=== PATIENT | female | born 1995 | race Caucasian/White ===

== ENCOUNTER 2023-08-08 19:06 | Outpatient (REF) | payer OTHER, SELFPAY ==
[2023-08-13 12:11] LABS: Age Gdln ACOG Testing Note (.); IGP, rfx Aptima HPV ASCU Note (.)
== END 2023-08-08 19:07 | disposition home or self-care (01) ==
LOC: LAB 19:06
PROVIDERS: Visit Provider Physician Assistant
DX: Z01.419 Encounter for gynecological examination (general) (routine) without abnormal findings (principal)
CPT/HCPCS: G0145

== ENCOUNTER 2024-02-26 10:56 | Emergency (ER) | payer OTHER, SELFPAY ==
[2024-02-26] VITALS (7 sets, daily range): BP systolic 105–121; BP diastolic 75–81; PULSE 95; TEMP 36.9; O2SAT 97–100; BMI 29.6
--- NOTE | 2024-02-26 | US_ITS ---
The [address] [address] Patient Name: PAULO LIZAMA MRN: [id number] date: 1995 Sex: F Assigned Patient Location: ER Current Patient Location: ER Accession/Order Number: [id number] Exam Date: 02/26/2024 14:30 Report Date: 02/26/2024 15:18 At the request of: SUSI ORONA Procedure: US vas organ single comp EXAMINATION: US pelvis transvaginal, US vas organ single comp HISTORY: right pelvic pain COMPARISON: CT abdomen pelvis 02/26/2024 TECHNIQUE: Transabdominal and/or transvaginal sonographic examination was performed as indicated by examination type. FINDINGS: UTERUS: Normal size and appearance. Mildly dilated vessels within bilateral adnexa; nonspecific. Uterus size: 7.2 x 5.3 x 4.6 cm ENDOMETRIUM: Normal homogeneous appearance. Endometrial thickness: 8 mm RIGHT OVARY: Contains a 2.4 cm benign-appearing cyst. Duplex Doppler demonstrates normal waveform and flow; resistive index 0.5. Ovary size: 4.7 x 2.6 x 2.4 cm LEFT OVARY: Normal size and appearance. Duplex Doppler demonstrates normal waveform and flow; resistive index 0.6. Ovary size: 2.8 x 2.2 x 2.3 cm CUL-DE-SAC: Unremarkable. No significant free fluid. BLADDER: Unremarkable. OTHER: None. US/US vas organ single comp IMPRESSION: 1. Right ovary contains a 2.4 cm benign-appearing cyst. No torsion or acute findings to account for patient's symptoms. Electronically authenticated by: TISH ROCKWELL Date: 02/26/2024 15:18
--- NOTE | 2024-02-26 11:24 | CT_ITS ---
[address] [address] Patient Name: PAULO LIZAMA MRN: [id number] date: 1995 Sex: F Assigned Patient Location: ER Current Patient Location: Accession/Order Number: [id number] Exam Date: 02/26/2024 12:05 Report Date: 02/26/2024 13:15 At the request of: SUSI ORONA Procedure: CT abdomen pelvis w con EXAMINATION: CT abdomen pelvis w con HISTORY: right lower quadrant pain COMPARISON: CT abdomen pelvis 01/29/2017 TECHNIQUE: Axial, Coronal, and Sagittal images were obtained without and/or with IV contrast as indicated by examination type. Dose reduction techniques were achieved by using automated exposure control and/or adjustment of mA and/or kV according to patient size and/or use of iterative reconstruction technique. FINDINGS: LUNG BASES: No visible pulmonary or pleural disease. LIVER: No enlargement, atrophy, suspicious density, or significant focal lesion. BILIARY: No dilatation or calcification. PANCREAS: No lesion, fluid collection, or abnormal duct dilatation. SPLEEN: No enlargement or focal lesion. ADRENALS: No mass or enlargement. KIDNEYS: No mass, obstruction, or calcification. BOWEL/MESENTERY: Mild circumference wall thickening of transverse and descending colon suspected to be secondary to lack of distention. No surrounding inflammatory changes. No free air, free fluid, or abnormal bowel dilation. Normal appendix. AORTA/VASCULAR: No aneurysm or dissection. RETROPERITONEUM: No mass or adenopathy. LYMPH NODES: No adenopathy. URINARY BLADDER: No visible focal wall thickening, lesion, or calculus. PELVIC ORGANS: 2.9 cm in diameter thick-walled cystic structure within right pelvis suspected to be ovarian in origin. IUD within endometrial cavity. ABDOMINAL WALL: No mass or hernia. BONES: No bony lesion or fracture. OTHER: Negative. CT/CT abdomen pelvis w con IMPRESSION: 1. Thick-walled 2.9 cm diameter cyst within right pelvis suspected to be an ovarian cyst. Consider follow-up ultrasound evaluation. 2. Mild wall thickening of mid and distal colon suspected be secondary to lack of distention. Colitis is felt less likely. Electronically authenticated by: TISH ROCKWELL Date: 02/26/2024 13:15
--- NOTE | 2024-02-26 11:27 | ED.GENADUL1 ---
HPI HPI - General Adult General Chief complaint: Abdominal Pain Stated complaint: RIGHT SIDE PAIN, NAUSEA, VOMITING Time Seen by Provider: 02/26/24 11:24 Source: patient Mode of arrival: walk-in Limitations: no limitations History of Present Illness HPI narrative: Patient is a 28-year-old female who is presenting to the ER today with chief complaint of right lower quadrant pain intermittently for the past week. Patient's been having nausea and vomiting for the past 2 or 3 days. Patient is intermittently able to keep water in. Patient has had an ovarian cyst in the past. Patient saw Dr. Chavez yesterday, had a urine and that were negative, outpatient pelvic ultrasound was ordered and was going to be performed tomorrow as an outpatient. Patient has no history of kidney stone. Patient's had intermittent diarrhea. No vaginal bleeding, discharge or odor. Patient is displaying some signs of peritoneal signs, stating when she twists or turns or bumps in the road do hurt her abdomen. Patient looks very uncomfortable. Patient is concerned about her appendix. All systems are negative except as noted/marked. All systems reviewed and otherwise negative. Nurses note and vital signs reviewed and patient is not hypoxic. General: The patient appears well and in no apparent distress. Patient is resting comfortably on cart. Patient is not toxic, lethargic, or listless Skin: Warm, dry, no pallor noted. There is no rash noted. No petechiae, purpura. Head: Normocephalic, atraumatic Eye: Normal conjunctiva, no drainage, EOMI. PERRL Ears, Nose, Mouth, and Throat: oral mucosa is moist. Nares patent. Mouth without vesicles. Cardiovascular: Regular Rate and Rhythm, no murmur, gallop, rub Respiratory: Patient is in no distress, no accessory muscle use, lungs are clear to auscultation, no wheezing, rales or rhonchi Back: non-tender, no left CVA tenderness to percussion. No CT LS midline pain GI: Patient has moderate tenderness palpation to the right lower quadrant extending down into the right lower pelvic area. No suprapubic tenderness to palpation, no flank pain bilateral, mild peritoneal signs with kicking the bed, mild right flank pain, mild right CVA tenderness palpation, no tenderness to palpation, no masses appreciated. No rebound, guarding, or rigidity noted. No distention. Musculoskeletal: Patient has full range of motion of all of the extremities, no motor, sensory, or focal neurological deficits Neurological: A&O x4, normal speech Psychiatric: Cooperative Related Data Previous Rx's ?Medication ?Instructions ?Recorded ondansetron 4 mg disintegrating 4 mg PO Q4H PRN nausea and 02/26/24 tablet vomiting 3 days #6 tabs Allergies Allergy/AdvReac Type Severity Reaction Status Date / Time Sulfa (Sulfonamide Allergy Hives Verified 02/26/24 11:04 Antibiotics) sulfamethoxazole Allergy Hives Verified 02/26/24 11:04 [From Bactrim] tramadol Allergy Hives Verified 02/26/24 11:04 trimethoprim [From Bactrim] Allergy Hives Verified 02/26/24 11:04 Opioid HPI Opioid Management Most Recent Opioid Data: Last MAR Pain Assessment 02/26/24 14:31 Exam Constitutional Vital Signs, click to edit/add: Last Vital Signs Temp 98.5 F 02/26/24 11:05 Pulse 95 H 02/26/24 11:05 Resp 18 02/26/24 11:05 BP 107/81 02/26/24 12:30 Pulse Ox 99 02/26/24 13:00 O2 Del Method Room Air 02/26/24 11:05 Course Vital Signs Vital signs: Vital Signs Temperature 98.5 F 02/26/24 11:05 Pulse Rate 95 H 02/26/24 11:05 Respiratory Rate 18 02/26/24 11:05 Blood Pressure 105/78 02/26/24 11:05 Pulse Oximetry 100 02/26/24 11:05 Oxygen Delivery Method Room Air 02/26/24 11:05 Temperature 98.5 F 02/26/24 11:05 Pulse Rate 95 H 02/26/24 11:05 Respiratory Rate 18 02/26/24 11:05 Blood Pressure 107/81 02/26/24 12:30 Pulse Oximetry 99 02/26/24 13:00 Oxygen Delivery Method Room Air 02/26/24 11:05 Medical Decision Making MDM Narrative Medical decision making narrative: Patient will have an IV established, and will be given Zofran, Toradol, morphine along with lab work and CT. Patient has been fatigued and tired in the past week, mono will be checked as well. Patient and her boyfriend both have had mono in the past. 1625 patient's lab work showed no significant findings, patient's CT of the abdomen pelvis showed a approximately 3 cm right ovarian cyst. Reassessment at potential discharge time and I was discussing the lab work and CAT scan show that she is still having right lower pelvic pain that has not improved despite medications given. Patient is told Courtney AVILA several times that the pain has not changed in the right lower pelvic area. Patient therefore had a ultrasound of the pelvis to rule any type of torsion, abscess, or any other acute complaints or concerns. Ultrasound shows no other acute findings besides. Patient will be sent home, patient alternate Tylenol and Motrin for pain. Patient was sent home a prescription for Zofran to use as needed. Boyfriend has been at bedside. Education on ovarian cyst and follow-up was discussed with patient. No questions discharged Lab Data Labs: Lab Results 02/26/24 02/26/24 02/26/24 Range/Units 11:10 11:46 12:00 WBC 10.0 (4.0-11.0) 10^3/uL RBC 4.47 (4.20-5.40) 10^6/uL Hgb 14.0 (12.0-16.0) g/dL Hct 41.5 (36.0-48.0) % MCV 92.8 (81.0-99.0) fL MCH 31.3 (26.7-34.0) pg MCHC 33.7 (29.9-35.2) g/dL RDW 12.0 (11.0-15.0) % Plt Count 274 (150-450) 10^3/uL MPV 12.2 (9.5-13.5) fL Neut % (Auto) 58.0 (43.0-75.0) % Lymph % (Auto) 34.3 (20.5-60.0) % [place] % (Auto) 5.7 (1.7-12.0) % Eos % (Auto) 1.0 (0.9-7.0) % Baso % (Auto) 0.7 (0.2-2.0) % Neut # (Auto) 5.8 (1.4-6.5) 10^3/uL Lymph # (Auto) 3.4 (1.2-3.8) 10^3/uL [place] # (Auto) 0.6 (0.3-0.8) 10^3/uL Eos # (Auto) 0.1 (0.0-0.7) 10^3/uL Baso # (Auto) 0.1 (0.0-0.1) 10^3/uL Abs Immat Gran (auto) 0.03 (0.00-0.03) 10^3/uL Imm/Tot Granulo (auto) 0.3 (0.0-0.5) % Sodium 138 (136-145) mmol/L Potassium 3.4 L (3.5-5.1) mmol/L Chloride 104 (98-107) mmol/L Carbon Dioxide 27.6 (21.0-32.0) mmol/L Anion Gap 9.8 BUN 8.0 (7.0-18.0) mg/dL Creatinine 0.84 (0.55-1.02) mg/dL Est GFR ( Amer) >60 (>=60) Est GFR (Non-Af Amer) >60 (>=60) BUN/Creatinine Ratio 9.5 Glucose 91 (74-106) mg/dL Lactate 2.3 H* (0.4-2.0) mmol/L Calcium 8.7 (8.5-10.1) mg/dL Total Bilirubin 0.8 (0.2-1.0) mg/dL AST 12 L (15-37) U/L ALT 19 (14-59) U/L Alkaline Phosphatase 69 (46-116) U/L Total Protein 7.3 (6.4-8.2) g/dL Albumin 3.9 (3.4-5.0) g/dL Globulin 3.4 g/dL Albumin/Globulin Ratio 1.1 Lipase 26.0 (16.0-77.0) U/L Urine Color Lt. yellow (YELLOW) Urine Clarity Clear (CLEAR) Urine pH 7.5 (5.0-9.0) Ur Specific [place] 1.015 (1.005-1.025) Urine Protein Negative (NEG/TRACE) mg/dL Urine Glucose (UA) Negative (NEGATIVE) mg/dL Urine Ketones Negative (NEGATIVE) mg/dL Urine Occult Blood Negative (NEGATIVE) Urine Nitrite Negative (NEGATIVE) Urine Bilirubin Negative (NEGATIVE) Urine Urobilinogen 0.2 (0.2-1.0) EU/dL Ur Leukocyte Esterase Negative (NEGATIVE) Urine RBC 0-2 (0-2) #/HPF Urine WBC 0-2 A (NONE SEEN) #/HPF Ur Squamous Epith Cells Few A (NONE/RARE) #/LPF Urine Crystals None seen (None Seen) #/HPF Urine Bacteria Trace A (NONE SEEN) #/HPF Urine Casts None seen (NONE SEEN) #/LPF Urine Mucus None seen (NONE SEEN) Ur Culture Indicated? No Urine HCG, Qual Negative (NEGATIVE) Monoscreen Negative (NEGATIVE) 02/26/24 Range/Units 14:04 WBC (4.0-11.0) 10^3/uL RBC (4.20-5.40) 10^6/uL Hgb (12.0-16.0) g/dL Hct (36.0-48.0) % MCV (81.0-99.0) fL MCH (26.7-34.0) pg MCHC (29.9-35.2) g/dL RDW (11.0-15.0) % Plt Count (150-450) 10^3/uL MPV (9.5-13.5) fL Neut % (Auto) (43.0-75.0) % Lymph % (Auto) (20.5-60.0) % [place] % (Auto) (1.7-12.0) % Eos % (Auto) (0.9-7.0) % Baso % (Auto) (0.2-2.0) % Neut # (Auto) (1.4-6.5) 10^3/uL Lymph # (Auto) (1.2-3.8) 10^3/uL [place] # (Auto) (0.3-0.8) 10^3/uL Eos # (Auto) (0.0-0.7) 10^3/uL Baso # (Auto) (0.0-0.1) 10^3/uL Abs Immat Gran (auto) (0.00-0.03) 10^3/uL Imm/Tot Granulo (auto) (0.0-0.5) % Sodium (136-145) mmol/L Potassium (3.5-5.1) mmol/L Chloride (98-107) mmol/L Carbon Dioxide (21.0-32.0) mmol/L Anion Gap BUN (7.0-18.0) mg/dL Creatinine (0.55-1.02) mg/dL Est GFR ( Amer) (>=60) Est GFR (Non-Af Amer) (>=60) BUN/Creatinine Ratio Glucose (74-106) mg/dL Lactate 0.7 (0.4-2.0) mmol/L Calcium (8.5-10.1) mg/dL Total Bilirubin (0.2-1.0) mg/dL AST (15-37) U/L ALT (14-59) U/L Alkaline Phosphatase (46-116) U/L Total Protein (6.4-8.2) g/dL Albumin (3.4-5.0) g/dL Globulin g/dL Albumin/Globulin Ratio Lipase (16.0-77.0) U/L Urine Color (YELLOW) Urine Clarity (CLEAR) Urine pH (5.0-9.0) Ur Specific [place] (1.005-1.025) Urine Protein (NEG/TRACE) mg/dL Urine Glucose (UA) (NEGATIVE) mg/dL Urine Ketones (NEGATIVE) mg/dL Urine Occult Blood (NEGATIVE) Urine Nitrite (NEGATIVE) Urine Bilirubin (NEGATIVE) Urine Urobilinogen (0.2-1.0) EU/dL Ur Leukocyte Esterase (NEGATIVE) Urine RBC (0-2) #/HPF Urine WBC (NONE SEEN) #/HPF Ur Squamous Epith Cells (NONE/RARE) #/LPF Urine Crystals (None Seen) #/HPF Urine Bacteria (NONE SEEN) #/HPF Urine Casts (NONE SEEN) #/LPF Urine Mucus (NONE SEEN) Ur Culture Indicated? Urine HCG, Qual (NEGATIVE) Monoscreen (NEGATIVE) Discharge Plan Discharge Stand Alone Forms: Work/School Release, Portal Instructions Chief Complaint: Abdominal Pain Clinical Impression: Abdominal pain, Cyst of right ovary Patient Disposition: Home, Self-Care Time of Disposition Decision: 16:24 Condition: Fair Prescriptions / Home Meds: New ondansetron 4 mg tablet,disintegrating 4 mg PO Q4H PRN (Reason: nausea and vomiting) 3 Days Qty: 6 0RF Print Language: Occitan Instructions: Ovarian Cyst (ED), Abdominal Pain (ED) Additional Instructions: Alternate Tylenol and either Motrin, Advil, or ibuprofen every 4 hours to help with pain. Maximum dose of Tylenol is 3000 mg a day. Maximum dose of either Motrin, Advil, or ibuprofen is 2400 mg a day. Follow-up with Dr. Chavez. A copy of your CAT scan report and your ultrasound report have been given to you. Referrals: Michael Chavez DO [Physician] - 1 week Physician,Non-Staff, MD [Primary Care Provider] - 1 week
[2024-02-26 11:31] LABS: Basophils Absolute Auto 0.1 10^3/uL (0.0-0.1); Basophils Percent Auto 0.7 % (0.2-2.0); Eosinophils Absolute Auto 0.1 10^3/uL (0.0-0.7); Hematocrit 41.5 % (36.0-48.0); Immature Granulocytes Abs Auto 0.03 10^3/uL (0.00-0.03); Immature Granulocytes Pct Auto 0.3 % (0.0-0.5); Lymphocytes Absolute Auto 3.4 10^3/uL (1.2-3.8); Lymphocytes Percent Auto 34.3 % (20.5-60.0); Mean Corpuscular HGB Conc 33.7 g/dL (29.9-35.2); Mean Corpuscular Hemoglobin 31.3 pg (26.7-34.0); Mean Corpuscular Volume 92.8 fL (81.0-99.0); Mean Platelet Volume 12.2 fL (9.5-13.5); Monocytes Absolute Auto 0.6 10^3/uL (0.3-0.8); Monocytes Percent Auto 5.7 % (1.7-12.0); Neutrophils Absolute Auto 5.8 10^3/uL (1.4-6.5); Platelet Count 274 10^3/uL (150-450); Red Blood Count 4.47 10^6/uL (4.20-5.40)
[2024-02-26] MEDS: MORPHINE SULFATE 4 MG/ML VIAL IV ×2 (11:37→14:31)
[2024-02-26] MEDS: ONDANSETRON PF 4 MG/2 ML VIAL IV (11:37)
[2024-02-26] MEDS: KETOROLAC TROMETHAMINE 30 MG/ML VIAL 15 MG IVP (11:37)
[2024-02-26] MEDS: 0.9 % SODIUM CHLORIDE 1,000 ML 100 ML IV (11:37)
--- OUTSIDE RECORDS SUMMARY | 2024-02-26 11:45 | XMS_ITS | CCD ---
Author Organization [facility] Care Team Providers Care System Sales Consultant Name Role Phone Back, Adi Unavailable BACK, ADI Unavailable Unavailable LELESONDAVID Unavailable Unavail able BACK, ADI Unavailable Unavailable BACK, ADI Unavailable Unavailable LEESON, DAVID SUN Unavailable Unavail able BACK, ADI Unavailable Unavailable LEESON, DAVID COMBSER Unavailable Unavail able BACK, ADI Unavailable Unavailable LEESON, DAVID FLORESOPHER Unavailable Unavail able BACK, ADI Unavailable Unavailable Leeson, David C Unavailable Unavailable Leeson, David C Unavailable Unavailable Leeson, David C Unavailable Unavailable Leeson, David C Unavailable Unavailable Back, Bill Primary Care Provider MITCHEL BISWAS Attending Unavailable Back, Adi Primary Care Provider BACK, ADI Primary Care Unavailable BACK, ADI Referring Unavailable JESSICA ESQUIVEL Referring Unavailable BACK, ADI Primary Care Unavailable BACK, ADI Primary Care Unavailable SAILAJA TINEO Referring Unavailable BACK, ADI Primary Care Unavailable SAILAJA TINEO Referring Unavailable Lily CARRILLO Primary Care Physician DR ASH YU Attending Unavailable AIMEE, DR ALEMAN Admitting Unavailable AIMEE, DR ALEMAN Consulting Unavailable DR ASH YU Attending Unavailable AIMEE, DR ALEMAN Admitting Unavailable Seth HOROWITZ Primary Care Physician Kristyn Kowalski Primary Care Physician [phone] NONE, XXXX Primary Care Physician Unavailab GRISELDA Vance Attending Unavailable ASH YU Attending Unavailable ASH YU Attending Unavailable Ayde WEINER Attending Unavailable Hay Dowling Attending Unavailable KRISTYN KOWALSKI Attending Unavailable SHERRIE BUNN Attending Unavailable Ayde WEINER Attending Unavailable Sherin Cheatham Attending Unavailable Ayde WEINER Attending Unavailable KRISTYN KOWALSKI Admitting Unavailable KRISTYN KOWALSKI Attending Unavailable Allergies Allergy Classification Reported Allergen(s) Allergy Type Date of Onset Reaction(s) Facility (12 sources) fluticasone; Translations: [FLUTICASONE PROPIONATE] Propensity to adverse reactions to drug 03-08-20 17 Other (See Comments) [facility] (18 sources) sulfamethoxazole / trimethoprim; Translations: [SULFAMETHOXAZOLE-T RIMETHOPRIM] Propensity to adverse reactions to drug 08-28-19 17 [facility] (4 sources) sulfaSALAzine; Translations: [SULFASALAZINE] Propensity to adverse reactions to drug 03-25-20 15 Rash [facility] (20 sources) traMADol; Translations: [TRAMADOL] Propensity to adverse reactions to drug 11-22-19 16 Bactrim, unknown [facility] (6 sources) Sulfonamides (Antibiotic) Propensity to adverse reactions to drug 03-25-20 15 Rash [facility] Work Phone: (4 sources) redtop grass pollen extract Drug Allergy 02-22-20 18 [place], [place] (4 sources) Coconut Flavor Propensity to adverse reactions to drug 02-22-20 18 [place] (11 sources) Adhesive Tape; Translations: [Tape] Drug allergy Eruption of skin (disorder) [facility] [place] (11 sources) Bee/Wasp/Ant venom; Translations: [Bee Stings] Drug allergy Swelling (finding) [facility] (11 sources) Sulfonamides (Antibiotic); Translations: [sulfa drugs] [facility] Sulfamethoxazole / Trimethoprim; Translations: [Bactrim] Drug Allergy [facility] (1 source) traMADol; Translations: [Ultram] Drug Allergy [facility] Medications Current Medications Medication Drug Class(es) Dates Sig (Normalized) Sig (Original) acetaminophen 325 mg / HYDROcodone bitartrate 5 mg oral tablet (1 source) Opioid Agonist Start: 08-16-2019 take 1 tablet by mouth every six hours as needed for pain HYDROcodone-acetam inophen (NORCO) 5-325 MG per tablet TAKE 1 TABLET BY MOUTH EVERY 6 HOURS NEEDED FOR PAIN 0 08/16/2019 Active 200 actuat albuterol 0.09 mg/actuat metered dose inhaler (7 sources) beta2-Adrenergic Agonist Start: 03-21-2020 take 2 puff(s) by inhalation every six hours as needed for wheezing albuterol sulfate HFA (PROVENTIL HFA) 108 (90 Base) MCG/ACT inhaler Indications: Mild intermittent asthma without complication Inhale 2 puffs into the lungs every 6 hours as needed for Wheezing 1 Inhaler 5 03/21/2020 Active Start: 07-15-2017 albuterol 90 m cg/actuation inhaler Inhale. 07/15/2017 Active amoxicillin 875 mg / clavulanate 125 mg oral tablet (1 source) Penicillin-class Antibacterial Start: 08-22-2022 End: 08-29-2022 take 1 tablet by mouth every twelve hours Augmentin 875 mg oral tablet = 1 tab(s), Oral, q12hr, X 7 day(s), # 14 tab(s), Refills(s) 0, Pharmacy: [facility] #16, 170, cm, 08/22/22 11:34:00 EST, Height/Length Dosing, 84.5, kg, 08/22/22 11:34:00 EST, Weight Dosing Start Date: 08/22/22 Stop Date: 08/29/22 Status: Ordered ARIPiprazole 15 mg oral tablet (4 sources) Atypical Antipsychotic Start: 10-11-2021 take 1 tablet by mouth once daily aripiprazole 15 mg Tab 15 mg = 1 tab(s), Oral, Daily, # 30 tab(s), Refills(s) 2, Pharmacy: [facility] #16, 170, cm, 10/11/21 10:48:00 EDT, Height/Length Dosing, 77, kg, 10/11/21 10:48:00 EDT, Weight Dosing Start Date: 10/11/21 Status: Ordered brompheniramine maleate 0.4 mg/ml / dextromethorphan hydrobromide 2 mg/ml / pseudoephedrine hydrochloride 6 mg/ml oral solution (1 source) alpha-Adrenergic Agonist, Uncompetitive S-teoxjh-E-aspartate Receptor Antagonist, Sigma-1 Agonist Start: 01-01-2023 take 5 mL by mouth four times daily for cough and congestion Bromfed DM oral syrup 5 mL, Oral, QID for cough and congestion, 200 mL, Refill(s) 0, [facility]16, 170, cm, 01/01/23 15:34:00 EDT, Height/Length Dosing, 80.6, kg, 01/01/23 15:34:00 EDT, Weight Dosing Start Date: 01/01/23 Status: Ordered 60 actuat budesonide 0.16 mg/actuat / formoterol fumarate 0.0045 mg/actuat metered dose inhaler (7 sources) Corticosteroid, beta2-Adrenergic Agonist Start: 03-21-2020 take 2 puff(s) by mouth twice daily budesonide-formot allyson (SYMBICORT) 160-4.5 MCG/ACT AERO Indications: Mild intermittent asthma without complication Inhale 2 puffs into the lungs 2 times daily Rinse mouth after use. 1 Inhaler 5 03/21/2020 Active Start: 07-15-2017 budesonide-for moterol (SYMBICORT) 160-4.5 mcg/actuation inhaler Inhale. 07/15/2017 Active budesonide-formoterol 160 mcg-4.5 mcg/inh Inh Aer w/adapter (4 sources) Start: 05-10-2021 budesonide-formoterol 160 mcg-4.5 mcg/inh Inh Aer w/adapter 2 puff(s), Inhalation, BID, 1 EA, Refill(s) 2, rinse mouth and throat after use, [facility], 170, cm, 05/10/21 11:43:00 EDT, Height/Length Dosing, 78.3, kg, 05/10/21 11:43:00 EDT, Weight Dosing Start Date: 05/10/21 Status: Ordered cetirizine hydrochloride 10 mg oral tablet (11 sources) Histamine-1 Receptor Antagonist Start: 05-10-2021 take 1 tablet by mouth once daily cetirizine 10 mg Tab 10 mg = 1 tab(s), Oral, Daily, # 30 tab(s), Refills(s) 2, Pharmacy: [facility] #16, 170, cm, 05/10/21 11:43:00 EDT, Height/Length Dosing, 78.3, kg, 05/10/21 11:43:00 EDT, Weight Dosing Start Date: 05/10/21 Status: Ordered Start: 03-21-2020 take 1 tablet by april once daily cetirizine (ZYRTEC) 10 MG tablet Indications: Seasonal allergic rhinitis due to pollen Take 1 tablet by mouth daily 30 tablet 5 03/21/2020 Active Start: 07-15-2017 cetirizine (ZY RTEC) 10 MG tablet Take 10 mg by mouth. 07/15/2017 Active coenzyme q10 200 mg oral capsule (1 source) Start: 09-02-2018 take 1 capsule by mouth once daily Coenzyme Q10 200 MG CAPS Indications: Migraine with aura and without status migrainosus, not intractable Take 1 capsule by mouth daily 30 capsule 5 09/02/2018 Active cyclobenzaprine hydrochloride 10 mg oral tablet (3 sources) Muscle Relaxant Start: 10-08-2017 cyclobenzaprine (FLEXERIL) 10 MG tablet [id number] 0.3 ml EPINEPHrine 1 mg/ml auto-injector (10 sources) alpha-Adrenergic Agonist, beta-Adrenergic Agonist, Catecholamine Start: 01-13-2021 EpiPen 2-Laci 0.3 mg injectable kit 0.3 mg = 1 EA, IntraMuscular, As Directed, PRN Anaphylaxis, # 1 EA, Refills(s) 0, Pharmacy: [facility] #16, 170, cm, 01/13/21 13:18:00 EDT, Height/Length Dosing, 75.8, kg, 01/13/21 13:18:00 EDT, Weight Dosing Start Date: 01/13/21 Status: Ordered Start: 01-13-2021 EpiPen 2-Laci 0 .3 mg injectable kit 0.3 mg = 1 EA, IntraMuscular, As Directed, PRN Anaphylaxis, # 1 EA, Refills(s) 0, Pharmacy: [facility] #16, 170, cm, 01/13/21 13:18:00 EDT, Height/Length Dosing, 75.8, kg, 01/13/21 13:18:00 EDT, Weight Dosing Start Date: 01/13/21 Status: Ordered ethinyl estradiol 0.035 mg / norgestimate 0.25 mg oral tablet (1 source) Progestin, Estrogen Start: 08-18-2019 take 1 tablet by mouth once daily norgestimate-ethinyl estradiol (ORTHO-CYCLEN, 28,) 0.25-35 MG-MCG per tablet Indications: Ruptured ovarian cyst Take 1 tablet by mouth daily 1 packet 3 08/18/2019 Active etonogestrel 68 mg drug implant (1 source) Progestin etonogestrel (NE XPLANON) 68 MG implant 68 mg by Subdermal route once 0 Active FLUoxetine 40 mg oral capsule (3 sources) Serotonin Reuptake Inhibitor Start: 10-08-2017 FLUoxetine (PROZAC) 40 MG capsule Take 40 mg by mouth. 10/08/2017 Active fluticasone propionate 0.5 mg/ml topical cream (6 sources) Corticosteroid Start: 10-11-2021 fluticasone topical 0.05% cream 1 natalia, Topical, BID, 30 gram, Refill(s) 2, [facility] #16, 170, cm, 10/11/21 10:48:00 EDT, Height/Length Dosing, 77, kg, 10/11/21 10:48:00 EDT, Weight Dosing Start Date: 10/11/21 Status: Ordered Start: 10-11-2021 fluticasone to pical 0.05% cream 1 natalia, Topical, BID, 30 gram, Refill(s) 2, [facility], 170, cm, 10/11/21 10:48:00 EDT, Height/Length Dosing, 77, kg, 10/11/21 10:48:00 EDT, Weight Dosing Start Date: 10/11/21 Status: Ordered Start: 05-10-2021 fluticasone 0. 05 mg/inh Nasal [place] 2 spray(s), Nasal, Daily Congestion, 16 gram, Refill(s) 2, each nostril, [facility], 170, cm, 05/10/21 11:43:00 EDT, Height/Length Dosing, 78.3, kg, 05/10/21 11:43:00 EDT, Weight Dosing Start Date: 05/10/21 Status: Ordered fluticasone 0.05 mg/inh Nasal [place] (2 sources) Start: 05-10-2021 fluticasone 0. 05 mg/inh Nasal [place] 2 spray(s), Nasal, Daily Congestion, 16 gram, Refill(s) 2, each nostril, [facility]16, 170, cm, 05/10/21 11:43:00 EDT, Height/Length Dosing, 78.3, kg, 05/10/21 11:43:00 EDT, Weight Dosing Start Date: 05/10/21 Status: Ordered ibuprofen 800 mg oral tablet (8 sources) Nonsteroidal Anti-inflammatory Drug Start: 09-03-2019 take 1 tablet by mouth every eight hours as needed for pain ibuprofen (ADVIL;MOTRIN) 800 MG tablet TAKE 1 TABLET BY MOUTH EVERY 8 HOURS NEEDED FOR PAIN 0 09/03/2019 Active Start: 04-20-2016 take 1 tablet by april th every six hours at mealtime Motrin 600 mg Tab 600 mg = 1 tab(s), Oral, q6hr, take with food, # 20 tab(s), Refills(s) 0, Pharmacy: [facility] Start Date: 04/20/16 Status: Ordered Magnesium (4 sources) Start: 09-02-2018 take 1 tablet by mouth once daily in the evening Magnesium 500 MG TABS Indications: Migraine with aura and without status migrainosus, not intractable Take 1 tablet by mouth every evening 30 tablet 5 09/02/2018 Active meloxicam 15 mg oral tablet (3 sources) Nonsteroidal Anti-inflammatory Drug Start: 2017 meloxicam (MOBIC) 15 MG tablet Take 15 mg by mouth. 2017 Active montelukast 10 mg oral tablet (13 sources) Leukotriene Receptor Antagonist Start: 05-10-2021 take 1 tablet by mouth once daily in the evening Singulair 10 mg Tab 10 mg = 1 tab(s), Oral, qPM, # 30 tab(s), Refills(s) 2, Pharmacy: [facility] #16, 170, cm, 05/10/21 11:43:00 EDT, Height/Length Dosing, 78.3, kg, 05/10/21 11:43:00 EDT, Weight Dosing Start Date: 05/10/21 Status: Ordered Start: 03-21-2020 take 1 tablet by april th once daily montelukast (SINGULAIR) 10 MG tablet Indications: Mild intermittent asthma without complication Take 1 tablet by mouth nightly 30 tablet 5 03/21/2020 Active Start: 09-12-2017 montelukast (S INGULAIR) 10 mg tablet Take 10 mg by mouth. 09/12/2017 Active nitrofurantoin, macrocrystals 25 mg / nitrofurantoin, monohydrate 75 mg oral capsule (3 sources) Nitrofuran Antibacterial Start: 09-12-2017 nitrofurantoin, macrocrystal-monohydrate, (MACROBID) 100 MG capsule olopatadine 1 mg/ml ophthalmic solution (7 sources) Histamine-1 Receptor Inhibitor Start: 07-21-2020 take 1 drop(s) into the eye(s) twice daily olopatadine ophthalmic 0.1% solution 1 drop(s), Eye-Both, BID, 5 mL, Refill(s) 0 Start Date: 07/21/20 Status: Ordered Start: 07-21-2020 take 1 drop(s) into the eye(s) twice daily olopatadine ophthalmic 0.1% solution 1 drop(s), Eye-Both, BID, 5 mL, Refill(s) 0 Start Date: 07/21/20 Status: Ordered Start: 05-16-2020 End: 06-15-2020 take 1 drop(s) into the eye(s) twice daily olopatadine (PATANOL) 0.1 % ophthalmic solution Indications: Seasonal allergic rhinitis due to pollen Place 1 drop into both eyes 2 times daily 1 Bottle 1 05/16/2020 06/15/2020 Active omeprazole 20 mg delayed release oral capsule (2 sources) Proton Pump Inhibitor Start: 07-04-2022 take 1 capsule by mouth once daily omeprazole 20 mg Cap-DR 20 mg = 1 cap(s), Oral, Daily, # 30 cap(s), Refills(s) 2, Pharmacy: [facility] #16, 170, cm, 07/04/22 15:41:00 EST, Height/Length Dosing, 84, kg, 07/04/22 15:41:00 EST, Weight Dosing Start Date: 07/04/22 Status: Ordered ondansetron 4 mg oral tablet (13 sources) Serotonin-3 Receptor Antagonist Start: 07-04-2022 take 1 tablet by mouth every eight hours as needed for nausea ondansetron 4 mg Tab 4 mg = 1 tab(s), Oral, q8hr, PRN Nausea/Vomiting, # 30 tab(s), Refills(s) 0, Pharmacy: [facility] #16, 170, cm, 07/04/22 15:41:00 EST, Height/Length Dosing, 84, kg, 07/04/22 15:41:00 EST, Weight Dosing Start Date: 07/04/22 Status: Ordered Start: 10-11-2021 take 1 tablet by april th every eight hours as needed for nausea ondansetron 4 mg Tab 4 mg = 1 tab(s), Oral, q8hr, PRN Nausea/Vomiting, # 30 tab(s), Refills(s) 2, Pharmacy: [facility] #16, 170, cm, 10/11/21 10:48:00 EDT, Height/Length Dosing, 77, kg, 10/11/21 10:48:00 EDT, Weight Dosing Start Date: 10/11/21 Status: Ordered Start: 05-23-2020 take 1 tablet by april th three times daily as needed for nausea ondansetron (ZOFRAN-ODT) 4 MG disintegrating tablet Indications: Non-intractable vomiting with nausea, unspecified vomiting type Take 1 tablet by mouth 3 times daily as needed for Nausea or Vomiting 21 tablet 0 05/23/2020 Active Start: 05-18-2020 take 1 tablet by april th three times daily as needed for nausea ondansetron (ZOFRAN) 4 MG tablet Take 1 tablet by mouth 3 times daily as needed for Nausea or Vomiting 15 tablet 0 05/18/2020 Active Start: 12-09-2017 take 1 tablet by april th every eight hours as needed for nausea ondansetron (ZOFRAN) 4 MG tablet Indications: Nausea and vomiting, intractability of vomiting not specified, unspecified vomiting type Take 1 tablet by mouth every 8 hours as needed for Nausea or Vomiting 10 tablet 0 12/09/2017 Active Previfem 0.25 Mg-35 McG Tablet (3 sources) Start: 08-06-2017 PREVIFEM 0.25-35 mg-mcg per tablet promethazine hydrochloride 12.5 mg oral tablet (1 source) Phenothiazine Start: 01-01-2023 take 1 tablet by mouth every four hours as needed for nausea promethazine 12.5 mg oral tablet 12.5 mg = 1 tab(s), Oral, q4hr, PRN for nausea/vomiting, # 60 tab(s), Refills(s) 0, Pharmacy: [facility] #16, 170, cm, 01/01/23 15:34:00 EDT, Height/Length Dosing, 80.6, kg, 01/01/23 15:34:00 EDT, Weight Dosing Start Date: 01/01/23 Status: Ordered Pyrilamine 30 Mg-Dextromethorphan 30 Mg Tablet (3 sources) Start: 2017 pyrilamine-dextrome thorphan 30-30 mg Tab 1 tablet every 6 hours as needed. 2017 Active QUEtiapine 400 mg oral tablet (4 sources) Atypical Antipsychotic Start: 05-22-2021 take 1 tablet by mouth at bedtime Seroquel 400 mg oral tablet 400 mg = 1 tab(s), Oral, Bedtime, # 30 tab(s), Refills(s) 2, Pharmacy: [facility]16, 170, cm, 05/22/21 8:20:00 EST, Height/Length Dosing, 75.7, kg, 05/22/21 8:20:00 EST, Weight Dosing Start Date: 05/22/21 Status: Ordered raNITIdine 150 mg oral tablet (11 sources) Histamine-2 Receptor Antagonist Start: 04-17-2016 take 150 mg by mouth once daily Zantac 150 mg, Oral, Daily, Refills(s) 0 Start Date: 04/17/16 Status: Ordered rimegepant 75 mg disintegrating oral tablet (10 sources) Start: 07-04-2022 take 1 tablet by mouth once, then take 1 tablet by mouth every twenty-four hours Nurtec ODT 75 mg oral tablet, disintegrating 75 mg = 1 tab(s), Oral, Once, not to exceed 75 mg in 24 hours, # 1 tab(s), Refills(s) 0, Pharmacy: [facility] #16, 170, cm, 07/04/22 15:41:00 EST, Height/Length Dosing, 84, kg, 07/04/22 15:41:00 EST, Weight Dosing Start Date: 07/04/22 Status: Ordered Start: 05-10-2021 take 1 tablet by april th once as needed for headache Nurtec ODT 75 mg oral tablet, disintegrating 75 mg = 1 tab(s), Oral, Once, PRN as needed for migraine headache, # 8 tab(s), Refills(s) 0, Pharmacy: [facility] #16, 170, cm, 05/10/21 11:43:00 EDT, Height/Length Dosing, 78.3, kg, 05/10/21 11:43:00 EDT, Weight Dosing Start Date: 05/10/21 Status: Ordered sertraline 100 mg oral tablet (4 sources) Serotonin Reuptake Inhibitor Start: 05-16-2020 take 1 tablet by mouth once daily sertraline (ZOLOFT) 100 MG tablet Indications: Depression with anxiety Take 1 tablet by mouth daily 30 tablet 3 05/16/2020 Active Start: 03-21-2020 take 1 tablet by april th once daily sertraline (ZOLOFT) 50 MG tablet Indications: Depression with anxiety Take 1 tablet by mouth daily 30 tablet 5 03/21/2020 Active SUMAtriptan 50 mg oral tablet (4 sources) Serotonin-1b and Serotonin-1d Receptor Agonist Start: 03-21-2020 take 1 tablet by mouth once as needed SUMAtriptan (IMITREX) 50 MG tablet Take 1 tablet by mouth once as needed for Migraine 9 tablet 3 03/21/2020 Active Completed/Discontinued Medications Medication Drug Class(es) Dates Sig (Normalized) Sig (Original) levonorgestrel 0.098640 mg/hr intrauterine system (13 sources) Progestin, Progestin-containin g Intrauterine Device Start: 07-21-2020 Mirena 52 mg intrauteral device 52 mg = 1 EA, IntraUteral, Once, X 1 dose(s), # 1 EA, Refills(s) 0 Start Date: 07/21/20 Status: Ordered levonorgestrel ( MIRENA) IUD 52 mg 1 each by Intrauterine route once 0 Active predniSONE 20 mg oral tablet (1 source) Corticosteroid Start: 10-15-2017 End: 10-25-2017 predniSONE (DELTASONE) 20 MG tablet 3 tablets daily x 3 days then 2 tablets daily x 2 days then 1 tablet daily x 2 days. 10/15/2017 10/25/2017 Ventolin HFA 90 mcg/inh Aerosol (4 sources) Start: 05-10-2021 take 1 dose by inhalation four times daily Ventolin HFA 90 mcg/inh Aerosol 2 puff(s), Inhalation, QID Cough, 1 EA, Refill(s) 0, [facility], 170, cm, 05/10/21 11:43:00 EDT, Height/Length Dosing, 78.3, kg, 05/10/21 11:43:00 EDT, Weight Dosing Start Date: 05/10/21 Status: Ordered Problems Active Problems Problem Classification Problem Date Documented Date Episodic/Chronic Abdominal pain (12 sources) Right lower quadrant pain; Translations: [Right upper quadrant pain] 07-04-2022 Episodic Allergic reactions (11 sources) Eczema; Translations: [Dermatitis, unspecified] Onset: 10-11-2021 Episodic Anxiety disorders (15 sources) Mixed anxiety and depressive disorder; Translations: [Generalized anxiety disorder] Onset: 03-08-2017 03-08-2017 Chronic Asthma (18 sources) Asthma; Translations: [Acute exacerbation of asthma] Onset: 07-17-2012 Resolved: 11-22-2015 12-28-2013 Chronic Conditions associated with dizziness or vertigo (1 source) Dizziness 05-10-2021 Episodic Esophageal disorders (4 sources) Gastroesophageal reflux disease; Translations: [GERD (gastroesophageal reflux disease)] Onset: 12-28-2013 12-28-2013 Chronic Headache; including migraine (11 sources) Migraine; Translations: [Refractory migraine without aura] Onset: 11-29-2021 07-21-2020 Chronic Immunizations and screening for infectious disease (2 sources) Contact with and (suspected) exposure to other viral communicable diseases; Translations: [Encounter for screening for human papillomavirus (HPV)] Onset: 02-09-2022 Episodic Malaise and fatigue (1 source) Fatigue; Translations: [Fatigue, unspecified type] Episodic Menstrual disorders (10 sources) Amenorrhea 08-26-2020 Chronic Mood disorders (12 sources) Bipolar affective disorder, current episode mixed; Translations: [Bipolar disorder, current episode mixed, unspecified] Onset: 10-11-2021 Chronic Nausea and vomiting (11 sources) Nausea and vomiting; Translations: [Nausea with vomiting, unspecified] Onset: 10-11-2021 Episodic Nonspecific chest pain (3 sources) Chest pain; Translations: [Chest pain, unspecified] Onset: 08-01-2018 Episodic Other connective tissue disease (4 sources) Bursopathy, unspecified; Translations: [Unspecified disorder of synovium and tendon, unspecified shoulder] Onset: 10-25-2017 Episodic Other endocrine disorders (5 sources) Hypoglycemia; Translations: [Hypoglycemia, unspecified] Onset: 11-15-2022 Chronic Other infections; including parasitic (1 source) History of glandular fever; Translations: [History of mononucleosis] Episodic Other liver diseases (1 source) Elevated liver enzymes level 08-31-2020 Episodic Other nervous system disorders (5 sources) Tremor; Translations: [Tremor, unspecified] Onset: 11-15-2022 Episodic Other nutritional; endocrine; and metabolic disorders (10 sources) Body mass index 25-29 - overweight 05-22-2021 Episodic Other nutritional; endocrine; and metabolic disorders (12 sources) Overweight; Translations: [Overweight] Onset: 11-29-2021 12-22-2020 Episodic Other nutritional; endocrine; and metabolic disorders (3 sources) Overweight in adulthood with body mass index of 25 or more but less than 30; Translations: [Body mass index (BMI) 29.0-29.9, adult] Onset: 08-22-2022 Episodic Other screening for suspected conditions (not mental disorders or infectious disease) (4 sources) Encounter for screening for malignant neoplasm of cervix; Translations: [ENC SCREENING MALIG NEOPLASM CERV] Onset: 02-06-2022 Episodic Other upper respiratory disease (4 sources) Allergic rhinitis due to pollen; Translations: [Seasonal allergic rhinitis due to pollen] Onset: 03-08-2017 03-08-2017 Chronic Other upper respiratory disease (11 sources) Seasonal allergic rhinitis; Translations: [Other seasonal allergic rhinitis] Onset: 02-27-2022 07-21-2020 Chronic Other upper respiratory infections (10 sources) Viral upper respiratory tract infection; Translations: [Acute upper respiratory infection] Onset: 02-27-2022 Episodic Residual codes; unclassified (1 source) Other general symptoms and signs; Translations: [Other general symptoms and signs] Onset: 09-17-2023 Episodic Unclassified (7 sources) Patient encounter status; Translations: [Screening cholesterol level] 07-13-2022 Unclassified (10 sources) Grieving process stage - finding 07-21-2020 Viral infection (1 source) Viral disease; Translations: [Viral infection, unspecified] Onset: 09-17-2023 Episodic Past or Other Problems Problem Classification Problem Date Documented Da te Episodic/Chronic Other non-traumatic joint disorders (7 sources) Disorder of shoulder; Translations: [Bursitis/tendoniti s, shoulder] Onset: 10-25-2017 10-25-2017 Episodic Sprains and strains (9 sources) Shoulder strain; Translations: [Strain of unspecified muscle, fascia and tendon at shoulder and upper arm level, right arm, initial encounter] Onset: 10-25-2017 10-25-2017 Episodic Unclassified (10 sources) Onset: 10-07-2015 Resolved: 04-18-2016 04-20-2016 Results Test Name Value Interpretation Reference Range Facility Patient Educationon 10-11-19 Patient Education Infectious Disease Sore Throat A sore throat is pain, burning, irritation, or scratchiness in the throat. When you have a sore throat, you may feel pain or tenderness in your throat when you swallow or talk. Many things can cause a sore throat, including: ? An infection. ? Seasonal allergies. ? Dryness in the air. ? Irritants, such as smoke or pollution. ? Radiation treatment for cancer. ? Gastroesophageal reflux disease (GERD). ? A tumor. A sore throat is often the first sign of another sickness. It may happen with other symptoms, such as coughing, sneezing, fever, and swollen neck glands. Most sore throats go away without medical treatment. Follow these instructions at home: Medicines ? Take kzfe-dgo-fmhbftu and prescription medicines only as told by your health care provider. ? Children often get sore throats. Do not give your child aspirin because of the association with Bettina's syndrome. ? Use throat sprays to soothe your throat as told by your health care provider. Managing pain To help with pain, try: ? Sipping warm liquids, such as broth, herbal tea, or warm water. ? Eating or drinking cold or frozen liquids, such as frozen ice pops. ? Gargling with a mixture of salt and water 3?4 times a day or as needed. To make salt water, completely dissolve ??1 tsp (3?6 g) of salt in 1 cup (237 mL) of warm water. ? Sucking on hard candy or throat lozenges. ? Putting a cool-mist humidifier in your bedroom at night to moisten the air. ? Sitting in the bathroom with the door closed for 5?10 minutes while you run hot water in the shower. General instructions ? Do not use any products that contain nicotine or tobacco. These products include cigarettes, chewing tobacco, and vaping devices, such as e-cigarettes. If you need help quitting, ask your health care provider. ? Rest as needed. ? Drink enough fluid to keep your urine pale yellow. ? Wash your hands often with soap and water for at least 20 seconds. If soap and water are not available, use hand chief sustainability officer. Contact a health care provider if: ? You have a fever for more than 2?3 days. ? You have symptoms that last for more than 2?3 days. ? Your throat does not get better within 7 days. ? You have a fever and your symptoms suddenly get worse. Get help right away if: ? You have difficulty breathing. ? You cannot swallow fluids, soft foods, or your saliva. ? You have increased swelling in your throat or neck. ? You have persistent nausea and vomiting. These symptoms may represent a serious problem that is an emergency. Do not wait to see if the symptoms will go away. Get medical help right away. Call your local emergency services (911 in the [place] Do not drive yourself to the hospital. Summary ? A sore throat is pain, burning, irritation, or scratchiness in the throat. Many things can cause a sore throat. ? Take loui-tgd-ipxwdjp medicines only as told by your health care provider. ? Rest as needed. ? Drink enough fluid to keep your urine pale yellow. ? Contact a health care provider if your throat does not get better within 7 days. This information is not intended to replace advice given to you by your health care provider. Make sure you discuss any questions you have with your health care provider. Document Revised: 09/20/2021 Document Reviewed: 09/20/2021 [employer] Patient Education ? 2022 [employer] [facility] Ambulatory Visit Summaryon 0 09-17-2023 Ambulatory Visit Summary SNEHAL LIZAMA:1995 Visit Date:09/17/2023 Ambulatory Visit Instructions Your Diagnosis Viral illness Flu-like symptoms BMI 29.0-29.9,adult Your Care Team Attending Physician - Josey RAMAN-, Hay Mendoza Primary Care Physician - NONE, XXXX This Is Your Medications List Contact prescribing physician if questions or concerns epinephrine (EpiPen 2-Laci 0.3 mg injectable kit) levonorgestrel (Mirena 52 mg intrauteral device) rimegepant (Nurtec ODT 75 mg oral tablet, disintegrating) Procedures Performed tonsils and tubes in ears (2000). Discharge Vitals Temperature (Oral) 36.4 ?C Heart Rate (Peripheral) 88 Blood Pressure 116/74 Height 170 cm Height 67 in Weight 84.9 kg Weight 186.78 lb BMI 29.38 Medications What How Much When Why Instructions Unchanged epinephrine (EpiPen 2-Laci 0.3 mg injectable kit) 1 Each Intramuscular As Directed as needed for Anaphylaxis Bee sting allergy Contact prescribing physician if questions or concerns Unchanged levonorgestrel (Mirena 52 mg intrauteral device) 1 Each Intrauteral Once Duration: 1 Doses Contact prescribing physician if questions or concerns Unchanged rimegepant (Nurtec ODT 75 mg oral tablet, disintegrating) 1 Tablets By Mouth Once Migraines not to exceed 75 mg in 24 hours Contact prescribing physician if questions or concerns Allergies Bactrim Bee Stings (Swelling) Tape (Rash) Ultram (Bactrim) sulfa drugs (Hives) traMADol (unknown) Problems Ongoing - Any problem that you are currently receiving treatment for. Allergic rhinitis, seasonal Amenorrhea Bee sting allergy Bipolar disorder, mixed BMI 26.0-26.9,adult Generalized anxiety disorder Hypoglycemia Migraine headache Moderate persistent asthma Nausea Nausea vomiting and diarrhea Overweight Pre-employment examination RLQ abdominal pain RUQ pain Shakiness Unresolved grief Viral URI Historical - Any problem that you are no longer receiving treatment for. Patient Survey You may receive a survey via text or e-mail asking about your office visit. Please share your experience with us by completing your survey. We appreciate your feedback and thank you for choosing us for your care. Education Materials BMI for Adults What is BMI? Body mass index (BMI) is a number that is calculated from a person's weight and height. BMI can help estimate how much of a person's weight is composed of fat. BMI does not measure body fat directly. Rather, it is an alternative to procedures that directly measure body fat, which can be difficult and expensive. BMI can help identify people who may be at higher risk for certain medical problems. What are BMI measurements used for? BMI is used as a screening tool to identify possible weight problems. It helps determine whether a person is obese, overweight, a healthy weight, or underweight. BMI is useful for: ? Identifying a weight problem that may be related to a medical condition or may increase the risk for medical problems. ? Promoting changes, such as changes in diet and exercise, to help reach a healthy weight. BMI screening can be repeated to see if these changes are working. How is BMI calculated? BMI involves measuring your weight in relation to your height. Both height and weight are measured, and the BMI is calculated from those numbers. This can be done either in [place] ([place] or metric measurements. Note that charts and online BMI calculators are available to help you find your BMI quickly and easily without having to do these calculations yourself. To calculate your BMI in [place] measurements: 1. Measure your weight in pounds (lb). 2. Multiply the number of pounds by 703. ? For example, for a person who weighs 180 lb, multiply that number by 703, which equals 126,540. 3. Measure your height in inches. Then multiply that number by itself to get a measurement called inches squared. ? For example, for a person who is 70 inches tall, the inches squared measurement is 70 inches x 70 inches, which equals 4,900 inches squared. 4. Divide the total from step 2 (number of lb x 703) by the total from step 3 (inches squared): 126,540 ? 4,900 = 25.8. This is your BMI. To calculate your BMI in metric measurements: 1. Measure your weight in kilograms (kg). 2. Measure your height in meters (m). Then multiply that number by itself to get a measurement called meters squared. ? For example, for a person who is 1.75 m tall, the meters squared measurement is 1.75 m x 1.75 m, which is equal to 3.1 meters squared. 3. Divide the number of kilograms (your weight) by the meters squared number. In this example: 70 ? 3.1 = 22.6. This is your BMI. What do the results mean? BMI charts are used to identify whether you are underweight, normal weight, overweight, or obese. The following guidelines will be used: ? Underw (more content not included)... Normal [facility] Family Medicine Office/Clini c Noteon 09-17-2023 Family Medicine Office/Clinic Note Chief Complaint Current pt cough, sore throat, BA, BAER, chills, cold sweats, vomiting, diarrhea HPI Staff 27 yo female here with vomiting, diarrhea Symptoms began Saturday night Complains of vomiting, diarrhea, chills, cold sweats, unable to keep anything down, sore throat, headache, cough, bodyaches Denies OTC History of Present Illness Reviewed and agree with above documented HPI by medical i d sales. Patient is a 27-year-old female presenting with complaint of vomiting, diarrhea, chills, cold sweats, inability to keep anything down, sore throat, headache, cough, body aches. She states that symptoms began Saturday night, 09/15/2023, or possibly on Saturday because she states that she went to [place] with her boyfriend and started feeling nauseous in the car. Patient states that she works at [employer] and that there is something going around at that all of the aides have come down with. She stated that last night she was able to keep up potato down for about an hour before she threw that up. She states last time she threw up was about 10 or 15 minutes before her assessment. She denies any blood in her emesis. She describes it as being bile in color. She states that she lives with her boyfriend and their 2 sons but none of them are sick. She denies any uebo-ksp-vzalmay medications for treatment relief. Review of Systems PHQ Score Initial Depression Screen Score: 0 SCORE Physical Exam Vitals & Measurements T: 36.4 ?C(Oral) HR: 88(Peripheral) BP: 116/74 SpO2: 98% HT: 67 in HT: 170 cm WT: 84.9 kg WT: 186.78 lb BMI: 29.38 General: Well developed, well nourished, in no acute distress, does not appear ill or septic Eyes: Pupils equal, round, and reactive to light. Conjunctivae and sclerae normal, and extraocular movements intact Ears: No deformity or lesion of external ear. Canals and TM appear normal bilaterally. TM?s intact, not inflamed, with normal light reflex. Hearing grossly normal to conversational speech Nose: mild nasal mucosa inflammation and edema Mouth: Mucous membranes moist. Normal oropharynx, and posterior pharynx without lesions or exudates. Tongue normal Neck: Palpable anterior cervical nodes bilaterally tenderness elicited with palpation bilaterally. Lungs: Normal respiratory effort and clear to auscultation Cardio: regular rate and rhythm, no murmur Abdomen: Soft, non-distended, non-tender Musculoskeletal: No deformity or scoliosis noted. Normal range of motion. Joints normal. No erythema, edema, effusion, or ecchymosis Extremity: No clubbing, cyanosis, edema, or deformity, with normal ROM in both upper and lower bilateral extremities Neurologic: Grossly normal Skin: No rashes, ulcerations, or suspicious lesions Mental Status: Alert and oriented x3. Normal speech and thought content, normal mood and affect Assessment/Plan Patient was swabbed for influenza A/B. Result of swab was negative for influenza A/B. Results of swab was shared with patient. 1. Viral illness (B34.9: Viral infection, unspecified) Discussed exam and hx are consistent with viral illness. Advised of typical duration. Discussed antibiotics unfortunately do not treat viral illnesses, it will take time to run course- usually 7-14 days. Fluids/rest encourage. Advised to try to take sips of water or Gatorade. Advised to eat bland food. PRN Tylenol/ibuprofen for any pain. Follow up with PCP if not improving over next 5-7 days or significantly worsening symptoms. Follow-up with the ED if not able to keep anything down in the next 2 days. Patient and/or parent verbalized understanding of tx plan. 2. Flu-like symptoms (R68.89: Other general symptoms and signs) Same as above Ordered: Influenza Type A&B POC 36416 3. BMI 29.0-29.9,adult (Z68.29: Body mass index [BMI] 29.0-29.9, adult) The standard range for ages 18 and older is >=18.5 and < 25 kg/m2. Your BMI today was above this range, this falls in the overweight to obese category and there are medical benefits to weight loss. We can offer counselling, referral, and/or medical support in addressing this problem. Your BMI and weight management will be followed at subsequent visits. Ordered: Body Mass Index (BMI) documented 3008F Portions of this record may have been created with voice recognition artificial intelligence software, specifically [employer], [employer] and or [employer]. Occasional wrong-word or `yytiq-t-ysql? substitutions may have occurred due to the inherent limitations of voice recognition and artificial intelligence software. Follow-up No qualifying data available Patient Education BMI for Adults Viral Illness, Adult Problem List/Past Medical History Ongoing Allergic rhinitis, seasonal Amenorrhea Bee sting allergy Bipolar disorder, mixed BMI 26.0-26.9,adult Generalized anxiety disorder Hypoglycemia Migraine headache Moderate persistent asthma Nausea Nausea vomiting and diarrhea Overweight Pre-employment e (more content not included)... Normal [facility] Comment on above: Result Comment: Elec tronically Signed By: Josey KOCH, Hay Mendoza\.br\Date and Time Signed: 09/17/23 12:51 EDT Patient Educationon 09-17-19 24 Patient Education Infectious Disease Viral Illness, Adult Viruses are tiny germs that can get into a person's body and cause illness. There are many different types of viruses, and they cause many types of illness. Viral illnesses can range from mild to severe. They can affect various parts of the body. Short-term conditions that are caused by a virus include colds and the flu (influenza). Long-term conditions that are caused by a virus include herpes, shingles, and HIV (human immunodeficiency virus) infection. A few viruses have been linked to certain cancers. What are the causes? Many types of viruses can cause illness. Viruses invade cells in your body, multiply, and cause the infected cells to work abnormally or . When these cells , they release more of the virus. When this happens, you develop symptoms of the illness, and the virus continues to spread to other cells. If the virus takes over the function of the cell, it can cause the cell to divide and grow out of control. This happens when a virus causes cancer. Different viruses get into the body in different ways. You can get a virus by: ? Swallowing food or water that has come in contact with the virus (is contaminated). ? Breathing in droplets that have been coughed or sneezed into the air by an infected person. ? Touching a surface that has been contaminated with the virus and then touching your eyes, nose, or mouth. ? Being bitten by an insect or animal that carries the virus. ? Having sexual contact with a person who is infected with the virus. ? Being exposed to blood or fluids that contain the virus, either through an open cut or during a transfusion. If a virus enters your body, your body's defense system (immune system) will try to fight the virus. You may be at higher risk for a viral illness if your immune system is weak. What are the signs or symptoms? You may have these symptoms, depending on the type of virus and the location of the cells that it invades: ? Cold and flu viruses: ? Fever. ? Headache. ? Sore throat. ? Muscle aches. ? Stuffy nose (nasal congestion). ? Cough. ? Digestive system (gastrointestinal) viruses: ? Fever. ? Pain in the abdomen. ? Nausea. ? Diarrhea. ? Liver viruses (hepatitis): ? Loss of appetite. ? Tiredness. ? Skin or the white parts of your eyes turning yellow (jaundice). ? Brain and spinal cord viruses: ? Fever. ? Headache. ? Stiff neck. ? Nausea and vomiting. ? Confusion or sleepiness. ? Skin viruses: ? Warts. ? Itching. ? Rash. ? Sexually transmitted viruses: ? Discharge. ? Swelling. ? Redness. ? Rash. How is this diagnosed? This condition may be diagnosed based on one or more of the following: ? Symptoms. ? Medical history. ? Physical exam. ? Blood test, sample of mucus from your lungs (sputum sample), stool sample, or a swab of body fluids or a skin sore (lesion). How is this treated? Viruses can be hard to treat because they live within cells. Antibiotic medicines do not treat viruses because these medicines do not get inside cells. Treatment for a viral illness may include: ? Resting and drinking plenty of fluids. ? Medicines to relieve symptoms. These can include celw-yzq-nyclxvt medicine for pain and fever, medicines for cough or congestion, and medicines to relieve diarrhea. ? Antiviral medicines. These medicines are available only for certain types of viruses. Some viral illnesses can be prevented with vaccinations. A common example is the flu shot. Follow these instructions at home: Medicines ? Take vryv-ili-mlrsnda and prescription medicines only as told by your health care provider. ? If you were prescribed an antiviral medicine, take it as told by your health care provider. Do not stop taking the antiviral even if you start to feel better. ? Be aware of when antibiotics are needed and when they are not needed. Antibiotics do not treat viruses. You may get an antibiotic if your health care provider thinks that you may have, or are at risk for, a bacterial infection and you have a viral infection. ? Do not ask for an antibiotic prescription if you have been diagnosed with a viral illness. Antibiotics will not make your illness go away faster. ? Frequently taking antibiotics when they are not needed can lead to antibiotic resistance. When this develops, the medicine no longer works against the bacteria that it normally fights. General instructions ? Drink enough fluids to keep your urine pale yellow. ? Rest as much as possible. ? Return to your normal activities as told by your health care provider. Ask your health care provider what activities are safe for you. ? Keep all follow-up visits as told by your health care provider. This is important. How is this prevented? To reduce your risk of viral illness: ? Wash your hands often with soap and water for at least 20 seconds. If soap and water are (more content not included)... Normal [facility] Patient Letter FTon 2023 Patient Letter [facility] [address] [place] [address] September 17, 2023 SNEHAL LIZAMA [address] [place] [id number] : 1995 Please excuse SNEHAL LIZAMA from work . Date and/or Time of Absence: From: 09/16/2023 To: 09/18/2023 May return to work on: 09/19/2023 Restrictions: None Comments: Please excuse due to an acute illness. Provider Signature: Hay Dowling CNP [facility] [address] [address] [place] [address] [facility] Medicine Office/Clini c Noteon 02-22-2023 Family Medicine Office/Clinic Note Chief Complaint vomiting HPI Staff Snehal is a 27 year old female who presents for vomiting. Patient has been off since . She does need a work note. Symptoms started- Saturday Headache- yes Body aches- yes Earache- yes bilat Runny/stuffy nose- yes Problem with Smell- yes Problem with Taste- yes Sore throat- yes Cough- yes Scratchy tickly throat- yes Chest symptoms- yes SOB- yes Lung Hx asthma, bronchitis, chest colds- yes Fever/chills- yes Nausea/ vomiting- yes GI symptoms- yes COVID exposure- is [employer] Treatments- yes OTC History of Present Illness I have reviewed and verified the staff HPI to be accurate for this encounter. Review of Systems PHQ Score Initial Depression Screen Score: 0 ROS - Provider Constitutional: fever yes, chills yes, sweats yes, fatigue yes Skin: rash no, lesions no, petechiae no ENMT: ear pain yes, ear drainage no, sore throat yes, nasal congestion yes , nasal drainage yes Respiratory: chest discomfort no, shortness of breath yes, cough Yes, Non productive, orthopnea no, wheezing yes Cardiovascular: chest pain no, palpitations no, edema no Gastrointestinal: nausea yes, vomiting yes, diarrhea no Genitourinary: dysuria no, hematuria no, discharge no, urinary frequency no, urinary urgency no Neurologic: headache yes, dizziness no, numbness/tingling no, weakness no Physical Exam Vitals & Measurements T: 36.8 ?C(Temporal Artery) HR: 82(Peripheral) BP: 118/78 SpO2: 99% HT: 67 in HT: 170 cm WT: 80.6 kg WT: 177.32 lb BMI: 27.89 General: Well developed, well nourished, in no acute distress Ears: No deformity or lesion of external ear. Canals and TM appear normal bilaterally. TM?s intact, not inflamed, with normal light reflex. Hearing grossly normal to conversational speech Nose: Audible congestion, moderate erythema & swollen nasal turbinates, very mild clear rhinorrhea present Mouth: Mucous membranes moist. Normal oropharynx, and posterior pharynx without lesions or exudates. Tongue normal Neck: Neck supple. No masses or palpable cervical nodes. Trachea midline. Lungs: Normal respiratory effort and clear to auscultation Cardio: Regular rate and rhythm, normal S1 and S2, no murmur, no rub Abdomen: Soft, non-distended, non-tender to palpation, No rebound or guarding, tenderness, No masses palpated, Normal bowel sounds. Machado's sign negative, Rovsing's sign negative Neurologic: Grossly normal Skin: No rashes, ulcerations, or suspicious lesions to visible skin Mental Status: Alert and oriented x3. Normal mood and affect Assessment/Plan 1. 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 As long as symptoms are resolving and no fevers at that time she can return to work. 2. Nausea vomiting and diarrhea (R11.2: Nausea with vomiting, unspecified) Likely related to above push fluids, supportive measures discussed Diarrhea, unspecified (R19.7: Diarrhea, unspecified) See treatment plan above Follow-up No qualifying data available Problem List/Past Medical History Ongoing Allergic rhinitis, seasonal Amenorrhea Bee sting allergy Bipolar disorder, mixed BMI 26.0-26.9,adult Generalized anxiety disorder Hypoglycemia Migraine headache Moderate persistent asthma Nausea Nausea vomiting and diarrhea Overweight Pre-employment examination RLQ abdominal pain RUQ pain Shakiness Unresolved grief Viral URI Historical Procedure/Surgical History tonsils and tubes in ears (2000). Medications Bromfed DM oral syrup, 5 mL, Oral, QID, PRN EpiPen 2-Laci 0.3 mg injectable kit, 0.3 mg= 1 EA, IntraMuscular, As Directed, PRN Mirena 52 mg intrauteral device, 52 mg= 1 EA, IntraUteral, Once Nurtec ODT 75 mg oral tablet, disintegrating, 75 mg= 1 tab(s), Oral, Once promethazine 12.5 mg oral tablet, 12.5 mg= 1 tab(s), Oral, q4hr, PRN Allergies Bactrim Bee Stings (Swelling) Tape (Rash) Ultram (Bactrim) sulfa drugs (Hives) traMADol (unknown) Social History Alcohol - Denies Alcohol Use, 04/17/2016 Current, Household alcohol concerns: No., 11/15/2022 Employment/School Unemployed, 04/17/2016 Home/Environment Lives with Significant other. Alcohol abuse in household: No. Substance abuse in household: No. Smoker in household: No. Injuries/Abuse/Neglect in household: No. Feels unsafe at home: No. Safe place to go: Yes. Family/Friends available for support: Yes. Concern for family members at home: No. Major illness in household: No. Financial concerns: No. Risks in environment: Pets/Animal exposure., 04/17/2016 Nutrition/Health Regular, 04/17/2016 Sexual Sexually active: Yes., 04/17/2016 Substance Abuse - Denies Substance Abuse, 04/17/2016 Current, Household substance abuse concerns: N (more content not included)... [facility] Comment on above: Result Comment: Elec tronically Signed By: SEPIDEH DAVILA, SHERRIE Diaz\.br\Date and Time Signed: 02/22/23 00:45 EDT [place] 02-08-2023 Consent [id number]. 00CD:127 [facility] In office Testingon 02-09-20 In office Testing [id number] 0CD:127 [facility] Registrationon 02-08-2023 Registration [id number]. 00CD:127 [facility] Patient Correspondenceon Patient Correspondence [id number] 0CD:127 [facility] Family Medicine Office/Clini c Noteon 11-23-2022 Family Medicine Office/Clinic Note Chief Complaint hypoglycemic HPI Staff Snehal is a 27 yo female who presents today to discuss her BS. Claims other day she checked BS at place of employment and was 60. States she got clammy and just didnt feel right. Did start shaking as well. States there is family HX of diabetes. States she did have orange juice and candy and felt this didnt help at all. History of Present Illness Snehal Lizama is a 27-year-old female who presents today for an evaluation. Snehal has had 2 episodes of hypoglycemia. She eats all the time. She drank juice and it did not help. She does feel nauseated if she does not eat for long periods of time. She has a family history of diabetes. Her grandmother from thyroid cancer. She denies hormone imbalance, but she does have an irregular menstrual cycle due to a Mirena IUD. She has had the IUD for 6 years. She has done a test. She has stopped drinking soda. She denies issues swallowing. Snehal has noticed that her stool is slightly looser than what it was before, however, she denies bloody or mucous in her stool. Snehal takes Nurtec and Zofran as needed. She is no longer taking omeprazole. Review of Systems ROS - Clinical Support GI Symptoms: None Cardiopulmonary Symptoms: None General Symptoms: None Genitourinary Symptoms: None Neuromuscular Symptoms: None Pain Symptoms: No Skin Symptoms: None PHQ Score Initial Depression Screen Score: 0 ROS - Provider Constitutional: no fever, no chills, no sweats, no fatigue Respiratory: no shortness of breath, no cough, no orthopnea, no wheezing. Cardiovascular: no chest pain, no palpitations, no edema. Neurologic: no headache, no dizziness, no numbness, no weakness. Physical Exam Vitals & Measurements T: 36.6 ?C(Temporal Artery) HR: 86(Peripheral) BP: 118/70 SpO2: 98% HT: 67 in HT: 170 cm WT: 80 kg WT: 176 lb BMI: 27.68 General: Well developed, in no acute distress Lungs: Normal respiratory effort and clear to auscultation Cardio: Regular rate and rhythm, normal S1 and S2, no murmur, no rub Extremity: No clubbing, cyanosis, edema, or deformity, with normal ROM in both upper and lower bilateral extremities Neurologic: Grossly normal Mental Status: Alert and oriented x3. Normal mood and affect Assessment/Plan 1. Hypoglycemia (E16.2: Hypoglycemia, unspecified) I will order a hemoglobin A1c and thyroid panel cbc cmp I advised the patient to bring snacks with her person, check BP and Glucose when symptomatic 2. Shakiness (R25.1: Tremor, unspecified) see above 3. Nausea (R11.0: Nausea) see above BMI 27.0-27.9,adult (Z68.27: Body mass index [BMI] 27.0-27.9, adult) stable Nonsmoker (Z78.9: Other specified health status) Overweight on examination (E66.3: Overweight) Documentation services were performed after the patient or guardian consented to allow [facility] [employer] [facility] to record this visit. SHANE torpedo specialist and provider reviewed before signing. SHANE: Suzie Jw Follow-up No qualifying data available Problem List/Past Medical History Ongoing Allergic rhinitis, seasonal Amenorrhea Bee sting allergy Bipolar disorder, mixed BMI 26.0-26.9,adult Generalized anxiety disorder Hypoglycemia Migraine headache Moderate persistent asthma Nausea Overweight Pre-employment examination RLQ abdominal pain RUQ pain Shakiness Unresolved grief Historical Procedure/Surgical History tonsils and tubes in ears (2000). Medications EpiPen 2-Laci 0.3 mg injectable kit, 0.3 mg= 1 EA, IntraMuscular, As Directed, PRN Mirena 52 mg intrauteral device, 52 mg= 1 EA, IntraUteral, Once Nurtec ODT 75 mg oral tablet, disintegrating, 75 mg= 1 tab(s), Oral, Once ondansetron 4 mg Tab, 4 mg= 1 tab(s), Oral, q8hr, PRN Allergies Bactrim Bee Stings (Swelling) Tape (Rash) Ultram (Bactrim) sulfa drugs (Hives) traMADol (unknown) Social History Alcohol - Denies Alcohol Use, 04/17/2016 Current, Household alcohol concerns: No., 11/15/2022 Employment/School Unemployed, 04/17/2016 Home/Environment Lives with Significant other. Alcohol abuse in household: No. Substance abuse in household: No. Smoker in household: No. Injuries/Abuse/Neglect in household: No. Feels unsafe at home: No. Safe place to go: Yes. Family/Friends available for support: Yes. Concern for family members at home: No. Major illness in household: No. Financial concerns: No. Risks in environment: Pets/Animal exposure., 04/17/2016 Nutrition/Health Regular, 04/17/2016 Sexual Sexually active: Yes., 04/17/2016 Substance Abuse - Denies Substance Abuse, 04/17/2016 Current, Household substance abuse concerns: No., 11/15/2022 Tobacco - Denies Tobacco Use, 04/17/2016 Never (less than 100 in lifetime) Tobacco Use:. Never Smokeless Tobacco Use:. Household tobacco concerns: No., 11/15/2022 Family History Asthma: Mother. Diabetes mellitus type 2: Father. Hypertension: Mother and Father. Primary malig (more content not included)... Normal [facility] Comment on above: Result Comment: Elec tronically Signed By: Kristyn Kowalski NP\.br\Date and Time Signed: 11/23/22 15:24 EDT\.br\Electronically Co-Signed By: Suzie Escalera\.br\Date and Time Co-Signed: 11/15/22 16:02 EDT Consent for Treatmenton 11-05 Consent for Treatment [id number] [id number]:[id number] Normal [facility] [id number] 11-16-2022 HbA1c (Bld) [Mass fraction] 4.9 % Normal <=5.9 [facility] Comment on above: Performed By: #### [id number] ####[facility] [id number] [place] [id number] TSH With T4fr Reflexon 11-16 TSH Qn 1.41 m[IU]/L Normal 0.34-5.60 [facility] Comment on above: Performed By: #### 7 [id number] ####[facility] [id number] [place] [address] MICRO OTHER TESTSOrdered By: Dayna Mcconnell on 08-07-2022 S. pyogenes Ag IA.rapid Ql (Throat) Negative (08/07/22 8:04 AM) Normal Negative [facility] Man Sero MICRO OTHER TESTSOrdered By: Christine Cleveland on 02-28-2022 Rapid COV Int NEG Ctl Pass (02/28/22 8:57 AM) Normal FT Man Sero Rapid COV Int POS Ctl Pass (02/28/22 8:57 AM) Normal FT Man [facility] SARS-CoV+SARS-CoV-2 (COVID-19) Ag IA.rapid Ql (Resp) Not Detected (02/28/22 8:57 AM) Normal Not Detected FT Man [facility]ero PAP ACOG PANEL 2: 21 to 29on 02-09-2022 . . Normal [facility] Comment on above: Performed By: #### 4 [id number] #### [facility] [address] [place] [address] Dr. Katherin Nickerson Age Gdln ACOG Testing 21-29 Normal [facility] Comment on above: Performed By: #### 4 [id number] #### [facility] [address] [place] [address] Dr. Katherin Nickerson DIAGNOSIS: Comment Normal [facility] Comment on above: Result Comment: NEGA TIVE FOR INTRAEPITHELIAL LESION OR MALIGNANCY. Performed By: #### 4 [id number] #### [facility] [address] [place] [address] Dr. Katherin Nickerson Methodology: Comment [facility] Comment on above: Result Comment: This liquid based ThinPrep(R) pap test was screened with the use of an image guided system. Performed By: #### 4 [id number] #### [facility] [address] [place] [address] Dr. Katherin Nickerson Note: Comment Normal [facility] Comment on above: Result Comment: The Pap smear is a screening test designed to aid in the detection of premalignant and malignant conditions of the uterine cervix. It is not a diagnostic procedure and should not be used as the sole means of detecting cervical cancer. Both false-positive and false-negative reports do occur. . Performed By: #### 4 [id number] #### [facility] [address] [place] [address] Dr. Katherin Nickerson Performed by: Comment Normal [facility] Comment on above: Result Comment: Jon Landaverde, Grommet Man (ASCP) Performed By: #### 4 [id number] #### [facility] [address] [place] [address] Dr. Katherin Nickerson Reflex Criteria: Comment [facility] Comment on above: Result Comment: The HPV DNA reflex criteria were not met with this specimen result therefore, no HPV testing was performed. . Performed By: #### 4 [id number] #### [facility] [address] [place] [address] Dr. Katherin Nickerson Specimen adequacy: Comment Normal [facility] Comment on above: Result Comment: Sati sfactory for evaluation. Endocervical and/or squamous metaplastic cells (endocervical component) are present. Performed By: #### 4 [id number] #### [facility] [address] [place] [address] Dr. Katherin Nickerson CBC With Auto Differentialon 06-11-2020 Basophils (Bld) [#/Vol] 0.00 10*3/uL [place], [place] Basophils/100 WBC (Bld) 1 % 0 - 2 % [place] Differential Type YES [place] Eosinophils (Bld) [#/Vol] 0.50 10*3/uL High [place] Eosinophils/100 WBC (Bld) 7 % High 0 - 5 % [place] Erythrocyte distribution width (RBC) [Ratio] 12.6 % 12.1 - 15.2 % [place] Hematocrit (Bld) [Volume fraction] 39.3 % 36 - 46 % [place] Hemoglobin (Bld) [Mass/Vol] 13.3 g/dL 12 - 16 g/dL [place] Interpretation and review of laboratory results Abnormal [place] Lymphocytes (Bld) [#/Vol] 2.00 10*3/uL [place] Lymphocytes/100 WBC (Bld) 27 % 15 - 40 % [place] MCH (RBC) [Entitic mass] 30.6 pg 26 - 34 pg [place] MCHC (RBC) [Mass/Vol] 33.8 g/dL 31 - 37 g/dL [place] MCV (RBC) [Entitic vol] 90.7 fL 80 - 100 fL [place] Monocytes (Bld) [#/Vol] 0.60 10*3/uL [place] Monocytes/100 WBC (Bld) 8 % 4 - 8 % [place] Platelet mean volume (Bld) [Entitic vol] NOT REPORTED 6 - 12 fL [place], [place] Platelets (Bld) [#/Vol] NOT REPORTED [place] Platelets (Bld) [#/Vol] 221 10*3/uL [place] RBC (Bld) [#/Vol] 4.33 10*6/uL 4 - 5.2 m/uL [place], [place] RBC morphology finding Nom (Bld) NOT REPORTED [place] Segmented neutrophils/100 WBC (Bld) 57 % 47 - 75 % [place] Segs Absolute 4.40 [place], [place] WBC (Bld) [#/Vol] 7.6 10*3/uL [place] WBC (Bld) [#/Vol] NOT REPORTED per 100 WBC [place], [place] WBC Morphology NOT REPORTED [place], [place] CBC with Diffon 06-11-2020 Abs. Basophil 0.00 k/uL Normal 0.0-0.2 [facility] Comment on above: Performed By: #### L IVP, CDP #### [facility] [address] [place] [address] Tavern Car Attendant: Landon Ruiz MD Abs.Neutrophil (Seg) 4.40 k/uL Normal 2.5-7.0 [facility] Comment on above: Performed By: #### L IVP, CDP #### [facility] [address] [place] [address] Tavern Car Attendant: Landon Ruiz MD Auto Diff Performed YES Normal [facility] Comment on above: Performed By: #### L IVP, CDP #### [facility] [address] [place] [address] Tavern Car Attendant: Landon Ruiz MD Basophils/100 WBC (Bld) 1 % Normal 0-2 [facility] Comment on above: Performed By: #### L IVP, CDP #### [facility] [address] [place] [address] Tavern Car Attendant: Landon Ruiz MD Eosinophils (Bld) [#/Vol] 0.50 10*3/uL High 0.0-0.4 [facility] Comment on above: Performed By: #### L IVP, CDP #### [facility] [address] [place] [address] Tavern Car Attendant: Landon Ruiz MD Eosinophils/100 WBC (Bld) 7 % High 0-5 [facility] Comment on above: Performed By: #### L IVP, CDP #### [facility] [address] [place] [address] Tavern Car Attendant: Landon Ruiz MD Erythrocyte distribution width (RBC) [Ratio] 12.6 % Normal 12.1-15.2 [facility] Comment on above: Performed By: #### L IVP, CDP #### [facility] [address] [place] [address] Tavern Car Attendant: Landon Ruiz MD Hematocrit (Bld) [Volume fraction] 39.3 % Normal 36-46 [facility] Comment on above: Performed By: #### L IVP, CDP #### [facility] [address] [place] [address] Tavern Car Attendant: Landon Ruiz MD Hemoglobin (Bld) [Mass/Vol] 13.3 g/dL Normal 12.0-16.0 [facility] Comment on above: Performed By: #### L IVP, CDP #### [facility] [address] [place] [address] Tavern Car Attendant: Landon Ruiz MD Lymphocytes (Bld) [#/Vol] 2.00 10*3/uL Normal 1.0-4.8 [facility] Comment on above: Performed By: #### L IVP, CDP #### [facility] [address] [place] [address] Tavern Car Attendant: Landon Ruiz MD Lymphocytes/100 WBC (Bld) 27 % Normal 15-40 [facility] Comment on above: Performed By: #### L IVP, CDP #### [facility] [address] [place] [address] Tavern Car Attendant: Landon Ruiz MD MCH (RBC) [Entitic mass] 30.6 pg Normal 26-34 [facility] Comment on above: Performed By: #### L IVP, CDP #### [facility] [address] [place], [place] [id number] Tavern Car Attendant: Landon Ruiz MD MCHC (RBC) [Mass/Vol] 33.8 g/dL Normal 31-37 [facility] Comment on above: Performed By: #### L IVP, CDP #### [facility] [address] [place] [address] Tavern Car Attendant: Landon Ruiz MD MCV (RBC) [Entitic vol] 90.7 fL Normal 80-100 [facility] Comment on above: Performed By: #### L IVP, CDP #### [facility] [address] [place], [place] [id number] Tavern Car Attendant: Landon Ruiz MD Monocytes (Bld) [#/Vol] 0.60 10*3/uL Normal 0.0-1.0 [facility] Comment on above: Performed By: #### L IVP, CDP #### [facility] [address] [place] [address] Tavern Car Attendant: Landon Ruiz MD Monocytes/100 WBC (Bld) 8 % Normal 4-8 [facility] Comment on above: Performed By: #### L IVP, CDP #### [facility] [address] [place] [address] Tavern Car Attendant: Landon Ruiz MD Neutrophil (Seg) 57 % Normal 47-75 [facility] Comment on above: Performed By: #### L IVP, CDP #### [facility] [address] [place] [address] Tavern Car Attendant: Landon Ruiz MD Platelets (Bld) [#/Vol] 221 10*3/uL Normal 140-450 [facility] Comment on above: Performed By: #### L IVP, CDP #### [facility] [address] [place], [place] [id number] Tavern Car Attendant: Landon Ruiz MD RBC (Bld) [#/Vol] 4.33 10*6/uL Normal 4.0-5.2 [facility] Comment on above: Performed By: #### L IVP, CDP #### [facility] [address] [place], [place] [id number] Tavern Car Attendant: Landon Ruiz MD WBC (Bld) [#/Vol] 7.6 10*3/uL Normal 3.5-11.0 [facility] Comment on above: Performed By: #### L IVP, CDP #### [facility] [address] [place] [address] Tavern Car Attendant: Landon Ruiz MD Abs.Imm.Granulocyte NOT REPORTED Normal 0.00-0.30 [facility] Comment on above: Performed By: #### L IVP, CDP #### [facility] [address] [place] [address] Tavern Car Attendant: Landon Ruiz MD Immature granulocytes (Bld) [#/Vol] NOT REPORTED Normal 0 [facility] Comment on above: Performed By: #### L IVP, CDP #### [facility] [address] [place] [address] Tavern Car Attendant: Landon Ruiz MD NRBC Automated NOT REPORTED Normal [facility] Comment on above: Performed By: #### L IVP, CDP #### [facility] [address] [place] [address] Tavern Car Attendant: Landon Ruiz MD Platelet mean volume (Bld) [Entitic vol] NOT REPORTED Normal 6.0-12.0 [facility] Comment on above: Performed By: #### L IVP, CDP #### [facility] [address] [place], [place] [id number] Tavern Car Attendant: Landon Ruiz MD Platelets (Bld) [#/Vol] NOT REPORTED Normal [facility] Comment on above: Performed By: #### L IVP, CDP #### [facility] [address] [place], [place] [id number] Tavern Car Attendant: Landon Ruiz MD RBC morphology finding Nom (Bld) NOT REPORTED Normal [facility] Comment on above: Performed By: #### L IVP, CDP #### [facility] [address] [place], [place] [id number] Tavern Car Attendant: Landon Ruiz MD WBC Morphology NOT REPORTED Normal [facility] Comment on above: Performed By: #### L IVP, CDP #### [facility] [address] [place], [place] [id number] Tavern Car Attendant: Landon Ruiz MD Hepatic Function Panelon Albumin [Mass/Vol] 4.6 g/dL 3.5 - 5.2 g/dL [place], [place] Albumin/Globulin [Mass ratio] NOT REPORTED [place] ALP [Catalytic activity/Vol] 63 U/L 35 - 104 U/L [place] ALT [Catalytic activity/Vol] 10 U/L 5 - 33 U/L [place] AST [Catalytic activity/Vol] 14 U/L <32 [place] Bilirubin Ql (U) 0.49 mg/dL 0.3 - 1.2 mg/dL [place] Bilirubin, Indirect CANNOT BE CALCULATED 0 - 1 mg/dL [place] Bilirubin.direct [Mass/Vol] mg/dL <0.31 mg/dL [place] Globulin (S) [Mass/Vol] NOT REPORTED 1.5 - 3.8 g/dL [place] Protein [Mass/Vol] 7.5 g/dL 6.4 - 8.3 g/dL [facility] [place], [place] Liver Profileon 06-11-2020 Albumin [Mass/Vol] 4.6 g/dL Normal 3.5-5.2 [facility] Comment on above: Performed By: #### L IVP, CDP #### [facility] [address] [place], [place] [id number] Tavern Car Attendant: Landon Ruiz MD Alkaline Phos 63 U/L Normal 35-104 [facility] Comment on above: Performed By: #### L IVP, CDP #### [facility] [address] [place], [place] [id number] Tavern Car Attendant: Landon Ruiz MD ALT [Catalytic activity/Vol] 10 U/L Normal 5-33 [facility] Comment on above: Performed By: #### L IVP, CDP #### [facility] [address] [place], [place] [id number] Tavern Car Attendant: Landon Ruiz MD AST [Catalytic activity/Vol] 14 U/L Normal <32 [facility] Comment on above: Performed By: #### L IVP, CDP #### [facility] [address] [place], [place] [id number] Tavern Car Attendant: Landon Ruiz MD Bilirubin Ql (U) 0.49 mg/dL Normal 0.30-1.20 [facility] Comment on above: Performed By: #### L IVP, CDP #### [facility] [address] [place], [place] [id number] Tavern Car Attendant: Landon Ruiz MD Bilirubin, Indirect CANNOT BE CALCULATED Normal 0.00-1 .00 [facility] Comment on above: Performed By: #### L IVP, CDP #### [facility] [address] [place], [place] [phone] Tavern Car Attendant: Landon Ruiz MD Bilirubin.direct [Mass/Vol] mg/dL Normal <0.31 [facility] Comment on above: Performed By: #### L IVP, CDP #### [facility] [address] [place], [place] [id number] Tavern Car Attendant: Landon Ruiz MD Protein [Mass/Vol] 7.5 g/dL Normal 6.4-8.3 [facility] Comment on above: Performed By: #### L IVP, CDP #### [facility] [address] [place], [place] [id number] Tavern Car Attendant: Landon Ruiz MD Albumin/Globulin [Mass ratio] NOT REPORTED Normal 1.0-2.5 [facility] Comment on above: Performed By: #### L IVP, CDP #### [facility] [address] [place], [place] [id number] Tavern Car Attendant: Landon Ruiz MD Globulin (S) [Mass/Vol] NOT REPORTED Normal 1.5-3.8 [facility] Comment on above: Performed By: #### L IVP, CDP #### [facility] [address] [place], [place] [id number] Tavern Car Attendant: Landon Ruiz MD Otheron 06-11-2020 Immature granulocytes (Bld) [#/Vol] NOT REPORTED 0 % [place], [place] [id number] 06-10-2020 SARS-CoV-2 Not Detected Normal Not Detected [facility] Comment on above: Result Comment: (NOT E) This nucleic acid amplification test was developed and its performance characteristics determined by [employer]. Nucleic acid amplification tests include PCR and TMA. This test has not been FDA cleared or approved. This test has been authorized by FDA under an Emergency Use Authorization (EUA). This test is only authorized for the duration of time the declaration that circumstances exist justifying the authorization of the emergency use of in vitro diagnostic tests for detection of SARS-CoV-2 virus and/or diagnosis of COVID-19 infection under section 564(b)(1) of the Act, 21 U.S.C. 360bbb-3(b) (1), unless the authorization is terminated or revoked sooner. When diagnostic testing is negative, the possibility of a false negative result should be considered in the context of a patient's recent exposures and the presence of clinical signs and symptoms consistent with COVID-19. An individual without symptoms of COVID- 19 and who is not shedding SARS-CoV-2 virus would expect to have a negative (not detected) result in this assay. Performed At: [facility] [address] [facility] [place] [id number] Amie Agrawal MD Ph:[phone] Performed By: #### A COV #### [facility] [address] [place] [address] Tavern Car Attendant: Hay Lara MD [id number] 05-24-2020 SARS-CoV-2 Not Detected Normal Not Detected [facility] Comment on above: Result Comment: (NOT E) This nucleic acid amplification test was developed and its performance characteristics determined by [employer]. Nucleic acid amplification tests include PCR and TMA. This test has not been FDA cleared or approved. This test has been authorized by FDA under an Emergency Use Authorization (EUA). This test is only authorized for the duration of time the declaration that circumstances exist justifying the authorization of the emergency use of in vitro diagnostic tests for detection of SARS-CoV-2 virus and/or diagnosis of COVID-19 infection under section 564(b)(1) of the Act, 21 U.S.C. 360bbb-3(b) (1), unless the authorization is terminated or revoked sooner. When diagnostic testing is negative, the possibility of a false negative result should be considered in the context of a patient's recent exposures and the presence of clinical signs and symptoms consistent with COVID-19. An individual without symptoms of COVID- 19 and who is not shedding SARS-CoV-2 virus would expect to have a negative (not detected) result in this assay. Performed At: [facility] [address] [facility], [place] [id number] Karie Kendall [facility] Ph:[phone] Performed By: #### A COV #### [facility] [address] [place] [address] Tavern Car Attendant: Hay Lara MD Lipid Profileon 03-22-2020 Cholesterol [Mass/Vol] 134 mg/dL Normal <200 [facility] Comment on above: Result Comment: Cholesterol Guidelines: <200 Desirable 200-240 Borderline >240 Undesirable Performed By: #### Estrada FAST TSHX, CP #### [facility] [address] [place], [place] [id number] Tavern Car Attendant: Chauncey Arreola MD #### LIPR #### [facility] [address] [place] [id number] Tavern Car Attendant: Rodo Llamas MD Cholesterol in HDL [Mass/Vol] 49 mg/dL Normal >40 [facility] Comment on above: Result Comment: HDL Guidelines: <40 Undesirable 40-59 Borderline >59 Desirable Performed By: #### Estrada LÓPEZ, TSHX, CP #### [facility] [address] [place], [place] [phone] Tavern Car Attendant: Chauncey Arreola MD #### LIPR #### [address] [place], [place] [id number] Tavern Car Attendant: Rodo Llamas MD Cholesterol in LDL [Mass/Vol] 75 mg/dL Normal 0-130 [facility] Comment on above: Result Comment: LDL Guidelines: <100 Desirable 100-129 Near to/above Desirable 130-159 Borderline >159 Undesirable Direct (measured) LDL and calculated LDL are not interchangeable tests. Performed By: #### Estrada LÓPEZ TSHX, CP #### [facility] [address] [place], [place] [phone] Tavern Car Attendant: Chauncey Arreola MD #### LIPR #### [address] [place], [place] [address] Tavern Car Attendant: Rodo Llamas MD Cholesterol.total/Cho lesterol in HDL [Mass ratio] 2.7 {ratio} Normal <5 [facility] Comment on above: Performed By: #### Estrada FAST, TSHX, CP #### [facility] [address] [place] [address] Tavern Car Attendant: Chauncey Arreola MD #### LIPR #### [facility] [address] [place], [place] [id number] Tavern Car Attendant: Rodo Llamas MD Triglyceride [Mass/Vol] 50 mg/dL Normal <150 [facility] Comment on above: Result Comment: Triglyceride Guidelines: <150 Desirable 150-199 Borderline 200-499 High >499 Very high Based on AHA Guidelines for fasting triglyceride, April 2012. Performed By: #### Z FAST, TSHX, CP #### [facility] [address] [place], [place] [phone] Tavern Car Attendant: Chauncey Arreola MD #### LIPR #### [facility] [address] [place], [place] [id number] Tavern Car Attendant: Rodo Llamas MD Comp Metabolic Profon 2019 (cont.) Normal [facility] Comment on above: Result Comment: Aver age GFR for 20-29 years old: 116 mL/min/1.73sq m Chronic Kidney Disease: <60 mL/min/1.73sq m Kidney failure: <15 mL/min/1.73sq m eGFR calculated using average adult body mass. Additional eGFR calculator available at: http://www.[employer].Infratel/multiple_crcl_2011.htm Performed By: #### Z FAST, TSHX, CP #### [facility] [address] [place] [address] Tavern Car Attendant: Chauncey Arreola MD #### LIPR #### [facility] [address] [place], [place] [id number] Tavern Car Attendant: Rodo Llamas MD Albumin [Mass/Vol] 4.6 g/dL Normal 3.5-5.2 [facility] Comment on above: Performed By: #### Z FAST, TSHX, CP #### [facility] [address] [place], [place] [id number] Tavern Car Attendant: Chauncey Arreola MD #### LIPR #### [facility] [address] [place] [address] Tavern Car Attendant: Rodo Llamas MD Alkaline Phos 55 U/L Normal 35-104 [facility] Comment on above: Performed By: #### Z FAST, TSHX, CP #### [facility] [address] [place], [place] [phone] Tavern Car Attendant: Chauncey Arreola MD #### LIPR #### [address] [address] Tavern Car Attendant: Rodo Llamas MD ALT [Catalytic activity/Vol] 11 U/L Normal 5-33 [facility] Comment on above: Performed By: #### Estrada FAST, TSHX, CP #### [facility] [address] [place], [place] [id number] Tavern Car Attendant: Chauncey Arreola MD #### LIPR #### [address] [address] Tavern Car Attendant: Rodo Llamas MD Anion gap [Moles/Vol] 9 mmol/L Normal 9-17 [facility] Comment on above: Performed By: #### Estrada FAST, TSHX, CP #### [facility] [address] [place] [address] Tavern Car Attendant: Chauncey Arreola MD #### LIPR #### [address] [address] Tavern Car Attendant: Rodo Llamas MD AST [Catalytic activity/Vol] 17 U/L Normal <32 [facility] Comment on above: Performed By: #### Z FAST, TSHX, CP #### [facility] [address] [place] [address] Tavern Car Attendant: Chauncey Arreola MD #### LIPR #### [address] [id number] Tavern Car Attendant: Rodo Llamas MD Bilirubin Ql (U) 0.63 mg/dL Normal 0.30-1.20 [facility] Comment on above: Performed By: #### Z FAST, TSHX, CP #### [facility] [address] [place], [place] [id number] Tavern Car Attendant: Chauncey Arreola MD #### LIPR #### [address] [id number] Tavern Car Attendant: Rodo Llamas MD BUN/CRE Ratio 18 Normal 9-20 [facility] Comment on above: Performed By: #### Z FAST, TSHX, CP #### [facility] [address] [place] [address] Tavern Car Attendant: Chauncey Arreola MD #### LIPR #### [address] [id number] Tavern Car Attendant: Rodo Llamas MD Calcium [Mass/Vol] 9.0 mg/dL Normal 8.6-10.4 [facility] Comment on above: Performed By: #### Z FAST, TSHX, CP #### [facility] [address] [place] [address] Tavern Car Attendant: Chauncey Arreola MD #### LIPR #### [address] [id number] Tavern Car Attendant: Rodo Llamas MD Chloride [Moles/Vol] 104 mmol/L Normal 98-107 [facility] Comment on above: Performed By: #### Z FAST, TSHX, CP #### [facility] [address] [place], [place] [id number] Tavern Car Attendant: Chauncey Arreola MD #### LIPR #### [address] [id number] Tavern Car Attendant: Rodo Llamas MD CO2 [Moles/Vol] 25 mmol/L Normal 20-31 [facility] Comment on above: Performed By: #### Z FAST, TSHX, CP #### [facility] [address] [place] [address] Tavern Car Attendant: Chauncey Arreola MD #### LIPR #### [facility] [address] [place] [address] Tavern Car Attendant: Rodo Llamas MD Creatinine [Mass/Vol] 0.67 mg/dL Normal 0.50-0.90 [facility] Comment on above: Performed By: #### Z FAST, TSHX, CP #### [facility] [address] [place] [address] Tavern Car Attendant: Chauncey Arreola MD #### LIPR #### [address] [address] Tavern Car Attendant: Rodo Llamas MD GFR, Amer >60 Normal >60 [facility] Comment on above: Performed By: #### Z FAST, TSHX, CP #### [facility] [address] [place] [address] Tavern Car Attendant: Chauncey Arreola MD #### LIPR #### [address] [address] Tavern Car Attendant: Rodo Llamas MD GFR,non Amer >60 Normal >60 [facility] Comment on above: Performed By: #### Z FAST, TSHX, CP #### [facility] [address] [place] [address] Tavern Car Attendant: Chauncey Arreola MD #### LIPR #### [address] [address] Tavern Car Attendant: Rodo Llamas MD Glucose [Mass/Vol] 90 mg/dL Normal 70-99 [facility] Comment on above: Performed By: #### Z FAST, TSHX, CP #### [facility] [address] [place] [address] Tavern Car Attendant: Chauncey Arreola MD #### LIPR #### [address] [phone] Tavern Car Attendant: Rodo Llamas MD Potassium [Moles/Vol] 4.6 mmol/L Normal 3.7-5.3 [facility] Comment on above: Performed By: #### Z FAST, TSHX, CP #### [facility] [address] [place], [place] [phone] Tavern Car Attendant: Chauncey Arreola MD #### LIPR #### [address] [id number] Tavern Car Attendant: Rodo Llamas MD Protein [Mass/Vol] 8.8 g/dL High 6.4-8.3 [facility] Comment on above: Performed By: #### Z FAST, TSHX, CP #### [facility] [address] [place] [phone] Tavern Car Attendant: Chauncey Arreola MD #### LIPR #### [address] [phone] Tavern Car Attendant: Rodo Llamas MD Sodium [Moles/Vol] 138 mmol/L Normal 135-144 [facility] Comment on above: Performed By: #### Z FAST, TSHX, CP #### [facility] [address] [place] [phone] Tavern Car Attendant: Chauncey Arreola MD #### LIPR #### [address] [phone] Tavern Car Attendant: Rodo Llamas MD Urea nitrogen [Mass/Vol] 12 mg/dL Normal 6-20 [facility] Comment on above: Performed By: #### Z FAST, TSHX, CP #### [facility] [address] [place] [address] Tavern Car Attendant: Chauncey Arreola MD #### LIPR #### [facility] [address] [place], [place] [phone] Tavern Car Attendant: Rodo Llamas MD Albumin/Globulin [Mass ratio] NOT REPORTED Normal 1.0-2.5 [facility] Comment on above: Performed By: #### Z FAST, TSHX, CP #### [facility] [address] [place], [place] [phone] Tavern Car Attendant: Chauncey Arreola MD #### LIPR #### [facility] [address] [place] [address] Tavern Car Attendant: Rodo Llamas MD Staging: NOT REPORTED Normal [facility] Comment on above: Performed By: #### Z FAST, TSHX, CP #### [facility] [address] [place], [place] [phone] Tavern Car Attendant: Chauncey Arreola MD #### LIPR #### [facility] [address] [place] [address] Tavern Car Attendant: Rodo Llamas MD Comprehensive Metabolic Pane [facility] 03-21-2020 Albumin [Mass/Vol] 4.6 g/dL 3.5 - 5.2 g/dL [place], [place] Albumin/Globulin [Mass ratio] NOT REPORTED [place], [place] ALP [Catalytic activity/Vol] 55 U/L 35 - 104 U/L [place] ALT [Catalytic activity/Vol] 11 U/L 5 - 33 U/L [place] Anion gap [Moles/Vol] 9 mmol/L 9 - 17 mmol/L [place] AST [Catalytic activity/Vol] 17 U/L <32 [place] Bilirubin Ql (U) 0.63 mg/dL 0.3 - 1.2 mg/dL [place] Bun/Cre Ratio 18 [place], [place] Calcium [Mass/Vol] 9.0 mg/dL 8.6 - 10. 4 mg/dL [place] Chloride [Moles/Vol] 104 mmol/L 98 - 10 7 mmol/L [place] CO2 [Moles/Vol] 25 mmol/L 20 - 31 mmol/L [place] Creatinine [Mass/Vol] 0.67 mg/dL 0.5 - 0.9 mg/dL [place] GFR >60 >60 mL/min [place], [place] GFR Non- >60 >60 mL/min [place] GFR/1.73 sq M predicted among non-blacks MDRD (S/P/Bld) [Vol rate/Area] [place], [place] Comment on above: Average GFR for 20-2 9 years old: 116 mL/min/1.73sq m Chronic Kidney Disease: <60 mL/min/1.73sq m Kidney failure: <15 mL/min/1.73sq m eGFR calculated using average adult body mass. Additional eGFR calculator available at: http://www.[employer]/multiple_crcl_2012.htm GFR/1.73 sq M predicted among non-blacks MDRD (S/P/Bld) [Vol rate/Area] NOT REPORTED [place], [place] Glucose [Mass/Vol] 90 mg/dL 70 - 99 mg/dL [place], [place] Interpretation and review of laboratory results Abnormal [place], [place] Potassium [Moles/Vol] 4.6 mmol/L 3.7 - 5.3 mmol/L [place] Protein [Mass/Vol] 8.8 g/dL High 6.4 - 8.3 g/dL [place], [place] Sodium [Moles/Vol] 138 mmol/L 135 - 144 mmol/L [place] Urea nitrogen [Mass/Vol] 12 mg/dL 6 - 20 mg/dL [place] Lipid Profileon 03-21-2020 Cholesterol in VLDL [Mass/Vol] NOT REPORTED Normal 08-06 [facility] Comment on above: Performed By: #### Z FAST, TSHX, CP #### [facility] [address] [place] [address] Tavern Car Attendant: Chauncey Arreola MD #### LIPR #### [place] [address] [place], [place] [phone] Tavern Car Attendant: Rodo Llamas MD Patient Fasting?on 0 Patient Fasting? YES [place], [place] Patient fasting?on 0 Patient fasting? YES Normal [facility] Comment on above: Performed By: #### Z FAST, TSHX, CP #### [facility] [address] [place], [place] [phone] Tavern Car Attendant: Chauncey Arreola MD #### LIPR #### [address] [phone] Tavern Car Attendant: Rodo Llamas MD TSH w/reflex to FT4on 2019 TSH Qn 2.31 m[IU]/L Normal 0.30-5.00 [facility] Comment on above: Performed By: #### Estrada FAST, TSHX, CP #### [facility] [address] [place], [place] [phone] Tavern Car Attendant: Chauncey Arreola MD #### LIPR #### [address] [phone] Tavern Car Attendant: Rodo Llamas MD TSH with Reflexon 03-21-2020 TSH Qn 2.31 m[IU]/L [place], [place] BETA HCG, QUAL, BLOODon 07-09 HCG ( test) Ql Negative [address] [place] [address] CBCon 08-01-2018 ABSOLUTE BAS 0.0 X10 Normal [facility] Comment on above: Performed By: #### BERHANE CAMPOS #### Testing performed at [address] [address] ABSOLUTE EOS 0.00 X10 Normal [facility] Comment on above: Performed By: #### BERHANE CAMPOS #### Testing performed at [place] [address] [place] [address] ABSOLUTE NEUTROPHIL COUNT 6.4 x10 Normal 1.0-7.0 [facility] Comment on above: Performed By: #### Rafaela HU CMPF #### Testing performed at [place] [address] [place] [address] Basophils/100 WBC (Bld) 0.6 % Normal 0.0-2.0 [facility] Comment on above: Performed By: #### Rafaela HU CMPF #### Testing performed at [place] [address] [place] [address] DTYPE AUTO DIFF Normal [facility] Comment on above: Performed By: #### Rafaela HU CMPF #### Testing performed at [place] [address] [place] [address] Eosinophils/100 WBC (Bld) 0.6 % Normal 0.0-11.0 [facility] Comment on above: Performed By: #### Rafaela HU CMPF #### Testing performed at [place] [address] [place] [address] Lymphocytes #/vol (Bld) 1.90 X10 Normal [facility] Comment on above: Performed By: #### Rafaela HU CMPF #### Testing performed at [place] [address] [place] [address] Lymphocytes/100 WBC (Bld) 21.6 % Normal 20.0-55.0 [facility] Comment on above: Performed By: #### Rafaela HU CMPF #### Testing performed at [place] [address] [place] [address] Monocytes #/vol (Bld) 0.5 X10 Normal [facility] Comment on above: Performed By: #### Rafaela HU CMPF #### Testing performed at [place] [address] [place] [address] Monocytes/100 WBC (Bld) 5.8 % Normal 0.0-10.0 [facility] Comment on above: Performed By: #### I MAYTE CMPF #### Testing performed at [address] [address] Neutrophils/100 WBC (Bld) 71.4 % Normal 37.0-75.0 [facility] Comment on above: Performed By: #### I MAYTE CMPF #### Testing performed at [address] [address] Erythrocyte distribution width Ratio (RBC) 13.3 % Normal 11.5-14.5 [facility] Comment on above: Performed By: #### I MAYTE CMPF #### Testing performed at [address] [address] Hematocrit Volume Fraction (Bld) 40.0 % Normal 36.0-48.0 [facility] Comment on above: Performed By: #### I MAYTE CMPF #### Testing performed at [address] [address] Hemoglobin mass conc (Bld) 13.5 g/dL Normal 12.0-16.0 [facility] Comment on above: Performed By: #### I MAYTE CMPF #### Testing performed at [address] [place] [address] MCH Entitic mass (RBC) 30.7 pg Normal 26.0-35.0 [facility] Comment on above: Performed By: #### I MAYTE CMPF #### Testing performed at [address] [place] [address] MCHC mass conc (RBC) 33.6 g/dL Normal 27.0-37.0 [facility] Comment on above: Performed By: #### I MAYTE CMPF #### Testing performed at [address] [place] [address] MCV Entitic volume (RBC) 91.3 fL Normal 80.0-100.0 [facility] Comment on above: Performed By: #### I TROT, CMPF #### Testing performed at [address] [address] Platelet mean volume Entitic volume (Bld) 9.0 fL Normal 7.4-11.0 [facility] Comment on above: Performed By: #### I TROT, CMPF #### Testing performed at [address] [address] Platelets #/vol (Bld) 258 /cmm Normal 130.0-400.0 [facility] Comment on above: Performed By: #### I TROT, CMPF #### [place] [address] RBC #/vol (Bld) 4.38 /cmm Normal 4.0-5.4 [facility] Comment on above: Performed By: #### I TROT, CMPF #### Testing performed at [place] [phone] WBC #/vol (Bld) 8.9 /cmm Normal 3.6-11.0 [facility] Comment on above: Performed By: #### I TROT, CMPF #### Testing performed at [address] [address] CBC, EDIF, PLATELETon 2018 ABSOLUTE BASOPHIL COUNT 0.[address] - [facility] Basophils/100 WBC (Bld) 0.6 % 0 - 2 % [address] [facility] Differential cell count method Nom (Bld) AUTO DIFF % [address] - [facility] Eosinophils #/vol (Bld) 0.00 10*3/uL X10 [address] - [facility] Eosinophils/100 WBC (Bld) 0.6 % 0 - 11 % [place] [address] - [facility] Erythrocyte distribution width Ratio (RBC) 13.3 % 11.5 - 14.5 % [place] [address] - [facility] Hematocrit Volume Fraction (Bld) 40.0 % 36 - 48 % [place] [address] - [facility] Hemoglobin mass conc (Bld) 13.5 g/dL [place] [address] - [facility] Lymphocytes #/vol (Bld) 1.90 10*3/uL X10 [place] [address] - [facility] Lymphocytes/100 WBC (Bld) 21.6 % 20 - 55 % [place] [address] - [facility] MCH Entitic mass (RBC) 30.7 pg 26 - 35 PG [place] [address] - [facility] MCHC mass conc (RBC) 33.6 g/dL [place] [address] - [facility] MCV Entitic volume (RBC) 91.3 fL [place] [address] - [place] Monocytes #/vol (Bld) 0.5 10*3/uL X10 [place] [address] - [place] Monocytes/100 WBC (Bld) 5.8 % 0 - 10 % [place] [address] - [facility] Neutrophils #/vol (Bld) 6.4 10*3/uL [place] [address] - [place] Neutrophils/100 WBC (Bld) 71.4 % 37 - 75 % [place] [address] - [place] Platelet mean volume Entitic volume (Bld) 9.0 fL [facility] - [address] - [place] Platelets #/vol (Bld) 258 10*3/uL [facility] - [address] - [place] RBC #/vol (Bld) 4.38 10*6/uL [facility] - [address] - [place] WBC #/vol (Bld) 8.9 10*3/uL [facility] - [address] - [place] CMP FASTINGon 08-01-2018 ALP enzyme act/vol 61 U/L Normal 38-126 [facility] Comment on above: Performed By: #### I TROT, CMPF #### Testing performed at [place] [id number] ALT enzyme act/vol 22 U/L Normal 9-52 [facility] Comment on above: Performed By: #### I TROT, CMPF #### Testing performed at [place] [id number] AST enzyme act/vol 24 U/L Normal 14-36 [facility] Comment on above: Performed By: #### I TROT, CMPF #### Testing performed at [address] [address] Bilirubin mass conc 0.8 mg/dL Normal 0.2-1.3 [facility] Comment on above: Performed By: #### I TROT, CMPF #### Testing performed at [address] [address] A:G RATIO 1.4 RATIO Normal 1.3-2.2 [facility] Comment on above: Performed By: #### I TROT, CMPF #### Testing performed at [address] [address] Albumin mass conc 4.6 G/dl Normal 3.5-5.0 [facility] Comment on above: Performed By: #### I MAYTE CMPF #### Testing performed at [address] [address] Calcium mass conc 9.3 mg/dL Normal 8.4-10.2 [facility] Comment on above: Performed By: #### I MAYTE CMPF #### Testing performed at [address] [place] [address] Chloride molar conc 106 mmol/L Normal 98-107 [facility] Comment on above: Result Comment: Ashlee león note: Triglyceride levels of 600mg/dL or higher may positively bias chloride results by approximately 2.1 mmol Performed By: #### I MAYTE CMPF #### Testing performed at [address] [address] CO2 molar conc 28 mmol/L Normal 22-30 [facility] Comment on above: Performed By: #### I MAYTE CMPF #### Testing performed at [address] [place] [address] Creatinine mass conc 0.6 mg/dL Low 0.7-1.2 [facility] Comment on above: Performed By: #### I MAYTE CMPF #### Testing performed at [address] [place] [address] EST. GFR, >60 Normal [facility] Comment on above: Performed By: #### I MAYTE CMPF #### Testing performed at [address] [place] [address] EST. GFR,Non >60 Normal [facility] Comment on above: Performed By: #### I TROT CMPF #### Testing performed at [address] [place] [address] GFR/1.73 sq M predicted among non-blacks MDRD vol rate/area (S/P/Bld) Average GFR for 20-29 years old = 116. Normal [facility] Comment on above: Result Comment: Gas Leak Tester parrish Kidney disease, GFR = <60. Kidney failure, GFR = <15. The GFR estimate is not adjusted for extreme body surface area or acute process, nor has it been validated for women or ethnic groups other than and . Performed By: #### I BERHANE HU #### Testing performed at [address] [address] Glucose mass conc 89 mg/dL Normal 70-100 [facility] Comment on above: Result Comment: NORMAL <100 mg/dL PREDIABETES 101-126 mg/dL DIABETES 126 mg/dL or higher Performed By: #### I BERHANE HU #### Testing performed at [address] [address] Potassium molar conc 4.4 mmol/L Normal 3.5-5.1 [facility] Comment on above: Performed By: #### Rafaela HU CMPF #### Testing performed at [address] [address] Protein mass conc 8.0 g/dL Normal 6.3-8.2 [facility] Comment on above: Performed By: #### Rafaela HU CMPF #### Testing performed at [address] [address] Sodium molar conc 141 mmol/L Normal 137-145 [facility] Comment on above: Performed By: #### I MAYTE CMPF #### Testing performed at [address] [place] [address] Urea nitrogen mass conc 12 mg/dL Normal 7-20 [facility] Comment on above: Performed By: #### Rafaela HU CMPF #### Testing performed at [address] [address] COMPREHENSIVE METABOLIC PANE Fidel 08-01-2018 Albumin mass conc 4.6 G/dl 3.5 - 5 G/dl [facility] Albumin/Globulin mass ratio 1.4 {ratio} [facility] ALP enzyme act/vol 61 U/L [facility] ALT enzyme act/vol 22 U/L [facility] AST enzyme act/vol 24 U/L [facility] Bilirubin mass conc 0.8 mg/dL [facility] Calcium mass conc 9.3 mg/dL [facility] Chloride molar conc 106 mmol/L [facility] Comment on above: Please note: Triglyc eride levels of 600mg/dL or higher may positively bias chloride results by approximately 2.1 mmol CO2 molar conc 28 mmol/L [facility] Creatinine mass conc 0.6 mg/dL Low [facility] GFR/1.73 sq M predicted among blacks MDRD vol rate/area (S/P/Bld) mL/min/{1.73_m2} ml/min/1.73sq. m [facility] GFR/1.73 sq M predicted among non-blacks MDRD vol rate/area (S/P/Bld) mL/min/{1.73_m2} ml/min/1.73sq. m [facility] GFR/1.73 sq M predicted among non-blacks MDRD vol rate/area (S/P/Bld) Average GFR for 20-29 years old = 116. [facility] Comment on above: Chronic Kidney disea se, GFR = <60. Kidney failure, GFR = <15. The GFR estimate is not adjusted for extreme body surface area or acute process, nor has it been validated for women or ethnic groups other than and . Glucose fasting mass conc 89 mg/dL [facility] Comment on above: NORMAL <100 mg/dL PREDIABETES 101-126 mg/dL DIABETES 126 mg/dL or higher Interpretation and review of laboratory results Abnormal [facility] Potassium molar conc 4.4 mmol/L [facility] Protein mass conc 8.0 g/dL [facility] Sodium molar conc 141 mmol/L [facility] Urea nitrogen mass conc 12 mg/dL [facility] D DIMERon 08-01-2018 D DIMER 0.19 mg/L FEU Normal 0.19-0.50 [facility] Comment on above: Performed By: #### I BERHANE HU #### Testing performed at [address] [address] D-DIMER,QUANTITATIVEon 08-01 Fibrin D-dimer FEU mass conc (PPP) 0.19 [facility] - [address] [place] [address]. [address] - [place] IST TROPONIN Ion 9 Troponin I.cardiac mass conc ng/mL Normal 0-0.08 [facility] Comment on above: Performed By: #### I TROT, CMPF #### Testing performed at [address] [address] RAPID TOX SCREEN,URINEon AMPHETAMINE Negative Normal NEGATIVE [facility] Comment on above: Result Comment: <500 ng/ml CUTOFF BARBITURATES Negative Normal NEGATIVE [facility] Comment on above: Result Comment: <200 ng/ml CUTOFF Benzodiazepines Ql (U) Negative Normal NEGATIVE [facility] Comment on above: Result Comment: <150 ng/ml CUTOFF BUPRENORPHINE Negative Normal NEGATIVE [facility] Comment on above: Result Comment: <10 ng/ml CUTOFF Cannabinoids Screen Ql (U) Negative Normal NEGATIVE [facility] Comment on above: Result Comment: <50 ng/ml CUTOFF Cocaine Ql (U) Negative Normal NEGATIVE [facility] Comment on above: Result Comment: <150 ng/ml CUTOFF Methadone Ql (U) Negative Normal NEGATIVE [facility] Comment on above: Result Comment: <200 ng/ml CUTOFF METHAMPHETAMINE Negative Normal NEGATIVE [facility] Comment on above: Result Comment: <500 ng/ml CUTOFF Opiates Ql (U) Negative Normal NEGATIVE [facility] Comment on above: Result Comment: <100 ng/ml CUTOFF OXYCODONE Negative Normal NEGATIVE [facility] Comment on above: Result Comment: <100 ng/ml CUTOFF Phencyclidine Ql (U) Negative Normal NEGATIVE [facility] Comment on above: Result Comment: <25 ng/ml CUTOFF Protein mass conc (U) Negative Normal NEGATIVE [facility] Comment on above: Result Comment: <300 ng/ml CUTOFF Tricyclic antidepressants Screen Ql (U) Negative Normal NEGATIVE [facility] Comment on above: Result Comment: <300 ng/ml CUTOFF SERUM HCG QUALon 08-01-2018 SERUM BETA HCG,QUAL Negative Normal [facility] Comment on above: Performed By: #### I MAYTE, NICHOL #### [place] [address] TOXICOLOGY DRUG SCREEN, GORGE Rodolfo 08-01-2018 Amphetamine mass conc (U) Negative NEGATIVE NG/ML [place] [address] Comment on above: <500 ng/ml CUTOFF Barbiturates Screen Ql (U) Negative NEGATIVE NG/ML [place] [address] Comment on above: <200 ng/ml CUTOFF Benzodiazepines Ql (U) Negative NEGATIVE NG/ML [place] [address] Comment on above: <150 ng/ml CUTOFF Benzoylecgonine Ql (U) Negative NEGATIVE NG/ML [place] [address] Comment on above: <150 ng/ml CUTOFF Buprenorphine Ql (U) Negative NEGATIVE NG/ML [place] [address] Comment on above: <10 ng/ml CUTOFF Cannabinoids Screen Ql (U) Negative NEGATIVE NG/ML [place] [address] Comment on above: <50 ng/ml CUTOFF Methadone Screen Ql (U) Negative NEGATIVE NG/ML [place] [address] Comment on above: <200 ng/ml CUTOFF Methamphetamine mass conc (U) Negative NEGATIVE NG/ML [place] [address] Comment on above: <500 ng/ml CUTOFF Opiates Screen Ql (U) Negative NEGATIVE NG/ML [place] [address] Comment on above: <100 ng/ml CUTOFF Oxycodone Ql (U) Negative NEGATIVE NG/ML [place] [address] [place] [address] Comment on above: <100 ng/ml CUTOFF Phencyclidine Screen method >25 ng/mL Ql (U) Negative NEGATIVE NG/ML [facility] - [address] Comment on above: <25 ng/ml CUTOFF Propoxyphene + Norpropoxyphene Screen Ql (U) Negative NEGATIVE NG/ML [facility] - [address] [place] [address] Comment on above: <300 ng/ml CUTOFF Tricyclic antidepressants Screen Ql (U) Negative NEGATIVE NG/ML [facility] - [address] Comment on above: <300 ng/ml CUTOFF TROPONINon 08-01-2018 Troponin I.cardiac mass conc ng/mL 0 - 0.08 ng/mL LAB, [facility] XR CHEST PA AND LATERALon Protein mass conc PROCEDURE: XR CHEST PA AND LATERAL 08/01/2018 11:47 AM EST CLINICAL HISTORY: Pleuritic chest pain COMPARISON: None. TECHNIQUE: PA and lateral views FINDINGS: Lungs are clear. The cardiomediastinal configuration is within normal limits. No acute bony abnormalities. IMPRESSION: No acute cardiopulmonary abnormalities. [facility] IMPRESSION: No acute cardiopulmonary abnormalities. RADIOLOGY User, [facility] - 08/01/2018 12:19 PM EST PROCEDURE: XR CHEST PA AND LATERAL 08/01/2018 11:47 AM EST CLINICAL HISTORY: Pleuritic chest pain COMPARISON: None. TECHNIQUE: PA and lateral views FINDINGS: Lungs are clear. The cardiomediastinal configuration is within normal limits. No acute bony abnormalities. IMPRESSION IMPRESSION: No acute cardiopulmonary abnormalities. RADIOLOGY PROCEDURE: XR CHEST PA AND LATERAL 08/01/2018 11:47 AM EST CLINICAL HISTORY: Pleuritic chest pain COMPARISON: None. TECHNIQUE: PA and lateral views FINDINGS: Lungs are clear. The cardiomediastinal configuration is within normal limits. No acute bony abnormalities. RADIOLOGY Vital Signs Date Time Vital Sign Value Performing Clinician Facility 09-17-2023 12:14-0400 Blood Pressure Location [facility] 09-17-2023 12:14-0400 Body temperature 97.52 [degF] [facility] 09-17-2023 12:14-0400 Diastolic blood pressure 74 mm[Hg] [facility] 09-17-2023 12:14-0400 Heart rate 88 /min [facility] 09-17-2023 12:14-0400 SaO2% (BldA) [Mass fraction] 98 % [facility] 09-17-2023 12:14-0400 Systolic blood pressure 116 mm[Hg] [facility] 01-01-2023 15:30-0400 Blood Pressure Location SHERRIE SIDELL [facility] 01-01-2023 15:30-0400 Body temperature 98.24 [degF] SHERRIE SIDELL [facility] 01-01-2023 15:30-0400 Diastolic blood pressure 78 mm[Hg] SHERRIE SIDELL [facility] 01-01-2023 15:30-0400 Heart rate 82 /min SHERRIE SIDELL [facility] 01-01-2023 15:30-0400 SaO2% (BldA) [Mass fraction] 99 % SHERRIE SIDELL [facility] 01-01-2023 15:30-0400 Systolic blood pressure 118 mm[Hg] SHERRIE SIDELL [facility] 11-15-2022 14:54-0400 Blood Pressure Location Kristynharpreet Jewellk [facility] 11-15-2022 14:54-0400 Body temperature 97.88 [degF] Kristyn Azeemonk [facility] 11-15-2022 14:54-0400 Diastolic blood pressure 70 mm[Hg] Kristyn Klonk [facility] 11-15-2022 14:54-0400 Heart rate 86 /min Kristyn Jewellk [facility] 11-15-2022 14:54-0400 SaO2% (BldA) [Mass fraction] 98 % Kristyn Jewellk [facility] 11-15-2022 14:54-0400 Systolic blood pressure 118 mm[Hg] Kristyn Jewellk [facility] 08-22-2022 11:31-0500 Blood Pressure Location Trista Orzech [facility] 08-22-2022 11:31-0500 Body temperature 98.06 [degF] Trista Orzech [facility] 08-22-2022 11:31-0500 Diastolic blood pressure 82 mm[Hg] Trista Orzech [facility] 08-22-2022 11:31-0500 Heart rate 79 /min Trista Orzech [facility] 08-22-2022 11:31-0500 SaO2% (BldA) [Mass fraction] 98 % Trista Orzech [facility] 08-22-2022 11:31-0500 Systolic blood pressure 116 mm[Hg] Trista Orzech [facility] 08-07-2022 07:50-0500 Body temperature 98.24 [degF] [facility] 08-07-2022 07:50-0500 Diastolic blood pressure 81 mm[Hg] [facility] 08-07-2022 07:50-0500 Heart rate 77 /min [facility] 08-07-2022 07:50-0500 Respiratory rate 18 /min [facility] 08-07-2022 07:50-0500 SaO2% (BldA) [Mass fraction] 99 % [facility] 08-07-2022 07:50-0500 Systolic blood pressure 134 mm[Hg] [facility] 02-27-2022 14:43-0400 Blood Pressure Location [facility] 02-27-2022 14:43-0400 Diastolic blood pressure 78 mm[Hg] Apoorva [facility] 02-27-2022 14:43-0400 Heart rate 96 /min [facility] 02-27-2022 14:43-0400 Respiratory rate 20 /min [facility] 02-27-2022 14:43-0400 SaO2% (BldA) [Mass fraction] 98 % Apoorva [facility] 02-27-2022 14:43-0400 Systolic blood pressure 110 mm[Hg] Apoorva [facility] 10-11-2021 10:41-0400 Blood Pressure Location Seth HOROWITZ [facility] 10-11-2021 10:41-0400 Body temperature 98.06 [degF] Seth HOROWITZ [facility] 10-11-2021 10:41-0400 Diastolic blood pressure 80 mm[Hg] Seth HOROWITZ [facility] 10-11-2021 10:41-0400 Heart rate 95 /min Seth HOROWITZ [facility] 10-11-2021 10:41-0400 SaO2% (BldA) [Mass fraction] 99 % Seth HOROWITZ [facility] 10-11-2021 10:41-0400 Systolic blood pressure 118 mm[Hg] Seth HOROWITZ [facility] 08-01-2018 12:51-0500 BP Diastolic 56 mm[Hg] [facility] Work Phone: 08-01-2018 12:51-0500 BP Systolic 117 mm[Hg] [facility] Work Phone: 08-01-2018 12:51-0500 Pulse (Heart Rate) 76 /min [facility] Work Phone: 08-01-2018 12:51-0500 Pulse Oximetry 98 % [facility] Work Phone: 08-01-2018 12:51-0500 Respiratory Rate 16 /min [facility] Work Phone: 08-01-2018 10:20-0500 Body Temperature 98.1 [degF] [facility] Work Phone: 10-25-2017 09:40-0400 BMI (Body Mass Index) 22.6 kg/m2 David Hurt [facility] 10-25-2017 09:40-0400 Height 167.6 cm David Hurt [facility] 10-25-2017 09:40-0400 Weight 63.5 kg David Hurt [facility] Encounters Encounter Date Encounter Type Care Provider Facility Start: 10-11-2023 End: 10-12-2023 ambulatory Sherin Cheatham Facility:[facility] Start: 10-11-2023 End: 10-11-2023 Patient [facility] Start: 09-24-2023 End: 09-24-2023 ambulatory ASH AIMEE Not Available Start: 09-17-2023 End: 09-18-2023 ambulatory Hay Dowling Facility:[facility] Start: 09-17-2023 End: 09-17-2023 Patient encounter procedure Hay Dowling [facility] Start: 08-28-2023 End: 08-28-2023 ambulatory ASH AIMEE Not Available Start: 08-08-2023 End: 08-08-2023 ambulatory GRISELDA ELIZABETH Not Available Start: 02-12-2023 End: 02-13-2023 ambulatory Ayde T REGINE Facility:[facility] Start: 02-08-2023 End: 02-09-2023 ambulatory Ayde T REGINE Facility:[facility] Start: 02-05-2023 End: 02-06-2023 ambulatory Ayde T REGINE Facility:[facility] Start: 01-01-2023 End: 01-02-2023 ambulatory SHERRIE BUNN Facility:[facility] Start: 01-01-2023 End: 01-01-2023 Patient encounter procedure SHERRIE BUNN [facility] Start: 11-16-2022 End: 11-17-2022 ambulatory KRISTYN KOWALSKI Facility:[facility] Start: 11-15-2022 End: 11-16-2022 ambulatory KRISTYN KOWALSKI Facility:[facility] Start: 11-15-2022 End: 11-15-2022 Patient encounter procedure Kristyn Kowalski [facility] Start: 08-22-2022 End: 08-22-2022 Patient encounter procedure Trista Oliva [facility] Start: 08-07-2022 End: 08-07-2022 Emergency department patient visit [facility] Start: 02-27-2022 End: 03-01-2022 Pre-admission assessment Apoorva [facility] Start: 02-27-2022 End: 02-27-2022 Patient encounter procedure Apoorva Sweet [facility] Start: 02-06-2022 End: 02-06-[address] ASH YU Facility:[facility] Start: 11-30-2021 End: 11-30-2021 Patient encounter procedure Nadir ZHENG [facility] Start: 11-03-[address] ASH YU Facility :[facility] Start: 10-11-2021 End: 10-11-2021 Patient encounter procedure [facility] Start: 06-11-2020 End: 06-12-2020 Patient encounter procedure ADI BOSWELL [facility] Start: 06-11-2020 End: 06-11-2020 Subsequent hospital visit by physician Adi Boswell [facility] Comment on above: History of mononucle osis Start: 06-07-2020 End: 06-08-2020 Patient encounter procedure [facility] Start: 06-07-2020 End: 06-07-2020 Subsequent hospital visit by physician Adi ORTIZ [facility] Comment on above: Viral URI with cough Start: 05-18-2020 End: 05-19-2020 Patient encounter procedure JESSICA ESQUIVEL [facility] Start: 05-18-2020 End: 05-18-2020 Subsequent hospital visit by physician Adi Boswell [facility] Comment on above: Suspected COVID-19 v irus infection Start: 03-21-2020 End: 03-22-2020 Patient encounter procedure [facility] Start: 03-21-2020 End: 03-21-2020 Subsequent hospital visit by physician Adi ORTIZ [facility] Comment on above: Fatigue, unspecified type; Screening cholesterol level Start: 08-01-2018 End: 08-01-2018 Letter encounter Provider Kaushik [facility] Start: 08-01-2018 End: 08-01-2018 Emergency department patient visit MITCHEL Reji BISWAS [facility] Start: 08-01-2018 End: 08-01-2018 Emergency department patient visit [facility] Reji [place] Work Phone: [facility] Start: 12-05-2017 Ambulatory DAVID HURT [facility] Start: 11-27-2017 End: 11-27-2017 Patient encounter procedure David Shruthi Jami Facility:[facility] Start: 11-15-2017 End: 11-15-2017 Ambulatory DAVID HURT [facility] Start: 11-15-2017 End: 11-15-2017 Office/outpatient visit, est, level 2 David Hurt Work Phone: [facility] [place] Start: 11-04-2017 End: 11-04-2017 Ambulatory David Sun Lelejhon Work Phone: [facility] Start: 10-30-2017 Ambulatory DAVID HURT [facility] Ambulatory Start: 10-25-2017 End: 10-25-2017 Ambulatory [facility] Start: 10-25-2017 End: 10-25-2017 [facility] [place] Procedures Date Procedure Procedure Detail Performing Clinician Start: 06-11-2020 Blood count complete auto&auto difrntl wbc ADI BACK Start: 06-11-2020 Hepatic function panel ADI BACK Start: 06-11-2020 Blood count complete auto&auto difrntl wbc Sailaja Joshua Maykel Work Phone: Start: 06-11-2020 Hepatic function panel Sailaja Tineo Work Phone: Start: 06-06-2020 COVID-19 AMBULATORY ADI BACK Start: 05-18-2020 COVID-19 AMBULATORY ADI BACK Start: 03-21-2020 Assay of thyroid stimulating hormone tsh ADI BACK Start: 03-21-2020 Blood typing serologic abo ADI BACK Start: 03-21-2020 Comprehensive metabolic panel ADI BACK Start: 03-21-2020 Lipid panel ADI BACK Start: 03-21-2020 Assay of thyroid stimulating hormone tsh Aid Back Work Phone: Start: 03-21-2020 Comprehensive metabolic panel Adi Back Work Phone: Start: 03-21-2020 PATIENT FASTING? Adi Back Work Phone: Start: 08-01-2018 End: 08-01-2018 Diagnostic radiography of chest, combined PA and lateral Mitchel Reji Biswas Work Phone: Start: 08-01-2018 End: 08-01-2018 TOXICOLOGY DRUG SCREEN, URINE Mitchel Morley per Work Phone: Start: 08-01-2018 End: 08-01-2018 Assay of troponin quantitative Mitchel Reji Baer rper Work Phone: Start: 08-01-2018 End: 08-01-2018 CBC, EDIF, PLATELET Mitchel Morleyper Work Phone: Start: 08-01-2018 End: 08-01-2018 Choriogonadotropin ( test) [Presence] in Serum or Plasma Mitchel Biswas Work Phone: Start: 08-01-2018 End: 08-01-2018 Comprehensive metabolic panel Mitchel K Peyman per Work Phone: Start: 08-01-2018 End: 08-01-2018 Fibrin dgradj products d-dimer quantitative Mitchel Biswas Work Phone: Start: 08-01-2018 End: 08-01-2018 Standard ECG Mitchel Biswas Work Phone: Start: 07-08-2000 tonsils and tubes in ears Seth HOROWITZ Plan of Treatment Date Care Activity Detail Author Start: 04-19-2026 DTaP/Tdap/Td vaccine (2 - Td) DTaP/Tdap/Td vaccine (2 - Td) [place], [place] Start: 04-19-2026 Tetanus vaccination TETANUS EVERY 10 YR [facility] Start: 09-19-2020 End: 09-19-2020 Office Visit 09/19/2020 Office Visit Family Adi Ansari MD [address] [place] [address] [phone] [facility] Start: 06-27-2020 Screening for malign ant neoplasm of cervix Cervical cancer screen [place], [place] Start: 06-16-2020 End: 06-16-2020 Office Visit 06/16/2020 Office Visit Family Adi Ansari MD [address] [place] [address] [phone] [facility] Start: 03-08-2020 Influenza vaccination Flu vaccine (# 1) [place], [place] Start: 03-08-2018 Influenza vaccination [facility] Start: 11-15-2017 End: 11-15-2017 Ambulatory 11/15/2017 Office Visit Sports Medicine David Hurt MD [address] [facility] [address] [place], [place] [id number] [facility] [place] Start: 10-31-2017 Ambulatory 10/31/2017 Hos eugeniaal David Faustin MD [address] [facility] [address] [place], [place] [id number] [facility] Start: 03-08-2017 Influenza vaccination SEQUENTI AL INFLUENZA VACCINE (#1) [facility] Start: 10-21-2016 Screening for malign ant neoplasm of cervix PAP SMEAR DISCUSSION [facility] Work Phone: Start: 10-21-2014 Third diphtheria, te tanus and acellular pertussis (DTaP) vaccination TDAP (ADULT) [facility] Work Phone: Start: 10-21-2013 GONORRHEA SCREEN GONORRHEA SCREEN [facility] Work Phone: Start: 10-21-2013 [facility] Start: 2011 Screening for Chlamy carson trachomatis CHLAMYDIA SCREEN [facility] Work Phone: Start: 10-21-2008 HIV screening HIV SCREENING DISCUSSION [facility] Work Phone: Start: 10-21-2006 HPV vaccine (1 - 2-d ose series) HPV vaccine (1 - 2-dose series) [place], [place] Start: 10-21-2006 Vaccination for alo n papillomavirus [facility] Start: 10-21-2001 Pneumococcal 0-64 ye ars Vaccine (1 of 1 - PPSV23) Pneumococcal 0-64 years Vaccine (1 of 1 - PPSV23) [place], [place] Start: 10-21-1996 Varicella vaccine (1 of 2 - 2-dose childhood series) Varicella vaccine (1 of 2 - 2-dose childhood series) [place], [place] Start: 1995 Screening for malign ant neoplasm of cervix PAP SMEAR [facility] End: 05-18-2020 COVID-19 Ambulatory COVID-19 Ambulatory Lab Routine Suspected COVID-19 virus infection 1 Occurrences starting 05/18/2020 until 05/18/2020 [place], [place] Comment on above: 1 Occurrences starti ng 05/18/2020 until 05/18/2020 COVID-19 Ambulatory [place], [place] End: 06-07-2020 COVID-19 Ambulatory COVID-19 Ambulatory Lab Routine Viral URI with cough 1 Occurrences starting 06/07/2020 until 06/07/2020 [place] Comment on above: 1 Occurrences starti ng 06/07/2020 until 06/07/2020 End: 03-21-2020 Lipid panel Lipid Panel Lab Routine Screening cholesterol level 1 Occurrences starting 03/21/2020 until 03/21/2020 [place], [place] Comment on above: 1 Occurrences starti ng 03/21/2020 until 03/21/2020 Lipid panel Lipid Panel Lab Routine Screening cholesterol level 03/21/2020 9:07 AM EDT [place], [place] Standard ECG ECG STAT 019 10:49 AM EST [facility] Work Phone: Immunizations Immunization Date Immunization Notes Care Provider Aparna buckley 05-09-2017 influenza virus vaccine, unspecified formulation [place], [place] 04-19-2016 tetanus toxoid, reduced diphtheria toxoid, and acellular pertussis vaccine, adsorbed [place], [place] Comment on above: Reason for Medicatio n: Other (see comment) NEGATED: Highlighted row has not occurred!07-13-2022 influenza virus vaccine, unspecified formulation James Nam [facility] NEGATED: Highlighted row has not occurred!07-13-2022 SARS-CoV-2 mRNA (tozinameran 5y-11y) vaccine James Nam [facility] NEGATED: Highlighted row has not occurred!08-25-2020 influenza virus vaccine, unspecified formulation Seth HOROWITZ [facility] Payers Date Payer Category Payer Unknown [id number] 1995 Unknown [id number] 2.16.84 [id number] 1995 Unknown [id number] 2.16.84 [id number] 1995 Unknown [id number] 2.16.84 [id number] 1995 Unknown [id number] 2.16.84 [id number] 1995 Unknown [id number] 2.16.84 [id number] 1995 Unknown [id number] 2.16.84 [id number] 1995 Unknown [id number] 2.16.84 [id number] 1995 Unknown [id number] 2.16.84 [id number] 1995 Unknown [id number] 2.16.84 [id number] 1995 Unknown [id number] 2.16.8 [id number] 1995 Unknown [id number] 2.16.8 [id number] 1995 Unknown [id number] 2.16.8 [id number] 1995 Unknown [id number] 2.16.8 [id number] 1995 Unknown [id number] 2.16.8 [id number] 1995 Unknown [id number] 2.16.8 [id number] 1959 Unknown [id number] Social History Date Type Detail Facility Start: 10-25-2017 End: 11-15-2017 Tobacco smoking status NHIS Former smoker [facility] Sex Assigned At Not on file Melita oneill Start: 08-01-2018 End: 09-17-2023 Tobacco smoking status NHIS Never smoker [facility] Work Phone: Start: 03-21-2020 End: 06-06-2020 Tobacco use and exposure Never used [facility] [place] [place] Start: 03-21-2020 End: 06-06-2020 Alcohol intake Current non-drinker of alcohol (finding) [facility] [place] Tobacco smoking status Never [facility] Sex Assigned At Female [facility] Functional Status Date Assessment Result Facility 09-17-2023 Functional Status N/A [facility] 01-01-2023 Functional Status N/A [facility] 11-15-2022 Functional Status N/A [facility] 08-22-2022 Functional Status N/A [facility] 08-07-2022 Functional Status N/A [facility] 02-27-2022 Functional Status N/A [facility] Clinical Notes 02-14-2021 to 10-11-2023 Laboratory Note Date & Type Note Facility 10-11-2023 Hospital Discharge instructions Patient Education 10/11/2023 07:15:11 Sore Throat Sore Throat A sore throat is pain, burning, irritation, or scratchiness in the throat. When you have a sore throat, you may feel pain or tenderness in your throat when you swallow or talk. Many things can cause a sore throat, including: An infection. Seasonal allergies. Dryness in the air. Irritants, such as smoke or pollution. Radiation treatment for cancer. Gastroesophageal reflux disease (GERD). A tumor. A sore throat is often the first sign of another sickness. It may happen with other symptoms, such as coughing, sneezing, fever, and swollen neck glands. Most sore throats go away without medical treatment. Follow these instructions at home: Medicines Take keim-tqj-nhhipom and prescription medicines only as told by your health care provider. Children often get sore throats. Do not give your child aspirin because of the association with Bettina's syndrome. Use throat sprays to soothe your throat as told by your health care provider. Managing pain To help with pain, try: Sipping warm liquids, such as broth, herbal tea, or warm water. Eating or drinking cold or frozen liquids, such as frozen ice pops. Gargling with a mixture of salt and water 3 4 times a day or as needed. To make salt water, completely dissolve 1 tsp (3 6 g) of salt in 1 cup (237 mL) of warm water. Sucking on hard candy or throat lozenges. Putting a cool-mist humidifier in your bedroom at night to moisten the air. Sitting in the bathroom with the door closed for 5 10 minutes while you run hot water in the shower. General instructions Do not use any products that contain nicotine or tobacco. These products include cigarettes, chewing tobacco, and vaping devices, such as e-cigarettes. If you need help quitting, ask your health care provider. Rest as needed. Drink enough fluid to keep your urine pale yellow. Wash your hands often with soap and water for at least 20 seconds. If soap and water are not available, use hand chief sustainability officer. Contact a health care provider if: You have a fever for more than 2 3 days. You have symptoms that last for more than 2 3 days. Your throat does not get better within 7 days. You have a fever and your symptoms suddenly get worse. Get help right away if: You have difficulty breathing. You cannot swallow fluids, soft foods, or your saliva. You have increased swelling in your throat or neck. You have persistent nausea and vomiting. These symptoms may represent a serious problem that is an emergency. Do not wait to see if the symptoms will go away. Get medical help right away. Call your local emergency services (911 in the [place] Do not drive yourself to the hospital. Summary A sore throat is pain, burning, irritation, or scratchiness in the throat. Many things can cause a sore throat. Take cldv-lef-nirpcyb medicines only as told by your health care provider. Rest as needed. Drink enough fluid to keep your urine pale yellow. Contact a health care provider if your throat does not get better within 7 days. This information is not intended to replace advice given to you by your health care provider. Make sure you discuss any questions you have with your health care provider. Document Revised: 09/20/2021 Document Reviewed: 09/20/2021 [employer] Patient Education 2022 [employer] Follow Up Care 10/11/2023 06:27:52 With:Linden MARROQUIN, OUTDOOR FITNESS TRAINER-ROD CUP FILLER, Sherin Tillman Address: [address] [place] [id number] When: only if needed [facility] [place] 09-17-2023 Hospital Discharge instructions Patient Education 09/17/2023 12:50:56 BMI for Adults BMI for Adults What is BMI? Body mass index (BMI) is a number that is calculated from a person's weight and height. BMI can help estimate how much of a person's weight is composed of fat. BMI does not measure body fat directly. Rather, it is an alternative to procedures that directly measure body fat, which can be difficult and expensive. BMI can help identify people who may be at higher risk for certain medical problems. What are BMI measurements used for? BMI is used as a screening tool to identify possible weight problems. It helps determine whether a person is obese, overweight, a healthy weight, or underweight. BMI is useful for: Identifying a weight problem that may be related to a medical condition or may increase the risk for medical problems. Promoting changes, such as changes in diet and exercise, to help reach a healthy weight. BMI screening can be repeated to see if these changes are working. How is BMI calculated? BMI involves measuring your weight in relation to your height. Both height and weight are measured, and the BMI is calculated from those numbers. This can be done either in [place] or metric measurements. Note that charts and online BMI calculators are available to help you find your BMI quickly and easily without having to do these calculations yourself. To calculate your BMI in [place] measurements: 1.Measure your weight in pounds (lb). 2.Multiply the number of pounds by 703. For example, for a person who weighs 180 lb, multiply that number by 703, which equals 126,540. 3.Measure your height in inches. Then multiply that number by itself to get a measurement called inches squared. For example, for a person who is 70 inches tall, the inches squared measurement is 70 inches x 70 inches, which equals 4,900 inches squared. 4.Divide the total from step 2 (number of lb x 703) by the total from step 3 (inches squared): 126,540 4,900 = 25.8. This is your BMI. To calculate your BMI in metric measurements: 1.Measure your weight in kilograms (kg). 2.Measure your height in meters (m). Then multiply that number by itself to get a measurement called meters squared. For example, for a person who is 1.75 m tall, the meters squared measurement is 1.75 m x 1.75 m, which is equal to 3.1 meters squared. 3.Divide the number of kilograms (your weight) by the meters squared number. In this example: 70 3.1 = 22.6. This is your BMI. What do the results mean? BMI charts are used to identify whether you are underweight, normal weight, overweight, or obese. The following guidelines will be used: Underweight: BMI less than 18.5. Normal weight: BMI between 18.5 and 24.9. Overweight: BMI between 25 and 29.9. Obese: BMI of 30 or above. Keep these notes in mind: Weight includes both fat and muscle, so someone with a muscular build, such as an athlete, may have a BMI that is higher than 24.9. In cases like these, BMI is not an accurate measure of body fat. To determine if excess body fat is the cause of a BMI of 25 or higher, further assessments may need to be done by a health care provider. BMI is usually interpreted in the same way for men and women. Where to find more information For more information about BMI, including tools to quickly calculate your BMI, go to these websites: Centers for Disease Control and Prevention: www.cdc.gov [place] [employer]: www.heart.org National Heart, Lung, and Blood [place]: www.nhlbi.nih.gov Summary Body mass index (BMI) is a number that is calculated from a person's weight and height. BMI may help estimate how much of a person's weight is composed of fat. BMI can help identify those who may be at higher risk for certain medical problems. BMI can be measured using [place] measurements or metric measurements. BMI charts are used to identify whether you are underweight, normal weight, overweight, or obese. This information is not intended to replace advice given to you by your health care provider. Make sure you discuss any questions you have with your health care provider. Document Revised: 03/16/2020 Document Reviewed: 01/22/2020 [employer] Patient Education 2022 [employer]. 09/17/2023 12:50:54 Viral Illness, Adult Viral Illness, Adult Viruses are tiny germs that can get into a person's body and cause illness. There are many different types of viruses, and they cause many types of illness. Viral illnesses can range from mild to severe. They can affect various parts of the body. Short-term conditions that are caused by a virus include colds and the flu (influenza). Long-term conditions that are caused by a virus include herpes, shingles, and HIV (human immunodeficiency virus) infection. A few viruses have been linked to certain cancers. What are the causes? Many types of viruses can cause illness. Viruses invade cells in your body, multiply, and cause the infected cells to work abnormally or . When these cells , they release more of the virus. When this happens, you develop symptoms of the illness, and the virus continues to spread to other cells. If the virus takes over the function of the cell, it can cause the cell to divide and grow out of control. This happens when a virus causes cancer. Different viruses get into the body in different ways. You can get a virus by: Swallowing food or water that has come in contact with the virus (is contaminated). Breathing in droplets that have been coughed or sneezed into the air by an infected person. Touching a surface that has been contaminated with the virus and then touching your eyes, nose, or mouth. Being bitten by an insect or animal that carries the virus. Having sexual contact with a person who is infected with the virus. Being exposed to blood or fluids that contain the virus, either through an open cut or during a transfusion. If a virus enters your body, your body's defense system (immune system) will try to fight the virus. You may be at higher risk for a viral illness if your immune system is weak. What are the signs or symptoms? You may have these symptoms, depending on the type of virus and the location of the cells that it invades: Cold and flu viruses: ?Fever. ?Headache. ?Sore throat. ?Muscle aches. ?Stuffy nose (nasal congestion). ?Cough. Digestive system (gastrointestinal) viruses: ?Fever. ?Pain in the abdomen. ?Nausea. ?Diarrhea. Liver viruses (hepatitis): ?Loss of appetite. ?Tiredness. ?Skin or the white parts of your eyes turning yellow (jaundice). Brain and spinal cord viruses: ?Fever. ?Headache. ?Stiff neck. ?Nausea and vomiting. ?Confusion or sleepiness. Skin viruses: ?Warts. ?Itching. ?Rash. Sexually transmitted viruses: ?Discharge. ?Swelling. ?Redness. ?Rash. How is this diagnosed? This condition may be diagnosed based on one or more of the following: Symptoms. Medical history. Physical exam. Blood test, sample of mucus from your lungs (sputum sample), stool sample, or a swab of body fluids or a skin sore (lesion). How is this treated? Viruses can be hard to treat because they live within cells. Antibiotic medicines do not treat viruses because these medicines do not get inside cells. Treatment for a viral illness may include: Resting and drinking plenty of fluids. Medicines to relieve symptoms. These can include qmkm-sol-diwnjlu medicine for pain and fever, medicines for cough or congestion, and medicines to relieve diarrhea. Antiviral medicines. These medicines are available only for certain types of viruses. Some viral illnesses can be prevented with vaccinations. A common example is the flu shot. Follow these instructions at home: Medicines Take wjqz-yzo-foitcqv and prescription medicines only as told by your health care provider. If you were prescribed an antiviral medicine, take it as told by your health care provider. Do not stop taking the antiviral even if you start to feel better. Be aware of when antibiotics are needed and when they are not needed. Antibiotics do not treat viruses. You may get an antibiotic if your health care provider thinks that you may have, or are at risk for, a bacterial infection and you have a viral infection. ?Do not ask for an antibiotic prescription if you have been diagnosed with a viral illness. Antibiotics will not make your illness go away faster. ?Frequently taking antibiotics when they are not needed can lead to antibiotic resistance. When this develops, the medicine no longer works against the bacteria that it normally fights. General instructions Drink enough fluids to keep your urine pale yellow. Rest as much as possible. Return to your normal activities as told by your health care provider. Ask your health care provider what activities are safe for you. Keep all follow-up visits as told by your health care provider. This is important. How is this prevented? To reduce your risk of viral illness: Wash your hands often with soap and water for at least 20 seconds. If soap and water are not available, use hand chief sustainability officer. Avoid touching your nose, eyes, and mouth, especially if you have not washed your hands recently. If anyone in your household has a viral infection, clean all household surfaces that may have been in contact with the virus. Use soap and hot water. You may also use bleach that you have added water to (diluted). Stay away from people who are sick with symptoms of a viral infection. Do not share items such as toothbrushes and water bottles with other people. Keep your vaccinations up to date. This includes getting a yearly flu shot. Eat a healthy diet and get plenty of rest. Contact a health care provider if: You have symptoms of a viral illness that do not go away. Your symptoms come back after going away. Your symptoms get worse. Get help right away if you have: Trouble breathing. A severe headache or a stiff neck. Severe vomiting or pain in your abdomen. These symptoms may represent a serious problem that is an emergency. Do not wait to see if the symptoms will go away. Get medical help right away. Call your local emergency services (911 in the [place] Do not drive yourself to the hospital. Summary Viruses are types of germs that can get into a person's body and cause illness. Viral illnesses can range from mild to severe. They can affect various parts of the body. Viruses can be hard to treat. There are medicines to relieve symptoms, and there are some antiviral medicines. If you were prescribed an antiviral medicine, take it as told by your health care provider. Do not stop taking the antiviral even if you start to feel better. Contact a health care provider if you have symptoms of a viral illness that do not go away. This information is not intended to replace advice given to you by your health care provider. Make sure you discuss any questions you have with your health care provider. Document Revised: 11/07/2020 Document Reviewed: 05/03/2020 [employer] Patient Education 2022 [employer]. [facility] 11-15-2022 Evaluation + Plan note Future Scheduled [id number] 11/15/22TSH With T4fr Reflex 11/15/[id number], JACOB 02/27/22 [facility] [place] 08-22-2022 Hospital Discharge instructions Patient Education 08/22/2022 12:10:37 Nausea and Vomiting, Adult Nausea and Vomiting, Adult Nausea is the feeling that you have an upset stomach or that you are about to vomit. Vomiting is when stomach contents are thrown up and out of the mouth as a result of nausea. Vomiting can make you feel weak and cause you to become dehydrated. Dehydration can make you feel tired and thirsty, cause you to have a dry mouth, and decrease how often you urinate. Older adults and people with other diseases or a weak disease-fighting system (immune system) are at higher risk for dehydration. It is important to treat your nausea and vomiting as told by your health care provider. Follow these instructions at home: Watch your symptoms for any changes. Tell your health care provider about them. Follow these instructions to care for yourself at home. Eating and drinking Take an oral rehydration solution (ORS). This is a drink that is sold at pharmacies and retail stores. Drink clear fluids slowly and in small amounts as you are able. Clear fluids include water, ice chips, low-calorie sports drinks, and fruit juice that has water added (diluted fruit juice). Eat bland, gqhg-zb-cismxl foods in small amounts as you are able. These foods include bananas, applesauce, rice, lean meats, toast, and crackers. Avoid fluids that contain a lot of sugar or caffeine, such as energy drinks, sports drinks, and soda. Avoid alcohol. Avoid spicy or fatty foods. General instructions Take etmz-jzc-bmselhy and prescription medicines only as told by your health care provider. Drink enough fluid to keep your urine pale yellow. Wash your hands often using soap and water. If soap and water are not available, use hand chief sustainability officer. Make sure that all people in your household wash their hands well and often. Rest at home while you recover. Watch your condition for any changes. Breathe slowly and deeply when you feel nauseated. Keep all follow-up visits as told by your health care provider. This is important. Contact a health care provider if: Your symptoms get worse. You have new symptoms. You have a fever. You cannot drink fluids without vomiting. Your nausea does not go away after 2 days. You feel light-headed or dizzy. You have a headache. You have muscle cramps. You have a rash. You have pain while urinating. Get help right away if: You have pain in your chest, neck, arm, or jaw. You feel extremely weak or you faint. You have persistent vomiting. You have vomit that is bright red or looks like black coffee grounds. You have bloody or black stools or stools that look like tar. You have a severe headache, a stiff neck, or both. You have severe pain, cramping, or bloating in your abdomen. You have difficulty breathing, or you are breathing very quickly. Your heart is beating very quickly. Your skin feels cold and clammy. You feel confused. You have signs of dehydration, such as: ?Dark urine, very little urine, or no urine. ?Cracked lips. ?Dry mouth. ?Sunken eyes. ?Sleepiness. ?Weakness. These symptoms may represent a serious problem that is an emergency. Do not wait to see if the symptoms will go away. Get medical help right away. Call your local emergency services (911 in the [place] Do not drive yourself to the hospital. Summary Nausea is the feeling that you have an upset stomach or that you are about to vomit. As nausea gets worse, it can lead to vomiting. Vomiting can make you feel weak and cause you to become dehydrated. Follow instructions from your health care provider about eating and drinking to prevent dehydration. Take vhee-mfe-jpgqkgs and prescription medicines only as told by your health care provider. Contact your health care provider if your symptoms get worse, or you have new symptoms. Keep all follow-up visits as told by your health care provider. This is important. This information is not intended to replace advice given to you by your health care provider. Make sure you discuss any questions you have with your health care provider. Document Released: 06/24/2006 Document Revised: 10/16/2019 Document Reviewed: 12/02/2018 [employer] Patient Education 2020 [employer]. 08/22/2022 12:10:36 Vomiting, Adult Vomiting, Adult Vomiting occurs when stomach contents are thrown up and out of the mouth. Many people notice nausea before vomiting. Vomiting can make you feel weak and cause you to become dehydrated. Dehydration can make you feel tired and thirsty, cause you to have a dry mouth, and decrease how often you urinate. Older adults and people who have other diseases or a weak body defense system (immune system) are at higher risk for dehydration. It is important to treat vomiting as told by your health care provider. Follow these instructions at home: Eating and drinking Follow these recommendations as told by your health care provider: Take an oral rehydration solution (ORS). This is a drink that is sold at pharmacies and retail stores. Eat bland, maug-pc-pxclmw foods in small amounts as you are able. These foods include bananas, applesauce, rice, lean meats, toast, and crackers. Drink clear fluids slowly and in small amounts as you are able. Clear fluids include water, ice chips, low-calorie sports drinks, and fruit juice that has water added (diluted fruit juice). Avoid drinking fluids that contain a lot of sugar or caffeine, such as energy drinks, sports drinks, and soda. Avoid alcohol. Avoid spicy or fatty foods. General instructions Wash your hands often using soap and water. If soap and water are not available, use hand chief sustainability officer. Make sure that everyone in your household washes their hands frequently. Take vvsx-tgv-vnzalon and prescription medicines only as told by your health care provider. Rest at home while you recover. Watch your condition for any changes. Keep all follow-up visits as told by your health care provider. This is important. Contact a health care provider if: Your vomiting gets worse. You have new symptoms. You have a fever. You cannot drink fluids without vomiting. You feel light-headed or dizzy. You have a headache. You have muscle cramps. You have a rash. You have pain while urinating. Get help right away if: You have pain in your chest, neck, arm, or jaw. You feel extremely weak or you faint. You have persistent vomiting. You have vomit that is bright red or looks like black coffee grounds. You have stools that are bloody or black, or stools that look like tar. You have a severe headache, a stiff neck, or both. You have severe pain, cramping, or bloating in your abdomen. You have trouble breathing or you are breathing very quickly. Your heart is beating very quickly. Your skin feels cold and clammy. You feel confused. You have signs of dehydration, such as: ?Dark urine, very little urine, or no urine. ?Cracked lips. ?Dry mouth. ?Sunken eyes. ?Sleepiness. ?Weakness. These symptoms may represent a serious problem that is an emergency. Do not wait to see if the symptoms will go away. Get medical help right away. Call your local emergency services (911 in the [place] Do not drive yourself to the hospital. Summary Vomiting occurs when stomach contents are thrown up and out of the mouth. Vomiting can cause you to become dehydrated. Older adults and people who have other diseases or a weak immune system are at higher risk for dehydration. It is important to treat vomiting as told by your health care provider. Follow your health care provider's instructions about eating and drinking. Wash your hands often using soap and water. If soap and water are not available, use hand chief sustainability officer. Make sure that everyone in your household washes their hands frequently. Watch your condition for any changes and for signs of dehydration. Keep all follow-up visits as told by your health care provider. This is important. This information is not intended to replace advice given to you by your health care provider. Make sure you discuss any questions you have with your health care provider. Document Released: 07/20/2016 Document Revised: 12/11/2019 Document Reviewed: 12/02/2018 [employer] Patient Education 2020 [employer]. 08/22/2022 12:10:19 Sinusitis, Adult Sinusitis, Adult Sinusitis is inflammation of your sinuses. Sinuses are hollow spaces in the bones around your face. Your sinuses are located: Around your eyes. In the middle of your forehead. Behind your nose. In your cheekbones. Mucus normally drains out of your sinuses. When your nasal tissues become inflamed or swollen, mucus can become trapped or blocked. This allows bacteria, viruses, and fungi to grow, which leads to infection. Most infections of the sinuses are caused by a virus. Sinusitis can develop quickly. It can last for up to 4 weeks (acute) or for more than 12 weeks (chronic). Sinusitis often develops after a cold. What are the causes? This condition is caused by anything that creates swelling in the sinuses or stops mucus from draining. This includes: Allergies. Asthma. Infection from bacteria or viruses. Deformities or blockages in your nose or sinuses. Abnormal growths in the nose (nasal polyps). Pollutants, such as chemicals or irritants in the air. Infection from fungi (rare). What increases the risk? You are more likely to develop this condition if you: Have a weak body defense system (immune system). Do a lot of swimming or diving. Overuse nasal sprays. Smoke. What are the signs or symptoms? The main symptoms of this condition are pain and a feeling of pressure around the affected sinuses. Other symptoms include: Stuffy nose or congestion. Thick drainage from your nose. Swelling and warmth over the affected sinuses. Headache. Upper toothache. A cough that may get worse at night. Extra mucus that collects in the throat or the back of the nose (postnasal drip). Decreased sense of smell and taste. Fatigue. A fever. Sore throat. Bad breath. How is this diagnosed? This condition is diagnosed based on: Your symptoms. Your medical history. A physical exam. Tests to find out if your condition is acute or chronic. This may include: ?Checking your nose for nasal polyps. ?Viewing your sinuses using a device that has a light (endoscope). ?Testing for allergies or bacteria. ?Imaging tests, such as an MRI or CT scan. In rare cases, a bone biopsy may be done to rule out more serious types of fungal sinus disease. How is this treated? Treatment for sinusitis depends on the cause and whether your condition is chronic or acute. If caused by a virus, your symptoms should go away on their own within 10 days. You may be given medicines to relieve symptoms. They include: ?Medicines that shrink swollen nasal passages (topical intranasal decongestants). ?Medicines that treat allergies (antihistamines). ?A spray that eases inflammation of the nostrils (topical intranasal corticosteroids). ?Rinses that help get rid of thick mucus in your nose (nasal saline washes). If caused by bacteria, your health care provider may recommend waiting to see if your symptoms improve. Most bacterial infections will get better without antibiotic medicine. You may be given antibiotics if you have: ?A severe infection. ?A weak immune system. If caused by narrow nasal passages or nasal polyps, you may need to have surgery. Follow these instructions at home: Medicines Take, use, or apply zsmc-wwo-bhvwpzy and prescription medicines only as told by your health care provider. These may include nasal sprays. If you were prescribed an antibiotic medicine, take it as told by your health care provider. Do not stop taking the antibiotic even if you start to feel better. Hydrate and humidify Drink enough fluid to keep your urine pale yellow. Staying hydrated will help to thin your mucus. Use a cool mist humidifier to keep the humidity level in your home above 50%. Inhale steam for 10 15 minutes, 3 4 times a day, or as told by your health care provider. You can do this in the bathroom while a hot shower is running. Limit your exposure to cool or dry air. Rest Rest as much as possible. Sleep with your head raised (elevated). Make sure you get enough sleep each night. General instructions Apply a warm, moist washcloth to your face 3 4 times a day or as told by your health care provider. This will help with discomfort. Wash your hands often with soap and water to reduce your exposure to germs. If soap and water are not available, use hand chief sustainability officer. Do not smoke. Avoid being around people who are smoking (secondhand smoke). Keep all follow-up visits as told by your health care provider. This is important. Contact a health care provider if: You have a fever. Your symptoms get worse. Your symptoms do not improve within 10 days. Get help right away if: You have a severe headache. You have persistent vomiting. You have severe pain or swelling around your face or eyes. You have vision problems. You develop confusion. Your neck is stiff. You have trouble breathing. Summary Sinusitis is soreness and inflammation of your sinuses. Sinuses are hollow spaces in the bones around your face. This condition is caused by nasal tissues that become inflamed or swollen. The swelling traps or blocks the flow of mucus. This allows bacteria, viruses, and fungi to grow, which leads to infection. If you were prescribed an antibiotic medicine, take it as told by your health care provider. Do not stop taking the antibiotic even if you start to feel better. Keep all follow-up visits as told by your health care provider. This is important. This information is not intended to replace advice given to you by your health care provider. Make sure you discuss any questions you have with your health care provider. Document Released: 06/24/2006 Document Revised: 11/24/2018 Document Reviewed: 11/24/2018 [employer] Patient Education 2020 [employer] 08/22/2022 12:10:18 BMI for Adults BMI for Adults Body mass index (BMI) is a number that is calculated from a person's weight and height. BMI may help to estimate how much of a person's weight is composed of fat. BMI can help identify those who may be at higher risk for certain medical problems. How is BMI used with adults? BMI is used as a screening tool to identify possible weight problems. It is used to check whether a person is obese, overweight, healthy weight, or underweight. How is BMI calculated? BMI measures your weight and compares it to your height. This can be done either in [place] or metric measurements. Note that charts are available to help you find your BMI quickly and easily without having to do these calculations yourself. To calculate your BMI in [place] measurements, your health care provider will: 1.Measure your weight in pounds (lb). 2.Multiply the number of pounds by 703. For example, for a person who weighs 180 lb, multiply that number by 703, which equals 126,540. 3.Measure your height in inches (in). Then multiply that number by itself to get a measurement called inches squared. For example, for a person who is 70 in tall, the inches squared measurement is 70 in x 70 in, which equals 4900 inches squared. 4.Divide the total from Step 2 (number of lb x 703) by the total from Step 3 (inches squared): 126,540 4900 = 25.8. This is your BMI. To calculate your BMI in metric measurements, your health care provider will: 1.Measure your weight in kilograms (kg). 2.Measure your height in meters (m). Then multiply that number by itself to get a measurement called meters squared. For example, for a person who is 1.75 m tall, the meters squared measurement is 1.75 m x 1.75 m, which is equal to 3.1 meters squared. 3.Divide the number of kilograms (your weight) by the meters squared number. In this example: 70 3.1 = 22.6. This is your BMI. How is BMI interpreted? To interpret your results, your health care provider will use BMI charts to identify whether you are underweight, normal weight, overweight, or obese. The following guidelines will be used: Underweight: BMI less than 18.5. Normal weight: BMI between 18.5 and 24.9. Overweight: BMI between 25 and 29.9. Obese: BMI of 30 and above. Please note: Weight includes both fat and muscle, so someone with a muscular build, such as an athlete, may have a BMI that is higher than 24.9. In cases like these, BMI is not an accurate measure of body fat. To determine if excess body fat is the cause of a BMI of 25 or higher, further assessments may need to be done by a health care provider. BMI is usually interpreted in the same way for men and women. Why is BMI a useful tool? BMI is useful in two ways: Identifying a weight problem that may be related to a medical condition, or that may increase the risk for medical problems. Promoting lifestyle and diet changes in order to reach a healthy weight. Summary Body mass index (BMI) is a number that is calculated from a person's weight and height. BMI may help to estimate how much of a person's weight is composed of fat. BMI can help identify those who may be at higher risk for certain medical problems. BMI can be measured using [place] measurements or metric measurements. To interpret your results, your health care provider will use BMI charts to identify whether you are underweight, normal weight, overweight, or obese. This information is not intended to replace advice given to you by your health care provider. Make sure you discuss any questions you have with your health care provider. Document Released: 03/05/2005 Document Revised: 06/06/2018 Document Reviewed: 05/07/2018 [employer] Patient Education 2019 [employer]. Follow Up Care 08/22/2022 11:04:46 With:Dex JUSTICE, Kristyn Joshua, LOUIE Address: [facility] [address] [place] [address] [phone] When: Unknown [facility] 08-07-2022 Evaluation + Plan note Extrac giovanni from: Title:ED Note Author:Jeremy Tineo PA-C te:08/07/22 Pharyngitis (J02.9: Acute ph aryngitis, unspecified) Orders: dexamethasone, 10 mg = 2.5 mL, Injection, Oral, Once, Stop date 08/07/22 7:54:00 EST, STAT, Start date 08/07/22 7:54:00 EST, 08/07/22 7:54:00 EST Group A Strep by PCR Rapid Strep w/rfx Future Scheduled Tests Laboratory* SARS-CoV-2, JACOB 02/27/22 [facility]01-31-2023 Hospital Discharge instructions Patient Education 08/07/2022 08:47:50 Pharyngitis Pharyngitis Pharyngitis is redness, pain, and swelling (inflammation) of the throat (pharynx). It is a very common cause of sore throat. Pharyngitis can be caused by a bacteria, but it is usually caused by a virus. Most cases of pharyngitis get better on their own without treatment. What are the causes? This condition may be caused by: Infection by viruses (viral). Viral pharyngitis spreads from person to person (is contagious) through coughing, sneezing, and sharing of personal items or utensils such as cups, forks, spoons, and toothbrushes. Infection by bacteria (bacterial). Bacterial pharyngitis may be spread by touching the nose or faceafter coming in contact with the bacteria, or through more intimate contact, such as kissing. Allergies. Allergies can cause buildup of mucus in the throat (post-nasal drip), leading to inflammation and irritation. Allergies can also cause blocked nasal passages, forcing breathing through themouth, which dries and irritates the throat. What increases the risk? You are more likely to develop this condition if: You are 5 24 years old. You are exposed to crowded environments such as daycare, school, or dormitory living. You live in a cold climate. You have a weakened disease-fighting (immune) system. What are the signs or symptoms? Symptoms of this condition vary by the cause (viral, bacterial, or allergies) and can include: Sore throat. Fatigue. Low-grade fever. Headache. Joint pain and muscle aches. Skin rashes. Swollen glands in the throat (lymph nodes). Plaque-like film on the throat or tonsils. This is often a symptom of bacterial pharyngitis. Vomiting. Stuffy nose (nasal congestion). Cough. Red, itchy eyes (conjunctivitis). Loss of appetite. How is this diagnosed? This condition is often diagnosed based on your medical history and a physical exam. Your health care provider will ask you questions about your illness and your symptoms. A swab of your throat may be done to check for bacteria (rapid strep test). Other lab tests may also be done, depending on the suspected cause, but these are rare. How is this treated? This condition usually gets better in 3 4 days without medicine. Bacterial pharyngitis may be treated with antibiotic medicines. Follow these instructions at home: Take hfyn-gfl-ixanhmo and prescription medicines only as told by your health care provider. ?If you were prescribed an antibiotic medicine, take it as told by your health care provider. Do not stop taking the antibiotic even if you start to feel better. ?Do not give children aspirin because of the association with Bettina syndrome. Drink enough water and fluids to keep your urine clear or pale yellow. Get a lot of rest. Gargle with a salt-water mixture 3 4 times a day or as needed. To make a salt- water mixture, completely dissolve -1 tsp of salt in 1 cup of warm water. If your health care provider approves, you may use throat lozenges or sprays to soothe your throat. Contact a health care provider if: You have large, tender lumps in your neck. You have a rash. You cough up green, yellow-brown, or bloody spit. Get help right away if: Your neck becomes stiff. You drool or are unable to swallow liquids. You cannot drink or take medicines without vomiting. You have severe pain that does not go away, even after you take medicine. You have trouble breathing, and it is not caused by a stuffy nose. You have new pain and swelling in your joints such as the knees, ankles, wrists, or elbows. Summary Pharyngitis is redness, pain, and swelling (inflammation) of the throat (pharynx). While pharyngitis can be caused by a bacteria, the most common causes are viral. Most cases of pharyngitis get better on their own without treatment. Bacterial pharyngitis is treated with antibiotic medicines. This information is not intended to replace advice given to you by your health care provider. Make sure you discuss any questions you have with your health care provider. Document Released: 06/24/2006 Document Revised: 06/06/2018 Document Reviewed: 07/30/2017 [employer] Patient Education 2019 [employer]. Follow Up Care 08/07/2022 07:49:47 With:Kristyn Dex Address: [address] [place] [address] [phone] Business (1) When:08/10/2022 08:37:22 [facility]08-23-2022 Evaluation + Plan note Future Scheduled Tests Laboratory* SARS-CoV-2, JACOB 02/27/22 [facility]05-25-2022 Hospital Discharge instructions Patient Education 11/29/2021 19:32:42 Migraine Headache Migraine Headache A migraine headache is an intense, throbbing pain on one side or both sides of the head. Migraine headaches may also cause other symptoms, such as nausea, vomiting, and sensitivity to light and noise. A migraine headache can last from 4 hours to 3 days. Talk with your doctor about what things may bring on (trigger) your migraine headaches. What are the causes? The exact cause of this condition is not known. However, a migraine may be caused when nerves in the brain become irritated and release chemicals that cause inflammation of blood vessels. This inflammation causes pain. This condition may be triggered or caused by: Drinking alcohol. Smoking. Taking medicines, such as: ?Medicine used to treat chest pain (nitroglycerin). ? control pills. ?Estrogen. ?Certain blood pressure medicines. Eating or drinking products that contain nitrates, glutamate, aspartame, or tyramine. Aged cheeses,chocolate, or caffeine may also be triggers. Doing physical activity. Other things that may trigger a migraine headache include: Menstruation. . Hunger. Stress. Lack of sleep or too much sleep. Weather changes. Fatigue. What increases the risk? The following factors may make you more likely to experience migraine headaches: Being a certain age. This condition is more common in people who are 25 55 years old. Being female. Having a family history of migraine headaches. Being . Having a mental health condition, such as depression or anxiety. Being obese. What are the signs or symptoms? The main symptom of this condition is pulsating or throbbing pain. This pain may: Happen in any area of the head, such as on one side or both sides. Interfere with daily activities. Get worse with physical activity. Get worse with exposure to bright lights or loud noises. Other symptoms may include: Nausea. Vomiting. Dizziness. General sensitivity to bright lights, loud noises, or smells. Before you get a migraine headache, you may get warning signs (an aura). An aura may include: Seeing flashing lights or having blind spots. Seeing bright spots, halos, or zigzag lines. Having tunnel vision or blurred vision. Having numbness or a tingling feeling. Having trouble talking. Having muscle weakness. Some people have symptoms after a migraine headache (postdromal phase), such as: Feeling tired. Difficulty concentrating. How is this diagnosed? A migraine headache can be diagnosed based on: Your symptoms. A physical exam. Tests, such as: ?CT scan or an MRI of the head. These imaging tests can help rule out other causes of headaches. ?Taking fluid from the spine (lumbar puncture) and analyzing it (cerebrospinal fluid analysis, or CSF analysis). How is this treated? This condition may be treated with medicines that: Relieve pain. Relieve nausea. Prevent migraine headaches. Treatment for this condition may also include: Acupuncture. Lifestyle changes like avoiding foods that trigger migraine headaches. Biofeedback. Cognitive behavioral therapy. Follow these instructions at home: Medicines Take tfyx-ryb-axezufl and prescription medicines only as told by your health care provider. Ask your health care provider if the medicine prescribed to you: ?Requires you to avoid driving or using heavy machinery. ?Can cause constipation. You may need to take these actions to prevent or treat constipation: ?Drink enough fluid to keep your urine pale yellow. ?Take lamp-nij-zibedhm or prescription medicines. ?Eat foods that are high in fiber, such as beans, whole grains, and fresh fruits and vegetables. ?Limit foods that are high in fat and processed sugars, such as fried or sweet foods. Lifestyle Do not drink alcohol. Do not use any products that contain nicotine or tobacco, such as cigarettes, e- cigarettes, and chewing tobacco. If you need help quitting, ask your health care provider. Get at least 8 hours of sleep every night. Find ways to manage stress, such as meditation, deep breathing, or yoga. General instructions Keep a journal to find out what may trigger your migraine headaches. For example, write down: ?What you eat and drink. ?How much sleep you get. ?Any change to your diet or medicines. If you have a migraine headache: ?Avoid things that make your symptoms worse, such as bright lights. ?It may help to lie down in a dark, quiet room. ?Do not drive or use heavy machinery. ?Ask your health care provider what activities are safe for you while you are experiencing symptoms. Keep all follow-up visits as told by your health care provider. This is important. Contact a health care provider if: You develop symptoms that are different or more severe than your usual migraine headache symptoms. You have more than 15 headache days in one month. Get help right away if: Your migraine headache becomes severe. Your migraine headache lasts longer than 72 hours. You have a fever. You have a stiff neck. You have vision loss. Your muscles feel weak or like you cannot control them. You start to lose your balance often. You have trouble walking. You faint. You have a seizure. Summary A migraine headache is an intense, throbbing pain on one side or both sides of the head. Migraines may also cause other symptoms, such as nausea, vomiting, and sensitivity to light and noise. This condition may be treated with medicines and lifestyle changes. You may also need to avoid certain things that trigger a migraine headache. Keep a journal to find out what may trigger your migraine headaches. Contact your health care provider if you have more than 15 headache days in a month or you develop symptoms that are different or more severe than your usual migraine headache symptoms. This information is not intended to replace advice given to you by your health care provider. Make sure you discuss any questions you have with your health care provider. Document Released: 06/24/2006 Document Revised: 10/16/2019 Document Reviewed: 08/06/2019 [employer] Patient Education 2019 [employer]. [facility] 04-06-2022 Hospital Discharge instructions Patient Education 10/11/2021 11:12:09 Managing Bipolar Disorder Managing Bipolar Disorder When someone is diagnosed with bipolar disorder, the person may be relieved to now know why he or she has felt or behaved a certain way. The person may also feel overwhelmed about the treatment ahead, how to get needed support, and how to deal with the condition each day. With care and support, a person with bipolar disorder can learn to manage his or her symptoms and live with the condition. How to manage lifestyle changes Managing stress Stress is your body's reaction to life changes and events, both good and bad. Stress can play a major role in bipolar disorder, so it is important to learn how to manage stress. Some techniques to help you manage stress include: Meditation, muscle relaxation, and breathing exercises. Exercise. Even a short daily walk can help to lower stress levels. Getting enough good-quality sleep. Too little sleep can cause john to start (can trigger john). Making a schedule to manage your time. Knowing your daily schedule can help to keep you from feeling overwhelmed by tasks and deadlines. Spending time on hobbies you enjoy. Medicines Your health care provider may suggest certain medicines if he or she feels that they will help improve your condition. Avoid using caffeine, alcohol, and other substances that may prevent your medicines from working properly. It is also important to: Talk with your pharmacist or health care provider about all the medicines that you take, their possible side effects, and which medicines are safe to take together. Make it your goal to take part in all treatment decisions (shared decision- making). Ask about possible side effects of medicines that your health care provider recommends, and tell him or her how youfeel about having those side effects. It is best if shared decision-making with your health care provider is part of your total treatment plan. If you are taking medicines as part of your treatment, do not stop taking medicines before you ask your health care provider if it is safe to stop. You may need to have the medicine slowly decreased (tapered) over time to lower the risk of harmful side effects. Relationships Spend time with people whom you trust and with whom you feel a sense of understanding and calm. Tryto find friends or family members who make you feel safe and can help you control feelings of john. Consider going to couples counseling, family education classes, or family therapy to: Educate your loved ones about your condition and offer suggestions about how they can support you. Help resolve conflicts. Help develop communication skills in your relationships. How to recognize changes in your condition Everyone responds differently to treatment for bipolar disorder. Some signs that your condition is improving include: Leveling of your mood. You may have less anger and excitement about daily activities, and your low moods may not be as bad. Your symptoms being less intense. Feeling calm more often. Thinking clearly. Not experiencing consequences for extreme behavior. Feeling like your life is settling down. Your behavior seeming more normal to you and to other people. Some signs that your condition may be getting worse include: Sleep problems. Moods cycling between deep lows and unusually high (excess) energy. Extreme emotions. More anger at loved ones. Staying away from others, or isolating yourself. A feeling of power or superiority. Completing a lot of tasks in a very short amount of time. Unusual thoughts and behaviors. Suicidal thoughts. Follow these instructions at home: Medicines Take mchb-pio-mmcwdaq and prescription medicines only as told by your health care provider or pharmacist. Ask your pharmacist what mcmf-icm-hplzavo cold medicines you should avoid. Some medicines can make symptoms worse. General instructions Ask for support from trusted family members or friends to make sure you stay on track with your treatment. Keep a journal to write down your daily moods, medicines, sleep habits, and life events. This may help you have more success with your treatment. Make and follow a routine for daily meal times. Eat healthy foods, such as whole grains, vegetables, and fresh fruit. Try to go to sleep and wake up around the same time every day. Keep all follow-up visits as told by your health care provider. This is important. Where to find support Talking to others Try making a list of the people you may want to tell about your condition, such as the people you trust most. Plan what you are willing and not willing to talk about. Think about your needs ahead of time, and how your friends and family members can support you. Let your loved ones know when they can share advice and when you would just like them to listen. Give your loved ones information about bipolar disorder, and encourage them to learn about the condition. Finances Not all insurance plans cover mental health care, so it is important to check with your insurance carrier. If paying for co-pays or counseling services is a problem, search for a local or [facility] mental health care center. Public mental health care services may be offered there at a low cost or no cost when you are not able to see a private health care provider. If you are taking medicine for depression, you may be able to get the generic form, which may be less expensive than brand-name medicine. Some makers of prescription medicines also offer help to patients who cannot afford the medicines they need. Questions to ask your health care provider: If you are taking medicines: ?How long do I need to take medicine? ?Are there any long-term side effects of my medicine? ?Are there any alternatives to taking medicine? How would I benefit from therapy? How often should I follow up with a health care provider? Contact a health care provider if: Your symptoms get worse or they do not get better with treatment. Get help right away if: You have thoughts about harming yourself or others. If you ever feel like you may hurt yourself or others, or have thoughts about taking your own life,get help right away. You can go to your nearest emergency department or call: Your local emergency services (911 in the [place] A suicide crisis helpline, such as the National Suicide Prevention Lifeline at . Thisis open 24-hours a day. Summary Learning ways to manage stress can help to calm you and may also help your treatment work better. There is a wide range of medicines that can help to treat bipolar disorder. Having healthy relationships can help to make your moods more stable. Contact a health care provider if your symptoms get worse or they do not get better with treatment. This information is not intended to replace advice given to you by your health care provider. Make sure you discuss any questions you have with your health care provider. Document Released: 10/24/2017 Document Revised: 10/16/2019 Document Reviewed: 10/24/2017 [employer] Patient Education 2020 [employer] 10/11/2021 11:12:08 Bipolar 1 Disorder Bipolar 1 Disorder Bipolar 1 disorder is a mental health disorder in which a person has episodes of emotional highs, or john, and may also have episodes of lows, or depression. Bipolar 1 disorder is different from other bipolar disorders in that it involves extreme episodes of john (manic episodes). These episodes last at least one week or involve symptoms that are so severe that hospitalization is needed to keepthe person safe. What are the causes? The cause of this condition is not known. What increases the risk? The following factors may make you more likely to develop this condition: Having a family member with the disorder. Having an imbalance of certain chemicals in the brain (neurotransmitters). Experiencing stress, such as illness, financial problems, or a . Having certain conditions that affect the brain or spinal cord (neurologic conditions). Having had a brain injury (trauma). What are the signs or symptoms? Symptoms of john include: Very high self-esteem or self-confidence. Decreased need for sleep. Unusual talkativeness. Speech may be very fast. Racing thoughts with quick shifts between topics that may or may not be related (flight of ideas). Ability to concentrate either greatly improved or decreased. Increased purposeful activity, such as work, studies, or social activity. Increased agitation. This could be pacing, squirming, fidgeting, or finger and toe tapping. Impulsive behavior and poor judgment. This may result in high-risk activities that are sexual, financial, or physical. Symptoms of depression include: Extreme degrees of sadness, uncontrollable crying, hopelessness, worthlessness, or numbness. Sleep problems, such as insomnia, waking early, or sleeping too much. No longer enjoying things you used to enjoy. Isolation. You may often spend time alone. Lack of energy or motivation, and moving more slowly than normal. Trouble making decisions. Increased appetite or loss of appetite. Thoughts of , or wanting to harm yourself. Sometimes, you may have a mixed mood. This means having symptoms of john and depression at the same time. Stress can often trigger these symptoms. How is this diagnosed? This condition may be diagnosed based on: Emotional episodes. Medical history. Use of alcohol, drugs, and prescription medicines. Certain medical conditions and substances can cause symptoms that seem like bipolar disorder. This is called secondary bipolar disorder. Your health care provider may ask you to take a short test. This helps to understand your symptoms.You may also be asked to see a mental health specialist to follow up on this diagnosis and start treatment. How is this treated? This condition is a long-term (chronic) illness. It is often managed with ongoing treatment rather than treatment only when symptoms occur. A combination of treatments is the main approach. Treatmentmay include: Medicine. Medicine can be prescribed by a health care provider who specializes in treating mental health disorders (psychiatrist). Medicines called mood stabilizers are usually prescribed. If symptoms occur during treatment with a mood stabilizer, other medicines may be added. Psychotherapy. Some forms of talk therapy, such as cognitive behavioral therapy (CBT) and family therapy, can help with learning to manage bipolar disorder. Psychoeducation. This helps you and others understand how this disorder is managed. Include friendsand family in educational sessions so they learn how best to support you. Methods of managing your condition, such as journaling or relaxation exercises. Relaxation exercises include: ?Yoga. ?Meditation. ?Deep breathing. Lifestyle changes, such as: ?Limiting alcohol and drug use. ?Exercising regularly. ?Structuring when you go to bed and get up. ?Eating a healthy diet. Electroconvulsive therapy (ECT). This is a procedure in which electricity is applied to the brain through the scalp. It may be used in cases of severe bipolar disorder when medicine and psychotherapywork too slowly or do not work. Follow these instructions at home: Activity Return to your normal activities as told by your health care provider. Find activities that you enjoy, and make time to do them. Exercise regularly as told by your health care provider. Lifestyle Follow a set schedule for eating and sleeping. Eat a healthy diet that includes fresh fruits and vegetables, whole grains, low- fat dairy, and leanmeat. Get at least 7 8 hours of sleep each night. Avoid using products that contain nicotine or tobacco. If you want help quitting, ask your health care provider. Do not use drugs. Alcohol use Do not drink alcohol if: ?Your health care provider tells you not to drink. ?You are , may be , or are planning to become . If you drink alcohol: ?Limit how much you use to: ?0 1 drink a day for women. ?0 2 drinks a day for men. ?Be aware of how much alcohol is in your drink. In the [place] one drink equals one 12 oz bottle of beer (355 mL), one 5 oz glass of wine (148 mL), or one 1 oz glass of hard liquor (44 mL). General instructions Take [id number] and prescription medicines only as told by your health care provider. You maythink about stopping your medicine, but it is very important to take all your medicine as prescribed. Consider joining a support group. Your health care provider may be able to recommend one. Talk with your family and friends about your treatment goals and how they can help. Keep all follow-up visits as told by your health care provider. This is important. Where to find more information National [place] on Mental Illness: www.homer.org National [place] of Mental Health: www.nimh.nih.gov Contact a health care provider if: Your symptoms get worse, or your loved ones tell you that your symptoms are getting worse. You have uncomfortable side effects from your medicine. You have trouble sleeping. You have trouble doing daily activities. You feel unsafe in your surroundings. You are self-medicating with alcohol or drugs. Get help right away if: You have new symptoms. You have thoughts about harming yourself or others. You are considering suicide. If you ever feel like you may hurt yourself or others, or have thoughts about taking your own life,get help right away. You can go to your nearest emergency department or call: Your local emergency services (911 in the [place] A suicide crisis helpline, such as the National Suicide Prevention Lifeline at . Thisis open 24 hours a day. Summary Bipolar 1 disorder is a lifelong mental health disorder in which a person has episodes of john anddepression. This disorder is mainly treated with a combination of medicines, talk and behavioral therapies, and, often, electroconvulsive therapy (ECT). Include friends and family in educational sessions so they know how best to support you. Get help right away if you are considering suicide. This information is not intended to replace advice given to you by your health care provider. Make sure you discuss any questions you have with your health care provider. Document Released: 09/30/2001 Document Revised: 12/08/2019 Document Reviewed: 12/08/2019 [employer] Patient Education 2020 [employer]. Follow Up Care 10/06/2021 16:00:44 With:Seth ANTONIO Address: [address] [place] [phone] When:Within 4 Week(s) [facility] + Plan note Future Scheduled Tests Laboratory* SARS-CoV-2, JACOB 02/14/21 [facility] Evaluation + Plan note Future Appointments Appointment Date:11/15/2021 11:00:00 AM Scheduled Provider:Seth ANTONIO Location:[facility] Appointment Type: Open Future Scheduled Tests Laboratory* SARS-CoV-2, JACOB [facility] note Future Appointments Appointment Date:02/28/2022 09:00:00 AM Scheduled Provider: Location:[facility] Appointment Type:Outpatient COVID Testing Appointment Date:02/28/2022 09:00:00 AM Scheduled Provider: Location:[facility] Appointment Type:Outpatient Antigen Testing Future Scheduled Tests Laboratory* SARS-CoV-2, JACOB 02/27/22 [facility] [place] [facility] course Narrative No data available for this section [facility] Hospital Discharge instructions No data available for this section [facility] [place] Progress note No data available for this section [facility] [place] Assessments Diagnosis Bursitis/tendonitis, shoulde r - Primary Unspecified disorders of bursae and tendons in shoulder region Diagnosis Bursitis/tendonitis, shoulde r - Primary Unspecified disorders of bursae and tendons in shoulder region Strain of right shoulder, in itial encounter Diagnosis Chest pain, unspecified type- Primary Diagnosis Fatigue, unspecified type Screening cholesterol level Screening for lipoid disorders Diagnosis Suspected COVID-19 virus infection Diagnosis Viral URI with cough Acute upper respiratory infections of unspecified site Diagnosis History of mononucleosis Personal history of other infectious and parasitic disease Summary Purpose Family History No Family History Records FoundNo Family History Records FoundNo Family History Records FoundNo Family History Records FoundNo Family History Records Found No data available for this section No Family History Records FoundNo Family History Records Found No data available for this section Advance Directives Documents on File Type Date Recorded 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 * Chest Pain, Uncertain Cause ([place]ralt[place]) in this encounter Additional Source Comments INFORMATION SOURCE (unrecogn ized section and content) DATE CREATED AUTHOR 12/25/2017 [facility] DATE CREATED AUTHOR AUTHOR'S ORGANIZ ATION 06/16/2018 [facility] DATE CREATED AUTHOR AUTHOR'S ORGANIZ ATION 08/21/2018 [facility] DATE CREATED AUTHOR AUTHOR'S ORGANIZ ATION 06/12/2020 [facility] DATE CREATED AUTHOR AUTHOR'S ORGANIZ ATION 02/10/2022 [facility] DATE CREATED AUTHOR AUTHOR'S ORGANIZ ATION 09/25/2023 [facility] EPIC DATE CREATED AUTHOR AUTHOR'S ORGANIZ ATION 10/11/2023 [facility] Reason for Visit (unrecogniz ed section and content) Reason Comments Chest Pain patient c/o midstern al chest pain that started at 8:30, worse with a deep breath, denies cough, denies treatment Care Team (unrecognized sect ion and content) Personnel Name: Seth ANTONIO Address: [address] [place] [address] Personnel Name: Seth ANTONIO Address: [address] [place] [address] Personnel Name: Kristyn Kowalski NP Address: Address: [address] [place] [address] Personnel Name: Kristyn Kowalski NP Address: Address: [address] [place] [address] Personnel Name: Kristyn Kowalski NP Address: Address: [address] [place] [address] Personnel Name: NONE, XXXX Address: Address: [facility] Personnel Name: NONE, XXXX Address: Address: [facility] Personnel Name: NONE, XXXX Address: Address: [facility] FOR RECORDS PERTAINING TO PATIENTS WHO ARE OR HAVE BEEN ENROLLED IN A CHEMICAL DEPENDENCY/SUBSTANCEABUSE PROGRAM, SOME INFORMATION MAY BE OMITTED. This clinical summary was aggregated from multiple sources. Caution should be exercised in using it in the provision of clinical care. This summary normalizes information from multiple sources, and as a consequence, information in this document may materially change the coding, format and clinical context of patient data. In addition, data may be omitted in some cases. CLINICAL DECISIONS SHOULD BE BASED ON THE PRIMARY CLINICAL RECORDS. [employer] provides no warranty or guarantee of the accuracy or completeness of information in this document.
[2024-02-26 11:55] LABS: Internal Control Within Normal Limits; Mono Screen NEGATIVE (NEGATIVE)
[2024-02-26 12:07] LABS: Alanine Aminotransferase 19 U/L (14-59); Albumin Globulin Ratio 1.1; Albumin Level 3.9 g/dL (3.4-5.0); Alkaline Phosphatase 69 U/L (46-116); Anion Gap 9.8; Aspartate Amino Transferase 12 U/L (15-37); BUN Creatinine Ratio 9.5; Bilirubin Total 0.8 mg/dL (0.2-1.0); Calcium 8.7 mg/dL (8.5-10.1); Carbon Dioxide 27.6 mmol/L (21.0-32.0); Chloride 104 mmol/L (98-107); Estimated GFR (African America >60 (>=60); Estimated GFR (Non-African Ame >60 (>=60); Globulin 3.4 g/dL; Glucose 91 mg/dL (74-106); Potassium 3.4 mmol/L (3.5-5.1); Sodium 138 mmol/L (136-145); Total Protein 7.3 g/dL (6.4-8.2)
[2024-02-26 12:08] LABS: Lactate/Lactic Acid 2.3 mmol/L (0.4-2.0)
[2024-02-26 12:12] LABS: Bilirubin Urine NEGATIVE (NEGATIVE); Blood Urine NEGATIVE (NEGATIVE); Clarity Urine CLEAR (CLEAR); Color Urine LT. YELLOW (YELLOW); Glucose Urine UA NEGATIVE (NEGATIVE); Ketones Urine NEGATIVE (NEGATIVE); Leukocyte Esterase Urine NEGATIVE (NEGATIVE); Nitrite Urine NEGATIVE (NEGATIVE); Protein Urine NEGATIVE (NEG/TRACE); Specific Gravity Urine 1.015 (1.005-1.025); Urobilinogen Urine 0.2 EU/dL (0.2-1.0); pH Urine 7.5 (5.0-9.0)
[2024-02-26 12:13] LABS: HCG Qualitative Urine* NEGATIVE (NEGATIVE); Internal Control Within Normal Limits
[2024-02-26 12:21] LABS: RBC Urine 0-2 #/HPF (0-2); WBC Urine 0-2 #/HPF (NONE SEEN)
[2024-02-26 12:22] LABS: Bacteria Urine TRACE #/HPF (NONE SEEN); Cast Seen? NONE SEEN #/LPF (NONE SEEN); Crystals Seen? None Seen #/HPF (None Seen); Mucus Urine NONE SEEN (NONE SEEN); Squamous Epithelial Cell Urine FEW #/LPF (NONE/RARE); Urine Culture Indicated NO
--- NOTE | 2024-02-26 14:22 | US_ITS ---
The [address] [address] Patient Name: PAULO LIZAMA MRN: [id number] date: 1995 Sex: F Assigned Patient Location: ER Current Patient Location: ER Accession/Order Number: [id number] Exam Date: 02/26/2024 14:28 Report Date: 02/26/2024 15:18 At the request of: SUSI ORONA Procedure: US pelvis transvaginal EXAMINATION: US pelvis transvaginal, US vas organ single comp HISTORY: right pelvic pain COMPARISON: CT abdomen pelvis 02/26/2024 TECHNIQUE: Transabdominal and/or transvaginal sonographic examination was performed as indicated by examination type. FINDINGS: UTERUS: Normal size and appearance. Mildly dilated vessels within bilateral adnexa; nonspecific. Uterus size: 7.2 x 5.3 x 4.6 cm ENDOMETRIUM: Normal homogeneous appearance. Endometrial thickness: 8 mm RIGHT OVARY: Contains a 2.4 cm benign-appearing cyst. Duplex Doppler demonstrates normal waveform and flow; resistive index 0.5. Ovary size: 4.7 x 2.6 x 2.4 cm LEFT OVARY: Normal size and appearance. Duplex Doppler demonstrates normal waveform and flow; resistive index 0.6. Ovary size: 2.8 x 2.2 x 2.3 cm CUL-DE-SAC: Unremarkable. No significant free fluid. BLADDER: Unremarkable. OTHER: None. US/US pelvis transvaginal IMPRESSION: 1. Right ovary contains a 2.4 cm benign-appearing cyst. No torsion or acute findings to account for patient's symptoms. Electronically authenticated by: TISH ROCKWELL Date: 02/26/2024 15:18
[2024-02-26 14:31] LABS: Lactate/Lactic Acid 0.7 mmol/L (0.4-2.0)
== END 2024-02-26 16:38 | disposition home or self-care (01) ==
PROVIDERS: Emergency Provider Emergency Medicine
DX: N83.201 Unspecified ovarian cyst, right side (principal); R10.31 Right lower quadrant pain
CPT/HCPCS: 36415; 74177; 76830; 80053; 81001; 83605; 83690; 84703; 85025; 86308; 93975; 96361; 96374; 96375; 96376; 99285; J1885; J2270; J2405; Q9967

== ENCOUNTER 2024-03-11 06:32 | Outpatient (OUT) | payer OTHER, SELFPAY ==
--- OUTSIDE RECORDS SUMMARY | 2024-03-11 06:35 | XMS_ITS | CCD ---
Author Organization [facility] Care Team Providers Care Referral Nurse Name Role Phone Back, Adi Unavailable BACK, ADI Unavailable Unavailable LEESONDAVID Unavailable Unavail able BACK, ADI Unavailable Unavailable BACK, ADI Unavailable Unavailable LEESON, DAVID SUN Unavailable Unavail able BACK, ADI Unavailable Unavailable LEESON, DAVID COMBSER Unavailable Unavail able BACK, ADI Unavailable Unavailable LEESON, DAVID CHRISTOPHER Unavailable Unavail able BACK, ADI Unavailable Unavailable [...] Attending Unavailable AIMEE, DR ALEMAN Admitting Unavailable DR ASH YU Consulting Unavailable DR ASH YU Attending Unavailable DR ASH YU Admitting Unavailable Seth HOROWITZ Primary Care Physician [phone] Kristyn Kowalski Primary Care Physician NONE, XXXX Primary Care Physician Unavailab Ayde Verma Attending Unavailable Hay Dowling Attending Unavailable KRISTYN KOWALSKI Attending Unavailable SHERRIE BUNN Attending Unavailable Ayde WEINER Attending Unavailable Sherin Cheatham Attending Unavailable Ayde WEINER Attending Unavailable KRISTYN KOWALSKI Admitting Unavailable KRISTYN KOWALSKI Attending Unavailable GRISELDA ELIZABETH Attending Unavailable ASH YU Attending Unavailable ASH YU Attending Unavailable AIMEEASH OROZCO Attending Unavailable GLENN, GRISELDA Attending Unavailable GLENN, GRISELDA Attending Unavailable Allergies Allergy Classification Reported Allergen(s) Allergy Type Date of Onset Reaction(s) Facility (12 sources) fluticasone; Translations: [FLUTICASONE PROPIONATE] Propensity to adverse reactions to drug 03-08-20 17 Other (See Comments) [facility] (18 sources) sulfamethoxazole / trimethoprim; Translations: [SULFAMETHOXAZOLE-T RIMETHOPRIM] Propensity to adverse reactions to drug 08-28-19 17 [facility] (4 sources) sulfaSALAzine; Translations: [SULFASALAZINE] Propensity to adverse reactions to drug 03-25-20 15 [facility] (20 sources) traMADol; Translations: [TRAMADOL] Propensity to adverse reactions to drug 11-22-19 16 Bactrim, unknown [facility] (6 sources) Sulfonamides (Antibiotic) Propensity to adverse reactions to drug 03-25-20 15 Rash [facility] Work Phone: (4 sources) redtop grass pollen extract Drug Allergy 02-22-20 18 [place] (4 sources) Coconut Flavor Propensity to adverse reactions to drug 02-22-20 18 [place] (11 sources) Adhesive Tape; Translations: [Tape] Drug allergy Eruption of skin (disorder) [facility] (11 sources) Bee/Wasp/Ant venom; Translations: [Bee Stings] Drug allergy Swelling (finding) [facility] (11 sources) Sulfonamides (Antibiotic); Translations: [sulfa drugs] Drug allergy [facility] (1 source) Sulfamethoxazole / Trimethoprim; Translations: [Bactrim] Drug Allergy [facility] (1 source) traMADol; Translations: [Ultram] Drug Allergy [facility] Repository Medications Current Medications Medication Drug Class(es) [...] day(s), # 14 tab(s), Refills(s) 0, Pharmacy: [facility], 170, cm, 08/22/22 11:34:00 EST, Height/Length Dosing, 84.5, kg, 08/22/22 11:34:00 EST, Weight Dosing Start Date: 08/22/22 Stop Date: 08/29/22 Status: Ordered ARIPiprazole 15 mg oral tablet (4 sources) Atypical Antipsychotic Start: 10-11-2021 take 1 tablet by mouth once daily aripiprazole 15 mg Tab 15 mg = 1 tab(s), Oral, Daily, # 30 tab(s), Refills(s) 2, Pharmacy: [facility], 170, cm, 10/11/21 10:48:00 EDT, Height/Length Dosing, 77, kg, 10/11/21 10:48:00 EDT, Weight Dosing Start Date: 10/11/21 Status: Ordered brompheniramine maleate 0.4 mg/ml / dextromethorphan hydrobromide 2 mg/ml / pseudoephedrine hydrochloride 6 mg/ml oral solution (1 source) alpha-Adrenergic Agonist, Uncompetitive A-gocobv-U-aspartate Receptor Antagonist, Sigma-1 Agonist Start: 01-01-2023 take 5 mL by mouth four times daily for cough and congestion Bromfed DM oral syrup 5 mL, Oral, QID for cough and congestion, 200 mL, Refill(s) 0, [facility], 170, cm, 01/01/23 15:34:00 EDT, Height/Length [...] 2, rinse mouth and throat after use, [facility], 170, cm, 05/10/21 11:43:00 EDT, Height/Length Dosing, 78.3, kg, 05/10/21 11:43:00 EDT, Weight Dosing Start Date: 05/10/21 Status: Ordered cetirizine hydrochloride 10 mg oral tablet (11 sources) Histamine-1 Receptor Antagonist Start: 05-10-2021 take 1 tablet by mouth once daily cetirizine 10 mg Tab 10 mg = 1 tab(s), Oral, Daily, # 30 tab(s), Refills(s) 2, Pharmacy: [facility], 170, cm, 05/10/21 11:43:00 EDT, Height/Length [...] Start: 10-08-2017 cyclobenzaprine (FLEXERIL) 10 MG tablet [id number] 0.3 ml EPINEPHrine 1 mg/ml auto-injector (10 sources) alpha-Adrenergic Agonist, beta-Adrenergic Agonist, Catecholamine Start: 01-13-2021 EpiPen 2-Laci 0.3 mg injectable kit 0.3 mg = 1 EA, IntraMuscular, As Directed, PRN Anaphylaxis, # 1 EA, Refills(s) 0, Pharmacy: [facility], 170, cm, 01/13/21 13:18:00 EDT, Height/Length Dosing, 75.8, kg, 01/13/21 13:18:00 EDT, Weight Dosing Start Date: 01/13/21 Status: Ordered Start: 01-13-2021 EpiPen 2-Laci 0 .3 mg injectable kit 0.3 mg = 1 EA, IntraMuscular, As Directed, PRN Anaphylaxis, # 1 EA, Refills(s) 0, Pharmacy: [facility], 170, cm, 01/13/21 13:18:00 EDT, Height/Length [...] natalia, Topical, BID, 30 gram, Refill(s) 2, [facility], 170, cm, 10/11/21 10:48:00 EDT, Height/Length Dosing, 77, kg, 10/11/21 10:48:00 EDT, Weight Dosing Start Date: 10/11/21 Status: Ordered Start: 10-11-2021 fluticasone to pical 0.05% cream 1 natalia, Topical, BID, 30 gram, Refill(s) 2, [facility], 170, cm, 10/11/21 10:48:00 EDT, Height/Length Dosing, 77, kg, 10/11/21 10:48:00 EDT, Weight Dosing Start Date: 10/11/21 Status: Ordered Start: 05-10-2021 fluticasone 0. 05 mg/inh Nasal [place] 2 spray(s), Nasal, Daily Congestion, 16 gram, Refill(s) 2, each nostril, [facility], 170, cm, 05/10/21 11:43:00 EDT, Height/Length Dosing, 78.3, kg, 05/10/21 11:43:00 EDT, Weight Dosing Start Date: 05/10/21 Status: Ordered fluticasone 0.05 mg/inh Nasal [place] (2 sources) Start: 05-10-2021 fluticasone 0. 05 mg/inh Nasal [place] 2 spray(s), Nasal, Daily Congestion, 16 gram, Refill(s) 2, each nostril, [facility], 170, cm, 05/10/21 11:43:00 EDT, Height/Length [...] food, # 20 tab(s), Refills(s) 0, Pharmacy: [facility] Start Date: 04/20/16 Status: Ordered Magnesium [...] qPM, # 30 tab(s), Refills(s) 2, Pharmacy: [facility], 170, cm, 05/10/21 11:43:00 EDT, Height/Length [...] Daily, # 30 cap(s), Refills(s) 2, Pharmacy: [facility], 170, cm, 07/04/22 15:41:00 EST, Height/Length Dosing, 84, kg, 07/04/22 15:41:00 EST, Weight Dosing Start Date: 07/04/22 Status: Ordered ondansetron 4 mg oral tablet (13 sources) Serotonin-3 Receptor Antagonist Start: 07-04-2022 take 1 tablet by mouth every eight hours as needed for nausea ondansetron 4 mg Tab 4 mg = 1 tab(s), Oral, q8hr, PRN Nausea/Vomiting, # 30 tab(s), Refills(s) 0, Pharmacy: [facility], 170, cm, 07/04/22 15:41:00 EST, Height/Length Dosing, 84, kg, 07/04/22 15:41:00 EST, Weight Dosing Start Date: 07/04/22 Status: Ordered Start: 10-11-2021 take 1 tablet by april th every eight hours as needed for nausea ondansetron 4 mg Tab 4 mg = 1 tab(s), Oral, q8hr, PRN Nausea/Vomiting, # 30 tab(s), Refills(s) 2, Pharmacy: [facility], 170, cm, 10/11/21 10:48:00 EDT, Height/Length [...] nausea/vomiting, # 60 tab(s), Refills(s) 0, Pharmacy: [facility], 170, cm, 01/01/23 15:34:00 EDT, Height/Length [...] Bedtime, # 30 tab(s), Refills(s) 2, Pharmacy: [facility], 170, cm, 05/22/21 8:20:00 EST, Height/Length [...] hours, # 1 tab(s), Refills(s) 0, Pharmacy: [facility], 170, cm, 07/04/22 15:41:00 EST, Height/Length Dosing, 84, kg, 07/04/22 15:41:00 EST, Weight Dosing Start Date: 07/04/22 Status: Ordered Start: 05-10-2021 take 1 tablet by april th once as needed for headache Nurtec ODT 75 mg oral tablet, disintegrating 75 mg = 1 tab(s), Oral, Once, PRN as needed for migraine headache, # 8 tab(s), Refills(s) 0, Pharmacy: [facility], 170, cm, 05/10/21 11:43:00 EDT, Height/Length [...] Class(es) Dates Sig (Normalized) Sig (Original) levonorgestrel 0.824999 mg/hr intrauterine system (13 sources) Progestin, Progestin-containin [...] Inhalation, QID Cough, 1 EA, Refill(s) 0, [facility], 170, cm, 05/10/21 11:43:00 EDT, Height/Length [...] Interpretation Reference Range Facility Patient Educationon 10-11-19 24 Patient Education Infectious Disease Sore Throat A [...] these instructions at home: Medicines ? Take gwae-hie-emkfxni and prescription medicines only as told by [...] and water are not available, use hand ampoule examiner. Contact a health care provider if: ? [...] can cause a sore throat. ? Take xbis-yki-lncdhso medicines only as told by your health [...] provider. Document Revised: 09/20/2021 Document Reviewed: 09/20/2021 [employer] Patient Education ? 2022 [employer]. [facility] Ambulatory Visit Summaryon 0 09-17-2023 Ambulatory Visit Summary SNEHAL LIZAMA :1995 Visit Date:09/17/2023 Ambulatory Visit Instructions Your Diagnosis Viral illness Flu-like symptoms BMI 29.0-29.9,adult Your Care Team Attending Physician - Josey KOCH, Hay Mendoza Primary Care Physician - NONE, [...] numbers. This can be done either in Vincentian ([place] or metric measurements. Note that charts and online BMI calculators are available to help you find your BMI quickly and easily without having to do these calculations yourself. To calculate your BMI in Vincentian ([place] measurements: 1. Measure your weight in [...] Underw (more content not included)... Normal [facility] Family Medicine Office/Clini c Noteon 09-17-2023 [...] agree with above documented HPI by medical billing supervisor. Patient is a 27-year-old female presenting with complaint of vomiting, diarrhea, chills, cold sweats, inability to keep anything down, sore throat, headache, cough, body aches. She states that symptoms began Saturday night, 09/15/2023, or possibly on Saturday because she states that she went to [place] with her boyfriend and started feeling nauseous in the car. Patient states that she works at [employer] and that there is something going around [...] of them are sick. She denies any rbao-svt-xijxjsc medications for treatment relief. Review of Systems [...] as above Ordered: Influenza Type A&B POC 30022 3. BMI 29.0-29.9,adult (Z68.29: Body mass index [...] with voice recognition artificial intelligence software, specifically [employer], [employer] and or [employer]. Occasional wrong-word or `nrjqf-p-kszy? substitutions may have occurred due to the [...] Pre-employment e (more content not included)... Normal [facility] Comment on above: Result Comment: Elec tronically Signed By: Josey KOCH, Hay Mendoza\.br\Date and Time Signed: 09/17/23 12:51 EDT Patient Educationon 09-17-19 Patient Education Infectious Disease Viral Illness, Adult [...] Medicines to relieve symptoms. These can include igak-gcl-gectwhf medicine for pain and fever, medicines for cough or congestion, and medicines to relieve diarrhea. ? Antiviral medicines. These medicines are available only for certain types of viruses. Some viral illnesses can be prevented with vaccinations. A common example is the flu shot. Follow these instructions at home: Medicines ? Take wwza-ppb-bgdrmmo and prescription medicines only as told by [...] water are (more content not included)... Normal [facility] [address] [place] [address] September 17, 2023 SNEHAL LIZAMA [address] [place] [address] : 1995 Please excuse SNEHAL LIZAMA from work . Date and/or Time of Absence: From: 09/16/2023 To: 09/18/2023 May return to work on: 09/19/2023 Restrictions: None Comments: Please excuse due to an acute illness. Provider Signature: Hay Dowling CNP [address] [place] [address] [place] [address] Chelo Cjea [facility] Family Medicine Office/Clini c Noteon 02-22-2023 Family Medicine [...] yes GI symptoms- yes COVID exposure- is [employer] Treatments- yes OTC History of Present Illness [...] abuse concerns: N (more content not included)... [facility] Comment on above: Result Comment: Elec tronically Signed By: SEPIDEH DAVILA, SHERRIE Diaz\.br\Date and Time Signed: 02/22/23 00:45 EDT Consenton 02-08-2023 Consent [id number]. 00CD:127 [facility] In office Testingon 02-09-20 In office Testing [id number] 0CD:127 [facility] Registrationon 02-08-2023 Registration [id number]. 00CD:127 [facility] Patient Correspondenceon Patient Correspondence [id number] 0CD:127 [facility] Family Medicine Office/Clini c Noteon 11-23-2022 Family [...] patient or guardian consented to allow [employer] to record this visit. SHANE program development specialist and provider reviewed before signing. SHAEN: Suzie Jw Follow-up No qualifying data available [...] Primary malig (more content not included)... Normal [facility] Comment on above: Result Comment: Elec tronically Signed By: Kristyn Kowalski NP\.br\Date and Time Signed: 11/23/22 15:24 EDT\.br\Electronically Co-Signed By: Suzie Escalera\.br\Date and Time Co-Signed: 11/15/22 16:02 EDT Consent for Treatmenton 11-05 Consent for Treatment [id number] 0CD:127 Normal [facility] [id number] 11-16-2022 HbA1c (Bld) [Mass fraction] 4.9 % Normal <=5.9 [facility] Comment on above: Performed By: #### [id number] ####[facility] [address] [place] [address] TSH With T4fr Reflexon 11-16 TSH Qn 1.41 m[IU]/L Normal 0.34-5.60 [facility] Comment on above: Performed By: #### 7 [id number] ####[facility] [address] [place] [address] MICRO OTHER TESTSOrdered By: Dayna Mcconnell on 08-07-2022 S. pyogenes Ag IA.rapid Ql (Throat) Negative (08/07/22 8:04 AM) Normal Negative [facility] Man Sero MICRO OTHER TESTSOrdered By: Christine Cleveland on 02-28-2022 Rapid COV Int NEG Ctl Pass (02/28/22 8:57 AM) Normal [facility] Man Sero Rapid COV Int POS Ctl Pass (02/28/22 8:57 AM) Normal [facility] Man Sero SARS-CoV+SARS-CoV-2 (COVID-19) Ag IA.rapid Ql (Resp) Not Detected (02/28/22 8:57 AM) Normal Not Detected [facility] Man Sero PAP ACOG PANEL 2: 21 to 29on 02-09-2022 . . Normal [facility] Comment on above: Performed By: #### 4 [id number] #### [facility] [address] [place] [address] Dr. Katherin Nickerson Age Gdln ACOG Testing - Normal [facility] Comment on above: Performed By: #### 4 [id number] #### [facility] [address] [place] [address] Dr. Katherin Nickerson DIAGNOSIS: Comment [facility] Comment on above: Result Comment: NEGA TIVE FOR INTRAEPITHELIAL LESION OR MALIGNANCY. Performed By: #### 4 [id number] #### [facility] [address] [place] [address] Dr. Katherin Nickerson Methodology: Comment [facility] Comment on above: Result Comment: This liquid based ThinPrep(R) pap test was screened with the use of an image guided system. Performed By: #### 4 [id number] #### [facility] [address] [place] [address] Dr. Katherin Nickerson Note: Comment [facility] Comment on above: Result Comment: The Pap smear is a screening test designed to aid in the detection of premalignant and malignant conditions of the uterine cervix. It is not a diagnostic procedure and should not be used as the sole means of detecting cervical cancer. Both false-positive and false-negative reports do occur. . Performed By: #### 4 [id number] #### [facility] [address] [place] [address] Dr. Katherin Nickerson Performed by: Comment Normal [facility] Comment on above: Result Comment: Jon Landaverde, Grocery Team Member (ASCP) Performed By: #### 4 [id number] #### [facility] [address] [place] [address] Dr. Katherin Nickerson Reflex Criteria: Comment [facility] Comment on above: Result Comment: The HPV DNA reflex criteria were not met with this specimen result therefore, no HPV testing was performed. . Performed By: #### 4 [id number] #### [facility] [address] [place], [place] [address] Dr. Katherin Nickerson Specimen adequacy: Comment Normal [facility] Comment on above: Result Comment: Sati sfactory for evaluation. Endocervical and/or squamous metaplastic cells (endocervical component) are present. Performed By: #### 4 [id number] #### [facility] [address] [place] [address] [address] Katherin Nickerson CBC With Auto Differentialon 06-11-2020 Basophils (Bld) [#/Vol] 0.00 10*3/uL [place], [place] Basophils/100 WBC (Bld) 1 % 0 - 2 % [place] Differential Type YES [place] Eosinophils (Bld) [#/Vol] 0.50 10*3/uL [place] Eosinophils/100 WBC (Bld) 7 % High 0 - 5 % [place] Erythrocyte distribution width (RBC) [Ratio] 12.6 % 12.1 - 15.2 % [place] Hematocrit (Bld) [Volume fraction] 39.3 % 36 - 46 % [place] Hemoglobin (Bld) [Mass/Vol] 13.3 g/dL 12 - 16 g/dL [place] Interpretation and review of laboratory results Abnormal [place] Lymphocytes (Bld) [#/Vol] 2.00 10*3/uL [place] Lymphocytes/100 WBC (Bld) 27 % 15 - 40 % [place] MCH (RBC) [Entitic mass] 30.6 pg 26 - 34 pg [place] MCHC (RBC) [Mass/Vol] 33.8 g/dL 31 - 37 g/dL [place] MCV (RBC) [Entitic vol] 90.7 fL 80 - 100 fL [place] Monocytes (Bld) [#/Vol] 0.60 10*3/uL [place] Monocytes/100 WBC (Bld) 8 % 4 - 8 % [place] Platelet mean volume (Bld) [Entitic vol] NOT REPORTED 6 - 12 fL [place], [place] Platelets (Bld) [#/Vol] NOT REPORTED [place] Platelets (Bld) [#/Vol] 221 10*3/uL [place] RBC (Bld) [#/Vol] 4.33 10*6/uL 4 - 5.2 m/uL [place] RBC morphology finding Nom (Bld) NOT REPORTED [place] Segmented neutrophils/100 WBC (Bld) 57 % 47 - 75 % [place] Segs Absolute 4.40 [place] WBC (Bld) [#/Vol] 7.6 10*3/uL [place] WBC (Bld) [#/Vol] NOT REPORTED per 100 WBC [place] WBC Morphology NOT REPORTED [place], [place] CBC with Diffon 06-11-2020 Abs. Basophil 0.00 k/uL Normal 0.0-0.2 [facility] Comment on above: Performed By: #### L IVP, CDP #### [facility] [address] [place] [address] Supervisor Denture Department: Landon Ruiz MD Abs.Neutrophil (Seg) 4.40 k/uL Normal 2.5-7.0 [facility] Comment on above: Performed By: #### L IVP, CDP #### [facility] [address] [place] [address] Supervisor Denture Department: Landon Ruiz MD Auto Diff Performed YES Normal [facility] Comment on above: Performed By: #### L IVP, CDP #### [facility] [address] [place] [address] Supervisor Denture Department: Landon Ruiz MD Basophils/100 WBC (Bld) 1 % Normal 0-2 [facility] Comment on above: Performed By: #### L IVP, CDP #### [facility] [address] [place], [place] [id number] Supervisor Denture Department: Landon Ruiz MD Eosinophils (Bld) [#/Vol] 0.50 10*3/uL High 0.0-0.4 [facility] Comment on above: Performed By: #### L IVP, CDP #### [facility] [address] [place], [place] [id number] Supervisor Denture Department: Landon Ruiz MD Eosinophils/100 WBC (Bld) 7 % High 0-5 [facility] Comment on above: Performed By: #### L IVP, CDP #### [facility] [address] [place] [id number] Supervisor Denture Department: Landon Ruiz MD Erythrocyte distribution width (RBC) [Ratio] 12.6 % Normal 12.1-15.2 [facility] Comment on above: Performed By: #### L IVP, CDP #### [facility] [address] [place] [id number] Supervisor Denture Department: Landon Ruiz MD Hematocrit (Bld) [Volume fraction] 39.3 % Normal 36-46 [facility] Comment on above: Performed By: #### L IVP, CDP #### [facility] [address] [place] [address] Supervisor Denture Department: Landon Ruiz MD Hemoglobin (Bld) [Mass/Vol] 13.3 g/dL Normal 12.0-16.0 [facility] Comment on above: Performed By: #### L IVP, CDP #### [facility] [address] [place], [place] [id number] Supervisor Denture Department: Landon Ruiz MD Lymphocytes (Bld) [#/Vol] 2.00 10*3/uL Normal 1.0-4.8 [facility] Comment on above: Performed By: #### L IVP, CDP #### [facility] [address] [place], [place] [id number] Supervisor Denture Department: Landon Ruiz MD Lymphocytes/100 WBC (Bld) 27 % Normal 15-40 [facility] Comment on above: Performed By: #### L IVP, CDP #### [facility] [address] [place], [place] [id number] Supervisor Denture Department: Landon Ruiz MD MCH (RBC) [Entitic mass] 30.6 pg Normal 26-34 [facility] Comment on above: Performed By: #### L IVP, CDP #### [facility] [address] [place], [place] [id number] Supervisor Denture Department: Landon Ruiz MD MCHC (RBC) [Mass/Vol] 33.8 g/dL Normal 31-37 [facility] Comment on above: Performed By: #### L IVP, CDP #### [facility] [address] [place] [address] Supervisor Denture Department: Landon Ruiz MD MCV (RBC) [Entitic vol] 90.7 fL Normal 80-100 [facility] Comment on above: Performed By: #### L IVP, CDP #### [facility] [address] [place] [address] Supervisor Denture Department: Landon Ruiz MD Monocytes (Bld) [#/Vol] 0.60 10*3/uL Normal 0.0-1.0 [facility] Comment on above: Performed By: #### L IVP, CDP #### [facility] [address] [place], [place] [id number] Supervisor Denture Department: Landon Ruiz MD Monocytes/100 WBC (Bld) 8 % Normal 4-8 [facility] Comment on above: Performed By: #### L IVP, CDP #### [facility] [address] [place], [place] [id number] Supervisor Denture Department: Landon Ruiz MD Neutrophil (Seg) 57 % Normal 47-75 [facility] Comment on above: Performed By: #### L IVP, CDP #### [facility] [address] [place] [address] Supervisor Denture Department: Landon Ruiz MD Platelets (Bld) [#/Vol] 221 10*3/uL Normal 140-450 [facility] Comment on above: Performed By: #### L IVP, CDP #### [facility] [address] [place] [address] Supervisor Denture Department: Landon Ruiz MD RBC (Bld) [#/Vol] 4.33 10*6/uL Normal 4.0-5.2 [facility] Comment on above: Performed By: #### L IVP, CDP #### [facility] [address] [place] [address] Supervisor Denture Department: Landon Ruiz MD WBC (Bld) [#/Vol] 7.6 10*3/uL Normal 3.5-11.0 [facility] Comment on above: Performed By: #### L IVP, CDP #### [facility] [address] [place] [address] Supervisor Denture Department: Landon Ruiz MD Abs.Imm.Granulocyte NOT REPORTED Normal 0.00-0.30 [facility] Comment on above: Performed By: #### L IVP, CDP #### [facility] [address] [place] [address] Supervisor Denture Department: Landon Ruiz MD Immature granulocytes (Bld) [#/Vol] NOT REPORTED Normal 0 [facility] Comment on above: Performed By: #### L IVP, CDP #### [facility] [address] [place] [address] Supervisor Denture Department: Landon Ruiz MD NRBC Automated NOT REPORTED Normal [facility] Comment on above: Performed By: #### L IVP, CDP #### [facility] [address] [place], [place] [id number] Supervisor Denture Department: Landon Ruiz MD Platelet mean volume (Bld) [Entitic vol] NOT REPORTED Normal 6.0-12.0 [facility] Comment on above: Performed By: #### L IVP, CDP #### [facility] [address] [place], [place] [id number] Supervisor Denture Department: Landon Ruiz MD Platelets (Bld) [#/Vol] NOT REPORTED Normal [facility] Comment on above: Performed By: #### L IVP, CDP #### [facility] [address] [place] [address] Supervisor Denture Department: Landon Ruiz MD RBC morphology finding Nom (Bld) NOT REPORTED Normal [facility] Comment on above: Performed By: #### L IVP, CDP #### [facility] [address] [place], [place] [id number] Supervisor Denture Department: Landon Ruiz MD WBC Morphology NOT REPORTED Normal [facility] Comment on above: Performed By: #### L IVP, CDP #### [facility] [address] [place] [address] Supervisor Denture Department: Landon Ruiz MD Hepatic Function Panelon Albumin [Mass/Vol] 4.6 g/dL 3.5 - 5.2 g/dL [place] Albumin/Globulin [Mass ratio] NOT REPORTED [place] ALP [Catalytic activity/Vol] 63 U/L 35 - 104 U/L [place] ALT [Catalytic activity/Vol] 10 U/L 5 - 33 U/L [place] AST [Catalytic activity/Vol] 14 U/L <32 [place] Bilirubin Ql (U) 0.49 mg/dL 0.3 - 1.2 mg/dL [place] Bilirubin, Indirect CANNOT BE CALCULATED 0 - 1 mg/dL [place] Bilirubin.direct [Mass/Vol] mg/dL <0.31 mg/dL [place] Globulin (S) [Mass/Vol] NOT REPORTED 1.5 - 3.8 g/dL [place] Protein [Mass/Vol] 7.5 g/dL 6.4 - 8.3 g/dL [place] Liver Profileon 06-11-2020 Albumin [Mass/Vol] 4.6 g/dL Normal 3.5-5.2 [facility] Comment on above: Performed By: #### L IVP, CDP #### [facility] [address] [place], [place] [phone] Supervisor Denture Department: Landon Ruiz MD Alkaline Phos 63 U/L Normal 35-104 [facility] Comment on above: Performed By: #### L IVP, CDP #### [facility] [address] [place], [place] [id number] Supervisor Denture Department: Landon Ruiz MD ALT [Catalytic activity/Vol] 10 U/L Normal 5-33 [facility] Comment on above: Performed By: #### L IVP, CDP #### [facility] [address] [place], [place] [phone] Supervisor Denture Department: Landon Ruiz MD AST [Catalytic activity/Vol] 14 U/L Normal <32 [facility] Comment on above: Performed By: #### L IVP, CDP #### [facility] [address] [place], [place] [phone] Supervisor Denture Department: Landon Ruiz MD Bilirubin Ql (U) 0.49 mg/dL Normal 0.30-1.20 [facility] Comment on above: Performed By: #### L IVP, CDP #### [facility] [address] [place], [place] [phone] Supervisor Denture Department: Landon Ruiz MD Bilirubin, Indirect CANNOT BE CALCULATED Normal 0.00-1 .00 [facility] Comment on above: Performed By: #### L IVP, CDP #### [facility] [address] [place], [place] [phone] Supervisor Denture Department: Landon Ruiz MD Bilirubin.direct [Mass/Vol] mg/dL Normal <0.31 [facility] Comment on above: Performed By: #### L IVP, CDP #### [facility] [address] [place], [place] [phone] Supervisor Denture Department: Landon Ruiz MD Protein [Mass/Vol] 7.5 g/dL Normal 6.4-8.3 [facility] Comment on above: Performed By: #### L IVP, CDP #### [facility] [address] [place], [place] [phone] Supervisor Denture Department: Landon Ruiz MD Albumin/Globulin [Mass ratio] NOT REPORTED Normal 1.0-2.5 [facility] Comment on above: Performed By: #### L IVP, CDP #### [facility] [address] [place], [place] [id number] Supervisor Denture Department: Landon Ruiz MD Globulin (S) [Mass/Vol] NOT REPORTED Normal 1.5-3.8 [facility] Comment on above: Performed By: #### L IVP, CDP #### [facility] [address] [place], [place] [phone] Supervisor Denture Department: Landon Ruiz MD Otheron 06-11-2020 Immature granulocytes (Bld) [#/Vol] NOT REPORTED 0 % [place] [id number] 06-10-2020 SARS-CoV-2 Not Detected Normal Not Detected [facility] Comment on above: Result Comment: (NOT E) This nucleic acid amplification test was developed and its performance characteristics determined by [employer]. Nucleic acid amplification tests include PCR and [...] detected) result in this assay. Performed At: [facility] [address] [place], [place] [id number] Amie Agrawal MD Ph:[phone] Performed By: #### A COV #### [facility] [address] [place] [address] Supervisor Denture Department: Hay Lara MD [id number] 05-24-2020 SARS-CoV-2 Not Detected Normal Not Detected [facility] Comment on above: Result Comment: (NOT E) This nucleic acid amplification test was developed and its performance characteristics determined by [employer]. Nucleic acid amplification tests include PCR and [...] detected) result in this assay. Performed At: [facility] [address] [facility], [place] [id number] Karie Diallo [facility] Ph:[phone] Performed By: #### A COV #### [facility] [address] [place] [address] Supervisor Denture Department: Hay Lara MD Lipid Profileon 03-22-2020 Cholesterol [Mass/Vol] 134 mg/dL Normal <200 [facility] Comment on above: Result Comment: Cholesterol Guidelines: <200 Desirable 200-240 Borderline >240 Undesirable Performed By: #### Estrada FAST, TSHX, CP #### [facility] [address] [place], [place] [phone] Supervisor Denture Department: Chauncey Arreola MD #### LIPR #### [address] [phone] Supervisor Denture Department: Rodo Llamas MD Cholesterol in HDL [Mass/Vol] 49 mg/dL Normal >40 [facility] Comment on above: Result Comment: HDL Guidelines: <40 Undesirable 40-59 Borderline >59 Desirable Performed By: #### Estrada FAST, TSHX, CP #### [facility] [address] [place], [place] [phone] Supervisor Denture Department: Chauncey Arreola MD #### LIPR #### [address] [phone] Supervisor Denture Department: Rodo Llamas MD Cholesterol in LDL [Mass/Vol] 75 mg/dL Normal 0-130 [facility] Comment on above: Result Comment: LDL Guidelines: <100 Desirable 100-129 Near to/above Desirable 130-159 Borderline >159 Undesirable Direct (measured) LDL and calculated LDL are not interchangeable tests. Performed By: #### Estrada FAST, TSHX, CP #### [facility] [address] [place], [place] [phone] Supervisor Denture Department: Chauncey Arreola MD #### LIPR #### [address] [phone] Supervisor Denture Department: Rodo Llamas MD Cholesterol.total/Cho lesterol in HDL [Mass ratio] 2.7 {ratio} Normal <5 [facility] Comment on above: Performed By: #### Estrada FAST, TSHX, CP #### [facility] [address] [place], [place] [phone] Supervisor Denture Department: Chauncey Arreola MD #### LIPR #### [facility] [address] [place], [place] [phone] Supervisor Denture Department: Rodo Llamas MD Triglyceride [Mass/Vol] 50 mg/dL Normal <150 [facility] Comment on above: Result Comment: Triglyceride Guidelines: <150 Desirable 150-199 Borderline 200-499 High >499 Very high Based on AHA Guidelines for fasting triglyceride, April 2012. Performed By: #### Estrada FAST, TSHX, CP #### [facility] [address] [place] [address] Supervisor Denture Department: Chauncey Arreola MD #### LIPR #### [facility] [address] [place], [place] [phone] Supervisor Denture Department: Rodo Llamas MD Comp Metabolic Profon 2019 (cont.) Normal [facility] Comment on above: Result Comment: Aver age GFR for 20-29 years old: 116 mL/min/1.73sq m Chronic Kidney Disease: <60 mL/min/1.73sq m Kidney failure: <15 mL/min/1.73sq m eGFR calculated using average adult body mass. Additional eGFR calculator available at: http://www.[employer].com/multiple_crcl_2011.htm Performed By: #### Estrada FAST, TSHX, CP #### [facility] [address] [place] [address] Supervisor Denture Department: Chauncey Arreola MD #### LIPR #### [facility] [address] [place], [place] [phone] Supervisor Denture Department: Rodo Llamas MD Albumin [Mass/Vol] 4.6 g/dL Normal 3.5-5.2 [facility] Comment on above: Performed By: #### Z FAST, TSHX, CP #### [facility] [address] [place], [place] [phone] Supervisor Denture Department: Chauncey Arreola MD #### LIPR #### [address] [phone] Supervisor Denture Department: Rodo Llamas MD Alkaline Phos 55 U/L Normal 35-104 [facility] Comment on above: Performed By: #### Estrada FAST, TSHX, CP #### [facility] [address] [place] [address] Supervisor Denture Department: Chauncey Arreola MD #### LIPR #### [address] [address] Supervisor Denture Department: Rodo Llamas MD ALT [Catalytic activity/Vol] 11 U/L Normal 5-33 [facility] Comment on above: Performed By: #### Estrada FAST, TSHX, CP #### [facility] [address] [place], [place] [phone] Supervisor Denture Department: Chauncey Arreola MD #### LIPR #### [address] [address] Supervisor Denture Department: Rodo Llamas MD Anion gap [Moles/Vol] 9 mmol/L Normal 9-17 [facility] Comment on above: Performed By: #### Estrada FAST, TSHX, CP #### [facility] [address] [place], [place] [phone] Supervisor Denture Department: Chauncey Arreola MD #### LIPR #### [address] [address] Supervisor Denture Department: Rodo Llamas MD AST [Catalytic activity/Vol] 17 U/L Normal <32 [facility] Comment on above: Performed By: #### Estrada FAST, TSHX, CP #### [facility] [address] [place], [place] [phone] Supervisor Denture Department: Chauncey Arreola MD #### LIPR #### [address] [id number] Supervisor Denture Department: Rodo Llamas MD Bilirubin Ql (U) 0.63 mg/dL Normal 0.30-1.20 [facility] Comment on above: Performed By: #### Z FAST, TSHX, CP #### [facility] [address] [place] [phone] Supervisor Denture Department: Chauncey Arreola MD #### LIPR #### [address] [phone] Supervisor Denture Department: Rodo Llamas MD BUN/CRE Ratio 18 Normal 9-20 [facility] Comment on above: Performed By: #### Z FAST, TSHX, CP #### [facility] [address] [place] [phone] ( Supervisor Denture Department: Chauncey Arreola MD #### LIPR #### [address] [phone] Supervisor Denture Department: Rodo Llamas MD Calcium [Mass/Vol] 9.0 mg/dL Normal 8.6-10.4 [facility] Comment on above: Performed By: #### Z FAST, TSHX, CP #### [facility] [address] [place] [address] Supervisor Denture Department: Chauncey Arreola MD #### LIPR #### [address] [phone] Supervisor Denture Department: Rodo Llamas MD Chloride [Moles/Vol] 104 mmol/L Normal 98-107 [facility] Comment on above: Performed By: #### Z FAST, TSHX, CP #### [facility] [address] [place], [place] [phone] Supervisor Denture Department: Chauncey Arreola MD #### LIPR #### [facility] [address] [place] [address] Supervisor Denture Department: Rodo Llamas MD CO2 [Moles/Vol] 25 mmol/L Normal 20-31 [facility] Comment on above: Performed By: #### Z FAST, TSHX, CP #### [facility] [address] [place] [address] Supervisor Denture Department: Chauncey Arreola MD #### LIPR #### [facility] [address] [place] [place] [address] Supervisor Denture Department: Rodo Llamas MD Creatinine [Mass/Vol] 0.67 mg/dL Normal 0.50-0.90 [facility] Comment on above: Performed By: #### Z FAST, TSHX, CP #### [facility] [address] [place] [address] Supervisor Denture Department: Chauncey Arreola MD #### LIPR #### [facility] [address] [place] [place] [address] Supervisor Denture Department: Rodo Llamas MD GFR, Amer >60 Normal >60 [facility] Comment on above: Performed By: #### Z FAST, TSHX, CP #### [facility] [address] [place] [address] Supervisor Denture Department: Chauncey Arreola MD #### LIPR #### [facility] [address] [place] [place] [address] Supervisor Denture Department: Rodo Llamas MD GFR,non Amer >60 Normal >60 [facility] Comment on above: Performed By: #### Z FAST, TSHX, CP #### [facility] [address] [place] [address] Supervisor Denture Department: Chauncey Arreola MD #### LIPR #### [facility] [address] [place] [place] [address] Supervisor Denture Department: Rodo Llamas MD Glucose [Mass/Vol] 90 mg/dL Normal 70-99 [facility] Comment on above: Performed By: #### Estrada FAST, TSHX, CP #### [facility] [address] [place] [address] Supervisor Denture Department: Chauncey Arreola MD #### LIPR #### [address] [phone] Supervisor Denture Department: Rodo Llamas MD Potassium [Moles/Vol] 4.6 mmol/L Normal 3.7-5.3 [facility] Comment on above: Performed By: #### Estrada FAST, TSHX, CP #### [facility] [address] [place], [place] 0607390 Supervisor Denture Department: Chauncey Arreola MD #### LIPR #### [address] [phone] Supervisor Denture Department: Rodo Llamas MD Protein [Mass/Vol] 8.8 g/dL High 6.4-8.3 [facility] Comment on above: Performed By: #### Estrada FAST, TSHX, CP #### [facility] [address] [place] [address] Supervisor Denture Department: Chauncey Arreola MD #### LIPR #### [address] [address] Supervisor Denture Department: Rodo Llamas MD Sodium [Moles/Vol] 138 mmol/L Normal 135-144 [facility] Comment on above: Performed By: #### Z FAST, TSHX, CP #### [facility] [address] [place], [place] [phone] Supervisor Denture Department: Chauncey Arreola MD #### LIPR #### [address] [address] Supervisor Denture Department: Rodo Llamas MD Urea nitrogen [Mass/Vol] 12 mg/dL Normal 6-20 [facility] Comment on above: Performed By: #### Z FAST, TSHX, CP #### [facility] [address] [place], [place] [phone] Supervisor Denture Department: Chauncey Arreola MD #### LIPR #### [facility] [address] [place], [place] [phone] Supervisor Denture Department: Rodo Llamas MD Albumin/Globulin [Mass ratio] NOT REPORTED Normal 1.0-2.5 [facility] Comment on above: Performed By: #### Z FAST, TSHX, CP #### [facility] [address] [place], [place] [phone] Supervisor Denture Department: Chauncey Arreola MD #### LIPR #### [address] [phone] Supervisor Denture Department: Rodo Llamas MD Staging: NOT REPORTED Normal [facility] Comment on above: Performed By: #### Z FAST, TSHX, CP #### [facility] [address] [place], [place] [phone] Supervisor Denture Department: Chauncey Arreola MD #### LIPR #### [address] [phone] Supervisor Denture Department: Rodo Llamas MD Comprehensive Metabolic Pane [facility] 03-21-2020 Albumin [Mass/Vol] 4.6 g/dL 3.5 - 5.2 g/dL [place] Albumin/Globulin [Mass ratio] NOT REPORTED [place] ALP [Catalytic activity/Vol] 55 U/L 35 - 104 U/L [place] ALT [Catalytic activity/Vol] 11 U/L 5 - 33 U/L [place] Anion gap [Moles/Vol] 9 mmol/L 9 - 17 mmol/L [place] AST [Catalytic activity/Vol] 17 U/L <32 [place] Bilirubin Ql (U) 0.63 mg/dL 0.3 - 1.2 mg/dL [place] Bun/Cre Ratio 18 [place] Calcium [Mass/Vol] 9.0 mg/dL 8.6 - 10. 4 mg/dL [place] Chloride [Moles/Vol] 104 mmol/L 98 - 10 7 mmol/L [place] CO2 [Moles/Vol] 25 mmol/L 20 - 31 mmol/L [place] Creatinine [Mass/Vol] 0.67 mg/dL 0.5 - 0.9 mg/dL [place] GFR >60 >60 mL/min [place] GFR Non- >60 >60 mL/min [place] GFR/1.73 sq M predicted among non-blacks MDRD (S/P/Bld) [Vol rate/Area] [place] Comment on above: Average GFR for 20-2 9 years old: 116 mL/min/1.73sq m Chronic Kidney Disease: <60 mL/min/1.73sq m Kidney failure: <15 mL/min/1.73sq m eGFR calculated using average adult body mass. Additional eGFR calculator available at: http://www.[employer]/multiple_crcl_2012.htm GFR/1.73 sq M predicted among non-blacks MDRD (S/P/Bld) [Vol rate/Area] NOT REPORTED [place] Glucose [Mass/Vol] 90 mg/dL 70 - 99 mg/dL [place], [place] Interpretation and review of laboratory results Abnormal [place] Potassium [Moles/Vol] 4.6 mmol/L 3.7 - 5.3 mmol/L [place] Protein [Mass/Vol] 8.8 g/dL High 6.4 - 8.3 g/dL [place] Sodium [Moles/Vol] 138 mmol/L 135 - 144 mmol/L [place] Urea nitrogen [Mass/Vol] 12 mg/dL 6 - 20 mg/dL [place] Lipid Profileon 03-21-2020 Cholesterol in VLDL [Mass/Vol] NOT REPORTED Normal 08-06 [facility] Comment on above: Performed By: #### Z FAST, TSHX, CP #### [facility] [address] [place], [place] [phone] Supervisor Denture Department: Chauncey Arreola MD #### LIPR #### [place] [address] [place], [place] [phone] Supervisor Denture Department: Rodo Llamas MD Patient Fasting?on 0 Patient Fasting? YES [place], [place] Patient fasting?on 0 Patient fasting? YES Normal [facility] Comment on above: Performed By: #### Z FAST, TSHX, CP #### [facility] [address] [place], [place] [phone] Supervisor Denture Department: Chauncey Arreola MD #### LIPR #### [address] [phone] Supervisor Denture Department: Rodo Llamas MD TSH w/reflex to FT4on 2019 TSH Qn 2.31 m[IU]/L Normal 0.30-5.00 [facility] Comment on above: Performed By: #### Z FAST, TSHX, CP #### [facility] [address] [place], [place] [phone] Supervisor Denture Department: Chauncey Arreola MD #### LIPR #### [address] [phone] Supervisor Denture Department: Rodo Llamas MD TSH with Reflexon 03-21-2020 TSH Qn 2.31 m[IU]/L [facility], [place] BETA HCG, QUAL, BLOODon 07-09 HCG ( test) Ql Negative [facility] [address] [place] CBCon 08-01-2018 ABSOLUTE BAS 0.0 X10 Normal [facility] Comment on above: Performed By: #### I BERHANE HU #### Testing performed at [place] [address] [place] [place] [address] ABSOLUTE EOS 0.00 X10 Normal [facility] Comment on above: Performed By: #### Jadon HU CMPF #### Testing performed at [place] [address] [place] [facility] [place] [address] ABSOLUTE NEUTROPHIL COUNT 6.4 x10 Normal 1.0-7.0 [facility] Comment on above: Performed By: #### Jadon HU CMPF #### Testing performed at [address] [place] [address] Basophils/100 WBC (Bld) 0.6 % Normal 0.0-2.0 [facility] Comment on above: Performed By: #### I MAYTE CMPF #### Testing performed at [address] [place] [address] DTYPE AUTO DIFF Normal [facility] Comment on above: Performed By: #### Jadon HU CMPF #### Testing performed at [place] [address] [place] [address] Eosinophils/100 WBC (Bld) 0.6 % Normal 0.0-11.0 [facility] Comment on above: Performed By: #### Jadon HU CMPF #### Testing performed at [place] [address] [place] [address] Lymphocytes #/vol (Bld) 1.90 X10 Normal [facility] Comment on above: Performed By: #### I MAYTE CMPF #### Testing performed at [place] [address] [place] [address] Lymphocytes/100 WBC (Bld) 21.6 % Normal 20.0-55.0 [facility] Comment on above: Performed By: #### I MAYTE CMPF #### Testing performed at [place] [address] [place] [address] Monocytes #/vol (Bld) 0.5 X10 Normal [facility] Comment on above: Performed By: #### I MAYTE CMPF #### Testing performed at [address] [address] Monocytes/100 WBC (Bld) 5.8 % Normal 0.0-10.0 [facility] Comment on above: Performed By: #### I ZULLYT CMPF #### Testing performed at [address] [address] Neutrophils/100 WBC (Bld) 71.4 % Normal 37.0-75.0 [facility] Comment on above: Performed By: #### I MAYTE CMPF #### Testing performed at [address] [address] Erythrocyte distribution width Ratio (RBC) 13.3 % Normal 11.5-14.5 [facility] Comment on above: Performed By: #### I MAYTE CMPF #### Testing performed at [address] [address] Hematocrit Volume Fraction (Bld) 40.0 % Normal 36.0-48.0 [facility] Comment on above: Performed By: #### Jadon HU CMPF #### Testing performed at [address] [address] Hemoglobin mass conc (Bld) 13.5 g/dL Normal 12.0-16.0 [facility] Comment on above: Performed By: #### I MAYTE CMPF #### Testing performed at [address] [place] [address] MCH Entitic mass (RBC) 30.7 pg Normal 26.0-35.0 [facility] Comment on above: Performed By: #### I MAYTE CMPF #### Testing performed at [address] [place] [address] MCHC mass conc (RBC) 33.6 g/dL Normal 27.0-37.0 [facility] Comment on above: Performed By: #### I TROT, CMPF #### Testing performed at [place] [address] [place] [address] MCV Entitic volume (RBC) 91.3 fL Normal 80.0-100.0 [facility] Comment on above: Performed By: #### I TROT, CMPF #### Testing performed at [address] [address] Platelet mean volume Entitic volume (Bld) 9.0 fL Normal 7.4-11.[address] [facility] Comment on above: Performed By: #### I TROT, CMPF #### Testing performed at [place] [id number] Platelets #/vol (Bld) 258 /cmm Normal 130.0-400.0 [facility] Comment on above: Performed By: #### I TROT, CMPF #### Testing performed at [place] [id number] RBC #/vol (Bld) 4.38 /cmm Normal 4.0-5.4 [facility] Comment on above: Performed By: #### I TROT, CMPF #### Testing performed at [address] [address] WBC #/vol (Bld) 8.9 /cmm Normal 3.6-11.0 [facility] Comment on above: Performed By: #### I TROT, CMPF #### Testing performed at [place] [id number] CBC, EDIF, PLATELETon 2018 ABSOLUTE BASOPHIL COUNT 0.0 X10 [facility] - [facility] [address] [facility] [place] Basophils/100 WBC (Bld) 0.6 % 0 - 2 % [facility] - [facility]. [address] [facility] [place] Differential cell count method Nom (Bld) AUTO DIFF % [facility] - [facility]. [address] - [place] Eosinophils #/vol (Bld) 0.00 10*3/uL X10 [place] [address] - [place] Eosinophils/100 WBC (Bld) 0.6 % 0 - 11 % [place] [address] - [facility] [place] Erythrocyte distribution width Ratio (RBC) 13.3 % 11.5 - 14.5 % [place] [address] - [facility] [place] Hematocrit Volume Fraction (Bld) 40.0 % 36 - 48 % [place] [address] [facility] Hemoglobin mass conc (Bld) 13.5 g/dL [place] [address] [facility] - [facility] [place] Lymphocytes #/vol (Bld) 1.90 10*3/uL X10 [place] [address] - [facility] [place] Lymphocytes/100 WBC (Bld) 21.6 % 20 - 55 % [place] [address] - [facility] Entitic mass (RBC) 30.7 pg 26 - 35 PG [place] [address] - [facility] M[facility]C mass conc (RBC) 33.6 g/dL [place] [address] - [facility] [place] MCV Entitic volume (RBC) 91.3 fL [place] [address] - [facility] [place] Monocytes #/vol (Bld) 0.5 10*3/uL X10 [place] [address] - [facility] [place] Monocytes/100 WBC (Bld) 5.8 % 0 - 10 % [place] [address] - [facility] [place] Neutrophils #/vol (Bld) 6.4 10*3/uL [facility] [address] - [facility] Neutrophils/100 WBC (Bld) 71.4 % 37 - 75 % [facility] - [address] - [facility] Platelet mean volume Entitic volume (Bld) 9.0 fL [facility] - [address] - [facility] Platelets #/vol (Bld) 258 10*3/uL [facility] - [address] - [facility] RBC #/vol (Bld) 4.38 10*6/uL [facility] - [address] - [facility] WBC #/vol (Bld) 8.9 10*3/uL [facility] - [address] - [facility] CMP FASTINGon 08-01-2018 ALP enzyme act/vol 61 U/L Normal 38-126 [facility] Comment on above: Performed By: #### I TROT, CMPF #### [place] [address] ALT enzyme act/vol 22 U/L Normal 9-52 [facility] Comment on above: Performed By: #### I TROT, CMPF #### Testing performed at [place] [id number] AST enzyme act/vol 24 U/L Normal 14-36 [facility] Comment on above: Performed By: #### I TROT, CMPF #### Testing performed at [address] [address] Bilirubin mass conc 0.8 mg/dL Normal 0.2-1.3 [facility] Comment on above: Performed By: #### I TROT, CMPF #### Testing performed at [place] [id number] A:G RATIO 1.4 RATIO Normal 1.3-2.2 [facility] Comment on above: Performed By: #### I TROT, CMPF #### Testing performed at [address] [place] [address] Albumin mass conc 4.6 G/dl Normal 3.5-5.0 [facility] Comment on above: Performed By: #### I TROT, CMPF #### Testing performed at [address] [address] Calcium mass conc 9.3 mg/dL Normal 8.4-10.2 [facility] Comment on above: Performed By: #### I TROT, CMPF #### Testing performed at [address] [address] Chloride molar conc 106 mmol/L Normal 98-107 [facility] Comment on above: Result Comment: Plea se note: Triglyceride levels of 600mg/dL or higher may positively bias chloride results by approximately 2.1 mmol Performed By: #### I TROT, CMPF #### Testing performed at [address] [address] CO2 molar conc 28 mmol/L Normal 22-30 [facility] Comment on above: Performed By: #### I TROT, CMPF #### Testing performed at [address] [place] [address] Creatinine mass conc 0.6 mg/dL Low 0.7-1.2 [facility] Comment on above: Performed By: #### I TROT, CMPF #### Testing performed at [address] [place] [address] EST. GFR, >60 Normal [facility] Comment on above: Performed By: #### I TROT, CMPF #### Testing performed at [address] [place] [address] EST. GFR,Non >60 Normal [facility] Comment on above: Performed By: #### I TROT, CMPF #### Testing performed at [address] [address] GFR/1.73 sq M predicted among non-blacks MDRD vol rate/area (S/P/Bld) Average GFR for 20-29 years old = 116. Normal [facility] Comment on above: Result Comment: Principal Investigator parrish Kidney disease, GFR = <60. Kidney failure, GFR = <15. The GFR estimate is not adjusted for extreme body surface area or acute process, nor has it been validated for women or ethnic groups other than and . Performed By: #### I NICHOL HUF #### Testing performed at [address] [address] Glucose mass conc 89 mg/dL Normal 70-100 [facility] Comment on above: Result Comment: NORMAL <100 mg/dL PREDIABETES 101-126 mg/dL DIABETES 126 mg/dL or higher Performed By: #### I MAYTE CMPF #### Testing performed at [address] [address] Potassium molar conc 4.4 mmol/L Normal 3.5-5.1 [facility] Comment on above: Performed By: #### I NICHOL HUF #### Testing performed at [address] [address] Protein mass conc 8.0 g/dL Normal 6.3-8.2 [facility] Comment on above: Performed By: #### I MAYTE CMPF #### Testing performed at [address] [address] Sodium molar conc 141 mmol/L Normal 137-145 [facility] Comment on above: Performed By: #### I MAYTE CMPF #### Testing performed at [address] [address] Urea nitrogen mass conc 12 mg/dL Normal 7-20 [facility] Comment on above: Performed By: #### I MAYTE CMPF #### Testing performed at [facility] [address] [address] COMPREHENSIVE METABOLIC PANE Fidel 08-01-2018 Albumin mass [...] D DIMER 0.19 mg/L FEU Normal 0.19-0.[address] [facility] Comment on above: Performed By: #### I BERHANE HU #### Testing performed at [place] [address] [place] [address] D-DIMER,QUANTITATIVEon 08-01 Fibrin D-dimer FEU mass conc (PPP) 0.19 [facility] - [address] [place] [address] [address] [place] [address] ISTAT TROPONIN Ion 9 Troponin I.cardiac mass conc ng/mL Normal 0-0.08 [facility] Comment on above: Performed By: #### BERHANE CAMPOS #### Testing performed at [address] [place] [address] RAPID TOX SCREEN,URINEon AMPHETAMINE Negative Normal NEGATIVE [facility] Comment on above: Result Comment: <500 ng/ml CUTOFF BARBITURATES Negative Normal NEGATIVE [facility] Comment on above: Result Comment: <200 ng/ml CUTOFF Benzodiazepines Ql (U) Negative Normal NEGATIVE [facility] Comment on above: Result Comment: <150 ng/ml CUTOFF BUPRENORPHINE Negative Normal NEGATIVE [facility] Comment on above: Result Comment: <10 ng/ml CUTOFF Cannabinoids Screen Ql (U) Negative Normal NEGATIVE [facility] Comment on above: Result Comment: <50 ng/ml CUTOFF Cocaine Ql (U) Negative Normal NEGATIVE [facility] Comment on above: Result Comment: <150 ng/ml CUTOFF Methadone Ql (U) Negative Normal NEGATIVE [facility] Comment on above: Result Comment: <200 ng/ml CUTOFF METHAMPHETAMINE Negative Normal NEGATIVE [facility] Comment on above: Result Comment: <500 ng/ml CUTOFF Opiates Ql (U) Negative Normal NEGATIVE [facility] Comment on above: Result Comment: <100 ng/ml CUTOFF OXYCODONE Negative Normal NEGATIVE [facility] Comment on above: Result Comment: <100 ng/ml CUTOFF Phencyclidine Ql (U) Negative Normal NEGATIVE [facility] Comment on above: Result Comment: <25 ng/ml CUTOFF Protein mass conc (U) Negative Normal NEGATIVE [facility] Comment on above: Result Comment: <300 ng/ml CUTOFF Tricyclic antidepressants Screen Ql (U) Negative Normal NEGATIVE [facility] Comment on above: Result Comment: <300 ng/ml CUTOFF SERUM HCG QUALon 08-01-2018 SERUM BETA HCG,QUAL Negative Normal [facility] Comment on above: Performed By: #### I TROT, CMPF #### Testing performed at [place] [address] [place] [address] TOXICOLOGY DRUG SCREEN, URIN Rodolfo 08-01-2018 Amphetamine mass conc (U) Negative NEGATIVE NG/ML [place] [address] [place] [address] Comment on above: <500 ng/ml CUTOFF Barbiturates Screen Ql (U) Negative NEGATIVE NG/ML [place] [address] Comment on above: <200 ng/ml CUTOFF Benzodiazepines Ql (U) Negative NEGATIVE NG/ML [place] [address] Comment on above: <150 ng/ml CUTOFF Benzoylecgonine Ql (U) Negative NEGATIVE NG/ML [place] [address] Comment on above: <150 ng/ml CUTOFF Buprenorphine Ql (U) Negative NEGATIVE NG/ML [place] [address] Comment on above: <10 ng/ml CUTOFF Cannabinoids Screen Ql (U) Negative NEGATIVE NG/ML [place] [address] Comment on above: <50 ng/ml CUTOFF Methadone Screen Ql (U) Negative NEGATIVE NG/ML [place] [address] Comment on above: <200 ng/ml CUTOFF Methamphetamine mass conc (U) Negative NEGATIVE NG/ML [place] [address] Comment on above: <500 ng/ml CUTOFF Opiates Screen Ql (U) Negative NEGATIVE NG/ML [facility] - [address] [place] [address] Comment on above: <100 ng/ml CUTOFF Oxycodone Ql (U) Negative NEGATIVE NG/ML [facility] - [address] [place] [address] Comment on above: <100 ng/ml CUTOFF Phencyclidine Screen method >25 ng/mL Ql (U) Negative NEGATIVE NG/ML [facility] - [address] [place] [address] Comment on above: <25 ng/ml CUTOFF Propoxyphene + Norpropoxyphene Screen Ql (U) Negative NEGATIVE NG/ML [facility] - [facility] [address] [place] [address] Comment on above: <300 ng/ml CUTOFF Tricyclic antidepressants Screen Ql (U) Negative NEGATIVE NG/ML [place] [address] [place] [address] Comment on above: <300 ng/ml CUTOFF TROPONINon [...] bony abnormalities. IMPRESSION: No acute cardiopulmonary abnormalities. Normal [facility] IMPRESSION: No acute cardiopulmonary abnormalities. RADIOLOGY User, Interfaces - 08/01/2018 12:19 PM EST PROCEDURE: XR [...] Clinician Facility 09-17-2023 12:14-0400 Blood Pressure Location [facility] 09-17-2023 12:14-0400 Body temperature 97.52 [degF] [facility] 09-17-2023 12:14-0400 Diastolic blood pressure 74 mm[Hg] [facility] 09-17-2023 12:14-0400 Heart rate 88 /min [facility] 09-17-2023 12:14-0400 SaO2% (BldA) [Mass fraction] 98 % [facility] 09-17-2023 12:14-0400 Systolic blood pressure 116 mm[Hg] [facility] 01-01-2023 15:30-0400 Blood Pressure Location SHERRIE SIDELL [facility] 01-01-2023 15:30-0400 Body temperature 98.24 [degF] SHERRIE SIDELL [facility] 01-01-2023 15:30-0400 Diastolic blood pressure 78 mm[Hg] SHERRIE SIDELL [facility] 01-01-2023 15:30-0400 Heart rate 82 /min SHERRIE SIDELL [facility] 01-01-2023 15:30-0400 SaO2% (BldA) [Mass fraction] 99 % SHERRIE SIDELL [facility] 01-01-2023 15:30-0400 Systolic blood pressure 118 mm[Hg] SHERRIE SIDELL [facility] 11-15-2022 14:54-0400 Blood Pressure Location Kristyn Kowalski [facility] 11-15-2022 14:54-0400 Body temperature 97.88 [degF] Kristyn Gannonk [facility] 11-15-2022 14:54-0400 Diastolic blood pressure 70 mm[Hg] Kristyn Klonk [facility] 11-15-2022 14:54-0400 Heart rate 86 /min Kristyn Jewellk [facility] 11-15-2022 14:54-0400 SaO2% (BldA) [Mass fraction] 98 % Kristyn Kowalski [facility] 11-15-2022 14:54-0400 Systolic blood pressure 118 mm[Hg] Kristyn Gannonk [facility] 08-22-2022 11:31-0500 Blood Pressure Location Trista Orzech [facility] 08-22-2022 11:31-0500 Body temperature 98.06 [degF] Trista Orzech [facility] 08-22-2022 11:31-0500 Diastolic blood pressure 82 mm[Hg] Trista Orzech [facility] 08-22-2022 11:31-0500 Heart rate 79 /min Trista Orzech [facility] 08-22-2022 11:31-0500 SaO2% (BldA) [Mass fraction] 98 % Trista Orzech [facility] 08-22-2022 11:31-0500 Systolic blood pressure 116 mm[Hg] Trista Orzech [facility] 08-07-2022 07:50-0500 Body temperature 98.24 [degF] James Nam [facility] 08-07-2022 07:50-0500 Diastolic blood pressure 81 mm[Hg] James Nam [facility] 08-07-2022 07:50-0500 Heart rate 77 /min James Nam [facility] 08-07-2022 07:50-0500 Respiratory rate 18 /min James Nam [facility] 08-07-2022 07:50-0500 SaO2% (BldA) [Mass fraction] 99 % James Nam [facility] 08-07-2022 07:50-0500 Systolic blood pressure 134 mm[Hg] James Nam [facility] 02-27-2022 14:43-0400 Blood Pressure Location [facility] 02-27-2022 14:43-0400 Diastolic blood pressure 78 mm[Hg] [facility] 02-27-2022 14:43-0400 Heart rate 96 /min [facility] 02-27-2022 14:43-0400 Respiratory rate 20 /min [facility] 02-27-2022 14:43-0400 SaO2% (BldA) [Mass fraction] 98 % [facility] 02-27-2022 14:43-0400 Systolic blood pressure 110 mm[Hg] [facility] 10-11-2021 10:41-0400 Blood Pressure Location Seth HOROWITZ [facility] 10-11-2021 10:41-0400 Body temperature 98.06 [degF] Seth HOROWITZ [facility] [place] 10-11-2021 10:41-0400 Diastolic blood pressure 80 mm[Hg] Seth HOROWITZ [facility] [place] 10-11-2021 10:41-0400 Heart rate 95 /min Seth HROOWITZ [facility] 10-11-2021 10:41-0400 SaO2% (BldA) [Mass fraction] 99 % Seth HOROWITZ [facility] 10-11-2021 10:41-0400 Systolic blood pressure 118 mm[Hg] Seth HOROWITZ [facility] 08-01-2018 12:51-0500 BP Diastolic 56 mm[Hg] [facility] Work Phone: 08-01-2018 12:51-0500 BP Systolic 117 mm[Hg] [facility] Work Phone: 08-01-2018 12:51-0500 Pulse (Heart Rate) 76 /min [facility] Work Phone: 08-01-2018 12:51-0500 Pulse Oximetry 98 % [facility] Work Phone: 08-01-2018 12:51-0500 Respiratory Rate 16 /min Mitchel [facility] Work Phone: 08-01-2018 10:20-0500 Body Temperature 98.1 [degF] Mitchel [facility] Work Phone: 10-25-2017 09:40-0400 BMI (Body Mass Index) 22.6 kg/m2 David Staffordjhon [facility] 10-25-2017 09:40-0400 Height 167.6 cm [facility] 10-25-2017 09:40-0400 Weight 63.5 kg [facility] Encounters Encounter Date Encounter Type Care Provider Facility Start: 03-10-2024 End: 03-10-2024 ambulatory GRISELDA GLENN Not Available Start: 03-02-2024 End: 03-02-2024 ambulatory GRISELDA GLENN Not Available Start: 02-25-2024 End: 02-25-2024 ambulatory ASH AIMEE Not Available Start: 10-11-2023 End: 10-12-2023 ambulatory Sherin Cheatahm Facility: [place] Start: 10-11-2023 End: 10-11-2023 Patient encounter procedure Sherin Cheatham [facility] Start: 09-24-2023 End: 09-24-2023 ambulatory ASH AIMEE Not Available Start: 09-17-2023 End: 09-18-2023 ambulatory Hay Dowling Facility:[facility] Start: 09-17-2023 End: 09-17-2023 Patient encounter procedure Hay Dowling [facility] Start: 08-28-2023 End: 08-28-2023 ambulatory ASH AIMEE Not Available Start: 08-08-2023 End: 08-08-2023 ambulatory GRISELDA GLENN Not Available Start: 02-12-2023 End: 02-13-2023 ambulatory Ayde WEINER Facility:[facility] Start: 02-08-2023 End: 02-09-2023 ambulatory Ayde Alfonso REGINE Facility:[facility] Start: 02-05-2023 End: 02-06-2023 ambulatory Ayde WEINER Facility:[facility] Start: 01-01-2023 End: 01-02-2023 ambulatory SHERRIE BUNN Facility:[facility] Start: 01-01-2023 End: 01-01-2023 Patient encounter procedure SHERRIE BUNN [facility] Start: 11-16-2022 End: 11-17-2022 ambulatory KRISTYN Joshua DEX Facility:[facility] Start: 11-15-2022 End: 11-16-2022 ambulatory KRISTYN KOWALSKI Facility:[facility] Start: 11-15-2022 End: 11-15-2022 Patient encounter procedure Kristyn Gannbrenton [facility] Start: 08-22-2022 End: 08-22-2022 Patient encounter procedure Trista Oliva [facility] Start: 08-07-2022 End: 08-07-2022 Emergency department patient visit James Viv [facility] Start: 02-27-2022 End: 03-01-2022 Pre-admission assessment Apoorva Sweet [facility] Start: 02-27-2022 End: 02-27-2022 Patient encounter procedure Apoorva Sweet [facility] Start: 02-06-2022 End: 02-06-[address] ASH YU Facility: Start: 11-30-2021 End: 11-30-2021 Patient encounter procedure Nadir ZHENG [facility] Start: 11-03-[address] ASH UY Facility : Start: 10-11-2021 End: 10-11-2021 Patient encounter procedure Seth A LOR [facility] [place] Start: 06-11-2020 End: 06-12-2020 Patient encounter procedure [facility] Start: 06-11-2020 End: 06-11-2020 Subsequent hospital visit by physician Adi Hdez [facility] Comment on above: History of mononucle osis Start: 06-07-2020 End: 06-08-2020 Patient encounter procedure [facility] Start: 06-07-2020 End: 06-07-2020 Subsequent hospital visit by physician Adi Hdez [facility] Comment on above: Viral URI with cough Start: 05-18-2020 End: 05-19-2020 [facility] Start: 05-18-2020 End: 05-18-2020 Subsequent hospital visit by physician Adi Hdez [facility] Comment on above: Suspected COVID-19 v irus infection Start: 03-21-2020 End: 03-22-2020 Patient encounter procedure [facility] Start: 03-21-2020 End: 03-21-2020 Subsequent hospital visit by physician Adi Hdez [facility] Comment on above: Fatigue, unspecified type; Screening cholesterol level Start: 08-01-2018 End: 08-01-2018 Letter encounter Provider Kaushik [facility] Start: 08-01-2018 End: 08-01-2018 Emergency department patient visit MITCHEL Reji BISWAS [facility] Start: 08-01-2018 End: 08-01-2018 Emergency department patient visit Mitcheljadon Morleyper Work Phone: [facility] Start: 12-05-2017 Ambulatory DAVID HURT [facility] Start: 11-27-2017 End: 11-27-2017 Patient encounter procedure David Hurt Facility:[facility] Start: 11-15-2017 End: 11-15-2017 Ambulatory DAVID HURT [facility] Start: 11-15-2017 End: 11-15-2017 Office/outpatient visit, est, level 2 David Hurt Work Phone: [facility] [place] Start: 11-04-2017 End: 11-04-2017 Ambulatory David Hurt Work Phone: [facility] Start: 10-30-2017 Ambulatory DAVID HURT [facility] Start: 10-25-2017 End: 10-25-2017 Ambulatory ADI BACK [facility] Start: 10-25-2017 End: 10-25-2017 Office/outpatient visit, new, level 2 Adi Back Work Phone: [facility] [place] Procedures Date Procedure Procedure Detail Performing Clinician Start: 06-11-2020 Blood count complete auto&auto difrntl wbc ADI BACK Start: 06-11-2020 Hepatic function panel ADI BACK Start: 06-11-2020 Blood count complete auto&auto difrntl wbc Sailaja Tineo Work Phone: Start: 06-11-2020 Hepatic function panel Sailaja Tineo Work Phone: Start: 06-06-2020 COVID-19 AMBULATORY ADI BACK Start: 05-18-2020 COVID-19 AMBULATORY ADI BACK Start: 03-21-2020 Assay of thyroid stimulating hormone tsh ADI BACK Start: 03-21-2020 Blood typing serologic abo ADI BACK Start: 03-21-2020 Comprehensive metabolic panel ADI BACK Start: 03-21-2020 Lipid panel ADI BACK Start: 03-21-2020 Assay of thyroid stimulating hormone tsh Adi Back Work Phone: Start: 03-21-2020 Comprehensive metabolic panel Adi Back Work Phone: Start: 03-21-2020 PATIENT FASTING? Adi Back Work Phone: Start: 08-01-2018 End: 08-01-2018 Diagnostic radiography of chest, combined PA and lateral Mitchel Biswas Work Phone: Start: 08-01-2018 End: 08-01-2018 TOXICOLOGY DRUG SCREEN, URINE Mitchel patel Work Phone: Start: 08-01-2018 End: 08-01-2018 Assay of troponin quantitative Mitchel Baer rper Work Phone: Start: 08-01-2018 End: 08-01-2018 CBC, EDIF, PLATELET Mitchel Biswas Work Phone: Start: 08-01-2018 End: 08-01-2018 Choriogonadotropin ( test) [Presence] in Serum or Plasma Mitchel Biswas Work Phone: Start: 08-01-2018 End: 08-01-2018 Comprehensive metabolic panel Mitchel patel Work Phone: Start: 08-01-2018 End: 08-01-2018 Fibrin dgradj products d-dimer quantitative Mitchel Biswas Work Phone: Start: 08-01-2018 End: 08-01-2018 Standard ECG Mitchel Biswas Work Phone: Start: 07-08-2000 tonsils and tubes in ears Seth HOROWITZ Plan of Treatment Date Care Activity Detail Author Start: 04-19-2026 DTaP/Tdap/Td vaccine (2 - Td) DTaP/Tdap/Td vaccine (2 - Td) [place], [place] Start: 04-19-2026 Tetanus vaccination TETANUS EVERY 10 YR [facility] Start: 09-19-2020 End: 09-19-2020 Office Visit 09/19/2020 Office Visit Family Adi Ansari MD [address] [place] [address] [phone] [facility] Start: 06-27-2020 Screening for malign ant neoplasm of cervix Cervical cancer screen [place], [place] Start: 06-16-2020 End: 06-16-2020 Office Visit 06/16/2020 Office Visit Adi Thrasher MD [address] [place] [address] [phone] [facility] Start: 03-08-2020 Influenza vaccination Flu vaccine (# 1) [place], [place] Start: 03-08-2018 Influenza vaccination [facility] Start: 11-15-2017 End: 11-15-2017 Ambulatory 11/15/2017 Office Visit Sports Medicine David Hurt MD [address] [place] [address] [phone] [facility] [place] Start: 10-31-2017 Ambulatory 10/31/2017 Hos pital Encounter David Hurt MD [address] [place] [address] [phone] [facility] Start: 03-08-2017 Influenza vaccination SEQUENTI AL INFLUENZA VACCINE (#1) [facility] Start: 10-21-2016 Screening for malign ant neoplasm of cervix PAP SMEAR DISCUSSION [facility] Work Phone: Start: 10-21-2014 Third diphtheria, te tanus and acellular pertussis (DTaP) vaccination TDAP (ADULT) [facility] Work Phone: Start: 10-21-2013 GONORRHEA SCREEN GONORRHEA SCREEN [facility] Work Phone: Start: 10-21-2013 Tetanus vaccination TETANUS [facility] Work Phone: Start: 2011 Screening for Chlamy carson trachomatis CHLAMYDIA SCREEN [facility] Work Phone: Start: 10-21-2008 HIV screening HIV SCREENING DISCUSSION [facility] Work Phone: Start: 10-21-2006 HPV vaccine (1 - 2-d ose series) HPV vaccine (1 - 2-dose series) [place] Start: 10-21-2006 Vaccination for alo n papillomavirus [facility] Start: 10-21-2001 Pneumococcal 0-64 ye ars Vaccine (1 of 1 - PPSV23) Pneumococcal 0-64 years Vaccine (1 of 1 - PPSV23) [place] Start: 10-21-1996 Varicella vaccine (1 of 2 - 2-dose childhood series) Varicella vaccine (1 of 2 - 2-dose childhood series) [place] Start: 1995 Screening for malign ant neoplasm of cervix PAP SMEAR [facility] End: 05-18-2020 COVID-19 Ambulatory COVID-19 Ambulatory Lab Routine Suspected COVID-19 virus infection 1 Occurrences starting 05/18/2020 until 05/18/2020 [place] Comment on above: 1 Occurrences starti ng 05/18/2020 until 05/18/2020 COVID-19 Ambulatory [place] End: 06-07-2020 COVID-19 Ambulatory COVID-19 Ambulatory Lab Routine Viral URI with cough 1 Occurrences starting 06/07/2020 until 06/07/2020 [place] Comment on above: 1 Occurrences starti ng 06/07/2020 until 06/07/2020 End: 03-21-2020 Lipid panel Lipid Panel Lab Routine Screening cholesterol level 1 Occurrences starting 03/21/2020 until 03/21/2020 [place] Comment on above: 1 Occurrences starti ng 03/21/2020 until 03/21/2020 Lipid panel Lipid Panel Lab Routine Screening cholesterol level 03/21/2020 9:07 AM EDT [place] Standard ECG ECG STAT 019 10:49 AM EST [facility] Work Phone: Immunizations Immunization Date Immunization Notes Care Provider Aparna buckley 05-09-2017 influenza virus vaccine, unspecified formulation [place], [place] 04-19-2016 tetanus toxoid, reduced diphtheria toxoid, and acellular pertussis vaccine, adsorbed [place] Comment on above: Reason for Medicatio n: Other (see comment) NEGATED: Highlighted row has not occurred!07-13-2022 influenza virus vaccine, unspecified formulation [facility] NEGATED: Highlighted row has not occurred!07-13-2022 SARS-CoV-2 mRNA (tozinameran 5y-11y) vaccine [facility] NEGATED: Highlighted row has not occurred!08-25-2020 influenza virus vaccine, unspecified formulation Seth HOROWITZ [facility] [place] Payers Date Payer Category Payer Unknown [id number] 1995 Unknown [id number] 2.16.84 [id number] 1995 Unknown [id number] 2.16.84 [id number] 1995 Unknown [id number] 2.16.84 0.1.520890.3.579.2.174 1995 Unknown [id number] 2.16.84 0.1.075357.3.579.2.174 1995 Unknown [id number] 2.16.84 0.1.872091.3.579.2.593 1995 Unknown [id number] 2.16.84 0.1.928127.3.579.2.593 1995 Unknown [id number] 2.16.8 40.1.533151.3.579.2.727 1995 Unknown [id number] 2.16.8 40.1.731874.3.579.2.727 1995 Unknown [id number] 2.16.8 40.1.928833.3.579.2.727 1995 Unknown [id number] 2.16.8 40.1.381212.3.579.2.727 1995 Unknown [id number] 2.16.8 40.1.596506.3.579.2.727 1995 Unknown [id number] 2.16.8 40.1.002022.3.579.2.727 1995 Unknown [id number] 2.16.84 0.1.830993.3.579.2.1259 1995 Unknown [id number] 2.16.84 0.1.391472.3.579.2.1259 1995 Unknown [id number] 2.16.84 0.1.132540.3.579.2.1259 1995 Unknown [id number] 2.16.84 0.1.702859.3.579.2.1259 1995 Unknown [id number] 2.16.84 0.1.611100.3.579.2.1259 1995 Unknown [id number] 2.16.84 0.1.252378.3.579.2.1259 1959 Unknown [id number] Social History Date Type Detail Facility Start: 10-25-2017 End: 11-15-2017 Tobacco smoking status [facility] Former smoker [facility] Sex Assigned At Not on file [facility] Start: 08-01-2018 End: 09-17-2023 Tobacco smoking status NHIS Never smoker [facility] Work Phone: Start: 03-21-2020 End: 06-06-2020 Tobacco use and exposure Never [place] [facility] [place] Start: 03-21-2020 End: 06-06-2020 Alcohol intake Current non-drinker of alcohol (finding) [facility] [place] Tobacco smoking status Never [facility] [place] Sex Assigned At Female [facility] [place] Functional Status Date Assessment Result Facility 09-17-2023 Functional Status N/A [facility] 01-01-2023 Functional Status N/A [facility] 11-15-2022 Functional Status N/A [facility] 08-22-2022 Functional Status N/A [facility] 08-07-2022 Functional Status N/A [facility] 02-27-2022 Functional Status N/A [facility] Clinical Notes 02-14-2021 to 10-11-2023 Laboratory Note [...] Follow these instructions at home: Medicines Take gqrx-imq-dxguwmz and prescription medicines only as told by [...] and water are not available, use hand ampoule examiner. Contact a health care provider if: You [...] things can cause a sore throat. Take cgcl-gdm-cywehwl medicines only as told by your health [...] provider. Document Revised: 09/20/2021 Document Reviewed: 09/20/2021 [employer] Patient Education 2022 [employer]. Follow Up Care 10/11/2023 06:27:52 With:Linden MARROQUIN, CREDIT CONSULTANT-VEHICLE BODY MAKERSherin Address: [address] [place] [phone] When: only if needed [facility] [place] 09-17-2023 Hospital Discharge instructions Patient Education 09/17/2023 [...] numbers. This can be done either in Vincentian ([place] or metric measurements. Note that charts and online BMI calculators are available to help you find your BMI quickly and easily without having to do these calculations yourself. To calculate your BMI in Vincentian ([place] measurements: 1.Measure your weight in pounds [...] Centers for Disease Control and Prevention: www.cdc.gov [place] [employer]: www.heart.org National Heart, Lung, and Blood [place]: www.nhlbi.nih.gov Summary Body mass index (BMI) is a number that is calculated from a person's weight and height. BMI may help estimate how much of a person's weight is composed of fat. BMI can help identify those who may be at higher risk for certain medical problems. BMI can be measured using Vincentian measurements or metric measurements. BMI charts are used to identify whether you are underweight, normal weight, overweight, or obese. This information is not intended to replace advice given to you by your health care provider. Make sure you discuss any questions you have with your health care provider. Document Revised: 03/16/2020 Document Reviewed: 01/22/2020 [employer] Patient Education 2022 [employer]. 09/17/2023 12:50:54 Viral Illness, Adult Viral Illness, [...] Medicines to relieve symptoms. These can include jftj-mgb-dbndcrm medicine for pain and fever, medicines for cough or congestion, and medicines to relieve diarrhea. Antiviral medicines. These medicines are available only for certain types of viruses. Some viral illnesses can be prevented with vaccinations. A common example is the flu shot. Follow these instructions at home: Medicines Take jajt-mzr-ldejeee and prescription medicines only as told by [...] and water are not available, use hand ampoule examiner. Avoid touching your nose, eyes, and mouth, [...] provider. Document Revised: 11/07/2020 Document Reviewed: 05/03/2020 [employer] Patient Education 2022 [employer]. [facility] Care 11-15-2022 Evaluation + Plan note Future Scheduled [id number] 11/15/22TSH With T4fr Reflex 11/15/2283XKUA-KiB-9, JACOB 02/27/22 [facility] 08-22-2022 Hospital Discharge instructions Patient Education 08/22/2022 [...] water added (diluted fruit juice). Eat bland, cajm-iw-yzvxnd foods in small amounts as you are able. These foods include bananas, applesauce, rice, lean meats, toast, and crackers. Avoid fluids that contain a lot of sugar or caffeine, such as energy drinks, sports drinks, and soda. Avoid alcohol. Avoid spicy or fatty foods. General instructions Take rcht-wew-rfuvibf and prescription medicines only as told by your health care provider. Drink enough fluid to keep your urine pale yellow. Wash your hands often using soap and water. If soap and water are not available, use hand ampoule examiner. Make sure that all people in your [...] eating and drinking to prevent dehydration. Take pcie-sin-ftokfhm and prescription medicines only as told by [...] 06/24/2006 Document Revised: 10/16/2019 Document Reviewed: 12/02/2018 [employer] Patient Education 2020 [employer]. 08/22/2022 12:10:36 Vomiting, Adult Vomiting, Adult Vomiting [...] at pharmacies and retail stores. Eat bland, gvdw-sf-tbrehe foods in small amounts as you are [...] and water are not available, use hand ampoule examiner. Make sure that everyone in your household washes their hands frequently. Take vbcx-vbh-igucgfo and prescription medicines only as told by [...] and water are not available, use hand ampoule examiner. Make sure that everyone in your household [...] 07/20/2016 Document Revised: 12/11/2019 Document Reviewed: 12/02/2018 [employer] Patient Education 2020 [employer]. 08/22/2022 12:10:19 Sinusitis, Adult Sinusitis, Adult Sinusitis [...] at home: Medicines Take, use, or apply huvj-rni-pbokmfp and prescription medicines only as told by [...] and water are not available, use hand ampoule examiner. Do not smoke. Avoid being around people [...] 06/24/2006 Document Revised: 11/24/2018 Document Reviewed: 11/24/2018 [employer] Patient Education 2020 [employer]. 08/22/2022 12:10:18 BMI for Adults BMI for [...] height. This can be done either in Vincentian ([place] or metric measurements. Note that charts are available to help you find your BMI quickly and easily without having to do these calculations yourself. To calculate your BMI in Vincentian ([place] measurements, your health care provider will: [...] medical problems. BMI can be measured using Vincentian measurements or metric measurements. To interpret your [...] 03/05/2005 Document Revised: 06/06/2018 Document Reviewed: 05/07/2018 [employer] Patient Education 2020 [employer]. Follow Up Care 08/22/2022 11:04:46 With:Dex JUSTICE, LOUIE Daigle Address: [address] [place] [address] [phone] When: Unknown [facility] 08-07-2022 Evaluation + Plan note Extrac giovanni from: Title:ED Note Author:Jeremy Tineo PA-C te:08/07/22 Pharyngitis (J02.9: Acute ph aryngitis, unspecified) Orders: dexamethasone, 10 mg = 2.5 mL, Injection, Oral, Once, Stop date 08/07/22 7:54:00 EST, STAT, Start date 08/07/22 7:54:00 EST, 08/07/22 7:54:00 EST Group A Strep by PCR Rapid Strep w/rfx Future Scheduled Tests Laboratory* SARS-CoV-2, JACOB 02/27/22 [facility]01-31-2023 Hospital Discharge instructions Patient Education 08/07/2022 08:47:50 [...] medicines. Follow these instructions at home: Take hwdw-jcw-wwqlsib and prescription medicines only as told by [...] 06/24/2006 Document Revised: 06/06/2018 Document Reviewed: 07/30/2017 [employer] Patient Education 2020 [employer] Follow Up Care 08/07/2022 07:49:47 With:Kristyn Kowalski Address: [address] [place] [address] [phone] Business (1) When:08/10/2022 08:37:22 [facility]08-23-2022 Evaluation + Plan note Future Scheduled Tests Laboratory* SARS-CoV-2, JACOB 02/27/22 [facility]05-25-2022 Hospital Discharge instructions Patient Education 11/29/2021 19:32:42 [...] Follow these instructions at home: Medicines Take jhxg-pma-venhsxu and prescription medicines only as told by your health care provider. Ask your health care provider if the medicine prescribed to you: ?Requires you to avoid driving or using heavy machinery. ?Can cause constipation. You may need to take these actions to prevent or treat constipation: ?Drink enough fluid to keep your urine pale yellow. ?Take rncj-okq-vcujmob or prescription medicines. ?Eat foods that are [...] 06/24/2006 Document Revised: 10/16/2019 Document Reviewed: 08/06/2019 [employer] Patient Education 2019 [employer]. [facility] [place] 04-06-2022 Hospital Discharge instructions Patient Education 10/11/2021 [...] Follow these instructions at home: Medicines Take zpxz-odh-fpvkyle and prescription medicines only as told by your health care provider or pharmacist. Ask your pharmacist what rnij-hmm-hlglkcp cold medicines you should avoid. Some medicines [...] a problem, search for a local or replaced by [facility]. Public mental health [...] 10/24/2017 Document Revised: 10/16/2019 Document Reviewed: 10/24/2017 [employer] Patient Education 2020 [employer]. 10/11/2021 11:12:08 Bipolar 1 Disorder Bipolar 1 [...] hard liquor (44 mL). General instructions Take wopl-wqo-ojzhlru and prescription medicines only as told by [...] important. Where to find more information National [place] on Mental Illness: www.homer.org National [place] of Mental Health: www.nimh.nih.gov Contact a health [...] 09/30/2001 Document Revised: 12/08/2019 Document Reviewed: 12/08/2019 [employer] Patient Education 2019 [employer] Follow Up Care 10/06/2021 16:00:44 With:Seth ANTONIO Address: [address] [place] [phone] When:Within 4 Week(s) [facility] 08-10-2021 Evaluation + Plan note Future Scheduled Tests Laboratory* SARS-CoV-2, JACOB 02/14/21 [facility] [place] Evaluation + Plan note Future Appointments Appointment Date:11/15/2021 11:00:00 AM Scheduled Provider:Seth ANTONIO Location:[facility] Appointment Type:FM Open Future Scheduled Tests Laboratory* SARS-CoV-2, [facility]OB [facility] note Future Appointments Appointment Date:02/28/2022 09:00:00 AM Scheduled Provider: Location:.LAB Appointment Type:Outpatient COVID Testing Appointment Date:02/28/2022 09:00:00 AM Scheduled Provider: [facility] Antigen Testing Future Scheduled Tests Laboratory* SARS-CoV-2, JACOB 02/27/22 [facility] [place] Hospital course Narrative No data available for this section [facility] Discharge instructions No data available for this section [facility] [place] Progress note No data available for this section [facility] Assessments Diagnosis Bursitis/tendonitis, shoulde r - Primary [...] for this section No Family History Records Found No data available for this section No Family History Records Found Advance Directives No Advanced Directives Records FoundDocuments on File Type Date Recorded 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 * Chest Pain, Uncertain Cause (Vincentian) in this encounter Additional Source Comments INFORMATION SOURCE (unrecogn ized section and content) DATE CREATED AUTHOR 12/25/2017 [facility] DATE CREATED AUTHOR AUTHOR'S ORGANIZ ATION 06/16/2018 [facility] DATE CREATED AUTHOR AUTHOR'S ORGANIZ ATION 08/21/2018 [facility] DATE CREATED AUTHOR AUTHOR'S ORGANIZ ATION 06/12/2020 [facility] [place] [facility] DATE CREATED AUTHOR AUTHOR'S ORGANIZ ATION 02/10/2022 [facility] DATE CREATED AUTHOR AUTHOR'S ORGANIZ ATION 10/11/2023 [facility] DATE CREATED AUTHOR AUTHOR'S ORGANIZ ATION 03/11/2024 [facility] EPIC Reason for Visit (unrecogniz ed section and content) Reason Comments Chest Pain patient c/o midstern al chest pain that started at 8:30, worse with a deep breath, denies cough, denies treatment Care Team (unrecognized sect ion and content) Personnel Name: Seth ANTONIO Address: [address] [place] [address] Personnel Name: Seth ANTONIO Address: [address] [place] [address] Personnel Name: Dex WHEEL MILL OPERATORKristyn Address: Address: [address] [place] [address] [address] [place] [address] Personnel Name: Kristyn Kowalski NP Address: Address: [address] [place] [address] [address] [facility] [place] [address] Personnel Name: Kristyn Kowalski NP Address: Address: [address] [place] [phone] Personnel Name: NONE, XXXX Address: Address: HOLY [...] BE BASED ON THE PRIMARY CLINICAL RECORDS. [facility]. provides no warranty or guarantee of the accuracy or completeness of information in this document.
[2024-03-11 06:56] LABS: Basophils Absolute Auto 0.1 10^3/uL (0.0-0.1); Basophils Percent Auto 0.8 % (0.2-2.0); Eosinophils Absolute Auto 0.2 10^3/uL (0.0-0.7); Eosinophils Percent Auto 1.8 % (0.9-7.0); Hematocrit 41.7 % (36.0-48.0); Hemoglobin 13.8 g/dL (12.0-16.0); Immature Granulocytes Abs Auto 0.03 10^3/uL (0.00-0.03); Immature Granulocytes Pct Auto 0.3 % (0.0-0.5); Lymphocytes Absolute Auto 2.6 10^3/uL (1.2-3.8); Lymphocytes Percent Auto 29.1 % (20.5-60.0); Mean Corpuscular HGB Conc 33.1 g/dL (29.9-35.2); Mean Corpuscular Hemoglobin 30.7 pg (26.7-34.0); Mean Corpuscular Volume 92.7 fL (81.0-99.0); Monocytes Absolute Auto 0.6 10^3/uL (0.3-0.8); Neutrophils Absolute Auto 5.5 10^3/uL (1.4-6.5); Platelet Count 276 10^3/uL (150-450)
[2024-03-11 11:20] LABS: Alanine Aminotransferase 24 U/L (14-59); Albumin Globulin Ratio 1.1; Albumin Level 3.7 g/dL (3.4-5.0); Alkaline Phosphatase 66 U/L (46-116); Aspartate Amino Transferase 18 U/L (15-37); BUN Creatinine Ratio 18.9; Bilirubin Total 0.3 mg/dL (0.2-1.0); Calcium 8.8 mg/dL (8.5-10.1); Chloride 104 mmol/L (98-107); Estimated GFR (African America >60 (>=60); Estimated GFR (Non-African Ame >60 (>=60); Globulin 3.3 g/dL; Glucose 97 mg/dL (74-106); Potassium 4.3 mmol/L (3.5-5.1); Sodium 140 mmol/L (136-145)
[2024-03-11 11:27] LABS: Anion Gap 13.2; Carbon Dioxide 27.1 mmol/L (21.0-32.0)
== END 2024-03-11 06:33 | disposition home or self-care (01) ==
PROVIDERS: Obstetrics & Gynecology; Visit Provider Physician Assistant
DX: R10.11 Right upper quadrant pain (principal)
CPT/HCPCS: 36415; 80053; 83690; 85025

== ENCOUNTER 2024-05-05 07:02 | Emergency (ER) | payer OTHER, SELFPAY ==
[2024-05-05 07:06] VITALS: BP 128/77; PULSE 77; TEMP 37.1; O2SAT 98; BMI 28.1
--- OUTSIDE RECORDS SUMMARY | 2024-05-05 07:11 | XMS_ITS | CCD ---
Author Organization [facility] Care Team Providers Care Embossing Calender Operator Name Role Phone Back, Adi Unavailable BACK, ADI Unavailable Unavailable LEESONDAVID Unavailable Unavail able BACK, ADI Unavailable Unavailable BACK, ADI Unavailable Unavailable LEESONDAVID Unavailable Unavail able BACK, ADI Unavailable Unavailable LEESONDAVIDER Unavailable Unavail able BACK, ADI Unavailable Unavailable LEESON, DAVID CHRISTOPHER Unavailable Unavail able BACK, ADI Unavailable Unavailable Leeson, David C Unavailable Unavailable Leeson, David C Unavailable Unavailable Leeson, David C Unavailable Unavailable Leeson, David C Unavailable Unavailable Back, Bill Primary Care Provider [phone] MITCHEL BISWAS Attending Unavailable Back, Adi Primary Care Provider Lily CARRILLO Primary Care Physician DR ASH YU Attending Unavailable AIMEE, DR ALEMAN Admitting Unavailable AIMEE, DR ALEMAN Consulting Unavailable AIMEE, DR ALEMAN Attending Unavailable AIMEE, DR ALEMAN Admitting Unavailable Seth HOROWITZ Primary Care Physician Kristyn Kowalski Primary Care Physician NONE, XXXX Primary Care Physician Unavailab GRISELDA Vance Attending Unavailable ASH YU Attending Unavailable ASH YU Attending Unavailable ASH YU Attending Unavailable GRISELDA ELIZABETH Attending Unavailable GRISELDA ELIZABETH Attending Unavailable [place], MSN, RESET MERCHANDISER-FLATWORK FINISHER Sherin Tillman Attending U Hay Diaz Attending Unavailable NIKITA ESTRELLA Attending Unavailable Allergies Allergy Classification Reported Allergen(s) Allergy Type Date of Onset Reaction(s) Facility (12 sources) fluticasone; Translations: [FLUTICASONE PROPIONATE] Propensity to adverse reactions to drug 03-08-20 17 Other (See Comments) [facility] (18 sources) sulfamethoxazole / trimethoprim; Translations: [SULFAMETHOXAZOLE-T RIMETHOPRIM] Propensity to adverse reactions to drug 08-28-[address] [facility] (4 sources) sulfaSALAzine; Translations: [SULFASALAZINE] Propensity to adverse reactions to drug 03-25-[address] [facility] (20 sources) traMADol; Translations: [TRAMADOL] Propensity to adverse reactions to drug 11-22-19 16 Bactrim, unknown [facility] (6 sources) Sulfonamides (Antibiotic) Propensity to adverse reactions to drug 03-25-20 15 Rash [facility] Work Phone: (4 sources) redtop grass pollen extract Drug Allergy 02-22-20 18 [place], [place] (4 sources) Coconut Flavor Propensity to adverse reactions to drug 02-22-20 18 [place] (11 sources) Adhesive Tape; Translations: [Tape] Drug allergy Eruption of skin (disorder) [facility] [place] [employer] (11 sources) Bee/Wasp/Ant venom; Translations: [Bee Stings] Drug allergy Swelling (finding) [facility] [place] [employer] (11 sources) Sulfonamides (Antibiotic); Translations: [sulfa drugs] Drug allergy [facility] [employer] (1 source) Sulfamethoxazole / Trimethoprim; Translations: [Bactrim] Drug Allergy [facility] (1 source) traMADol; Translations: [Ultram] Drug Allergy [facility] Medications Current Medications Medication Drug [...] day(s), # 14 tab(s), Refills(s) 0, Pharmacy: [facility], 170, cm, 08/22/22 11:34:00 EST, Height/Length Dosing, 84.5, kg, 08/22/22 11:34:00 EST, Weight Dosing Start Date: 08/22/22 Stop Date: 08/29/22 Status: Ordered ARIPiprazole 15 mg oral tablet (4 sources) Atypical Antipsychotic Start: 10-11-2021 take 1 tablet by mouth once daily aripiprazole 15 mg Tab 15 mg = 1 tab(s), Oral, Daily, # 30 tab(s), Refills(s) 2, Pharmacy: [facility], 170, cm, 10/11/21 10:48:00 EDT, Height/Length Dosing, 77, kg, 10/11/21 10:48:00 EDT, Weight Dosing Start Date: 10/11/21 Status: Ordered brompheniramine maleate 0.4 mg/ml / dextromethorphan hydrobromide 2 mg/ml / pseudoephedrine hydrochloride 6 mg/ml oral solution (1 source) alpha-Adrenergic Agonist, Uncompetitive U-dasnna-J-aspartate Receptor Antagonist, Sigma-1 Agonist Start: 01-01-2023 take 5 mL by mouth four times daily for cough and congestion Bromfed DM oral syrup 5 mL, Oral, QID for cough and congestion, 200 mL, Refill(s) 0, [facility], 170, cm, 01/01/23 15:34:00 EDT, Height/Length [...] 2, rinse mouth and throat after use, [facility], 170, cm, 05/10/21 11:43:00 EDT, Height/Length Dosing, 78.3, kg, 05/10/21 11:43:00 EDT, Weight Dosing Start Date: 05/10/21 Status: Ordered cetirizine hydrochloride 10 mg oral tablet (11 sources) Histamine-1 Receptor Antagonist Start: 05-10-2021 take 1 tablet by mouth once daily cetirizine 10 mg Tab 10 mg = 1 tab(s), Oral, Daily, # 30 tab(s), Refills(s) 2, Pharmacy: [facility], 170, cm, 05/10/21 11:43:00 EDT, Height/Length Dosing, 78.3, kg, 05/10/21 11:43:00 EDT, Weight Dosing Start Date: 05/10/21 Status: Ordered Start: 03-21-2020 take 1 tablet by april th once daily cetirizine (ZYRTEC) 10 MG tablet [...] Start: 10-08-2017 cyclobenzaprine (FLEXERIL) 10 MG tablet [id number] 0.3 ml EPINEPHrine 1 mg/ml auto-injector (10 sources) alpha-Adrenergic Agonist, beta-Adrenergic Agonist, Catecholamine Start: 01-13-2021 EpiPen 2-Laci 0.3 mg injectable kit 0.3 mg = 1 EA, IntraMuscular, As Directed, PRN Anaphylaxis, # 1 EA, Refills(s) 0, Pharmacy: [facility], 170, cm, 01/13/21 13:18:00 EDT, Height/Length Dosing, 75.8, kg, 01/13/21 13:18:00 EDT, Weight Dosing Start Date: 01/13/21 Status: Ordered Start: 01-13-2021 EpiPen 2-Laci 0 .3 mg injectable kit 0.3 mg = 1 EA, IntraMuscular, As Directed, PRN Anaphylaxis, # 1 EA, Refills(s) 0, Pharmacy: [facility], 170, cm, 01/13/21 13:18:00 EDT, Height/Length [...] natalia, Topical, BID, 30 gram, Refill(s) 2, [facility], 170, cm, 10/11/21 10:48:00 EDT, Height/Length Dosing, 77, kg, 10/11/21 10:48:00 EDT, Weight Dosing Start Date: 10/11/21 Status: Ordered Start: 10-11-2021 fluticasone to pical 0.05% cream 1 natalia, Topical, BID, 30 gram, Refill(s) 2, [facility], 170, cm, 10/11/21 10:48:00 EDT, Height/Length Dosing, 77, kg, 10/11/21 10:48:00 EDT, Weight Dosing Start Date: 10/11/21 Status: Ordered Start: 05-10-2021 fluticasone 0. 05 mg/inh Nasal [place] 2 spray(s), Nasal, Daily Congestion, 16 gram, Refill(s) 2, each nostril, [facility] #[facility], 170, cm, 05/10/21 11:43:00 EDT, Height/Length Dosing, 78.3, kg, 05/10/21 11:43:00 EDT, Weight Dosing Start Date: 05/10/21 Status: Ordered fluticasone 0.05 mg/inh Nasal [place] (2 sources) Start: 05-10-2021 fluticasone 0. 05 mg/inh Nasal [place] 2 spray(s), Nasal, Daily Congestion, 16 gram, Refill(s) 2, each nostril, [facility], 170, cm, 05/10/21 11:43:00 EDT, Height/Length [...] food, # 20 tab(s), Refills(s) 0, Pharmacy: [facility] Start Date: 04/20/16 Status: Ordered Magnesium [...] qPM, # 30 tab(s), Refills(s) 2, Pharmacy: [facility], 170, cm, 05/10/21 11:43:00 EDT, Height/Length [...] Daily, # 30 cap(s), Refills(s) 2, Pharmacy: [facility], 170, cm, 07/04/22 15:41:00 EST, Height/Length Dosing, 84, kg, 07/04/22 15:41:00 EST, Weight Dosing Start Date: 07/04/22 Status: Ordered ondansetron 4 mg oral tablet (13 sources) Serotonin-3 Receptor Antagonist Start: 07-04-2022 take 1 tablet by mouth every eight hours as needed for nausea ondansetron 4 mg Tab 4 mg = 1 tab(s), Oral, q8hr, PRN Nausea/Vomiting, # 30 tab(s), Refills(s) 0, Pharmacy: [facility], 170, cm, 07/04/22 15:41:00 EST, Height/Length Dosing, 84, kg, 07/04/22 15:41:00 EST, Weight Dosing Start Date: 07/04/22 Status: Ordered Start: 10-11-2021 take 1 tablet by april th every eight hours as needed for nausea ondansetron 4 mg Tab 4 mg = 1 tab(s), Oral, q8hr, PRN Nausea/Vomiting, # 30 tab(s), Refills(s) 2, Pharmacy: [facility], 170, cm, 10/11/21 10:48:00 EDT, Height/Length [...] nausea/vomiting, # 60 tab(s), Refills(s) 0, Pharmacy: [facility], 170, cm, 01/01/23 15:34:00 EDT, Height/Length [...] Bedtime, # 30 tab(s), Refills(s) 2, Pharmacy: [facility], 170, cm, 05/22/21 8:20:00 EST, Height/Length [...] hours, # 1 tab(s), Refills(s) 0, Pharmacy: [facility], 170, cm, 07/04/22 15:41:00 EST, Height/Length Dosing, 84, kg, 07/04/22 15:41:00 EST, Weight Dosing Start Date: 07/04/22 Status: Ordered Start: 05-10-2021 take 1 tablet by april th once as needed for headache Nurte ODT 75 mg oral tablet, disintegrating 75 mg = 1 tab(s), Oral, Once, PRN as needed for migraine headache, # 8 tab(s), Refills(s) 0, Pharmacy: [facility], 170, cm, 05/10/21 11:43:00 EDT, Height/Length [...] Class(es) Dates Sig (Normalized) Sig (Original) levonorgestrel 0.126878 mg/hr intrauterine system (13 sources) Progestin, Progestin-containin [...] QID Cough, 1 EA, Refill(s) 0, [facility], 170, cm, 05/10/21 11:43:00 EDT, Height/Length [...] (gastroesophageal reflux disease)] Onset: 12-28-2013 12-28-2013 Chronic Gastritis and duodenitis (1 source) Acute gastritis without bleeding; Translations: [Acute gastritis without bleeding] Onset: 03-28-2024 Episodic Headache; including migraine (11 sources) Migraine; Translations: [...] Test Name Value Interpretation Reference Range Facility CBC with Diffon 03-28-2024 Abs. Basophil 0.05 k/uL Normal 0.00-0.20 [facility] Comment on above: Performed By: #### C P, CDP #### [facility] [address] [id number] Rn Bariatric: Landon Ruiz MD Abs.Imm.Granulocyte 0.03 k/uL Normal 0.00-0.30 [facility] Comment on above: Performed By: #### C P, CDP #### [facility] [address] [id number] Rn Bariatric: Landon Ruiz MD Abs.Neutrophil (Seg) 6.24 k/uL Normal 2.5-7.0 [facility] Comment on above: Performed By: #### C P, CDP #### [facility] [address] [place], [place] [id number] Rn Bariatric: Landon Ruiz MD Basophils/100 WBC (Bld) 1 % Normal 0-2 [facility] Comment on above: Performed By: #### C P, CDP #### [facility] [address] [id number] Rn Bariatric: Landon Ruiz MD Eosinophils (Bld) [#/Vol] 0.10 10*3/uL Normal 0.00-0.40 [facility] Comment on above: Performed By: #### C P, CDP #### [facility] [address], [place] [id number] Rn Bariatric: Landon Ruiz MD Eosinophils/100 WBC (Bld) 1 % Normal 0-5 [facility] Comment on above: Performed By: #### C P, CDP #### [facility] [address], [place] [id number] Rn Bariatric: Landon Ruiz MD Erythrocyte distribution width (RBC) [Ratio] 11.8 % Low 12.1-15.2 [facility] Comment on above: Performed By: #### C P, CDP #### [facility] [address] [id number] Rn Bariatric: Landon Ruiz MD Hematocrit (Bld) [Volume fraction] 42.1 % Normal 36.0-46.0 [facility] Comment on above: Performed By: #### C P, CDP #### [facility] [address] [place] [address] Rn Bariatric: Landon Ruiz MD Hemoglobin (Bld) [Mass/Vol] 14.4 g/dL Normal 12.0-16.0 [facility] Comment on above: Performed By: #### C P, CDP #### [facility] [address], [place] [phone] Rn Bariatric: Landon Ruiz MD Immature granulocytes/100 WBC (Bld) 0 % Normal 0-5 [facility] Comment on above: Performed By: #### C P, CDP #### [facility] [address] [place] [address] Rn Bariatric: Landon Ruiz MD Lymphocytes (Bld) [#/Vol] 3.17 10*3/uL Normal 1.00-4.80 [facility] Comment on above: Performed By: #### C P, CDP #### [facility] [address] [place] [address] Rn Bariatric: Landon Ruiz MD Lymphocytes/100 WBC (Bld) 30 % Normal 15-40 [facility] Comment on above: Performed By: #### C P, CDP #### [facility] [address] [id number] Rn Bariatric: Landon Ruiz MD MCH (RBC) [Entitic mass] 30.8 pg Normal 26.0-34.0 [facility] Comment on above: Performed By: #### C P, CDP #### [facility] [address] [id number] Rn Bariatric: Landon Ruiz MD MCHC (RBC) [Mass/Vol] 34.2 g/dL Normal 31.0-37.0 [facility] Comment on above: Performed By: #### C P, CDP #### [facility] [address] [place] [address] Rn Bariatric: Landon Ruiz MD MCV (RBC) [Entitic vol] 90.1 fL Normal 80.0-100.0 [facility] Comment on above: Performed By: #### C P, CDP #### [facility] [address] [place] [address] Rn Bariatric: Landon Ruiz MD Monocytes (Bld) [#/Vol] 0.89 10*3/uL Normal 0.00-1.00 [facility] Comment on above: Performed By: #### C P, CDP #### [facility] [address] [place] [address] Rn Bariatric: Landon Ruiz MD Monocytes/100 WBC (Bld) 9 % High 4-8 [facility] Comment on above: Performed By: #### C P, CDP #### [facility] [address] [place] [address] [phone] Rn Bariatric: Landon Ruiz MD Neutrophil (Seg) 59 % Normal 47-75 [facility] Comment on above: Performed By: #### C P, CDP #### [facility] [address] [place] [address] [phone] Rn Bariatric: Landon Ruiz MD Platelet mean volume (Bld) [Entitic vol] 10.9 fL Normal 6.0-12.0 [facility] Comment on above: Performed By: #### C P, CDP #### [facility] [address] [place] [address] ([phone] Rn Bariatric: Landon Ruiz MD Platelets (Bld) [#/Vol] 265 10*3/uL Normal 140-450 [facility] Comment on above: Performed By: #### C P, CDP #### [facility] [address] [place] [address] ([phone] Rn Bariatric: Landon Ruiz MD RBC (Bld) [#/Vol] 4.67 10*6/uL Normal 4.00-5.20 [facility] Comment on above: Performed By: #### C P, CDP #### [facility] [address] [place] [address] ([phone] Rn Bariatric: Landon Ruiz MD WBC (Bld) [#/Vol] 10.5 10*3/uL Normal 3.5-11.0 [facility] Comment on above: Performed By: #### C P, CDP #### [facility] [address] [place] [address] [phone] Rn Bariatric: Landon Ruiz MD Comp Metabolic Profon 2023 Albumin [Mass/Vol] 4.6 g/dL Normal 3.5-5.2 [facility] Comment on above: Performed By: #### C P, CDP #### [facility] [address] [place] [address] Rn Bariatric: Landon Ruiz MD Alkaline Phos 70 U/L Normal 35-104 [facility] Comment on above: Performed By: #### C P, CDP #### [facility] [address] [place] [address] Rn Bariatric: Landon Ruiz MD ALT [Catalytic activity/Vol] 16 U/L Normal 5-33 [facility] Comment on above: Performed By: #### C P, CDP #### [facility] [address] [place] [address] Rn Bariatric: Landon Ruiz MD Anion gap [Moles/Vol] 12 mmol/L Normal 9-17 [facility] Comment on above: Performed By: #### C P, CDP #### [facility] [address] [place] [address] Rn Bariatric: Landon Ruiz MD AST [Catalytic activity/Vol] 17 U/L Normal <32 [facility] Comment on above: Performed By: #### C P, CDP #### [facility] [address] [place] [address] Rn Bariatric: Landon Ruiz MD Bilirubin [Mass/Vol] 0.5 mg/dL Normal 0.3-1.2 [facility] Comment on above: Performed By: #### C P, CDP #### [facility] [address] [place] [address] Rn Bariatric: Landon Ruiz MD BUN/CRE Ratio 13 Normal 9-20 [facility] Comment on above: Performed By: #### C P, CDP #### [facility] [address] [place] [address] Rn Bariatric: Landon Ruiz MD Calcium [Mass/Vol] 9.1 mg/dL Normal 8.6-10.4 [facility] Comment on above: Performed By: #### C P, CDP #### [facility] [address] [place], [place] [phone] Rn Bariatric: Landon Ruiz MD Chloride [Moles/Vol] 105 mmol/L Normal 98-107 [facility] Comment on above: Performed By: #### C P, CDP #### [facility] [address] [place], [place] [phone] Rn Bariatric: Landon Ruiz MD CO2 [Moles/Vol] 25 mmol/L Normal 20-31 [facility] Comment on above: Performed By: #### C P, CDP #### [facility] [address] [place] [address] Rn Bariatric: Landon Ruiz MD Creatinine [Mass/Vol] 1.1 mg/dL High 0.5-0.9 [facility] Comment on above: Performed By: #### C P, CDP #### [facility] [address] [place] [address] Rn Bariatric: Landon Ruiz MD GFR/1.73 sq M.predicted among non-blacks MDRD (S/P/Bld) [Vol rate/Area] 70 mL/min/{1.73_m2} Normal >60 [facility] Comment on above: Result Comment: These results are not intended for use in patients <18 years of age. eGFR results are calculated without a race factor using the 2020 CKD-EPI equation. Careful clinical correlation is recommended, particularly when comparing to results calculated using previous equations. The CKD-EPI equation is less accurate in patients with extremes of muscle mass, extra-renal metabolism of creatine, excessive creatine ingestion, or following therapy that affects renal tubular secretion. Performed By: #### C P, CDP #### [facility] [address] [place] [address] Rn Bariatric: Landon Ruiz MD Glucose [Mass/Vol] 99 mg/dL Normal 70-99 [facility] Comment on above: Performed By: #### C P, CDP #### [facility] [address], [place] [id number] Rn Bariatric: Landon Ruiz MD Potassium [Moles/Vol] 3.9 mmol/L Normal 3.7-5.3 [facility] Comment on above: Performed By: #### C P, CDP #### [facility] [address], [place] [phone] Rn Bariatric: Landon Ruiz MD Protein [Mass/Vol] 7.7 g/dL Normal 6.4-8.3 [facility] Comment on above: Performed By: #### C P, CDP #### [facility] [address], [place] [id number] Rn Bariatric: Landon Ruiz MD Sodium [Moles/Vol] 142 mmol/L Normal 135-144 [facility] Comment on above: Performed By: #### C P, CDP #### [facility] [address] [place], [place] [phone] Rn Bariatric: Landon Ruiz MD Urea nitrogen [Mass/Vol] 14 mg/dL Normal 6-20 [facility] Comment on above: Performed By: #### C P, CDP #### [facility] [address] [place] [address] Rn Bariatric: Landon Ruiz MD HCG, ,Urineon 03-28 Beta HCG ( test) Ql (U) Negative Normal NEG [facility] Comment on above: Performed By: #### U HCG #### [facility] [address], [place] [phone] Rn Bariatric: Landon Ruiz MD UA w/Reflex Cultureon 2023 Bilirubin, SemiQt,Ur Negative Normal NEG [facility] Comment on above: Performed By: #### U MICAO, UAX #### [facility] [address], [place] [phone] Rn Bariatric: Landon Ruiz MD Blood, Urine TRACE Abnormal NEG [facility] Comment on above: Performed By: #### U MICAO, UAX #### [facility] [address] [facility] [place] [address] Rn Bariatric: Landon Ruiz MD Clarity (U) Clear Normal CLEAR [facility] Comment on above: Performed By: #### U MICAO, UAX #### [facility] [address] [facility] [place] [address] Rn Bariatric: Landon Ruiz MD Color (U) Yellow Normal YEL [facility] Comment on above: Performed By: #### U MICAO, UAX #### [facility] [address] [facility] [place] [address] Rn Bariatric: Landon Ruiz MD Comment Normal [facility] Comment on above: Performed By: #### U MICAO, UAX #### [facility] [address] [facility] [place] [address] Rn Bariatric: Landon Ruiz MD Glucose Ql (U) Negative Normal NEG [facility] Comment on above: Performed By: #### U MICAO, UAX #### [facility] [address] [facility] [place] [address] Rn Bariatric: Landon Ruiz MD Ketones Ql (U) Negative Normal NEG [facility] Comment on above: Performed By: #### U MICAO, UAX #### [facility] [address] [facility] [place] [address] Rn Bariatric: Landon Ruiz MD Leukocyte esterase Test strip Ql (U) 1+ Abnormal NEG [facility] Comment on above: Performed By: #### U MICAO, UAX #### [facility] [address] [facility] [place] [address] Rn Bariatric: Landon Ruiz MD Nitrite,Ur Negative Normal NEG [facility] Comment on above: Performed By: #### U MICAO, UAX #### [facility] [address] [place] [address] Rn Bariatric: Landon Ruiz MD PH,Ur 6.0 Normal 5.0-8.0 [facility] Comment on above: Performed By: #### U MICAO, UAX #### [facility] [address] [place] [address] Rn Bariatric: Landon Ruiz MD Protein Ql (U) 1+ mg/dL Abnormal NEG [facility] Comment on above: Performed By: #### U MICAO, UAX #### [facility] [address] [place] [address] Rn Bariatric: Landon Ruiz MD Spec. [place],Ur 1.025 Normal 1.005-1.030 [facility] Comment on above: Performed By: #### U MICAO, UAX #### [facility] [address] [place] [address] Rn Bariatric: Landon Ruiz MD Urobilinogen,Ur Normal Normal 0.0-1.0 [facility] Comment on above: Performed By: #### U MICAO, UAX #### [facility] [address] [place] [address] Rn Bariatric: Landon Ruiz MD Urinalysis,Microon 4 ----- Normal [facility] Comment on above: Performed By: #### U MICAO, UAX #### [facility] [address] [place] [address] Rn Bariatric: Landon Ruiz MD Epithelial cells LM Ql (Urine sed) 0 TO 2 Normal [facility] Comment on above: Performed By: #### U MICAO, UAX #### [facility] [address] [place] [address] Rn Bariatric: Landon Ruiz MD Urine RBC's 2 TO 5 Normal 0-2 [facility] Comment on above: Performed By: #### U MICAO, UAX #### [facility] [address] [place] [address] Rn Bariatric: Landon Ruiz MD Urine WBC's None Seen Normal 0 [facility] Comment on above: Performed By: #### U MICAO, UAX #### [facility] [address] [place] [address] Rn Bariatric: Landon Ruiz MD XR CHEST PORTABLEon 03-28-20 XR CHEST PORTABLE EXAM: XR CHEST PORTABLE HISTORY: Upper abd pain, FA. COMPARISON: None. TECHNIQUE: Single view frontal chest x-ray. FINDINGS: The lungs are clear. The heart is not enlarged. No free air is identified under the diaphragm. No worrisome focal, lucent, or sclerotic osseous lesion is seen. IMPRESSION: No acute cardiopulmonary process. No free intraperitoneal air identified under the diaphragm. Interpreted by: Landon Townsend MD Signed by: Landon Townsend MD 03/28/24 Final result Normal [facility] Patient Educationon 10-11-19 Patient Education Infectious Disease [...] these instructions at home: Medicines ? Take rias-ecb-taaepmy and prescription medicines only as told by [...] and water are not available, use hand edge grinder. Contact a health care provider if: ? [...] can cause a sore throat. ? Take gums-yin-mshguzw medicines only as told by your health [...] provider. Document Revised: 09/20/2021 Document Reviewed: 09/20/2021 [employer] Patient Education ? 2022 [employer] Ambulatory Visit Summaryon 0 09-17-2023 Ambulatory Visit Summary PAULO LIZAMA :1995 Visit Date:09/17/2023 Ambulatory Visit Instructions [...] numbers. This can be done either in [place] ([place] or metric measurements. Note that charts and online BMI calculators are available to help you find your BMI quickly and easily without having to do these calculations yourself. To calculate your BMI in Togolese ([place] measurements: 1. Measure your weight in [...] agree with above documented HPI by medical scribe. Patient is a 27-year-old female presenting with complaint of vomiting, diarrhea, chills, cold sweats, inability to keep anything down, sore throat, headache, cough, body aches. She states that symptoms began Saturday night, 09/15/2023, or possibly on Saturday because she states that she went to [place] with her boyfriend and started feeling nauseous in the car. Patient states that she works at [employer] and that there is something going [...] of them are sick. She denies any tail-tif-domlwqa medications for treatment relief. Review of Systems [...] as above Ordered: Influenza Type A&B POC 97463 3. BMI 29.0-29.9,adult (Z68.29: Body mass index [...] with voice recognition artificial intelligence software, specifically [employer], [employer] and or [employer]. Occasional wrong-word or `fwmgu-k-pmdj? substitutions may have occurred due to the [...] Pre-employment e (more content not included)... Normal [facility] Comment on above: Result Comment: Elec tronically Signed By: Josey KOCH, Hay Urbina.br\Date and Time Signed: 09/17/23 12:51 EDT Patient [...] Medicines to relieve symptoms. These can include ihht-tvh-xznzqax medicine for pain and fever, medicines for cough or congestion, and medicines to relieve diarrhea. ? Antiviral medicines. These medicines are available only for certain types of viruses. Some viral illnesses can be prevented with vaccinations. A common example is the flu shot. Follow these instructions at home: Medicines ? Take ksfq-oru-yjhpbbo and prescription medicines only as told by [...] water are (more content not included)... Normal [facility] Patient Letter FTon 2023 Patient Letter [facility] [address] [place] [address] September 17, 2023 [place] [address] : 1995 Please excuse PAULO LIZAMA from work . Date and/or Time of Absence: From: 09/16/2023 To: 09/18/2023 May return to work on: 09/19/2023 Restrictions: None Comments: Please excuse due to an acute illness. Provider Signature: Hay Dowling, LOLA [address] [place] [address] [place] [address] Normal [facility] MICRO OTHER TESTSOrdered By: Dayna Mcconnell on 08-07-2022 S. pyogenes Ag IA.rapid Ql (Throat) Negative (08/07/22 8:04 AM) Normal Negative [facility] Man Sero MICRO OTHER TESTSOrdered By: Christine Cleveland on 02-28-2022 Rapid COV Int NEG Ctl Pass (02/28/22 8:57 AM) Normal [facility] Man Sero Rapid COV Int POS Ctl Pass (02/28/22 8:57 AM) Normal [facility] Man Sero SARS-CoV+SARS-CoV-2 (COVID-19) Ag IA.rapid Ql (Resp) Not Detected (02/28/22 8:57 AM) Normal Not Detected [facility] Man Sero PAP ACOG PANEL 2: 21 to 29on 02-09-2022 . . Normal [facility] Comment on above: Performed By: #### [id number] #### [facility] [address] [address] [address] Katherin Nickerson Age Gdln ACOG Testing - [facility] Comment on above: Performed By: #### [id number] #### [facility] [address] [address] [address] Katherin Nickerson DIAGNOSIS: Comment [facility] Comment on above: Result Comment: NEGA TIVE FOR INTRAEPITHELIAL LESION OR MALIGNANCY. Performed By: #### [id number] #### [facility] [address] [address] [address] Katherin Nickerson Methodology: Comment [facility] Comment on above: Result Comment: This liquid based ThinPrep(R) pap test was screened with the use of an image guided system. Performed By: #### [id number] #### [facility] [address] [address] [address] Katherin Nickerson Note: Comment [facility] Comment on above: Result Comment: The Pap smear is a screening test designed to aid in the detection of premalignant and malignant conditions of the uterine cervix. It is not a diagnostic procedure and should not be used as the sole means of detecting cervical cancer. Both false-positive and false-negative reports do occur. . Performed By: #### [id number] #### [facility] [address] [place] [address] Dr. Katherin Nickerson Performed by: Comment Normal [facility] Comment on above: Result Comment: Jon Landaverde, Inset Cutter (ASCP) Performed By: #### [id number] #### [facility] [address] [place] [address] Dr. Katherin Nickerson Reflex Criteria: Comment [facility] Comment on above: Result Comment: The HPV DNA reflex criteria were not met with this specimen result therefore, no HPV testing was performed. . Performed By: #### [id number] #### [facility] [address] [place] [address] Dr. Katherin Nickerson Specimen adequacy: Comment Normal [facility] Comment on above: Result Comment: Sati sfactory for evaluation. Endocervical and/or squamous metaplastic cells (endocervical component) are present. Performed By: #### [id number] #### [facility] [address] [place] [address] Dr. Katherin Nickerson CBC With Auto Differentialon 06-11-2020 Basophils (Bld) [#/Vol] 0.00 10*3/uL [facility] Basophils/100 WBC (Bld) 1 % 0 - 2 % [place] Differential Type YES [place], [place] Eosinophils (Bld) [#/Vol] 0.50 10*3/uL High [facility] Eosinophils/100 WBC (Bld) 7 % High 0 - 5 % [place] Erythrocyte distribution width (RBC) [Ratio] 12.6 % 12.1 - 15.2 % [place] Hematocrit (Bld) [Volume fraction] 39.3 % 36 - 46 % [place] Hemoglobin (Bld) [Mass/Vol] 13.3 g/dL 12 - 16 g/dL [place] Interpretation and review of laboratory results Abnormal [place] Lymphocytes (Bld) [#/Vol] 2.00 10*3/uL [place] Lymphocytes/100 WBC (Bld) 27 % 15 - 40 % [place] MCH (RBC) [Entitic mass] 30.6 pg 26 - 34 pg [place] MCHC (RBC) [Mass/Vol] 33.8 g/dL 31 - 37 g/dL [place] MCV (RBC) [Entitic vol] 90.7 fL 80 - 100 fL [place] Monocytes (Bld) [#/Vol] 0.60 10*3/uL [place] Monocytes/100 WBC (Bld) 8 % 4 - 8 % [place] Platelet mean volume (Bld) [Entitic vol] NOT REPORTED 6 - 12 fL [place] Platelets (Bld) [#/Vol] NOT REPORTED [place] Platelets (Bld) [#/Vol] 221 10*3/uL [place] RBC (Bld) [#/Vol] 4.33 10*6/uL 4 - 5.2 m/uL [place] RBC morphology finding Nom (Bld) NOT REPORTED [place] Segmented neutrophils/100 WBC (Bld) 57 % 47 - 75 % [place] Segs Absolute 4.40 [place] WBC (Bld) [#/Vol] 7.6 10*3/uL [place] WBC (Bld) [#/Vol] NOT REPORTED per 100 WBC [place] WBC Morphology NOT REPORTED [place] Hepatic Function Panelon Albumin [Mass/Vol] 4.6 g/dL 3.5 - 5.2 g/dL [place] Albumin/Globulin [Mass ratio] NOT REPORTED [place] ALP [Catalytic activity/Vol] 63 U/L 35 - 104 U/L [place] ALT [Catalytic activity/Vol] 10 U/L 5 - 33 U/L [place] AST [Catalytic activity/Vol] 14 U/L <32 [place] Bilirubin Ql (U) 0.49 mg/dL 0.3 - 1.2 mg/dL [place] Bilirubin, Indirect CANNOT BE CALCULATED 0 - 1 mg/dL [place] Bilirubin.direct [Mass/Vol] mg/dL <0.31 mg/dL [place] Globulin (S) [Mass/Vol] NOT REPORTED 1.5 - 3.8 g/dL [place] Protein [Mass/Vol] 7.5 g/dL 6.4 - 8.3 g/dL [place] Otheron 06-11-2020 Immature granulocytes (Bld) [#/Vol] NOT REPORTED 0 % [place] Comprehensive Metabolic Pane fidel 03-21-2020 Albumin [Mass/Vol] 4.6 g/dL 3.5 - 5.2 g/dL [place] Albumin/Globulin [Mass ratio] NOT REPORTED [place] ALP [Catalytic activity/Vol] 55 U/L 35 - 104 U/L [place] ALT [Catalytic activity/Vol] 11 U/L 5 - 33 U/L [place] Anion gap [Moles/Vol] 9 mmol/L 9 - 17 mmol/L [place] AST [Catalytic activity/Vol] 17 U/L <32 [place] Bilirubin Ql (U) 0.63 mg/dL 0.3 - 1.2 mg/dL [place] Bun/Cre Ratio 18 [place], [place] Calcium [Mass/Vol] 9.0 mg/dL 8.6 - 10. 4 mg/dL [place] Chloride [Moles/Vol] 104 mmol/L 98 - 10 7 mmol/L [place] CO2 [Moles/Vol] 25 mmol/L 20 - 31 mmol/L [place] Creatinine [Mass/Vol] 0.67 mg/dL 0.5 - 0.9 mg/dL [place] GFR >60 >60 mL/min [place] GFR Non- >60 >60 mL/min [place] GFR/1.73 sq M predicted among non-blacks MDRD (S/P/Bld) [Vol rate/Area] [place] Comment on above: Average GFR for 20-2 9 years old: 116 mL/min/1.73sq m Chronic Kidney Disease: <60 mL/min/1.73sq m Kidney failure: <15 mL/min/1.73sq m eGFR calculated using average adult body mass. Additional eGFR calculator available at: http://www.sourceasy/multiple_crcl_2012.htm GFR/1.73 sq M predicted among non-blacks MDRD (S/P/Bld) [Vol rate/Area] NOT REPORTED [place] Glucose [Mass/Vol] 90 mg/dL 70 - 99 mg/dL [place] Interpretation and review of laboratory results Abnormal [place] Potassium [Moles/Vol] 4.6 mmol/L 3.7 - 5.3 mmol/L [place] Protein [Mass/Vol] 8.8 g/dL High 6.4 - 8.3 g/dL [place] Sodium [Moles/Vol] 138 mmol/L 135 - 144 mmol/L [place] Urea nitrogen [Mass/Vol] 12 mg/dL 6 - 20 mg/dL [place] Patient Fasting?on 0 Patient Fasting? YES [place] TSH with Reflexon 03-21-2020 TSH Qn 2.31 m[IU]/L [place] BETA HCG, QUAL, BLOODon 07-09 HCG ( test) Ql Negative [facility] - [address] [place] [address] [address] [facility] [place] CBCon 08-01-2018 ABSOLUTE BAS 0.0 X10 Normal [facility] Comment on above: Performed By: #### I BERHANE HU #### Testing performed at [address] [address] ABSOLUTE EOS 0.00 X10 Normal [facility] Comment on above: Performed By: #### I MAYTE CMPF #### Testing performed at [address] [address] ABSOLUTE NEUTROPHIL COUNT 6.4 x10 Normal 1.0-7.0 [facility] Comment on above: Performed By: #### I MAYTE CMPF #### Testing performed at [address] [address] Basophils/100 WBC (Bld) 0.6 % Normal 0.0-2.0 [facility] Comment on above: Performed By: #### Jadon HU CMPF #### Testing performed at [address] [place] [address] DTYPE AUTO DIFF Normal [facility] Comment on above: Performed By: #### I MAYTE CMPF #### Testing performed at [address] [address] Eosinophils/100 WBC (Bld) 0.6 % Normal 0.0-11.0 [facility] Comment on above: Performed By: #### Jadon HU CMPF #### Testing performed at [address] [address] Lymphocytes #/vol (Bld) 1.90 X10 Normal [facility] Comment on above: Performed By: #### I MAYTE CMPF #### Testing performed at [address] [place] [address] Lymphocytes/100 WBC (Bld) 21.6 % Normal 20.0-55.0 [facility] Comment on above: Performed By: #### I MAYTE CMPF #### Testing performed at [address] [place] [address] Monocytes #/vol (Bld) 0.5 X10 Normal [facility] Comment on above: Performed By: #### I MAYTE CMPF #### Testing performed at [address] [address] Monocytes/100 WBC (Bld) 5.8 % Normal 0.0-10.0 [facility] Comment on above: Performed By: #### I TROT CMPF #### Testing performed at [address] [address] Neutrophils/100 WBC (Bld) 71.4 % Normal 37.0-75.0 [facility] Comment on above: Performed By: #### I TROT, CMPF #### Testing performed at [address] [address] Erythrocyte distribution width Ratio (RBC) 13.3 % Normal 11.5-14.5 [facility] Comment on above: Performed By: #### I TROT, CMPF #### Testing performed at [address] [address] Hematocrit Volume Fraction (Bld) 40.0 % Normal 36.0-48.0 [facility] Comment on above: Performed By: #### I TROT, CMPF #### Testing performed at [address] [address] Hemoglobin mass conc (Bld) 13.5 g/dL Normal 12.0-16.0 [facility] Comment on above: Performed By: #### I TROT, CMPF #### Testing performed at [address] [address] MCH Entitic mass (RBC) 30.7 pg Normal 26.0-35.0 [facility] Comment on above: Performed By: #### I TROT, CMPF #### Testing performed at [address] [place] [address] MCHC mass conc (RBC) 33.6 g/dL Normal 27.0-37.0 [facility] Comment on above: Performed By: #### I TROT, CMPF #### Testing performed at [address] [address] MCV Entitic volume (RBC) 91.3 fL Normal 80.0-100.0 [facility] Comment on above: Performed By: #### I TROT, CMPF #### Testing performed at [address] [address] Platelet mean volume Entitic volume (Bld) 9.0 fL Normal 7.4-11.0 [facility] Comment on above: Performed By: #### I TROT, CMPF #### Testing performed at [address] [place] [id number] Platelets #/vol (Bld) 258 /cmm Normal 130.0-400.0 [facility] Comment on above: Performed By: #### I TROT, CMPF #### [place] [address] RBC #/vol (Bld) 4.38 /cmm Normal 4.0-5.4 [facility] Comment on above: Performed By: #### I TROT, CMPF #### [place] [address] WBC #/vol (Bld) 8.9 /cmm Normal 3.6-11.0 [facility] Comment on above: Performed By: #### I TROT, CMPF #### [place] [address] CBC, EDIF, PLATELETon 2018 ABSOLUTE BASOPHIL COUNT 0.0 X10 [address] [address] [address] [place] Basophils/100 WBC (Bld) 0.6 % 0 - 2 % [address] [facility] [place] Differential cell count method Nom (Bld) AUTO DIFF % [address] [place] Eosinophils #/vol (Bld) 0.00 10*3/uL X10 [place] [address] - [place] Eosinophils/100 WBC (Bld) 0.6 % 0 - 11 % [place] [address] - [facility] Erythrocyte distribution width Ratio (RBC) 13.3 % 11.5 - 14.5 % [place] [address] - [facility] Hematocrit Volume Fraction (Bld) 40.0 % 36 - 48 % [place] [address] - [facility] Hemoglobin mass conc (Bld) 13.5 g/dL [place] [address] - [facility] Lymphocytes #/vol (Bld) 1.90 10*3/uL X10 [place] [address] - [facility] Lymphocytes/100 WBC (Bld) 21.6 % 20 - 55 % [place] [address] - [facility] MCH Entitic mass (RBC) 30.7 pg 26 - 35 PG [place] [address] - [facility] MCHC mass conc (RBC) 33.6 g/dL [place] [address] - [facility] MCV Entitic volume (RBC) 91.3 fL [place] [address] - [place] Monocytes #/vol (Bld) 0.5 10*3/uL X10 [place] [address] - [place] Monocytes/100 WBC (Bld) 5.8 % 0 - 10 % [place] [address] - [facility] Neutrophils #/vol (Bld) 6.4 10*3/uL [place] [address] - [facility] Neutrophils/100 WBC (Bld) 71.4 % 37 - 75 % [facility] - [address] - [place] Platelet mean volume Entitic volume (Bld) 9.0 fL [facility] - [address] - [place] Platelets #/vol (Bld) 258 10*3/uL [facility] - [address] - [place] RBC #/vol (Bld) 4.38 10*6/uL [facility] - [address] - [place] WBC #/vol (Bld) 8.9 10*3/uL [facility] - [address] - [facility] CMP FASTINGon 08-01-2018 ALP enzyme act/vol 61 U/L Normal 38-126 [facility] Comment on above: Performed By: #### I TROT, CMPF #### Testing performed at [address] [address] ALT enzyme act/vol 22 U/L Normal 9-52 [facility] Comment on above: Performed By: #### I TROT, CMPF #### Testing performed at [address] [address] AST enzyme act/vol 24 U/L Normal 14-36 [facility] Comment on above: Performed By: #### I TROT, CMPF #### Testing performed at [address] [address] Bilirubin mass conc 0.8 mg/dL Normal 0.2-1.3 [facility] Comment on above: Performed By: #### I TROT, CMPF #### Testing performed at [address] [address] A:G RATIO 1.4 RATIO Normal 1.3-2.2 [facility] Comment on above: Performed By: #### I TROT, CMPF #### Testing performed at [address] [address] Albumin mass conc 4.6 G/dl Normal 3.5-5.0 [facility] Comment on above: Performed By: #### I TROT CMPF #### Testing performed at [address] [place] [address] Calcium mass conc 9.3 mg/dL Normal 8.4-10.2 [facility] Comment on above: Performed By: #### I TROT, CMPF #### Testing performed at [address] [address] Chloride molar conc 106 mmol/L Normal 98-107 [facility] Comment on above: Result Comment: Ashlee león note: Triglyceride levels of 600mg/dL or higher may positively bias chloride results by approximately 2.1 mmol Performed By: #### I TROT CMPF #### Testing performed at [address] [address] CO2 molar conc 28 mmol/L Normal 22-30 [facility] Comment on above: Performed By: #### I TROT CMPF #### Testing performed at [address] [address] Creatinine mass conc 0.6 mg/dL Low 0.7-1.2 [facility] Comment on above: Performed By: #### I TROT CMPF #### Testing performed at [address] [address] EST. GFR, >60 Normal [facility] Comment on above: Performed By: #### I TROT CMPF #### Testing performed at [address] [address] EST. GFR,Non >60 Normal [facility] Comment on above: Performed By: #### I TROT, CMPF #### Testing performed at [address] [address] GFR/1.73 sq M predicted among non-blacks MDRD vol rate/area (S/P/Bld) Average GFR for 20-29 years old = 116. 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 Kidney failure, GFR = <15. The GFR estimate is not adjusted for extreme body surface area or acute process, nor has it been validated for women or ethnic groups other than and . Performed By: #### I ZULLYT CMPF #### Testing performed at [address] [address] Glucose mass conc 89 mg/dL Normal 70-100 [facility] Comment on above: Result Comment: NORMAL <100 mg/dL PREDIABETES 101-126 mg/dL DIABETES 126 mg/dL or higher Performed By: #### I ZULLYT, CMPF #### Testing performed at [address] [address] Potassium molar conc 4.4 mmol/L Normal 3.5-5.1 [facility] Comment on above: Performed By: #### I TROT CMPF #### Testing performed at [address] [address] Protein mass conc 8.0 g/dL Normal 6.3-8.2 [facility] Comment on above: Performed By: #### I TROT, CMPF #### Testing performed at [address] [address] Sodium molar conc 141 mmol/L Normal 137-145 [facility] Comment on above: Performed By: #### I TROT, CMPF #### Testing performed at [address] [address] Urea nitrogen mass conc 12 mg/dL Normal 7-20 [facility] Comment on above: Performed By: #### I TROT, CMPF #### Testing performed at [address] [address] COMPREHENSIVE METABOLIC PANE Fidel 08-01-2018 Albumin mass [...] D DIMER 0.19 mg/L FEU Normal 0.19-0.50 [facility] Comment on above: Performed By: #### I TROT, CMPF #### Testing performed at [facility] [address] [place] [address] D-DIMER,QUANTITATIVEon 08-01 Fibrin D-dimer FEU mass conc (PPP) 0.19 [facility] - [address] - [place] ISTAT TROPONIN Ion 9 Troponin I.cardiac mass conc ng/mL Normal 0-0.08 [facility] Comment on above: Performed By: #### I MAYTE, CMPF #### Testing performed at [place] [id number] [place] [address] RAPID TOX SCREEN,URINEon AMPHETAMINE Negative Normal NEGATIVE [facility] Comment on above: Result Comment: <500 ng/ml CUTOFF BARBITURATES Negative Normal NEGATIVE [facility] Comment on above: Result Comment: <200 ng/ml CUTOFF Benzodiazepines Ql (U) Negative Normal NEGATIVE [facility] Comment on above: Result Comment: <150 ng/ml CUTOFF BUPRENORPHINE Negative Normal NEGATIVE [facility] Comment on above: Result Comment: <10 ng/ml CUTOFF Cannabinoids Screen Ql (U) Negative Normal NEGATIVE [facility] Comment on above: Result Comment: <50 ng/ml CUTOFF Cocaine Ql (U) Negative Normal NEGATIVE [facility] Comment on above: Result Comment: <150 ng/ml CUTOFF Methadone Ql (U) Negative Normal NEGATIVE [facility] Comment on above: Result Comment: <200 ng/ml CUTOFF METHAMPHETAMINE Negative Normal NEGATIVE [facility] Comment on above: Result Comment: <500 ng/ml CUTOFF Opiates Ql (U) Negative Normal NEGATIVE [facility] Comment on above: Result Comment: <100 ng/ml CUTOFF OXYCODONE Negative Normal NEGATIVE [facility] Comment on above: Result Comment: <100 ng/ml CUTOFF Phencyclidine Ql (U) Negative Normal NEGATIVE [facility] Comment on above: Result Comment: <25 ng/ml CUTOFF Protein mass conc (U) Negative Normal NEGATIVE [facility] Comment on above: Result Comment: <300 ng/ml CUTOFF Tricyclic antidepressants Screen Ql (U) Negative Normal NEGATIVE [facility] Comment on above: Result Comment: <300 ng/ml CUTOFF SERUM HCG QUALon 08-01-2018 SERUM BETA HCG,QUAL Negative Normal [facility] Comment on above: Performed By: #### I BERHANE HU #### Testing performed at [address] [place] [address] TOXICOLOGY DRUG SCREEN, URIN Rodolfo 08-01-2018 Amphetamine mass conc (U) Negative NEGATIVE NG/ML [place] [address] [place] [address] Comment on above: <500 ng/ml CUTOFF Barbiturates Screen Ql (U) Negative NEGATIVE NG/ML [place] [address] [place] [address] Comment on above: <200 ng/ml CUTOFF Benzodiazepines Ql (U) Negative NEGATIVE NG/ML [place] [address] Comment on above: <150 ng/ml CUTOFF Benzoylecgonine Ql (U) Negative NEGATIVE NG/ML [place] [address] [place] [address] Comment on above: <150 ng/ml CUTOFF Buprenorphine Ql (U) Negative NEGATIVE NG/ML [place] [address] [place] [address] Comment on above: <10 ng/ml CUTOFF Cannabinoids Screen Ql (U) Negative NEGATIVE NG/ML [place] [address] Comment on above: <50 ng/ml CUTOFF Methadone Screen Ql (U) Negative NEGATIVE NG/ML [place] [address] [place] [address] Comment on above: <200 ng/ml CUTOFF Methamphetamine mass conc (U) Negative NEGATIVE NG/ML [place] [address] [place] [address] Comment on above: <500 ng/ml CUTOFF Opiates Screen Ql (U) Negative NEGATIVE NG/ML [place] [address] [place] [address] Comment on above: <100 ng/ml CUTOFF Oxycodone Ql (U) Negative NEGATIVE NG/ML [facility] - [address] - [place] Comment on above: <100 ng/ml CUTOFF Phencyclidine Screen method >25 ng/mL Ql (U) Negative NEGATIVE NG/ML [facility] - [address] [place] [address] Comment on above: <25 ng/ml CUTOFF Propoxyphene + Norpropoxyphene Screen Ql (U) Negative NEGATIVE NG/ML [facility] - [address] [facility] [place] Comment on above: <300 ng/ml CUTOFF Tricyclic antidepressants Screen Ql (U) Negative NEGATIVE NG/ML [facility] - [address] [place] [address] Comment on above: <300 ng/ml CUTOFF TROPONINon [...] abnormalities. IMPRESSION: No acute cardiopulmonary abnormalities. Normal [facility] IMPRESSION: No acute cardiopulmonary abnormalities. RADIOLOGY User, [facility] - 08/01/2018 12:19 PM EST PROCEDURE: XR [...] Clinician Facility 09-17-2023 12:14-0400 Blood Pressure Location [facility] 09-17-2023 12:14-0400 Body temperature 97.52 [degF] [facility] 09-17-2023 12:14-0400 Diastolic blood pressure 74 mm[Hg] [facility] 09-17-2023 12:14-0400 Heart rate 88 /min [facility] 09-17-2023 12:14-0400 SaO2% (BldA) [Mass fraction] 98 % [facility] 09-17-2023 12:14-0400 Systolic blood pressure 116 mm[Hg] [facility] 01-01-2023 15:30-0400 Blood Pressure Location SHERRIE SIDELL [facility] 01-01-2023 15:30-0400 Body temperature 98.24 [degF] SHERRIE SIDELL [facility] 01-01-2023 15:30-0400 Diastolic blood pressure 78 mm[Hg] SHERRIE SIDELL [facility] 01-01-2023 15:30-0400 Heart rate 82 /min SHERRIE SIDELL [facility] 01-01-2023 15:30-0400 SaO2% (BldA) [Mass fraction] 99 % SHERRIE SIDELL [facility] 01-01-2023 15:30-0400 Systolic blood pressure 118 mm[Hg] SHERRIE SIDELL [facility] 11-15-2022 14:54-0400 Blood Pressure Location Kristyn Klonk [facility] 11-15-2022 14:54-0400 Body temperature 97.88 [degF] Kristyn Klonk [facility] 11-15-2022 14:54-0400 Diastolic blood pressure 70 mm[Hg] Kristyn Gannonk [facility] 11-15-2022 14:54-0400 Heart rate 86 /min Kristyn Gannonk [facility] 11-15-2022 14:54-0400 SaO2% (BldA) [Mass fraction] 98 % Kristyn Jewellk [facility] 11-15-2022 14:54-0400 Systolic blood pressure 118 mm[Hg] Kristyn Gannonk [facility] 08-22-2022 11:31-0500 Blood Pressure Location Trista Orzech [facility] 08-22-2022 11:31-0500 Body temperature 98.06 [degF] Trista Orzech [facility] 08-22-2022 11:31-0500 Diastolic blood pressure 82 mm[Hg] Trista Orzech [facility] 08-22-2022 11:31-0500 Heart rate 79 /min Trista Orzech [facility] 08-22-2022 11:31-0500 SaO2% (BldA) [Mass fraction] 98 % Trista Orzech [facility] 08-22-2022 11:31-0500 Systolic blood pressure 116 mm[Hg] Trista Orzech [facility] 08-07-2022 07:50-0500 Body temperature 98.24 [degF] [facility] 08-07-2022 07:50-0500 Diastolic blood pressure 81 mm[Hg] [facility] 08-07-2022 07:50-0500 Heart rate 77 /min [facility] 08-07-2022 07:50-0500 Respiratory rate 18 /min [facility] 08-07-2022 07:50-0500 SaO2% (BldA) [Mass fraction] 99 % [facility] 08-07-2022 07:50-0500 Systolic blood pressure 134 mm[Hg] [facility] 02-27-2022 14:43-0400 Blood Pressure Location [facility] [place] 02-27-2022 14:43-0400 Diastolic blood pressure 78 mm[Hg] [facility] [place] 02-27-2022 14:43-0400 Heart rate 96 /min [facility] [place] 02-27-2022 14:43-0400 Respiratory rate 20 /min [facility] [place] 02-27-2022 14:43-0400 SaO2% (BldA) [Mass fraction] 98 % Apoorva [facility] [place] 02-27-2022 14:43-0400 Systolic blood pressure 110 mm[Hg] [facility] [place] 10-11-2021 10:41-0400 Blood Pressure Location Seth HOROWITZ [facility] [place] 10-11-2021 10:41-0400 Body temperature 98.06 [degF] Seth HOROWITZ [facility] [place] 10-11-2021 10:41-0400 Diastolic blood pressure 80 mm[Hg] Seth HOROWITZ [facility] [place] 10-11-2021 10:41-0400 Heart rate 95 /min Seth HOROWITZ [facility] [place] 10-11-2021 10:41-0400 SaO2% (BldA) [Mass fraction] 99 % Seth HOROWITZ [facility] [place] 10-11-2021 10:41-0400 Systolic blood pressure 118 mm[Hg] Seth HOROWITZ [facility] [place] 08-01-2018 12:51-0500 BP Diastolic 56 mm[Hg] [facility] Work Phone: 08-01-2018 12:51-0500 BP Systolic 117 mm[Hg] [facility] Work Phone: 08-01-2018 12:51-0500 Pulse (Heart Rate) 76 /min [facility] Work Phone: 08-01-2018 12:51-0500 Pulse Oximetry 98 % [facility] Work Phone: 08-01-2018 12:51-0500 Respiratory Rate 16 /min [facility] Work Phone: 08-01-2018 10:20-0500 Body Temperature 98.1 [degF] Mitchel [facility] Work Phone: 10-25-2017 09:40-0400 BMI (Body Mass Index) 22.6 kg/m2 David Hurt [facility] 10-25-2017 09:40-0400 Height 167.6 cm [facility] 10-25-2017 09:40-0400 Weight 63.5 kg David Hurt [facility] Encounters Encounter Date Encounter Type Care Provider Facility Start: 03-28-2024 End: 03-28-2024 Emergency department patient visit [facility] Start: 03-12-2024 ambulatory LOPEZ RESET MERCHANDISER-LOLA [place] Facility: [place] Start: 03-10-2024 End: 03-10-2024 ambulatory GRISELDA GLENN Not Available Start: 03-02-2024 End: 03-02-2024 ambulatory GRISELDA GLENN Not Available Start: 02-25-2024 End: 02-25-2024 ambulatory ASH AMIEE Not Available Start: 10-11-2023 End: 10-11-2023 ambulatory LOPEZ, RESET MERCHANDISER-LOLA [place] Facility: [place] Start: 10-11-2023 End: 10-11-2023 Patient encounter procedure Sherin Che[facility] Start: 09-24-2023 End: 09-24-2023 ambulatory ASH AIMEE Not Available Start: 09-17-2023 End: 09-17-2023 ambulatory Hay Dowling Facility: [place] Start: 09-17-2023 End: 09-17-2023 Patient encounter procedure Hay Dowling [facility] Start: 08-28-2023 End: 08-28-2023 ambulatory ASH AIMEE Not Available Start: 08-08-2023 End: 08-08-2023 ambulatory GRISELDA GLENN Not Available Start: 01-01-2023 End: 01-01-2023 Patient encounter procedure SHERRIE Diaz JAKEYANIRA [facility] Start: 11-15-2022 End: 11-15-2022 Patient encounter procedure Kristyn Kowalski [facility] Start: 08-22-2022 End: 08-22-2022 Patient encounter procedure Trista Oliva [facility] Start: 08-07-2022 End: 08-07-2022 Emergency department patient visit [facility] Start: 02-27-2022 End: 03-01-2022 Pre-admission assessment Apoorva [facility] Start: 02-27-2022 End: 02-27-2022 Patient encounter procedure Apoorva Sweet [facility] [place] Start: 02-06-2022 End: 02-06-[address] ASH YU Facility:[facility] Start: 11-30-2021 End: 11-30-2021 Patient encounter procedure Nadir ZHENG [facility] [place] Start: 11-03-[address] ASH YU Facility :[facility] Start: 10-11-2021 End: 10-11-2021 Patient encounter procedure Seth HOROWITZ [facility] [place] Start: 06-11-2020 End: 06-11-2020 Subsequent hospital visit by physician Adi Boswell [facility] Comment on above: History of mononucle osis Start: 06-07-2020 End: 06-07-2020 Subsequent hospital visit by physician Adi Boswell [facility] Comment on above: Viral URI with cough Start: 05-18-2020 End: 05-18-2020 Subsequent hospital visit by physician Adi Back [facility] Comment on above: Suspected COVID-19 v irus infection Start: 03-21-2020 End: 03-21-2020 Subsequent hospital visit by physician Adi Back [facility] Comment on above: Fatigue, unspecified type; Screening cholesterol level Start: 08-01-2018 End: 08-01-2018 Letter encounter Provider Kaushik Gallegos [facility] Start: 08-01-2018 End: 08-01-2018 Emergency department patient visit MITCHEL K BISWAS [facility] Start: 08-01-2018 End: 08-01-2018 Emergency department patient visit Mitchel K [place] Work Phone: [facility] Start: 12-05-2017 Ambulatory DAVID HURT [facility] Start: 11-27-2017 End: 11-27-2017 Patient encounter procedure David Shruthi Lelejhon Facility:[place] Start: 11-15-2017 End: 11-15-2017 Ambulatory DAVID HURT [facility] Start: 11-15-2017 End: 11-15-2017 Office/outpatient visit, est, level 2 David Hurt Work Phone: [facility] Start: 11-04-2017 End: 11-04-2017 Ambulatory David Hurt Work Phone: [facility] Start: 10-30-2017 Ambulatory DAVID HURT [facility] Start: 10-25-2017 End: 10-25-2017 Ambulatory ADI BOSWELL [facility] Start: 10-25-2017 End: 10-25-2017 Office/outpatient visit, new, level 2 Adi Back Work Phone: [facility] [place] Procedures Date Procedure Procedure Detail Performing Clinician Start: 06-11-2020 Blood count complete auto&auto difrntl wbc Sailaja Brar Work Phone: Start: 06-11-2020 Hepatic function panel Sailaja Brar Work Phone: Start: 03-21-2020 Assay of thyroid stimulating hormone [...] End: 08-01-2018 Assay of troponin quantitative Mitchel Mendoza Baer rper Work Phone: Start: 08-01-2018 End: 08-01-2018 CBC, EDIF, PLATELET Mitchel Morleyper Work Phone: Start: 08-01-2018 End: 08-01-2018 Choriogonadotropin ( test) [Presence] in Serum or Plasma Mitchel Biswas Work Phone: Start: 08-01-2018 End: 08-01-2018 Comprehensive metabolic panel Mitchel Morley per Work Phone: Start: 08-01-2018 End: 08-01-2018 Fibrin dgradj products d-dimer quantitative Mitchel Morleyper Work Phone: Start: 08-01-2018 End: 08-01-2018 Standard ECG Mitchel Biswas Work Phone: Start: 07-08-2000 tonsils and tubes in ears Seth HOROWITZ Plan of Treatment Date Care Activity Detail Author Start: 04-19-2026 DTaP/Tdap/Td vaccine (2 - Td) DTaP/Tdap/Td vaccine (2 - Td) [facility] [place] Start: 04-19-2026 Tetanus vaccination TETANUS EVERY [address] [facility] Start: 09-19-2020 End: 09-19-2020 Office Visit 09/19/2020 Office Visit Family Medicine Adi Boswell MD [address] [place] [id number] [phone] [facility] Start: 06-27-2020 Screening for malign ant neoplasm of cervix Cervical cancer screen [place], [place] Start: 06-16-2020 End: 06-16-2020 Office Visit 06/16/2020 Office Visit Family Medicine Adi Boswell MD [address] [place] [address] [phone] [facility] Start: 03-08-2020 Influenza vaccination Flu vaccine (# 1) [place], [place] Start: 03-08-2018 Influenza vaccination [facility] Start: 11-15-2017 End: 11-15-2017 Ambulatory 11/15/2017 Office Visit Sports Medicine David Hurt MD [address] [facility] [address] [place], [place] [id number] [facility] [place] Start: 10-31-2017 Ambulatory 10/31/2017 Hos pital Encounter David Hurt MD [address] [facility] [address] [place] [address] [facility] Start: 03-08-2017 Influenza vaccination SEQUENTI AL INFLUENZA VACCINE (#1) [facility] Start: 10-21-2016 Screening for malign ant neoplasm of cervix PAP SMEAR DISCUSSION [facility] Work Phone: Start: 10-21-2014 Third diphtheria, te tanus and acellular pertussis (DTaP) vaccination TDAP (ADULT) [facility] Work Phone: Start: 10-21-2013 GONORRHEA SCREEN GONORRHEA SCREEN Oh [facility] Work Phone: Start: 10-21-2013 [facility] Start: 2011 Screening for Chlamy carson trachomatis CHLAMYDIA SCREEN [facility] Work Phone: Start: 10-21-2008 HIV screening HIV SCREENING DISCUSSION [facility] Work Phone: Start: 10-21-2006 HPV vaccine (1 - 2-d ose series) HPV vaccine (1 - 2-dose series) [place], [place] Start: 10-21-2006 Vaccination for alo n papillomavirus [facility] Start: 10-21-2001 Pneumococcal 0-64 ye ars Vaccine (1 of 1 - PPSV23) Pneumococcal 0-64 years Vaccine (1 of 1 - PPSV23) [place], [place] Start: 10-21-1996 Varicella vaccine (1 of 2 - 2-dose childhood series) Varicella vaccine (1 of 2 - 2-dose childhood series) [place], [place] Start: 1995 Screening for malign ant neoplasm of cervix PAP SMEAR [facility] End: 05-18-2020 COVID-19 Ambulatory COVID-19 Ambulatory Lab Routine Suspected COVID-19 virus infection 1 Occurrences starting 05/18/2020 until 05/18/2020 [place], [place] Comment on above: 1 Occurrences starti ng 05/18/2020 until 05/18/2020 COVID-19 Ambulatory [place] End: 06-07-2020 COVID-19 Ambulatory COVID-19 Ambulatory Lab Routine Viral URI with cough 1 Occurrences starting 06/07/2020 until 06/07/2020 [place] Comment on above: 1 Occurrences starti ng 06/07/2020 until 06/07/2020 End: 03-21-2020 Lipid panel Lipid Panel Lab Routine Screening cholesterol level 1 Occurrences starting 03/21/2020 until 03/21/2020 [place], [place] Comment on above: 1 Occurrences starti ng 03/21/2020 until 03/21/2020 Lipid panel Lipid Panel Lab Routine Screening cholesterol level 03/21/2020 9:07 AM EDT [place], [place] Standard ECG ECG STAT 019 10:49 AM EST [facility] Work Phone: Immunizations Immunization Date Immunization Notes Care Provider Aparna buckley 05-09-2017 influenza virus vaccine, unspecified formulation [place], [place] 04-19-2016 tetanus toxoid, reduced diphtheria toxoid, and acellular pertussis vaccine, adsorbed [facility] [place], [place] Comment on above: Reason for Medicatio n: Other (see comment) NEGATED: Highlighted row has not occurred!07-13-2022 influenza virus vaccine, unspecified formulation James Nam [facility] NEGATED: Highlighted row has not occurred!07-13-2022 SARS-CoV-2 mRNA (tozinameran 5y-11y) vaccine James Nam [facility] NEGATED: Highlighted row has not occurred!08-25-2020 influenza virus vaccine, unspecified formulation Seth HOROWITZ [facility] [place] Payers Date Payer Category Payer Unknown [id number] 2.16.84 [id number] 1995 Unknown [id number] 2.16.84 [id number] 1995 Unknown [id number] 2.16.84 [id number] 1995 Unknown [id number] 2.16.84 [id number] 1995 Unknown [id number] 2.16.84 [id number] 1995 Unknown [id number] 2.16.84 [id number] 1995 Unknown [id number] 2.16.84 [id number] 1995 Unknown [id number] 2.16.84 [id number] 1995 Unknown [id number] 2.16.8 [id number] 1995 Unknown [id number] 2.16.8 [id number] 1959 Unknown [id number] Social History Date Type Detail Facility Start: 10-25-2017 End: 11-15-2017 Tobacco smoking status NHIS Former smoker [facility] Sex Assigned At Not on file Melita oneill Start: 08-01-2018 End: 09-17-2023 Tobacco smoking status NHIS Never smoker [facility] Work Phone: Start: 03-21-2020 End: 06-06-2020 Tobacco use and exposure [email or web address] Start: 03-21-2020 End: 06-06-2020 Alcohol intake Current non-drinker of alcohol (finding[email or web address] Tobacco smoking status Never [facility] [place] Sex Assigned At Female [facility] Functional Status Date Assessment Result Facility 09-17-2023 Functional Status N/A [facility] 01-01-2023 Functional Status N/A [facility] 11-15-2022 Functional Status N/A [facility] 08-22-2022 Functional Status N/A [facility] 08-07-2022 Functional Status N/A [facility] 02-27-2022 Functional Status N/A [facility] Clinical Notes 02-14-2021 to 10-11-2023 Laboratory [...] Follow these instructions at home: Medicines Take wbuq-fdf-jsncmdn and prescription medicines only as told by [...] and water are not available, use hand edge grinder. Contact a health care provider if: You [...] things can cause a sore throat. Take vbsr-rcs-tzfobfc medicines only as told by your health [...] provider. Document Revised: 09/20/2021 Document Reviewed: 09/20/2021 [employer] Patient Education 2022 [employer]. [facility] 10/11/2023 06:27:52 With:Linden MARROQUIN, RESET MERCHANDISER-LOLA, Sherin Tillman Address: [address] [place] [phone] When: only if needed [facility] [place] 09-17-2023 Hospital Discharge instructions Patient Education 09/17/2023 [...] numbers. This can be done either in T[place] ([place] or metric measurements. Note that charts and online BMI calculators are available to help you find your BMI quickly and easily without having to do these calculations yourself. To calculate your BMI in [place]ese ([place] measurements: 1.Measure your weight in pounds [...] Centers for Disease Control and Prevention: www.cdc.gov [place] Heart Association: www.heart.org National Heart, Lung, and Blood [place]: www.nhlbi.nih.gov Summary Body mass index (BMI) is a number that is calculated from a person's weight and height. BMI may help estimate how much of a person's weight is composed of fat. BMI can help identify those who may be at higher risk for certain medical problems. BMI can be measured using Togolese measurements or metric measurements. BMI charts are used to identify whether you are underweight, normal weight, overweight, or obese. This information is not intended to replace advice given to you by your health care provider. Make sure you discuss any questions you have with your health care provider. Document Revised: 03/16/2020 Document Reviewed: 01/22/2020 [employer] Patient Education 2022 [employer]. 09/17/2023 12:50:54 Viral Illness, Adult Viral Illness, [...] Medicines to relieve symptoms. These can include qtrv-xyp-lkrfynu medicine for pain and fever, medicines for cough or congestion, and medicines to relieve diarrhea. Antiviral medicines. These medicines are available only for certain types of viruses. Some viral illnesses can be prevented with vaccinations. A common example is the flu shot. Follow these instructions at home: Medicines Take hdct-kqf-kordfmg and prescription medicines only as told by [...] and water are not available, use hand edge grinder. Avoid touching your nose, eyes, and mouth, [...] provider. Document Revised: 11/07/2020 Document Reviewed: 05/03/2020 [employer] Patient Education 2022 [employer]. [facility] 11-15-2022 Evaluation + Plan note Future Scheduled [id number] 11/15/22TSH With T4fr Reflex 11/15/2275NCWT-BfV-4, JACOB 02/27/22 [facility] [place] 08-22-2022 Hospital Discharge instructions Patient Education 08/22/2022 [...] water added (diluted fruit juice). Eat bland, uzer-rf-giqkby foods in small amounts as you are able. These foods include bananas, applesauce, rice, lean meats, toast, and crackers. Avoid fluids that contain a lot of sugar or caffeine, such as energy drinks, sports drinks, and soda. Avoid alcohol. Avoid spicy or fatty foods. General instructions Take kzrw-gbn-zvwlbic and prescription medicines only as told by your health care provider. Drink enough fluid to keep your urine pale yellow. Wash your hands often using soap and water. If soap and water are not available, use hand edge grinder. Make sure that all people in your [...] eating and drinking to prevent dehydration. Take ukms-rwl-axhtqft and prescription medicines only as told by [...] 06/24/2006 Document Revised: 10/16/2019 Document Reviewed: 12/02/2018 [employer] Patient Education 2020 [employer]. 08/22/2022 12:10:36 Vomiting, Adult Vomiting, Adult Vomiting [...] at pharmacies and retail stores. Eat bland, xulh-rb-utnxrs foods in small amounts as you are [...] and water are not available, use hand edge grinder. Make sure that everyone in your household washes their hands frequently. Take rucj-iyb-qgqrygr and prescription medicines only as told by [...] and water are not available, use hand edge grinder. Make sure that everyone in your household [...] 07/20/2016 Document Revised: 12/11/2019 Document Reviewed: 12/02/2018 [employer] Patient Education 2020 [employer] 08/22/2022 12:10:19 Sinusitis, Adult Sinusitis, Adult Sinusitis [...] at home: Medicines Take, use, or apply kcqu-knh-bzrwvsp and prescription medicines only as told by [...] and water are not available, use hand edge grinder. Do not smoke. Avoid being around people [...] 06/24/2006 Document Revised: 11/24/2018 Document Reviewed: 11/24/2018 [employer] Patient Education 2020 [employer]. 08/22/2022 12:10:18 BMI for Adults BMI for [...] height. This can be done either in Togolese (U.S[place] or metric measurements. Note that charts are available to help you find your BMI quickly and easily without having to do these calculations yourself. To calculate your BMI in Tog[place]ese ([place] measurements, your health care provider will: [...] medical problems. BMI can be measured using Togolese measurements or metric measurements. To interpret your [...] 03/05/2005 Document Revised: 06/06/2018 Document Reviewed: 05/07/2018 [employer] Patient Education 2020 [employer] Follow Up Care 08/22/2022 11:04:46 With:Dex JUSTICE, Kristny Joshua, [facility] Address: [address] [place] [address] [phone] When: Unknown [facility] 08-07-2022 Evaluation + Plan note Extrac giovanni from: Title:ED Note Author:Jeermy Tineo PA-C te:08/07/22 Pharyngitis (J02.9: Acute ph aryngitis, unspecified) Orders: dexamethasone, 10 mg = 2.5 mL, Injection, Oral, Once, Stop date 08/07/22 7:54:00 EST, STAT, Start date 08/07/22 7:54:00 EST, 08/07/22 7:54:00 EST Group A Strep by PCR Rapid Strep w/rfx Future Scheduled Tests Laboratory* SARS-CoV-2, JACOB 02/27/22 [facility]01-31-2023 Hospital Discharge instructions Patient Education 08/07/2022 08:47:50 [...] medicines. Follow these instructions at home: Take vbzt-xvs-svuwqtq and prescription medicines only as told by [...] 06/24/2006 Document Revised: 06/06/2018 Document Reviewed: 07/30/2017 [employer] Patient Education 2020 [employer]. Follow Up Care 08/07/2022 07:49:47 With:Kristyn Kowalski Address: [address] [place] [address] [phone] Business (1) When:08/10/2022 08:37:22 [facility]08-23-2022 Evaluation + Plan note Future Scheduled Tests Laboratory* SARS-CoV-2, JACOB 02/27/22 [facility]05-25-2022 Hospital Discharge instructions Patient Education 11/29/2021 19:32:42 [...] Follow these instructions at home: Medicines Take rrqx-kql-ogumuaa and prescription medicines only as told by your health care provider. Ask your health care provider if the medicine prescribed to you: ?Requires you to avoid driving or using heavy machinery. ?Can cause constipation. You may need to take these actions to prevent or treat constipation: ?Drink enough fluid to keep your urine pale yellow. ?Take pvwo-byv-uquznfi or prescription medicines. ?Eat foods that are [...] 06/24/2006 Document Revised: 10/16/2019 Document Reviewed: 08/06/2019 [employer] Patient Education 2019 [employer] [facility] Nitin 04-06-2022 Hospital Discharge instructions [...] Follow these instructions at home: Medicines Take edjw-szb-sbylekx and prescription medicines only as told by your health care provider or pharmacist. Ask your pharmacist what cbct-azn-fwccpdc cold medicines you should avoid. Some medicines [...] a problem, search for a local or [facility]. Public mental health [...] 10/24/2017 Document Revised: 10/16/2019 Document Reviewed: 10/24/2017 [employer] Patient Education 2020 [employer] Inc. 10/11/2021 11:12:08 Bipolar 1 Disorder Bipolar [...] hard liquor (44 mL). General instructions Take uwpq-eow-sdnblok and prescription medicines only as told by [...] important. Where to find more information National [place] on Mental Illness: www.homer.org National [place] of Mental Health: www.nimh.nih.gov Contact a health [...] 09/30/2001 Document Revised: 12/08/2019 Document Reviewed: 12/08/2019 Elsevier Patient Education 2019 [employer] Follow Up Care 10/06/2021 16:00:44 With:Seth ANTONIO Address: [address] [place] [id number] When:Within 4 Week(s) [facility] 08-10-2021 Evaluation + Plan note Future Scheduled Tests Laboratory* SARS-CoV-2, JACOB 02/14/21 [facility] [place] Evaluation + Plan note Future Appointments Appointment Date:11/15/2021 11:00:00 AM Scheduled Provider:Seth ANTONIO Location:[facility] Nitin Appointment Type:FM Open Future Scheduled Tests Laboratory* SARS-CoV-2, JACOB 02/14/21 [facility] Evaluation + Plan note Future Appointments Appointment Date:02/28/2022 09:00:00 AM Scheduled Provider: [facility] Type:Outpatient COVID Testing Appointment Date:02/28/2022 09:00:00 AM Scheduled Provider: [facility] App[facility] Type:Outpatient Antigen Testing Future Scheduled Tests Laboratory* SARS-CoV-2, JACOB 02/27/22 [facility] [place] Hospital course Narrative No data available for this section [facility] [place] Hospital Discharge instructions No data available for this section [facility] N[place] Progress note No data available for this section [facility] Assessments Diagnosis Bursitis/tendonitis, shoulde r - Primary [...] No data available for this section No data available for this section No Family History Records FoundNo Family History Records FoundNo Family History Records Found Advance Directives No Advanced Directives Records FoundDocuments on File Type Date Recorded 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 * Chest Pain, Uncertain Cause (Togolese) in this encounter Additional Source Comments INFORMATION SOURCE (unrecogn ized section and content) DATE CREATED AUTHOR 12/25/2017 [facility] DATE CREATED AUTHOR AUTHOR'S ORGANIZ ATION 06/16/2018 [facility] DATE CREATED AUTHOR AUTHOR'S ORGANIZ ATION 08/21/2018 [facility] DATE CREATED AUTHOR AUTHOR'S ORGANIZ ATION 02/10/2022 [facility] DATE CREATED AUTHOR AUTHOR'S ORGANIZ ATION 03/11/2024 [facility] EPIC DATE CREATED AUTHOR AUTHOR'S ORGANIZ ATION 03/13/2024 [facility] DATE CREATED AUTHOR AUTHOR'S ORGANIZ ATION 03/30/2024 [facility] Reason for Visit (unrecogniz ed section and content) Reason Comments Chest Pain patient c/o midstern al chest pain that started at 8:30, worse with a deep breath, denies cough, denies treatment Care Team (unrecognized sect ion and content) Personnel Name: Seth ANTONIO Address: [address] [place] [address] Personnel Name: Seth ANTONIO Address: [address] [place] [address] Personnel Name: Kristyn Kowalski NP Address: Address: [address] [place], [place] [address] Personnel Name: Kristyn Kowalski NP Address: Address: [address] [place], [place] [address] Personnel Name: Kristyn Kowalski NP Address: Address: [address] [place], [place] [address] Personnel Name: NONE, XXXX Address: Address: [facility] Personnel Name: NONE, XXXX Address: Address: [facility] Personnel Name: NONE, XXXX Address: Address: [facility] FOR RECORDS PERTAINING TO PATIENTS WHO ARE [...] BE BASED ON THE PRIMARY CLINICAL RECORDS. [employer] [facility]. provides no warranty or guarantee of the accuracy or completeness of information in this document.
[2024-05-05 07:45] LABS: Bilirubin Urine NEGATIVE (NEGATIVE); Blood Urine NEGATIVE (NEGATIVE); Clarity Urine SL CLOUDY (CLEAR); Color Urine YELLOW (YELLOW); Glucose Urine UA NEGATIVE (NEGATIVE); Ketones Urine NEGATIVE (NEGATIVE); Leukocyte Esterase Urine NEGATIVE (NEGATIVE); Nitrite Urine NEGATIVE (NEGATIVE); Protein Urine NEGATIVE (NEG/TRACE); Specific Gravity Urine 1.025 (1.005-1.025); Urobilinogen Urine 0.2 EU/dL (0.2-1.0)
[2024-05-05 07:46] LABS: HCG Qualitative Urine* NEGATIVE (NEGATIVE); Internal Control Within Normal Limits; Urine Microscopic Indicated NO
--- NOTE | 2024-05-05 07:49 | ED_ITS ---
HPI - Nausea/Vomiting/Diarrhea General Chief complaint: Nausea/Vomiting/Diarrhea Stated complaint: VOMITING Time Seen by Provider: 05/05/24 07:43 Source: patient Mode of arrival: walk-in Limitations: no limitations History of Present Illness HPI Narrative: Patient is here complaining of ongoing nausea. She has lost approximately 15 pounds in the last 3 months. She has nearly daily episodes of vomiting sometimes triggered by Macedonian fries. She has not run a fever. She has not seen a surgeon. She has received GI referral but cannot schedule an appointment as they have not gotten back with her. Her bowel movements have changed a little bit. She has not had any urinary type symptomatology. Past surgical history none. She does have Mirena control. She is not on any acid reducers. Does not have severe pain just nausea. She has been taking some Zofran. The pain seems to be in her right upper quadrant. She has multiple, multiple family members with previous cholecystectomy. She has not been evaluated for that condition according to her. Related Data Previous Rx's ?Medication ?Instructions ?Recorded ondansetron 4 mg disintegrating 4 mg PO Q4H PRN nausea and 02/26/24 tablet vomiting 3 days #6 tabs Allergies Allergy/AdvReac Type Severity Reaction Status Date / Time Sulfa (Sulfonamide Allergy Hives Verified 02/26/24 11:04 Antibiotics) sulfamethoxazole (From Allergy Hives Verified 02/26/24 11:04 Bactrim) tramadol Allergy Hives Verified 02/26/24 11:04 trimethoprim (From Bactrim) Allergy Hives Verified 02/26/24 11:04 PFSH PFSH Social History Little interest or pleasure in doing things: not at all Feeling down, depressed, or hopeless: not at all Exam Narrative Exam Narrative: Awake alert very pleasant. Vital signs stable. She is afebrile. Does not appear an extremis. Skin is warm and dry mucous memories moist pink there is no scleral icterus or evidence of a pallor or anemia. Abdomen is not distended. There is no surgical incisions. There is normal bowel sounds. There is mild tenderness palpation in the right upper quadrant. There is no tenderness at McBurney's point and the rest the abdomen is totally benign. Constitutional Vital Signs, click to edit/add: Last Vital Signs Temp 98.8 F 05/05/24 07:06 Pulse 77 05/05/24 07:06 Resp 18 05/05/24 07:06 BP 128/77 05/05/24 07:06 Pulse Ox 98 05/05/24 07:06 O2 Del Method Room Air 05/05/24 07:06 Course Vital Signs Vital signs: Vital Signs Temperature 98.8 F 05/05/24 07:06 Pulse Rate 77 05/05/24 07:06 Respiratory Rate 18 05/05/24 07:06 Blood Pressure 128/77 05/05/24 07:06 Pulse Oximetry 98 05/05/24 07:06 Oxygen Delivery Method Room Air 05/05/24 07:06 Temperature 98.8 F 05/05/24 07:06 Pulse Rate 77 05/05/24 07:06 Respiratory Rate 18 05/05/24 07:06 Blood Pressure 128/77 05/05/24 07:06 Pulse Oximetry 98 05/05/24 07:06 Oxygen Delivery Method Room Air 05/05/24 07:06 MDM - Nausea/Vomiting/Diarrhea MDM Narrative Medical decision making narrative: Patient's had several months of symptomatic nausea and vomiting with no diarrhea fever or blood. Medical Records Medical records narrative: This patient's laboratory testing does not show any evidence of complications infection perforation or obstruction. The preliminary interpretation by printing technician does not show any obvious obstruction or stones but I am awaiting the final radiologist interpretation of her gallbladder ultrasound. She was given Toradol I the here since she does not have other transportation for narcotic analgesics. I will send her a copy of this report to her physician aquatics assistant department head practitioner at Dr. Chavez's office. I advised her to have further outpatient testing as this still is most consistent with gallbladder dysfunction Lab Data Labs: Lab Results 05/05/24 05/05/24 Range/Units 07:15 08:05 WBC 8.8 (4.0-11.0) 10^3/uL RBC 4.37 (4.20-5.40) 10^6/uL Hgb 13.8 (12.0-16.0) g/dL Hct 41.3 (36.0-48.0) % MCV 94.5 (81.0-99.0) fL MCH 31.6 (26.7-34.0) pg MCHC 33.4 (29.9-35.2) g/dL RDW 11.9 (11.0-15.0) % Plt Count 278 (150-450) 10^3/uL MPV 11.2 (9.5-13.5) fL Neut % (Auto) 66.9 (43.0-75.0) % Lymph % (Auto) 25.6 (20.5-60.0) % Rusk % (Auto) 5.4 (1.7-12.0) % Eos % (Auto) 1.2 (0.9-7.0) % Baso % (Auto) 0.6 (0.2-2.0) % Neut # (Auto) 5.9 (1.4-6.5) 10^3/uL Lymph # (Auto) 2.3 (1.2-3.8) 10^3/uL Rusk # (Auto) 0.5 (0.3-0.8) 10^3/uL Eos # (Auto) 0.1 (0.0-0.7) 10^3/uL Baso # (Auto) 0.1 (0.0-0.1) 10^3/uL Abs Immat Gran (auto) 0.03 (0.00-0.03) 10^3/uL Imm/Tot Granulo (auto) 0.3 (0.0-0.5) % Sodium 144 (136-145) mmol/L Potassium 3.9 (3.5-5.1) mmol/L Chloride 107 (98-107) mmol/L Carbon Dioxide 27.8 (21.0-32.0) mmol/L Anion Gap 13.1 BUN 12.0 (7.0-18.0) mg/dL Creatinine 0.79 (0.55-1.02) mg/dL Est GFR ( Amer) >60 (>=60 mL/min/1.73m^2) Est GFR (Non-Af Amer) >60 (>=60 mL/min/1.73m^2) BUN/Creatinine Ratio 15.2 Glucose 96 (74-106) mg/dL Calcium 8.5 (8.5-10.1) mg/dL Total Bilirubin 0.4 (0.2-1.0) mg/dL AST 15 (15-37) U/L ALT 23 (14-59) U/L Alkaline Phosphatase 70 (46-116) U/L Total Protein 7.0 (6.4-8.2) g/dL Albumin 3.5 (3.4-5.0) g/dL Globulin 3.5 g/dL Albumin/Globulin Ratio 1.0 Lipase 29.0 (16.0-77.0) U/L Urine Color Yellow (YELLOW) Urine Clarity Sl cloudy (CLEAR) Urine pH 6.0 (5.0-9.0) Ur Specific [place] 1.025 (1.005-1.025) Urine Protein Negative (NEG/TRACE) mg/dL Urine Glucose (UA) Negative (NEGATIVE) mg/dL Urine Ketones Negative (NEGATIVE) mg/dL Urine Occult Blood Negative (NEGATIVE) Urine Nitrite Negative (NEGATIVE) Urine Bilirubin Negative (NEGATIVE) Urine Urobilinogen 0.2 (0.2-1.0) EU/dL Ur Leukocyte Esterase Negative (NEGATIVE) Urine HCG, Qual Negative (NEGATIVE) Discharge Plan Discharge Chief Complaint: Nausea/Vomiting/Diarrhea Clinical Impression: Abdominal pain Patient Disposition: Home, Self-Care Time of Disposition Decision: 09:36 Prescriptions / Home Meds: No Action ondansetron 4 mg tablet,disintegrating 4 mg PO Q4H PRN (Reason: nausea and vomiting) 3 Days Qty: 6 0RF Print Language: Marshallese Additional Instructions: Try to avoid fatty food as this can irritate the gallbladder. Follow-up with Dr. Chavez's office for further evaluation. May use Toradol for abdominal pain Referrals: Physician,Non-Staff, MD [Primary Care Provider] - 1 week
[2024-05-05 08:19] LABS: Basophils Absolute Auto 0.1 10^3/uL (0.0-0.1); Basophils Percent Auto 0.6 % (0.2-2.0); Eosinophils Absolute Auto 0.1 10^3/uL (0.0-0.7); Eosinophils Percent Auto 1.2 % (0.9-7.0); Hematocrit 41.3 % (36.0-48.0); Hemoglobin 13.8 g/dL (12.0-16.0); Immature Granulocytes Abs Auto 0.03 10^3/uL (0.00-0.03); Immature Granulocytes Pct Auto 0.3 % (0.0-0.5); Lymphocytes Absolute Auto 2.3 10^3/uL (1.2-3.8); Lymphocytes Percent Auto 25.6 % (20.5-60.0); Mean Corpuscular HGB Conc 33.4 g/dL (29.9-35.2); Mean Corpuscular Hemoglobin 31.6 pg (26.7-34.0); Mean Corpuscular Volume 94.5 fL (81.0-99.0); Mean Platelet Volume 11.2 fL (9.5-13.5); Monocytes Absolute Auto 0.5 10^3/uL (0.3-0.8); Monocytes Percent Auto 5.4 % (1.7-12.0); Neutrophils Absolute Auto 5.9 10^3/uL (1.4-6.5); Neutrophils Percent Auto 66.9 % (43.0-75.0); Platelet Count 278 10^3/uL (150-450); Red Blood Count 4.37 10^6/uL (4.20-5.40); Red Cell Distribution Width 11.9 % (11.0-15.0); White Blood Count 8.8 10^3/uL (4.0-11.0)
[2024-05-05 08:40] LABS: Anion Gap 13.1; Carbon Dioxide 27.8 mmol/L (21.0-32.0); Chloride 107 mmol/L (98-107); Estimated GFR (African America >60 (>=60 mL/min/1.73m^2); Glucose 96 mg/dL (74-106); Potassium 3.9 mmol/L (3.5-5.1); Sodium 144 mmol/L (136-145)
[2024-05-05 08:41] LABS: Alanine Aminotransferase 23 U/L (14-59); Albumin Level 3.5 g/dL (3.4-5.0); Alkaline Phosphatase 70 U/L (46-116); Aspartate Amino Transferase 15 U/L (15-37); BUN Creatinine Ratio 15.2; Bilirubin Total 0.4 mg/dL (0.2-1.0); Calcium 8.5 mg/dL (8.5-10.1); Estimated GFR (Non-African Ame >60 (>=60 mL/min/1.73m^2); Globulin 3.5 g/dL
--- NOTE | 2024-05-05 08:45 | US_ITS ---
The [address] [address] Patient Name: PAULO LIZAMA MRN: [id number] date: 1995 Sex: F Assigned Patient Location: ER Current Patient Location: ED.MAIN Accession/Order Number: [id number] Exam Date: 05/05/2024 08:46 Report Date: 05/05/2024 09:42 At the request of: ALONSO WERNER Procedure: US right upper quadrant EXAM: US right upper quadrant HISTORY: Right upper quadrant pain COMPARISON: CT abdomen/pelvis dated 02/26/2024. TECHNIQUE: Routine ultrasound right upper quadrant abdomen. FINDINGS: Pancreas: There is a linear focus of hypoechogenicity through the pancreatic body which in the absence of clinical symptoms and previous injury is most likely artifactual. This does not appear masslike and there is no peripancreatic fluid. The pancreas is otherwise normal size and echogenicity. The pancreatic duct is not dilated. Liver: Normal size with normal parenchymal echogenicity. There is no mass. There is no intrahepatic biliary dilatation. There is normal direction of flow within the main portal vein. Gallbladder: Normal size without wall thickening. There are no gallstones. There is no pericholecystic fluid. Common duct: Normal size measuring 1.7 mm. Right kidney: Unremarkable measuring 10.8 x 4.8 x 5.6 cm. Ascites: None. US/US right upper quadrant IMPRESSION: The liver, gallbladder, common duct and right kidney are unremarkable. There is a linear focus of hypoechogenicity through the pancreatic body which most likely is artifactual. The pancreas is otherwise unremarkable. Electronically authenticated by: GEORGE NORMAN Date: 05/05/2024 09:42
[2024-05-05] MEDS: KETOROLAC TROMETHAMINE 30 MG/ML VIAL IM (09:33)
[2024-05-05 09:42] VITALS: BP 124/79; PULSE 84; O2SAT 99
== END 2024-05-05 09:43 | disposition home or self-care (01) ==
PROVIDERS: Emergency Provider Emergency Medicine Emergency Medical Services
DX: R10.9 Unspecified abdominal pain (principal)
CPT/HCPCS: 36415; 76705; 80053; 81003; 83690; 84703; 85025; 96372; 99284; J1885

== ENCOUNTER 2024-12-02 09:15 | Outpatient (OUT) | payer OTHER, SELFPAY ==
--- NOTE | 2024-12-02 09:16 | US_ITS ---
The [address] [address] Patient Name: PAULO LIZAMA MRN: [id number] date: 1995 Sex: F Assigned Patient Location: Current Patient Location: Accession/Order Number: [id number] Exam Date: 12/02/2024 10:09 Report Date: 12/02/2024 10:14 At the request of: GRISELDA ELIZABETH Procedure: US pelvis w/ transvaginal ULTRASOUND PELVIS WITH TRANSVAGINAL IMAGING CLINICAL DATA: Dyspareunia and pelvic pain since IUD placement. COMPARISON: 02/26/2024 Real-time ultrasound evaluation the pelvis was performed utilizing both a transabdominal and transvaginal approach. TRANSABDOMINAL: The uterus is retroverted. Estimated size is approximately 7.2 x 4.1 x 3.8 cm. No focal myometrial abnormalities are noted. The endometrial lining is not well demonstrated. The ovaries are not seen. TRANSVAGINAL: Transvaginal scans were performed to better evaluate the uterus and adnexa. By this approach the uterus is retroverted. No focal myometrial abnormalities are identified. The endometrial lining measures 2 mm in thickness. The IUD is identified in appropriate position. Both ovaries are visualized. The left measures 2.6 x 1.8 x 2.6 cm. The right ovary measures 4.3 x 2.0 x 2.5 cm. Small follicles are present bilaterally. There are no dominant adnexal cysts. There is documentation of ovarian blood flow. Prominent vessels are again seen within the adnexal region bilaterally which could indicate pelvic congestion syndrome. There is no ascites. US/US pelvis w/ transvaginal IMPRESSION: IUD IN APPROPRIATE POSITION. NO DOMINANT ADNEXAL CYSTS. CONTINUED PROMINENT PELVIC VESSELS SUGGESTING THE POSSIBILITY OF PELVIC CONGESTION SYNDROME. Impression dictated by: Shanique Greene M.D. 12/02/2024 10:14 AM Dictation Location: [place] [address] Electronically authenticated by: [id number] Y Date: 12/02/2024 10:14
[2024-12-02 10:03] LABS: Basophils Absolute Auto 0.1 10^3/uL (0.0-0.1); Basophils Percent Auto 0.8 % (0.2-2.0); Eosinophils Absolute Auto 0.1 10^3/uL (0.0-0.7); Eosinophils Percent Auto 1.3 % (0.9-7.0); Hematocrit 43.1 % (36.0-48.0); Hemoglobin 14.5 g/dL (12.0-16.0); Immature Granulocytes Abs Auto 0.03 10^3/uL (0.00-0.03); Immature Granulocytes Pct Auto 0.3 % (0.0-0.5); Lymphocytes Absolute Auto 2.4 10^3/uL (1.2-3.8); Lymphocytes Percent Auto 27.2 % (20.5-60.0); Mean Corpuscular HGB Conc 33.6 g/dL (29.9-35.2); Mean Corpuscular Hemoglobin 31.5 pg (26.7-34.0); Mean Corpuscular Volume 93.5 fL (81.0-99.0); Mean Platelet Volume 11.3 fL (9.5-13.5); Monocytes Absolute Auto 0.6 10^3/uL (0.3-0.8); Monocytes Percent Auto 6.4 % (1.7-12.0); Neutrophils Absolute Auto 5.5 10^3/uL (1.4-6.5); Platelet Count 267 10^3/uL (150-450); Red Blood Count 4.61 10^6/uL (4.20-5.40); Red Cell Distribution Width 12.5 % (11.0-15.0); White Blood Count 8.6 10^3/uL (4.0-11.0)
[2024-12-02 10:57] LABS: Estimated Average Glucose 105 mg/dL; Glycohemoglobin A1C 5.3 % (4.5-6.2)
[2024-12-02 11:07] LABS: Cholesterol 107 mg/dL (<=200); HDL Cholesterol 53 mg/dL (40-60); Thyroid Stimulating Hormone 1.348 uIU/mL (0.358-3.740); Triglycerides 35 mg/dL (<=150)
[2024-12-02 11:11] LABS: HCG Quantitative <1 mIU/mL
[2024-12-02 11:30] LABS: Free T4 1.07 ng/dL (0.76-1.46)
[2024-12-03 04:07] LABS: FSH 5.9 mIU/mL (.); Luteinizing Hormone(LH) 8.1 mIU/mL (.)
== END 2024-12-02 09:16 | disposition home or self-care (01) ==
LOC: US 09:15
PROVIDERS: PCP Family Medicine; Visit Provider Physician Assistant
DX: N94.10 Unspecified dyspareunia (principal); E28.2 Polycystic ovarian syndrome; Z97.5 Presence of (intrauterine) contraceptive device
CPT/HCPCS: 36415; 76830; 76856; 80061; 82626; 82627; 83001; 83002; 83036; 84439; 84443; 84702; 85025

== ENCOUNTER 2025-04-27 15:40 | Outpatient (OUT) | payer OTHER, SELFPAY ==
--- OUTSIDE RECORDS SUMMARY | 2025-04-27 14:00 | XMS_ITS | Encounter Summary ---
Author Organization [facility] Address [address] [facility] [place] [address] Care Team Providers Care Livestock Farmers Name Role Phone Unavailable Primary Care Provider Unavailabl e Reason for Visit * ReasonCommentsConsult Encounter Details DateTypeDepartmentCare Team (Latest Contact Info)Pbnmjszyxdf87/21/2025 2:00 PM EDTOffice Visit [facility] [address] [phone] Michael Chavez DO [address] [place], [place] [id number] Follow-up encounter involving medication; PCOS (polycystic ovarian syndrome); Abnormal uterine bleeding (AUB) Social History Tobacco UseTypesPacks/DayYears UsedDateSmoking Tobacco: NeverSmokeless Tobacco: NeverAlcohol UseStandard Drinks/WeekCommentsNever0 (1 standard drink = 0.6 oz pure alcohol)CommentsNoSex and Gender InformationValueDate RecordedSex Assigned at BirthNot on fileLegal LssWlxxup78/15/2023 11:47 PM EDTGender IdentityNot on fileSexual OrientationNot on filedocumented as of this encounter Last Filed Vital Signs Vital SignReadingTime TakenCommentsBlood Ycmudiun329/7204/27/2025 2:21 PM EDT Pulse--Temperature--Respiratory Rate--Oxygen Saturation--Inhaled Oxygen Concentration--Wqrswu79.4 kg (135 lb 6.4 oz)04/27/2025 2:21 PM GSUHacmdz031.2 cm (5' 7 )04/27/2025 2:21 PM EDTBody Mass Index21. 2:21 PM EDT documented in this encounter Plan of Treatment DateTypeDepartmentCare Team (Latest Contact Info)Voxtjlxmscq39/17/2025 2:30 PM ESTAncillary Procedure [facility] [address] [place] [address] [place] [address] NameTypePriorityAssociated DiagnosesOrder SchedulehCG, quantitative, LabRoutine PCOS (polycystic ovarian syndrome) Abnormal uterine bleeding (AUB) Ordered: 04/27/2025TSHLabRoutine PCOS (polycystic ovarian syndrome) Abnormal uterine bleeding (AUB) Ordered: 04/27/2025T4, freeLabRoutine PCOS (polycystic ovarian syndrome) Abnormal uterine bleeding (AUB) Ordered: 04/27/2025BC and differentialLabRoutine PCOS (polycystic ovarian syndrome) Abnormal uterine bleeding (AUB) Ordered: 04/27/2025Follicle stimulating hormoneLabRoutine PCOS (polycystic ovarian syndrome) Abnormal uterine bleeding (AUB) Ordered: 04/27/2025Luteinizing hormoneLabRoutine PCOS (polycystic ovarian syndrome) Abnormal uterine bleeding (AUB) Ordered: 04/27/2025Hemoglobin R1rUlsBmxjufx Abnormal uterine bleeding (AUB) Ordered: 04/27/2025DHEA-sulfateLabRoutine PCOS (polycystic ovarian syndrome) Abnormal uterine bleeding (AUB) Ordered: 04/27/2025DHEALabRoutine PCOS (polycystic ovarian syndrome) Abnormal uterine bleeding (AUB) Expected: 04/27/2025 (Approximate), Expires: 04/27/2026US Pelvis w/ TVImaging Routine PCOS (polycystic ovarian syndrome) Abnormal uterine bleeding (AUB) Expected: 04/27/2025, Expires: 04/27/2026ProgesteroneLabRoutine Abnormal uterine bleeding (AUB) Ordered: 04/27/2025EstradiolLabRoutine Abnormal uterine bleeding (AUB) Ordered: 04/27/2025documented as of this encounter Visit Diagnoses Diagnosis Follow-up encounter involving medication PCOS (polycystic ovarian syndrome) Polycystic ovaries Abnormal uterine bleeding (AUB) documented in this encounter
--- OUTSIDE RECORDS SUMMARY | 2025-04-27 15:45 | XMS_ITS | Clinical Summary ---
Author Organization [facility] Address [address] [place] [address] Care Team Providers Care Hotel Valet Attendant Name Role Phone Unavailable Primary Care Provider Unavailabl e Allergies Active AllergyReactionsCriticalityNoted DateCommentsBee JysusTholuotc79/21/2024 FmusipenRhmyumm49/20/2024oconut Flavoring Agent (Non-Screening)Hives02/21/2018 QdnpbjcdwqjJqnqhbaTik18/01/2017 Pt can't tolerate the flonase she states it makes her symptoms worse. Other Reaction(s): Other (See Comments) Pt can't tolerate the flonase she states it makes her symptoms worse. Gramineae OwpwuhuLlwot15/17/2018Sulfa AntibioticsUnknown,IfshZyv5403/25/2015 Sulfamethoxazole-VtwrrvckzgstAzgilcp42/21/4889TwsucjtsocrjoWqqpAbu79/18/2015 XlczsylgZopcyay00/17/2016Wound Dressing MczvudreFzioVik36/21/2024 Medications MedicationSigDispense QuantityRefillsLast FilledStart DateEnd DateStatus Levonorgestrel (Mirena, 52 MG,) 20 MCG/DAY intrauterine device as directed IntrauterineActive acetaminophen (Tylenol) 500 MG tablet Take 1,000 mg by mouth every 4 (four) hours if needed for mild painActive ibuprofen 200 MG tablet Take 200 mg by mouth every 6 (six) hours if needed for mild painActive ondansetron ODT (Zofran-ODT) 4 MG disintegrating tablet Indications:NauseaTake 1 tablet (4 mg) by mouth every 8 (eight) hours if needed for nausea or vomiting 20 tablet ctive metoclopramide (Reglan) 10 MG tablet Indications:NauseaTake 1 tablet (10 mg) by mouth in the morning and 1 tablet (10 mg) at noon and 1 tablet (10 mg) in the evening. Take before meals. Take 1 tablet by mouth 30 minutes prior to meals 3 times daily as needed for nausea.. 90 tablet ctive ketorolac (Toradol) 10 MG tablet Indications:Abdominal pain, unspecified abdominal locationTake 1 tablet (10 mg) by mouth 3 (three) times a day as needed for moderate pain (Pain) for up to 15 doses 15 tablet 06/03/2024ctive cetirizine (ZyrTEC) 10 MG tablet Take 10 mg by mouth Daily10/12/2024tive dicyclomine (Bentyl) 20 MG tablet Take 20 mg by mouth06/03/2024ctive famotidine (Pepcid) 20 MG tablet Take 20 mg by mouth03/28/2024ctive fluticasone (Flonase) 50 MCG/ACT nasal spray use 2 (TWO) sprays in each nsotril DAILY10/12/2024tive omeprazole (PriLOSEC) [address] capsule Take 40 mg by mouth Daily06/10/2024ctive pantoprazole (ProtoNix) 40 MG EC tablet Take 40 mg by mouth in the morning. Take before meals.03/28/2024ctive predniSONE (Deltasone) 20 MG tablet TAKE 3 TABLETS BY MOUTH EVERY DAY FOR 2 DAYS, TAKE 2 TABLETS EVERY DAY FOR 2 DAYS, TAKE 1 TABLET EVERY DAY FOR 4 DAYS, then t1/2 TABLET EVERY DAY FOR 4 DAYS 10/12/2024tive medroxyPROGESTERone (Provera) 10 MG tablet Indications:AmenorrheaTake 1 tablet (10 mg) by mouth Daily for 10 days Take 1 tablet daily by mouth for 10 days 10 tablet 01/13/2025tiveHospital, Clinic, or Other Facility Administered Medication Ordered DoseRouteFrequencyStart DateEnd DateStatus Levonorgestrel intrauterine device 52 mg Indications:Encounter for IUD gszdtimep83 hmAQBdfpsvqths39/21/202402/ Active Encounters DateTypeDepartmentCare GikqXjrvdiowhgx58/21/2025 2:00 PM EDTOffice Visit [facility] [address] [place] [address] [place] [address] Michael Chavez DO Follow-up encounter involving medication; PCOS (polycystic ovarian syndrome); Abnormal uterine bleeding (AUB)04/27/2025amboo flowsheet GEOVANNY MINA [address] [place] [address] Michael Chavez DO from Last 3 Months Family History Medical HistoryRelationNameCommentsEndometriosisMotherRelationNameStatusComments MotherSonAlive Social History Tobacco UseTypesPacks/DayYears UsedDateSmoking Tobacco: NeverSmokeless Tobacco: Never Tobacco Cessation:Counseling Given: Not Answered Alcohol UseStandard Drinks/WeekCommentsNever0 (1 standard drink = 0.6 oz pure alcohol)CommentsNoSex and Gender InformationValueDate RecordedSex Assigned at BirthNot on fileLegal CnjWziqag53/15/2023 11:47 PM EDTGender IdentityNot on fileSexual OrientationNot on file Last Filed Vital Signs Vital SignReadingTime TakenCommentsBlood Hhgcejhj148/7204/27/2025 2:21 PM EDT Pulse--Temperature--Respiratory Rate--Oxygen Saturation--Inhaled Oxygen Concentration--Zdrtzp04.4 kg (135 lb 6.4 oz)04/27/2025 2:21 PM ZQPIyulnz020.2 cm (5' 7 )04/27/2025 2:21 PM EDTBody Mass Index21.211 2:21 PM EDT Plan of Treatment DateTypeDepartmentCare Team (Latest Contact Info)Woguvolrsgr67/17/2025 2:30 PM ESTAncillary Procedure NOM[facility] MINA [address] [place] [address] Health MaintenanceDue DateLast DoneCommentsInfluenza Vaccine (#1)03/08/2025 05/09/2017 Insurance
--- OUTSIDE RECORDS SUMMARY | 2025-04-27 15:45 | XMS_ITS | Clinical Summary ---
[facility] Organization [facility] Address [address], [address] [place] [address] Care Team Providers Care Cord Cutter Name Role Phone Nadir Valenzuela MD Primary Care Provider [phone] Allergies Active AllergyReactionsCriticalityNoted DateCommentsAdhesive TapeRashLow 03/28/2024Sulfamethoxazole-Pcfbdrruypyy16/21/2017Bee NrnhrPbwyvhqj63/21/2024 Coconut Flavoring Agent (Non-Screening)Hives02/21/2018Fluticasone Propionate Other (See Comments)Low03/08/2017 Pt can't tolerate the flonase she states it makes her symptoms worse. Fluticasone PropionateOther (See Comments)Low03/08/2017 Pt can't tolerate the flonase she states it makes her symptoms worse. Gramineae VsubpwiFkjke60/17/2018Sulfa JsqinjqdfztKuwtUwu22/18/2015Tramadol 11/22/2015 Medications MedicationSigDispense QuantityRefillsLast FilledStart DateEnd DateStatus ranitidine (ZANTAC) 150 MG tablet Indications:Gastroesophageal reflux disease without esophagitisTake 1 tablet by mouth daily 30 tablet Active Magnesium 500 MG TABS Indications:Migraine with aura and without status migrainosus, not intractable Take 1 tablet by mouth every evening 30 tablet Active ibuprofen (ADVIL;MOTRIN) 800 MG tablet TAKE 1 TABLET BY MOUTH EVERY 8 HOURS NEEDED FOR PAIN09/03/2019Active SUMAtriptan (IMITREX) 50 MG tablet Take 1 tablet by mouth once as needed for Migraine 9 tablet 309/2020Active budesonide-formoterol (SYMBICORT) 160-4.5 MCG/ACT AERO Indications:Mild intermittent asthma without complicationInhale 2 puffs into the lungs 2 times daily Rinse mouth after use. 1 Inhaler Active montelukast (SINGULAIR) 10 MG tablet Indications:Mild intermittent asthma without complicationTake 1 tablet by mouth nightly 30 tablet Active albuterol sulfate HFA (PROVENTIL HFA) 108 (90 Base) MCG/ACT inhaler Indications:Mild intermittent asthma without complicationInhale 2 puffs into the lungs every 6 hours as needed for Wheezing 1 Inhaler Active cetirizine (ZYRTEC) 10 MG tablet Indications:Seasonal allergic rhinitis due to pollenTake 1 tablet by mouth daily 30 tablet Active levonorgestrel (MIRENA) IUD 52 mg 1 each by IntraUTERine route onceActive ondansetron (ZOFRAN) 4 MG tablet Take 1 tablet by mouth 3 times daily as needed for Nausea or Vomiting 15 tablet 05/18/2020Active ondansetron (ZOFRAN-ODT) 4 MG disintegrating tablet Indications:Non-intractable vomiting with nausea, unspecified vomiting typeTake 1 tablet by mouth 3 times daily as needed for Nausea or Vomiting 21 tablet 05/23/2020Active Magic Mouthwash (MIRACLE MOUTHWASH) Indications:Anderson Duke virus infectionSwish and spit 10 mLs 4 times daily as needed for Irritation (throat pain.) 400 mL Active Additional Information Patient not taking.Reported on 06/03/2024 sertraline (ZOLOFT) 100 MG tablet Indications:Depression with anxietyTake 1 tablet by mouth daily 30 tablet Active famotidine (PEPCID) 20 MG tablet Take 1 tablet by mouth 2 times daily for 7 days 14 tablet 03/28/2024ctive pantoprazole (PROTONIX) 40 MG tablet Take 1 tablet by mouth every morning (before breakfast) 30 tablet 4Active dicyclomine (BENTYL) 20 MG tablet Take 1 tablet by mouth 3 times daily as needed (Abdominal pain/cramps) 30 tablet 06/03/2024ctive Active Problems ProblemNoted DateDiagnosed DateBursitis/tendonitis, hfkyziou72/20/2018Strain of right /20/2018Seasonal allergic rhinitis due to webkmf2403/08/2017 Depression with gisxihh0603/08/20179113Hduhks45/23/2014GERD (gastroesophageal reflux disease)12/28/2013 Resolved Problems ProblemNoted DateDiagnosed DateResolved DateAsthma with pvrvekusgdnt85/10/2013 11/22/2015 Immunizations ImmunizationAdministration DatesNext DueInfluenza Virus Traclwv3305/09/2017TDaP, ADACEL (age 10y-64y), BOOSTRIX (age 10y+), IM, 0.5mL04/19/2016 Family History Medical HistoryRelationNameCommentsHypertensionFatherRelationNameStatusComments Father Social History Tobacco UseTypesPacks/DayYears UsedDateSmoking Tobacco: NeverSmokeless Tobacco: NeverAlcohol UseStandard Drinks/WeekCommentsNo0 (1 standard drink = 0.6 oz pure alcohol)AUDIT-CAnswerDate RecordedQ1: How often do you have a drink containing alcohol?Never06/03/2024Q2: How many drinks containing alcohol do you have on a typical day when you are drinking?Patient does not drink06/03/2024Q3: How often do you have six or more drinks on one occasion?Never06/03/2024HQ-2AnswerDate RecordedPHQ-9 Total Pgkzw694305/16/2020Interpersonal Safety Domain Source: IP Abuse ScreeningAnswerDate RecordedPhysical bsydgTzkwsc94/27/2024Verbal abuse Bmgfly3706/03/2024Emotional fhsbrXfqdic56/27/2024Financial ytdczYvlptw12/27/2024 Sexual rfnkfZlqidn71/27/2024CommentsNoSex and Gender InformationValue Date RecordedSex Assigned at BirthNot on fileLegal LeqTavgfv16/10/2013 1:18 PM ESTGender IdentityNot on fileSexual OrientationNot on file Last Filed Vital Signs Vital SignReadingTime TakenCommentsBlood Azpddqdx870/7606/03/2024 10:41 AM EST Vmsea805706/03/2024 9:02 AM WGHFhajngjwglf05.1 ??C (98.7 ??F)06/03/2024 9:02 AM ESTRespiratory Rvnx378608/03/2023 9:02 AM ESTOxygen Mjubfiiabm53%06/03/2024 10:41 AM ESTInhaled Oxygen Concentration--Xrcbgg86.7 kg (171 lb 6.4 oz)06/03/2024 9:02 AM ONDNuyadi031.2 cm (5' 7 )06/03/2024 9:02 AM ESTBody Mass Index26.8506/03/2024 9:02 AM EST Plan of Treatment Health MaintenanceDue DateLast DoneCommentsDepression Yjibwmetia18/16/2008 Varicella vaccine (1 of 2 - 13+ 2-dose series)10/21/2008Hepatitis C screen 10/21/2013Hepatitis B vaccine (1 of 3 - 19+ 3-dose series)10/21/2014Pneumococcal 0-49 years Vaccine (1 of 2 - PCV)10/21/2014Pap smearFlu vaccine (#1)COVID-19 Vaccine (1 - season)2025 DTaP/Tdap/Td vaccine (2 - Td or Tdap)HIV screenCompleted 10/18/2015HPV vaccine (No Doses Required)CompletedHepatitis A vaccineAged OutNo longer eligible based on patient's age to complete this topicHib vaccineAged Out No longer eligible based on patient's age to complete this topicMeningococcal (ACWY) vaccineAged OutNo longer eligible based on patient's age to complete this topicMeningococcal B vaccineAged OutNo longer eligible based on patient's age to complete this topicPolio vaccineAged OutNo longer eligible based on patient's age to complete this topic Procedures Procedure NamePriorityDate/TimeAssociated DiagnosisCommentsHM PAP SMEARRoutine 06/27/2017HIV SEBQROJidnwzm23/12/2016from Last 3 Months or Most Recently Relevant to Health Maintenance Results * HM PAP SMEAR (06/27/2017) Narrative Authorizing ProviderResult TypeResult StatusHistorical Provider MDHEALTH MAINTENANCEFinal Result * HIV Screen (10/18/2015)Specimen (Source)Anatomical Location / Laterality Collection Method / VolumeCollection TimeReceived TimeBLOOD SPECIMEN / Unknown Narrative Authorizing ProviderResult TypeResult StatusHistorical Provider MDIMMUNOLOGY ORDERABLESFinal Result from Last 3 Months or Most Recently Relevant to Health Maintenance Insurance Care Teams Team MemberRelationshipSpecialtyStart DateEnd Date Nadir Valenzuela MD [address] [place] [address] [place] [address] PCP - GeneralFamily Qhzquuda72/27/24
--- OUTSIDE RECORDS SUMMARY | 2025-04-27 15:45 | XMS_ITS | Encounter Summary ---
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 Name Role Phone Unavailable Primary Care Provider Unavailabl e Encounter Details DateTypeDepartmentCare Team (Latest Contact Info)Cccsadzrpae96/21/2025amboo flowsheet GEOVANNY MINA [address] [place] [address] Michael Chavez DO [address], [facility] Social History Tobacco UseTypesPacks/DayYears UsedDateSmoking Tobacco: NeverSmokeless Tobacco: NeverAlcohol UseStandard Drinks/WeekCommentsNever0 (1 standard drink = 0.6 oz pure alcohol)CommentsNoSex and Gender InformationValueDate RecordedSex Assigned at BirthNot on fileLegal PjeVajwxz45/15/2023 11:47 PM EDTGender IdentityNot on fileSexual OrientationNot on filedocumented as of this encounter Plan of Treatment DateTypeDepartmentCare Team (Latest Contact Info)Nfzkhzgauqq71/17/2025 2:30 PM ESTAncillary Procedure NOMRoseanna MINA [address] [place] [address] documented as of this encounter Visit Diagnoses Not on filedocumented in this encounter
--- OUTSIDE RECORDS SUMMARY | 2025-04-27 15:53 | XMS_ITS | CCD ---
Author Organization [facility] Care Team Providers Care Qualifications Examiner Name Role Phone Back, Adi Unavailable BACK, ADI Unavailable Unavailable DAVID HURT Unavailable Unavail able BACK, ADI Unavailable Unavailable BACK, ADI Unavailable Unavailable DAVID HURT Unavailable Unavail able BACK, ADI Unavailable Unavailable LEEDAVID RIVAS Unavailable Unavail able BACK, ADI Unavailable Unavailable LEESONDAVID Unavailable Unavail able BACK, ADI Unavailable Unavailable LeesonDavid C Unavailable Unavailable LeesonDavid C Unavailable Unavailable LeesonDavid C Unavailable Unavailable Leeson David C Unavailable Unavailable Back, Bill Primary Care Provider [phone] MITCHEL [place] Attending Unavailable Back, Adi Primary Care Provider [phone] Lily CARRILLO Primary Care Physician DR MICHAEL CHAVEZ Attending Unavailable DR MICHAEL CHAVEZ Admitting Unavailable DR MICHAEL CHAVEZ Consulting Unavailable DR MICHAEL CHAVEZ Attending Unavailable DR MICHAEL CHAVEZ Admitting Unavailable Seth HOROWITZ Primary Care Physician [phone] Kristyn Kowalski Primary Care Physician NONE, XXXX Primary Care Physician Unavailab le Unavailable Primary Care Provider Dino Brennan MD Primary Care Provider CALOS SALEEM Attending Unavailable DINO ZHENG Primary Care Unavailable RAMIN ESTRELLA Attending Unavailable Sarmini, Jay Talal Admitting Unavaila ble Sarmini, Misty Talal Attending Unavaila ble Sarmini, Misty Talal Referring Unavaila ble Sarmini, Misty Talal Attending Unavaila ble Sarmini, Misty Talal Referring Unavaila ble Unavailable Primary Care Provider Unavailabl e Sarmini, Misty Talal Admitting Unavaila ble Sarmini, Misty Talal Attending Unavaila ble Sarmini, Misty Talal Attending Unavaila ble Toward, Aron E Attending Unavailable Sarmini, Misty Talal Admitting Unavaila ble Sarmini, Misty Talal Attending Unavaila ble Sarmini, Misty Talal Attending Unavaila ble ITZ, SUZANNA Attending Unavailable SCOTT, MICHAEL Attending Unavailable SCOTT, MICHAEL Attending Unavailable ITZ, SUZANNA Attending Unavailable ITZ, SUZANNA Attending Unavailable ITZ, SUZANNA Attending Unavailable ITZ, SUZANNA Attending Unavailable Saji Sierra Attending Unavailab le Saji Sierra Admitting Unavailab le NON STAFF Primary Care Unavailable Allergies Allergy ClassificationReported Allergen(s)Allergy TypeDate of OnsetReaction(s) Facility (16 sources)fluticasone; Translations: [FLUTICASONE PROPIONATE]Propensity to adverse reactions to uuar97-04-4787Jdswo (See Comments)[facility] (20 sources)sulfamethoxazole / trimethoprim; Translations: [SULFAMETHOXAZOLE-TRIMETHOPRIM]Propensity to adverse reactions to mbib76-61-1254 UnknownOhioHealth (4 sources)sulfaSALAzine; Translations: [SULFASALAZINE]Propensity to adverse reactions to spia21-98-2249DzxoCpamPhjxdr (20 sources)traMADol; Translations: [TRAMADOL]Propensity to adverse reactions to uygq88-68-6132XhinjyeHpltKrlqnm (6 sources)Sulfonamides (Antibiotic)Propensity to adverse reactions to drug 37-29-2226QseiFpayDoctors Hospitals [facility] Work Phone: (9 sources)redtop grass pollen extractDrug Ylneeud82-39-9956JdaujHwruj Health- [place], [place] (6 sources)Coconut FlavorPropensity to adverse reactions to pedu83-71-7808MgsarNew [place], [place] (18 sources)Adhesive Tape; Translations: [Tape]Drug allergyEruption of skin (disorder)[facility] [place] (18 sources)Bee/Wasp/Ant venom; Translations: [Bee Stings]Drug allergySwelling (finding)[facility] [place] (18 sources)Sulfonamides (Antibiotic); Translations: [sulfa drugs]Drug allergy [facility] (20 sources)fluticasoneDrug Zaxbtoq95-54-8605BpvvbuxJSLI Healthcare (20 sources)SulfasalazinePropensity to adverse -36-3378UdkzFWTQ Healthcare (20 sources)Sulfonamides (Antibiotic)Drug Vqellkf99-59-3239ErvpmirTrinity Health (20 sources)CocamidePropensity to adverse fbwzycdkp73-06-4611QqojzpaZXDH Healthcare (2 sources)bee venomPropensity to adverse reactions to taak44-98-5101RpgaokrpTIJCentra Southside Community Hospital (2 sources)Silicone adhesive tapePropensity to adverse reactions to drug 10-07-7873ZfqtZigMary Washington [facility] (4 sources)Sulfamethoxazole / Trimethoprim; Translations: [Bactrim]Drug Allergy [facility] (4 sources)traMADol; Translations: [Ultram]Drug [facility]ergyUniversity [facility]als [facility] (3 sources)Honey bee venomPropensity to adverse wqioiohtq74-04-2542GloukbumVJRQ Healthcare (3 sources)Coconut Flavoring Agent (Non-Screening)Propensity to adverse cyeaytoma25-99-0018XzvobOPXO Healthcare (3 sources)Wound Dressing AdhesivePropensity to adverse -69-8919Mozm [facility] Medications Current Medications MedicationDrug Class(es)DatesSig (Normalized)Sig (Original)acetaminophen 500 mg oral tablet (9 sources)take 2 tablets by mouth every four hours as needed for pain acetaminophen (Tylenol) 500 MG tablet Take 1,000 mg by mouth every 4 (four) hours if needed for mild pain Activeacetaminophen 325 mg / HYDROcodone bitartrate 5 mg oral tablet (1 source)Opioid AgonistStart: 14-27-7478hnts 1 tablet by mouth every six hours as needed for painHYDROcodone-acetaminophen (NORCO) 5-325 MG per tablet TAKE 1 TABLET BY MOUTH EVERY 6 HOURS NEEDED FOR PAIN 0 08/16/2019 [id number] 200 actuat albuterol 0.09 mg/actuat metered dose inhaler (9 sources)beta2-Adrenergic AgonistStart: 63-28-0032ivfw 2 puff(s) by inhalation every six hours as needed for wheezingalbuterol sulfate HFA (PROVENTIL HFA) 108 (90 Base) MCG/ACT inhaler Indications: Mild intermittent asthma without complication Inhale 2 puffs into the lungs every 6 hours as needed for Wheezing 1 Inhaler 5 03/21/2020 ActiveStart: 82-36-3967gacp 2 puff(s) by inhalation every six hours as needed for wheezingalbuterol sulfate HFA (PROVENTIL HFA) 108 (90 Base) MCG/ACT inhaler Indications: Mild intermittent asthma without complication Inhale 2 puffs into the lungs every 6 hours as needed for Wheezing 1 Inhaler 5 03/21/2020 ActiveStart: 26-44-7210qgshpdhqy 90 mcg/actuation inhaler Inhale. 07/15/2017 Activeamoxicillin 875 mg / clavulanate 125 mg oral tablet (1 source)Penicillin-class AntibacterialStart: 08-22-2022 End: 62-32-0895pmwu 1 tablet by mouth every twelve hoursAugmentin 875 mg oral tablet = 1 tab(s), Oral, q12hr, X 7 day(s), # 14 tab(s), Refills(s) 0, Pharmacy: [facility]16, 170, cm, 08/22/22 11:34:00 EST, Height/Length Dosing, 84.5, kg, 08/22/22 11:34:00 EST, Weight Dosing Start Date: 08/22/22 Stop Date: 08/29/22 Status: OrderedARIPiprazole 15 mg oral tablet (4 sources)Atypical AntipsychoticStart: 41-46-6656oxxb 1 tablet by mouth once dailyaripiprazole 15 mg Tab 15 mg = 1 tab(s), Oral, Daily, # 30 tab(s), Refills(s) 2, Pharmacy: [facility] #16, 170, cm, 10/11/21 10:48:00 EDT, Height/Length Dosing, 77, kg, 10/11/21 10:48:00 EDT, Weight Dosing Start Date: 10/11/21 Status: Orderedbrompheniramine maleate 0.4 mg/ml / dextromethorphan hydrobromide 2 mg/ml / pseudoephedrine hydrochloride 6 mg/ml oral solution (1 source)alpha-Adrenergic Agonist, Uncompetitive I-imieuz-Y-aspartate Receptor Antagonist, Sigma-1 AgonistStart: 90-79-4860pwjk 5 mL by mouth four times daily for cough and congestionBromfed DM oral syrup 5 mL, Oral, QID for cough and congestion, 200 mL, Refill(s) 0, [facility] #16, 170, cm, 01/01/23 15:34:00 EDT, Height/Length Dosing, 80.6, kg, 01/01/23 15:34:00 EDT,Weight Dosing Start Date: 01/01/23 Status: Xckiikh54 actuat budesonide 0.16 mg/actuat / formoterol fumarate 0.0045 mg/actuat metered dose inhaler (9 sources)Corticosteroid, beta2-Adrenergic AgonistStart: 79-85-1161wtfx 2 puff(s) by mouth twice dailybudesonide-formoterol (SYMBICORT) 160-4.5 MCG/ACT AERO Indications: Mild intermittent asthma without complication Inhale 2 puffs into the lungs 2 times daily Rinse mouth after use. 1 Inhaler 5 03/21/2020 ActiveStart: 44-40-0799hmynylphbn-formoterol (SYMBICORT) 160-4.5 mcg/actuation inhaler Inhale. 07/15/2017 Activebudesonide-formoterol 160 mcg-4.5 mcg/inh Inh Aer w/adapter (4 sources)Start: 55-11-4972phbwxhjwoy-formoterol 160 mcg-4.5 mcg/inh Inh Aer w/adapter 2 puff(s), Inhalation, BID, 1 EA, Refill(s) 2, rinse mouth and throat after use, [facility] #16, 170, cm, 05/10/21 11:43:00 EDT, Height/Length Dosing, 78.3, kg, 05/10/21 11:43:00 EDT, Weight Dosing Start Date: 05/10/21 Status: Orderedcetirizine hydrochloride 10 mg oral tablet (16 sources)Histamine-1 Receptor AntagonistStart: 20-14-2838bwww 1 tablet by mouth once dailycetirizine (ZyrTEC) 10 MG tablet Take 10 mg by mouth Daily 10/12/2024 ActiveStart: 80-61-3519kwnl 1 tablet by mouth once dailycetirizine 10 mg Tab 10 mg = 1 tab(s), Oral, Daily, # 30 tab(s), Refills(s) 2, Pharmacy: [facility] #16, 170, cm, 05/10/21 11:43:00 EDT, Height/Length Dosing, 78.3, kg, 05/10/21 11:43:00 EDT, Weight Dosing Start Date: 05/10/21 Status: OrderedStart: 66-20-5011uabwvrhgwp (ZYRTEC) 10 MG tablet Take 10 mg by mouth. 07/15/2017 Activeciprofloxacin 500 mg oral tablet (2 sources)Quinolone AntimicrobialStart: 03-02-2024 End: 63-81-0955rcdl 1 tablet by mouth in the morningciprofloxacin (Cipro) 500 MG tablet Indications: Urinary Tract Infection Take 1 tablet (500 mg) by mouth in the morning and 1 tablet (500 mg) before bedtime. Do all this for 7 days. 14 tablet 03/02/2024 03/09/2024 Activecoenzyme q10 200 mg oral capsule (1 source)Start: 38-22-8548pifa 1 capsule by mouth once dailyCoenzyme Q10 200 MG CAPS Indications: Migraine with aura and without status migrainosus, not intractable Take 1 capsule by mouth daily 30 capsule 5 09/02/2018 Active cyclobenzaprine hydrochloride 10 mg oral tablet (3 sources)Muscle RelaxantStart: 52-39-9051kwegifszeceuwmi (FLEXERIL) 10 MG tabletdicyclomine hydrochloride 20 mg oral tablet (4 sources)AnticholinergicStart: 94-69-0043lmjaapwysmo (Bentyl) 20 MG tablet Take 20 mg by mouth 06/03/2024 Lipkcxctw855797 0.3 ml EPINEPHrine 1 mg/ml auto-injector (14 sources)alpha-Adrenergic Agonist, beta-Adrenergic Agonist, Catecholamine Start: 23-83-8278StkKyc 2-Laci 0.3 mg injectable kit 0.3 mg = 1 EA, IntraMuscular, As Directed, PRN Anaphylaxis, # 1 EA, Refills(s) 0, Pharmacy: [facility] #16, 170, cm, 01/13/21 13:18:00 EDT, Height/Length Dosing, 75.8, kg, 01/13/21 13:18:00 EDT, Weight Dosing Start Date: 01/13/21 Status: OrderedStart: 21-54-7327QpcWub 2-Laci 0.3 mg injectable kit 0.3 mg = 1 EA, IntraMuscular, As Directed, PRN Anaphylaxis, # 1 EA, Refills(s) 0, Pharmacy: [facility] #16, 170, cm, 01/13/21 13:18:00 EDT, Height/Length Dosing, 75.8, kg, 01/13/21 13:18:00 EDT, Weight Dosing Start Date: 01/13/21 Status: Orderedethinyl estradiol 0.035 mg / norgestimate 0.25 mg oral tablet (1 source)Progestin, EstrogenStart: 89-16-9440ygsf 1 tablet by mouth once daily norgestimate-ethinyl estradiol (ORTHO-CYCLEN, 28,) 0.25-35 MG-MCG per tablet Indications: Ruptured ovarian cyst Take 1 tablet by mouth daily 1 packet 3 08/18/2019 Activeetonogestrel 68 mg drug implant (1 source)Progestinetonogestrel (NEXPLANON) 68 MG implant 68 mg by Subdermal route once 0 Activefamotidine 20 mg oral tablet (5 sources)Histamine-2 Receptor AntagonistStart: 03-28-2024 End: 73-57-5869ncwfpnwpog (Pepcid) 20 MG tablet Take 20 mg by mouth 03/28/2024 ActiveFLUoxetine 40 mg oral capsule (3 sources)Serotonin Reuptake InhibitorStart: 13-59-5019JMPuhskpcd (PROZAC) 40 MG capsule Take 40 mg by mouth. 10/08/2017 Activefluticasone propionate 0.05 mg/actuat metered dose nasal spray (9 sources)CorticosteroidStart: 52-42-4919lbjniwacewv (Flonase) 50 MCG/ACT nasal spray use 2 (TWO) sprays in each nsotril DAILY 10/12/2024 ActiveStart: 30-35-8065vpkluziexta topical 0.05% cream 1 natalia, Topical, BID, 30 gram, Refill(s) 2, [facility] #16, 170, cm, 10/11/21 10:48:00 EDT, Height/Length Dosing, 77, kg, 10/11/21 10:48:00 EDT, Weight Dosing Start Date: 10/11/21 Status: OrderedStart: 46-61-6556rtprctbmgup topical 0.05% cream 1 natalia, Topical, BID, 30 gram, Refill(s) 2, [facility] #16, 170, cm, 10/11/21 10:48:00 EDT, Height/Length Dosing, 77, kg, 10/11/21 10:48:00 EDT, Weight Dosing Start Date: 10/11/21 Status: OrderedStart: 80-55-4980lxoaxbfgqyx 0.05 mg/inh Nasal [place] 2 spray(s), Nasal, Daily Congestion, 16 gram, Refill(s) 2, eachnostril, [facility] #16, 170, cm, 05/10/21 11:43:00 EDT, Height/Length Dosing, 78.3, kg, 05/10/21 11:43:00 EDT, Weight Dosing Start Date: 05/10/21 Status: Orderedfluticasone 0.05 mg/inh Nasal [place] (2 sources)Start: 47-43-4448ialckfturhj 0.05 mg/inh Nasal [place] 2 spray(s), Nasal, Daily Congestion, 16 gram, Refill(s) 2, eachnostril, [facility] #16, 170, cm, 05/10/21 11:43:00 EDT, Height/Length Dosing, 78.3, kg, 05/10/21 11:43:00 EDT, Weight Dosing Start Date: 05/10/21 Status: Ordered ibuprofen 800 mg oral tablet (19 sources)Nonsteroidal Anti-inflammatory DrugStart: 61-51-7501kuoq 1 tablet by mouth every eight hours as needed for painibuprofen (ADVIL;MOTRIN) 800 MG tablet TAKE 1 TABLET BY MOUTH EVERY 8 HOURS NEEDED FOR PAIN 09/03/2019 Active Start: 94-28-9923aiex 1 tablet by mouth every six hours at mealtimeMotrin 600 mg Tab 600 mg = 1 tab(s), Oral, q6hr, take with food, # 20 tab(s), Refills(s) 0, Pharmacy: [facility] Start Date: 04/20/16 Status: Orderedtake 1 tablet by mouth every six hours as needed for painibuprofen 200 MG tablet Take 200 mg by mouth every 6 (six) hours if needed for mild pain Activeketorolac tromethamine 10 mg oral tablet (5 sources)Nonsteroidal Anti-inflammatory Drug, Cyclooxygenase InhibitorStart: 43-49-2223rdsf 1 tablet by mouth three times daily as needed for painketorolac (Toradol) 10 MG tablet Indications: Abdominal pain, unspecified abdominal location Take 1tablet (10 mg) by mouth 3 (three) times a day as needed for moderate pain (Pain) for up to 15 doses15 tablet 06/03/2024 ActiveStart: 06-03-2024 End: 91-71-553571 mg, IntraVENous, ONCE, 1 dose, On Sat06/03/24 at 1015, Do not administer for more than 5 days.Magic Mouthwash (MIRACLE MOUTHWASH) (2 sources)Start: 35-82-0623Onhaq Mouthwash (MIRACLE MOUTHWASH) Indications: Anderson Duke virus infection Swish and spit 10 mLs4 times daily as needed for Irritation (throat pain.) 400 mL 1 06/16/2020 ActiveMagnesium (6 sources)Start: 89-18-3349evrr 1 tablet by mouth once daily in the evening Magnesium 500 MG TABS Indications: Migraine with aura and without status migrainosus, not intractable Take 1 tablet by mouth every evening 30 tablet 5 09/02/2018 Activemeloxicam 15 mg oral tablet (3 sources)Nonsteroidal Anti-inflammatory DrugStart: 97-35-0634xdzzgtxcr (MOBIC) 15 MG tablet Take 15 mg by mouth. 2017 Activemetoclopramide 10 mg oral tablet (9 sources)Dopamine-2 Receptor AntagonistStart: 05-13-2024 End: 99-59-1221cfkmvlisnvezrq (Reglan) 10 MG tablet Indications: Nausea Take 1 tablet (10 mg) by mouth in the morning and 1 tablet (10 mg) at noon and 1 tablet (10 mg) in the evening. Take before meals. Take 1 tablet by mouth 30 minutes prior to meals 3 times daily as needed for nausea.. 90 tablet 3 05/13/2024 Act ivemetroNIDAZOLE 500 mg oral tablet (2 sources)Nitroimidazole AntimicrobialStart: 03-02-2024 End: 76-72-7890irhw 1 tablet by mouth in the morningmetroNIDAZOLE (Flagyl) 500 MG tablet Indications: Pelvic pain Take 1 tablet (500 mg) by mouth in the morning and 1 tablet (500 mg) before bedtime. Do all this for 7 days. Do not drink alcohol while taking this medication. 14 tablet 03/02/2024 03/09/2024 Activemontelukast 10 mg oral tablet (15 sources)Leukotriene Receptor AntagonistStart: 17-82-2086shjp 1 tablet by mouth once daily in the eveningSingulair 10 mg Tab 10 mg = 1 tab(s), Oral, qPM, # 30 tab(s), Refills(s) 2, Pharmacy: [facility] #16, 170, cm, 05/10/21 11:43:00 EDT, Height/Length Dosing, 78.3, kg, 05/10/21 11:43:00 EDT, Weight Dosing Start Date: 05/10/21 Status: OrderedStart: 03-73-8212nyivgoqenjb (SINGULAIR) 10 mg tablet Take 10 mg by mouth. 09/12/2017 Activenitrofurantoin, macrocrystals 25 mg / nitrofurantoin, monohydrate 75 mg oral capsule (3 sources)Nitrofuran AntibacterialStart: 84-18-1744ytejdscxfvenfh, macrocrystal-monohydrate, (MACROBID) 100 MG capsuleolopatadine 1 mg/ml ophthalmic solution (7 sources)Histamine-1 Receptor InhibitorStart: 23-13-2133wipq 1 drop(s) into the eye(s) twice dailyolopatadine ophthalmic 0.1% solution 1 drop(s), Eye-Both, BID, 5 mL, Refill(s) 0 Start Date: 07/21/20 Status: OrderedStart: 18-72-9124lada 1 drop(s) into the eye(s) twice dailyolopatadine ophthalmic 0.1% solution 1 drop(s), Eye-Both, BID, 5 mL, Refill(s) 0 Start Date: 07/21/20 Status: Ordered Start: 05-16-2020 End: 16-34-8089kxkg 1 drop(s) into the eye(s) twice dailyolopatadine (PATANOL) 0.1 % ophthalmic solution Indications: Seasonal allergic rhinitis due to pollen Place 1 drop into both eyes 2 times daily 1 Bottle 1 05/16/2020 06/15/2020 Activeomeprazole 40 mg delayed release oral capsule (9 sources)Proton Pump InhibitorStart: 72-24-0107hiwc 1 capsule by mouth once dailyomeprazole (PriLOSEC) [address] capsule Take 40 mg by mouth Daily 06/10/2024 ActiveStart: 39-64-5376yaod 1 capsule by mouth once dailyomeprazole 20 mg Cap- DR 20 mg = 1 cap(s), Oral, Daily, # 30 cap(s), Refills(s) 2, Pharmacy: [facility]16, 170, cm, 07/04/22 15:41:00 EST, Height/Length Dosing, 84, kg, 07/04/22 15:41:00EST, Weight Dosing Start Date: 07/04/22 Status: Ordered pantoprazole 40 mg delayed release oral tablet (5 sources)Proton Pump InhibitorStart: 03-28-2024 End: 53-71-9316pcol 1 tablet by mouth before mealtimepantoprazole (ProtoNix) 40 MG EC tablet Take 40 mg by mouth in the morning. Take before meals. 03/28/2024 ActivepredniSONE 20 mg oral tablet (4 sources)CorticosteroidStart: 40-66-9905upxn 3 tablets by mouth once daily, then take 2 tablets by mouth once daily, then take 1 tablet by mouth once daily, then take 1 tablet by mouth once dailypredniSONE (Deltasone) 20 MG tablet TAKE 3 TABLETS BY MOUTH EVERY DAY FOR 2 DAYS, TAKE 2 TABLETS EVERY DAY FOR 2 DAYS, TAKE 1 TABLET EVERY DAY FOR 4 DAYS, then t1/2 TABLET EVERY DAY FOR 4 DAYS 10/12/2024 ActiveStart: 10-15-2017 End: 15-54-9534hucelmNJFY (DELTASONE) 20 MG tablet 3 tablets daily x 3 days then 2 tablets daily x 2 days then 1 tablet daily x 2 days. 10/15/2017 10/25/2017 ExpiredPrevifem 0.25 Mg-35 McG Tablet (3 sources)Start: 50-48-0997JWSPUTWV 0.25-35 mg-mcg per tabletprochlorperazine 10 mg oral tablet (4 sources)PhenothiazineStart: 06-10-2024 End: 52-92-0318qzhk 1 tablet by mouth three times dailyCompazine 10 mg oral tablet = 1 tab(s), Oral, TID, X 14 day(s), # 42 tab(s), Refills(s) 3 Start Date: 06/10/24 Stop Date: 08/05/24 Status: Orderedpromethazine hydrochloride 12.5 mg oral tablet (1 source)PhenothiazineStart: 15-79-6971tofi 1 tablet by mouth every four hours as needed for nauseapromethazine 12.5 mg oral tablet 12.5 mg = 1 tab(s), Oral, q4hr, PRN for nausea/vomiting, # 60 tab(s), Refills(s) 0, Pharmacy: [facility] #16, 170, cm, 01/01/23 15:34:00 EDT, Height/Length Dosing, 80.6, kg, 01/01/23 15:34:00 EDT, Weight Dosing Start Date: 01/01/23 Status: Ordered Pyrilamine 30 Mg-Dextromethorphan 30 Mg Tablet (3 sources)Start: 71-40-0970brurhoqqgs-dextromethorphan 30-30 mg Tab 1 tablet every 6 hours as needed. 2017 ActiveQUEtiapine 400 mg oral tablet (4 sources)Atypical AntipsychoticStart: 40-73-4883euve 1 tablet by mouth at bedtimeSeroquel 400 mg oral tablet 400 mg = 1 tab(s), Oral, Bedtime, # 30 tab(s), Refills(s) 2, Pharmacy: [facility] #16, 170, cm, 05/22/21 8:20:00 EST, Height/Length Dosing, 75.7, kg, 05/22/21 8:20:00 EST, Weight Dosing Start Date: 05/22/21 Status: OrderedraNITIdine 150 mg oral tablet (13 sources)Histamine-2 Receptor AntagonistStart: 17-40-1034bkhm 1 tablet by mouth once dailyranitidine (ZANTAC) 150 MG tablet Indications: Gastroesophageal reflux disease without esophagitis Take 1 tablet by mouth daily 30 tablet 5 09/12/2017 Activerimegepant 75 mg disintegrating oral tablet (14 sources)Start: 86-62-0669vhas 1 tablet by mouth once, then take 1 tablet by mouth every twenty-four hoursNurtec ODT 75 mg oral tablet, disintegrating 75 mg = 1 tab(s), Oral, Once, not to exceed 75 mg in 24 hours, # 1 tab(s), Refills(s) 0, Pharmacy: [facility]16, 170, cm, 07/04/22 15:41:00 EST, Height/Length Dosing, 84, kg, 07/04/22 15:41:00 EST, Weight Dosing Start Date: 07/04/22 Status:OrderedStart: 05-45-4505qyti 1 tablet by mouth once as needed for headacheNurtec ODT 75 mg oral tablet, disintegrating 75 mg = 1 tab(s), Oral, Once, PRN as needed for migraine headache, # 8 tab(s), Refills(s) 0, Pharmacy: [facility]16, 170, cm, 05/10/21 11:43:00 EDT, Height/Length Dosing, 78.3, kg, 05/10/21 11:43:00 EDT, Weight Dosing Start Date: 05/10/21 Sta tus: Orderedsertraline 100 mg oral tablet (6 sources)Serotonin Reuptake InhibitorStart: 96-09-1837zftu 1 tablet by mouth once dailysertraline (ZOLOFT) 100 MG tablet Indications: Depression with anxiety Take 1 tablet by mouth daily30 tablet 3 06/16/2020 ActiveStart: 20-23-3361zwhr 1 tablet by mouth once dailysertraline (ZOLOFT) 100 MG tablet Indications: Depression with anxiety Take 1 tablet by mouth daily30 tablet 3 05/16/2020 ActiveStart: 91-37-7030zycz 1 tablet by mouth once dailysertraline (ZOLOFT) 50 MG tablet Indications: Depression with anxiety Take 1 tablet by mouth daily 30 tablet 5 03/21/2020 ActiveSUMAtriptan 50 mg oral tablet (6 sources)Serotonin-1b and Serotonin-1d Receptor AgonistStart: 26-36-9554gmcg 1 tablet by mouth once as neededSUMAtriptan (IMITREX) 50 MG tablet Take 1 tablet by mouth once as needed for Migraine 9 tablet 3 03/21/2020 Active Completed/Discontinued Medications MedicationDrug Class(es)DatesSig (Normalized)Sig (Original)aluminum & magnesium hydroxide-simethicone (MAALOX) 30 mL, lidocaine viscous hcl (XYLOCAINE) 5 mL (GI COCKTAIL) (1 source)Start: 03-28-2024 End: 61-18-2983Hpjp, ONCE, On 03/28/24 at 0645, For 1 dose, Take 5 mL from lidocaine viscous 2% cup and mix with 30 mL of maalox and then administer.24 hr buPROPion hydrobromide 174 mg extended release oral tablet (6 sources)Aminoketone End: 81-13-4574heXQSCqxj HBr ER (Aplenzin) 174 MG tablet sustained-release 24 hour Aplenzin 03/02/2024 Discontinuedfamotidine (PEPCID) 20 mg in sodium chloride (PF) 0.9 % 10 mL injection (1 source)Start: 03-28-2024 End: 93-84-4437gqkf 10 mL intravenously once20 mg, IntraVENous, ONCE, 1 dose, On 03/28/24 at 0645, IV Push over minimum of 2 minutes - Dilute with 10 mL NS levonorgestrel 0.210848 mg/hr intrauterine system (20 sources)Progestin, Progestin-containing Intrauterine DeviceStart: 08-28-2023 End: 76-11-4163Ptfdpeejneqkpq intrauterine device 52 mgStart: 17-27-3029Uw[place]au 52 mg intrauteral device 52 mg = 1 EA, IntraUteral, Once, X 1 dose(s), # 1 EA, Refills(s) 0 Start Date: 07/21/20 Status: OrderedLevonorgestrel (Mirena, 52 MG,) 20 MCG/DAY intrauterine device as directed Intrauterine Activelevonorgestrel (MIRENA) IUD 52 mg 1 each by IntraUTERine route once Active2 ml ondansetron 2 mg/ml injection (20 sources)Serotonin-3 Receptor AntagonistStart: 06-03-2024 End: mg, IntraVENous, ONCE, 1 dose, On Sat06/03/24 at 1015Start: 05-13-2024 End: 19-00-0881fucy 1 tablet by mouth every eight hours as needed for nausea and vomiting and nausea and nauseaondansetron ODT (Zofran-ODT) 4 MG disintegrating tablet Indications: Nausea Take 1 tablet (4 mg) bymouth every 8 (eight) hours if needed for nausea or vomiting 20 tablet 2 05/13/2024 ActiveStart: 03-02-2024 End: 65-01-7334jkjn 1 tablet by mouth every six hours as needed for nausea and vomiting and nausea and nauseaondansetron ODT (Zofran-ODT) 4 MG disintegrating tablet Indications: Nausea Take 1 tablet (4 mg) bymouth every 6 (six) hours if needed for nausea or vomiting 30 tablet 2 03/10/2024 04/09/2024 ActiveStart: 68-96-4956lfzr 1 tablet by mouth every eight hours as needed for nausea ondansetron 4 mg Tab 4 mg = 1 tab(s), Oral, q8hr, PRN Nausea/Vomiting, # 30 tab(s), Refills(s) 0, Pharmacy: [facility]16, 170, cm, 07/04/22 15:41:00 EST, Height/Length Dosing, 84, kg, 07/04/22 15:41:00 EST, Weight Dosing Start Date: 07/04/22 Status: OrderedStart: 82-29-2092ntef 1 tablet by mouth every eight hours as needed for nauseaondansetron 4 mg Tab 4 mg = 1 tab(s), Oral, q8hr, PRN Nausea/Vomiting, # 30 tab(s), Refills(s) 2, Pharmacy: [facility], 170, cm, 10/11/21 10:48:00 EDT, Height/Length Dosing, 77, kg, 10/11/21 10:48:00 EDT, Weight Dosing Start Date: 10/11/21 Status: OrderedStart: 03-27-0348omos 1 tablet by mouth three times daily as needed for nausea ondansetron (ZOFRAN-ODT) 4 MG disintegrating tablet Indications: Non-intractable vomiting with nausea, unspecified vomiting type Take 1 tablet by mouth 3 times daily as needed for Nausea or Vomiting 21 tablet 05/23/2020 ActiveStart: 19-85-0555kpnj 1 tablet by mouth three times daily as needed for nausea ondansetron (ZOFRAN) 4 MG tablet Take 1 tablet by mouth 3 times daily as needed for Nausea or Vomiting 15 tablet 05/18/2020 ActiveStart: 45-03-3418egdx 1 tablet by mouth every eight hours as needed for nauseaondansetron (ZOFRAN) 4 MG tablet Indications: Nausea and vomiting, intractability of vomiting not specified, unspecified vomiting type Take 1 tablet by mouth every 8 hours as needed for Nausea or Vomiting 10 tablet 0 12/09/2017 Dxyrxe12 ml sodium chloride 9 mg/ml injection (1 source)Start: 06-03-2024 End: 27-44-9460seue 1 dose intravenously once1,000 mL (12.9 mL/kg), IntraVENous, at 1,000 mL/hr, Administer over 1 Hours, ONCE, On Sat06/03/24 at 1015, For 1 dose, For IV HydrationVentolin HFA 90 mcg/inh Aerosol (4 sources)Start: 62-96-0288ntvp 1 dose by inhalation four times dailyVentolin HFA 90 mcg/inh Aerosol 2 puff(s), Inhalation, QID Cough, 1 EA, Refill(s) 0, [facility], 170, cm, 05/10/21 11:43:00 EDT, Height/Length Dosing, 78.3, kg, 05/10/21 11:43:00 EDT,Weight Dosing Start Date: 05/10/21 Status: Ordered{2 (magnesium sulfate 900 MG / polyethylene glycol 3350 274935 MG / potassium chloride 1120 MG / sodium chloride 500 MG / sodium sulfate 7300 MG Powder for Oral Solution) } Pack [Suflave] (4 sources)Start: 41-47-0858Wlabpfl oral powder for reconstitution kit See Instructions, 1 EA, Refill(s) 0, follow physician instructions prior to procedure, [facility], 170, cm, 06/10/24 9:30:00 EST, Height/Length Dosing, 80, kg, 06/10/24 9:30:00 EST, Weight Dosing Start Date: 06/10/24 Status: Ordered Problems Active Problems Problem ClassificationProblemDateDocumented DateEpisodic/ChronicAbdominal pain (20 sources)Right lower quadrant pain; Translations: [Right upper quadrant pain] Onset: 751462-89-7939IzwfayrsKzijxzen reactions (15 sources)Eczema; Translations: [Dermatitis, unspecified]Onset: 10-11-2021 EpisodicAnxiety disorders (20 sources)Mixed anxiety and depressive disorder; Translations: [Generalized anxiety disorder]Onset: 712208-41-0797DrrepjkSkgmut (20 sources)Asthma; Translations: [Acute exacerbation of asthma]Onset: 07-17-2012 Resolved: 498133-58-6195ExfrhfkRyjdwjp tract disease (2 sources)Biliary colic; Translations: [Calculus of bile duct without cholangitis or cholecystitis without obstruction]Onset: EpisodicConditions associated with dizziness or vertigo (1 source)Vtdhrbsex95-04-6017HoptgqxgLtbudljsjfspf and procreative management (2 sources)Patient encounter status; Translations: [Encounter for removal of intrauterine contraceptive device]16-46-3301OyxxciccAurpamapas disorders (6 sources)Gastroesophageal reflux disease; Translations: [Gastro-esophageal reflux disease without esophagitis]Onset: 629641-93-8779HehuriaWoemhzkff and duodenitis (2 sources)Acute gastritis without bleeding; Translations: [Acute gastritis] Onset: 184088-11-1699GgufnyefPrwouesd; including migraine (15 sources)Migraine; Translations: [Refractory migraine without aura]Onset: 194791-72-3918CchjskkZjagyal and fatigue (1 source)Fatigue; Translations: [Fatigue, unspecified type]EpisodicMenstrual disorders (14 sources)Hyxzewgxyq91-32-5039CxtgkdlKvcb disorders (16 sources)Bipolar affective disorder, current episode mixed; Translations: [Bipolar disorder, current episodemixed, unspecified]Onset: 62-52-0007Anbqcsx Nausea and vomiting (20 sources)Nausea and vomiting; Translations: [Nausea with vomiting, unspecified]Onset: 65-97-3727JwqmvyniFwayeacsrri chest pain (3 sources)Chest pain; Translations: [Chest pain, unspecified]Onset: 08-01-2018 EpisodicOther connective tissue disease (4 sources)Bursopathy, unspecified; Translations: [Unspecified disorder of synovium and tendon, unspecified shoulder]Onset: 71-41-6160XlfsuiunRwqya endocrine disorders (9 sources)Hypoglycemia; Translations: [Hypoglycemia, unspecified]Onset: 32-44-8889SjchuczSfbgx gastrointestinal disorders (1 source)Diarrhea; Translations: [Diarrhea, unspecified]Onset: 06-10-2024 EpisodicOther infections; including parasitic (1 source)History of glandular fever; Translations: [History of mononucleosis] EpisodicOther liver diseases (1 source)Elevated liver enzymes wotnq47-42-9025XuazvcmwCbpmd nervous system disorders (9 sources)Tremor; Translations: [Tremor, unspecified]Onset: 90-07-4594Fnxvogqh Other nutritional; endocrine; and metabolic disorders (14 sources)Body mass index 25-29 - -81-0029UejwufvsKcfeu nutritional; endocrine; and metabolic disorders (16 sources)Overweight; Translations: [Overweight]Onset: EpisodicOther nutritional; endocrine; and metabolic disorders (3 sources)Overweight in adulthood with body mass index of 25 or more but less than 30; Translations: [Body mass index (BMI) 29.0-29.9, adult]Onset: 08-22-2022 EpisodicOther screening for suspected conditions (not mental disorders or infectious disease) (4 sources)Encounter for screening for malignant neoplasm of cervix; Translations: [ENC SCREENING MALIG NEOPLASM CERV]Onset: 89-55-9874ProehvabVvrmj upper respiratory disease (6 sources)Allergic rhinitis due to pollen; Translations: [Allergic rhinitis due to pollen]Onset: 696880-94-7512AmmcjwsZvvsj upper respiratory disease (15 sources)Seasonal allergic rhinitis; Translations: [Other seasonal allergic rhinitis]Onset: 715578-91-4193OdmwbwrUrstr upper respiratory infections (18 sources)Viral upper respiratory tract infection; Translations: [Acute upper respiratory infection]Onset: 80-80-7842MtagskwtPkrojfbo codes; unclassified (1 source)Other general symptoms and signs; Translations: [Other general symptoms and signs]Onset: 69-02-4307TfifovroWqmzgyvdipdv (11 sources)Patient encounter status; Translations: [Screening cholesterol level]25-24-6578Ezowozumzvgl (14 sources)Grieving process stage - -18-3888Doykd infection (1 source)Viral disease; Translations: [Viral infection, unspecified]Onset: 40-74-1905Pzwyuaes Past or Other Problems Problem ClassificationProblemDateDocumented DateEpisodic/ChronicImmunizations and screening for infectious disease (4 sources)Contact with and (suspected) exposure to other viral communicable diseases; Translations: [Encounter for screening for human papillomavirus (HPV)] Onset: 954072-15-4435HzdrfavwOcbrj non-traumatic joint disorders (9 sources)Disorder of shoulder; Translations: [Bursitis/tendonitis, shoulder] Onset: 204922-86-1623TquwupfnGywecst cyst (2 sources)Complex ovarian cyst; Translations: [Other ovarian cyst, unspecified side]04-54-6355KgekpousPxqezjo and strains (11 sources)Shoulder strain; Translations: [Strain of unspecified muscle, fascia and tendon at shoulder and upper arm level, right arm, initial encounter]Onset: 222641-99-1781MvmlhrfiDilcxvpgzfef (14 sources)PregnancyOnset: 10-07-2015 Resolved: 312543-33-2266Nulkuks tract infections (2 sources)Urinary tract infectious disease; Translations: [Urinary tract infection, site not specified]52-40-8991Wsgiqdqv Results Test NameValueInterpretationReference RangeFacilityIUD Removalon 49-64-3536TcspvShanique Solano LPN 12/09/2024 11:14 AM IUD Removal Date/Time: 12/08/2024 1:55 PM Performed by: Michael Chavez DO Authorized by: Michael Chavez DO Consent: Consent obtained: Written Consent given by: Patient Procedure risks and benefits discussed: yes Patient questions answered: yes Patient agrees, verbalizes understanding, and wants to proceed: yes Educational handouts given: yes Instructions and paperwork completed: yes [place] protocol: Patient states understanding of procedure being performed: yes Relevant documents present and verified: yes Test results available and properly labeled: yes Imaging studies available: yes Required blood products, implants, devices, and special equipment available: yes Site marked: yes Procedure: Removed with no complications: yes Removal due to mechanical complications of IUD: no Removal due to infection and inflammatory reaction: no Comments: IUD Removal: Patient presents today for removal of IUD. Written consent was obtained and patient was placed in dorsal lithotomy position with feet in stirrups. A sterile speculum was inserted into the vagina and the cervix was visualized. The IUD strings were grasped gently with forceps and the IUD was removed in its entirety without difficulty. The IUD was shown to the patient then properly discarded. Pt desires a hormone holiday for 3 months- discussed all options with pt- considering a bilateral salpingectomy and endometrial abaltion. Pt had a very traumatic eight years ago. Follow Up: Patient is to return to the office for annual exam unless needed otherwiseWake Forest Baptist Health Davie HospitalALL CBC WITH AUTO DIFFon 46-18-9199WCGRYKILI ABSOLUTE AUTO0.1NOMS HealthcareBasophils/100 WBC (Bld)0.8 %0.2 - 2.0 %[facility] Eosinophils/100 WBC (Bld)1.3 %0.9 - 7.0 %[facility]woodErythrocyte distribution width (RBC) [Ratio]12.5 %11.0 - 15.0 %NOM HealthcareHematocrit (Bld) [Volume fraction]43.1 %36.0 - 48.0 %[facility] KirkwoodHemoglobin (Bld) [Mass/Vol]14.5 g/dL 12.0 - 16.0 g/dLSaint Joseph Hospital of KirkwoodIMMATURE GRANULOCYTES ABS AUTO0.03N[facility]S [facility] Immature granulocytes/100 WBC (Bld)0.3 %0.0 - 0.5 %NOMSaint John'S Breech Regional Medical CenterLYMPHOCYTES ABSOLUTE AUTO2.4NOMS [facility] HospitalLymphocytes/100 WBC (Bld)27.2 %20.5 - 60.0 %[facility] CenterH (RBC) [Entitic mass]31.5 pg26.7 - 34.0 pgNOMercy hospital springfieldHC (RBC) [Mass/Vol]33.6 g/dL29.9 - 35.2 g/dLNOMS HealthcareMCV (RBC) [Entitic vol]93.5 fL 81.0 - 99.0 fLNOMS HealthcareMONOCYTES ABSOLUTE AUTO0.6[facility] Monocytes/100 WBC (Bld)6.4 %1.7 - 12.0 %[facility]OM[facility] HealthcareNEUTROPHILS ABSOLUTE AUTO 5.5NOMS HealthcareNeutrophils/100 WBC (Bld)64 %43.0 - 75.0 %[facility] Platelet mean volume (Bld) [Entitic vol]11.3 fL9.5 - 13.5 fLNOMS HealthcareTBH EO #0.1NOMS HealthcareTBH [id number] HealthcareTBH RBC4.61NOMS HealthcareTBH WBC 8.6NOMS HealthcareCLINISYNCNOMS HealthcareUS PELVIS W/ TRANSVAGINALon 12-02-2024 [place] [address] Ultrasound Report Signed Patient: SNEHAL LIZAMA MR#: [id number] : 1995 Acct:[id number] Age/Sex: 29 / F ADM Date: 12/02/24 Loc: US Attending Dr: Suzanna Mobley Ordering Physician: Suzanna Mobley Date of Service: 12/02/24 Procedure(s): US pelvis w/ transvaginal Accession Number(s): [id number] cc: Suzanna Mobley; Dino Zheng M.D. [place] [id number] Patient Name: SNEHAL LIZAMA MRN: [id number] date: 1995 Sex: F Assigned Patient Location: US Current Patient Location: US Accession/Order Number: [id number] Exam Date: 12/02/2024 10:09 Report Date: 12/02/2024 10:14 At the request of: SUZANNA MOBLEY Procedure: US pelvis w/ transvaginal ULTRASOUND PELVIS WITH TRANSVAGINAL IMAGING CLINICAL DATA: Dyspareunia and pelvic pain since IUD placement. COMPARISON: 02/26/2024 Real-time ultrasound evaluation the pelvis was performed utilizing both a transabdominal and transvaginal approach. TRANSABDOMINAL: The uterus is retroverted. Estimated size is approximately 7.2 x 4.1 x 3.8 cm. No focal myometrial abnormalities are noted. The endometrial lining is not well demonstrated. The ovaries are not seen. TRANSVAGINAL: Transvaginal scans were performed to better evaluate the uterus and adnexa. By this approach the uterus is retroverted. No focal myometrial abnormalities are identified. The endometrial lining measures 2 mm in thickness. The IUD is identified in appropriate position. Both ovaries are visualized. The left measures 2.6 x 1.8 x 2.6 cm. The right ovary measures 4.3 x 2.0 x 2.5 cm. Small follicles are present bilaterally. There are no dominant adnexal cysts. There is documentation of ovarian blood flow. Prominent vessels are again seen within the adnexal region bilaterally which could indicate pelvic congestion syndrome. There is no ascites. US/US pelvis w/ transvaginal IMPRESSION: IUD IN APPROPRIATE POSITION. NO DOMINANT ADNEXAL CYSTS. CONTINUED PROMINENT PELVIC VESSELS SUGGESTING THE POSSIBILITY OF PELVIC CONGESTION SYNDROME. Impression dictated by: Shanique Greene M.D. 12/02/2024 10:14 AM Dictation Location: [place] [address] Electronically authenticated by: [id number] Y Date: 12/02/2024 10:14 Dictated By: Shanique Greene M.D. Signed By: 12/02/24 1017 DD/ 1014 TD/TT: Messenger Copy:KASEYHRadiology, Radiologist, - 12/02/2024 [place] [address] Ultrasound Report Signed Patient: SNEHAL LIZAMA MR#: [id number] : 1995 Acct:[id number] Age/Sex: 29 / F ADM Date: 12/02/24 Loc: US Attending Dr: Suzanna Mobley Ordering Physician: Suzanna Mobley Date of Service: 12/02/24 Procedure(s): US pelvis w/ transvaginal Accession Number(s): [id number] cc: Suzanna Mobley; Dino Zheng M.D. The [address] [address] Patient Name: SNEHAL LIZAMA MRN: [facility]:[id number] date: 1995 Sex: F Assigned Patient Location: Current Patient Location: US Accession/Order Number: [id number] Exam Date: 12/02/2024 10:09 Report Date: 12/02/2024 10:14 At the request of: SUZANNA MOBLEY Procedure: US pelvis w/ transvaginal ULTRASOUND PELVIS WITH TRANSVAGINAL IMAGING CLINICAL DATA: Dyspareunia and pelvic pain since IUD placement. COMPARISON: 02/26/2024 Real-time ultrasound evaluation the pelvis was performed utilizing both a transabdominal and transvaginal approach. TRANSABDOMINAL: The uterus is retroverted. Estimated size is approximately 7.2 x 4.1 x 3.8 cm. No focal myometrial abnormalities are noted. The endometrial lining is not well demonstrated. The ovaries are not seen. TRANSVAGINAL: Transvaginal scans were performed to better evaluate the uterus and adnexa. By this approach the uterus is retroverted. No focal myometrial abnormalities are identified. The endometrial lining measures 2 mm in thickness. The IUD is identified in appropriate position. Both ovaries are visualized. The left measures 2.6 x 1.8 x 2.6 cm. The right ovary measures 4.3 x 2.0 x 2.5 cm. Small follicles are present bilaterally. There are no dominant adnexal cysts. There is documentation of ovarian blood flow. Prominent vessels are again seen within the adnexal region bilaterally which could indicate pelvic congestion syndrome. There is no ascites. US/US pelvis w/ transvaginal IMPRESSION: IUD IN APPROPRIATE POSITION. NO DOMINANT ADNEXAL CYSTS. CONTINUED PROMINENT PELVIC VESSELS SUGGESTING THE POSSIBILITY OF PELVIC CONGESTION SYNDROME. Impression dictated by: Shanique Greene M.D. 12/02/2024 10:14 AM Dictation Location: [place] [address] Electronically authenticated by: [id number] Y Date: 12/02/2024 10:14 Dictated By: Shanique Greene M.D. Signed By: 12/02/24 1017 DD/ 1014 TD/TT: Messenger Copy: GEOVANNY HealthcareRadiology Study observation (narrative)[facility] Healthcare PELVIS W/ TRANSVAGINALOrdered By: Radiologist Radiology on 80-42-1509RMXKSaint Joseph Hospital [facility]wood Work Phone: ambulatory Visit Summaryon 35-97-7464Yrfwnrzdcr Visit SummaryAmbulatory Visit Summary SNEHAL LIZAMA :1995 Visit Date:07/21/2020 Ambulatory Visit Instructions Your Care Team Primary Care Physician - NONE, XXXX This Is Your Medications List cetirizine (cetirizine 10 mg Tab) epinephrine (EpiPen 2-Laci 0.3 mg injectable kit) fluticasone nasal (Flonase 0.05 mg/inh [place]) levonorgestrel (Mirena 52 mg intrauteral device) omeprazole (omeprazole 40 mg Cap-DR) polyethylene glycol 3350 with electrolytes (Suflave oral powder for reconstitution kit) predniSONE (predniSONE 20 mg Tab) rimegepant (Nurtec ODT 75 mg oral tablet, disintegrating) [Image Removed: STOP]Stop taking these medications albuterol (Albuterol (Eqv-ProAir HFA) 90 mcg/inh inhalation aerosol) ibuprofen (Motrin 600 mg Tab) olopatadine ophthalmic (olopatadine ophthalmic 0.1% solution) ondansetron (Zofran 4 mg Tab) ranitidine (Zantac) sertraline (sertraline 100 mg Tab) sodium chloride nasal ([place] 0.65% Nasal [place]) sumatriptan (SUMAtriptan 50 mg Tab) Procedures Performed tonsils and tubes in ears (2000), Colonoscopy, EGD (esophagogastroduodenoscopic) electrohydraulic lithotripsy of bezoar in stomach. What to do next You Need to Complete the Following CT Maxillofacial w/o Contrast, 10/12/24, Stat, Order for future visit, Transport Mode: Ambulatory, Reason: Sinusitis, No, No, Nasal obstruction Rhinosinusitis Allergic rhinitis, seasonal, pp_set_radiology_subspecialty, [place] Someone Will Contact You Regarding These Appointments [facility] [place], Pain Management, 06/10/24 10:05:00 EST, RLQ abdominal pain Nausea and vomiting Diarrhea [facility] [place], Psychiatry, 12/22/20 14:32:00 EDT Medications What How Much When Why Instructions Changed cetirizine (cetirizine 10 mg Tab) 1 Tablets By Mouth Every day Changed fluticasone nasal (Flonase 0.05 mg/ inh [place]) 2 Sprays Nasal Inhalation Every day each nostril Unchanged epinephrine (EpiPen 2-Laci 0.3 mg injectable kit) 1 Each Intramuscular As Directed as needed for Anaphylaxis Bee sting allergy Unchanged levonorgestrel (Mirena 52 mg intrauteral device) 1 Each Intrauteral Once Duration: 1 Doses Unchanged omeprazole (omeprazole 40 mg Cap-DR) 1 Capsules By Mouth Every day Unchanged polyethylene glycol 3350 with electrolytes (Suflave oral powder for reconstitution kit) See instructions follow physician instructions prior to procedure Unchanged predniSONE (predniSONE 20 mg Tab) See instructions 3 po qd for 2 d, then 2 po qd for 2 d then 1 po qd for 4 d then 1/ 2 qd for 4 d Unchanged rimegepant (Nurtec ODT 75 mg oral tablet, disintegrating) 1 Tablets By Mouth Once Migraines not to exceed 75 mg in 24 hours What How Much When Comments Stop Taking albuterol (Albuterol (Eqv-ProAir HFA) 90 mcg/ inh inhalation aerosol) 2 Puffs Inhalation Every 6 hours as needed for Cough Stop Taking ibuprofen (Motrin 600 mg Tab) 1 Tablets By Mouth Every 6 hours take with food Stop Taking olopatadine ophthalmic (olopatadine ophthalmic 0.1% solution) 1 Drops Both eyes 2 timesa day Stop Taking ondansetron (Zofran 4 mg Tab) 1 Tablets By Mouth 3 times a day as needed for Nausea/Vomiting Stop Taking ranitidine (Zantac) 150 Milligram By Mouth Every day Stop Taking sertraline (sertraline 100 mg Tab) 1 Tablets By Mouth Every day Stop Taking sodium chloride nasal ([place] 0.65% Nasal [place]) 2 Sprays Nasal Inhalation 4 times a dayas needed for Congestion Stop Taking sumatriptan (SUMAtriptan 50 mg Tab) 1 Tablets By Mouth Every day as needed for for migraine headache may repeat dose after 2 hours up to a maximum of 200 mg in 24 hours Allergies Bactrim Bee Stings (Swelling) Tape (Rash) Ultram (Bactrim) sulfa drugs (Hives) traMADol (unknown) Problems Ongoing - Any problem that you are currently receiving treatment for. Allergic rhinitis, seasonal Amenorrhea Bee sting allergy Bipolar disorder, mixed BMI 26.0-26.9,adult Generalized anxiety disorder Hypoglycemia Migraine headache Moderate persistent asthma Nausea Nausea vomiting and diarrhea Overweight Pre-employment examination RLQ abdominal pain RUQ pain Shakiness Sore throat Unresolved grief Viral URI Historical - Any problem that you are no longer receiving treatment for. Patient Survey You may receive a survey via text or e-mail asking about your office visit. Please share your experience with us by completing your survey. We appreciate your feedback and thank you for choosing us for your care. [facility] Medicine Office/Clinic Noteon 29-64-8360Jryfep Medicine Office/Clinic NoteElizabeth [facility]/Clinic Note Chief Complaint sinus congestion, chest congestion, started a couple of weeks. body aches, cold chills Difficulty breathing through the nose and persistent allergy symptoms. HPI Staff AWV Concerns: sinus congestion for a few weeks, unable to blow nose and get anything out Needs refills on EpiPen Patient fasting? no Any changes to medical history? no Recent hospitalizations/ER visits? yes June, GI issues Do you see any specialists for any chronic conditions? no If yes, list: Sleep: Good, 6-8 hours Appetite: adequate Diet: Balanced: Fruits, Vegetables, Protein, some Carbs Vitamins or supplements? yes, multivitamin biotin Fatigue? no Mood concerns: depression/anxiety? no Last dental exam? Goes once a year UTD: yes Last eye exam? Once a year UTD yes Corrective lenses: yes Last Pap/Pelvic: Within the last yearevery 6 months: Result: Normal Mammogram: UTD DEXA: N/A Colon cancer screening: UTD Influenza vaccine: no Refused History of Present Illness The patient is a 28-year-old female presenting with nasal obstruction and seasonal allergic rhinitis. She has experienced chronic sinus issues and seasonal allergies since childhood, requiring ear tubes and adenoidectomy. Two weeks ago, she experienced severe bilateral nasal obstruction that was unr esponsive to Claritin, saltwater nasal irrigation, and other ssot-led-zzykwku therapies. This occurrence deviates from her usual spring allergies, which typically respond to such treatments. Past allergy testing confirmed sensitivities to grass, coconut, and other pollens. She previously tried a Unruly alog shot but had adverse reactions. She denies recent fever or specific contact with infectious individuals. The condition has significantly impacted her nasal breathing, with worsening obstruction noted in the last two weeks. Review of Systems PHQ Score Initial Depression Screen Score: 0 SCORE - Respiratory: Reports difficulty breathing through the nose. - ENT: Reports nasal obstruction, history of adenoidectomy and tubes in ears, mucus production, andallergies. Physical Exam Vitals & Measurements T: 36.9 ???C(Temporal Artery) HR: 86(Peripheral) RR: 16 BP: 124/80 SpO2: 97% HT: 67 in HT: 170 cm WT: 163.362 lb WT: 74.1 kg BMI: 25.64 - Respiratory- Observation of potential nasal obstruction upon examination. - ENT- Severe nasal obstruction confirmed, sore throat noted upon examination. Assessment/Plan 1. Nasal obstruction (J34.89: Other specified disorders of nose and nasal sinuses) Implement a more rigorous sinus irrigation regimen with detailed instructions provided. Deploy oralsteroids (prednisone) to reduce significant inflammation. Schedule a sinus imaging (CT) to assess for anatomical contributors to chronic obstruction. Ordered: CT Maxillofacial w/o Contrast 2. Rhinosinusitis (J32.9: Chronic sinusitis, unspecified) Maintain effective allergy control through strategic use of nasal irrigation and avoidance of identified allergens. Enhance relief with an environmental adjustment such as using regularly cleaned humidifiers. Ensure comprehensive allergy preventive measures are sustained. Ordered: CT Maxillofacial w/o Contrast 3. Allergic rhinitis, seasonal (J30.2: Other seasonal allergic rhinitis) Manage with cetirizine for sustained allergy control, opting for this over Claritin for potentiallybetter efficacy given persistent year-round symptoms. Advise the use of prescription-strength Flonase nasal spray to complement the antihistamine therapy. Ordered: CT Maxillofacial w/o Contrast Orders: cetirizine, 10 mg = 1 tab(s), Oral, Daily, # 30 tab(s), Refills(s) 0, Pharmacy: [facility], 170, cm, 10/12/24 15:51:00 EDT, Height/Length Dosing, 74.1, kg, 10/12/24 15:51:00 EDT, Weight Dosing fluticasone nasal, 2 spray(s), Nasal, Daily, 16 gram, Refill(s) 2, each nostril, [facility], 170, cm, 10/12/24 15:51:00 EDT, Height/Length Dosing, 74.1, kg, 10/12/24 15:51:00 EDT, Weight Dosing predniSONE, See Instructions, 3 po qd for 2 d, then 2 po qd for 2 d then 1 po qd for 4 d then 1/2 qd for 4 d, # 16 tab(s), Refills(s) 0, Pharmacy: [facility], 170, cm, 10/12/24 15:51:00 EDT, Height/Length Dosing, 74.1, kg, 10/12/24 15:51:00 EDT, W... Follow-up With When Contact Information Toward Aron BRANHAM, FAM Only if needed [address] [place] [phone] Additional Instructions: ok for off work Sat and Sund Problem List/Past Medical History Ongoing Allergic rhinitis, seasonal Amenorrhea Bee sting allergy Bipolar disorder, mixed BMI 26.0-26.9,adult Generalized anxiety disorder Hypoglycemia Migraine headache Moderate persistent asthma Nausea Nausea vomiting and diarrhea Overweight Pre-employment examination RLQ abdominal pain RUQ pain Shakiness Sore throat Unresolved grief Viral URI Historical Procedure/Surgical History tonsi (more content not included)...[facility] HospitalComment on above:Result Comment: Electronically Signed By: Toward Aron BRANHAM\.br\Date and Time Signed: 10/12/24 16:34 EDTProvider Letteron [id number] Letter Provider Letter October 12, 20[address]AMA [address] [place] [id number] : 1995 To Whom It May Concern, Please excuse above patient from work. Date of Illness: From: 10/10/2024 To: 10/11/2024 May Return to Work On: 10/12/2024 Sincerely, Family [facility] [address] [place] [address] GhqezbTgqtcnRegency Hospital CompanyPatient Letter FTMCon [id number] Letter FTPatient Letter FT September 11, 2024 SNEHAL LIZAMA [address] [place] [phone] : 1995 Dear Snehal, You missed your scheduled appointment on March 6th at 1:[address] Sánchez Please call our office to reschedule your appointment to go over your EGD & Colonoscopy results with Dr. Sánchez. Our goal is to provide convenient and quality care to all of our patients. Sincerely, Marcial StanleyCar[facility] [phone] Shelby Hospital Gastric Emptying Studyon [id number] Gastric Emptying StudyExam Date/Time: 06/23/2024 13:32 EST Reason for Exam: Nausea Report IMPRESSION: GASTRIC EMPTYING WITHIN NORMAL LIMITS. CLINICAL HISTORY: Nausea. COMMENT: Please refer to the technical information and data measurements detailed below. Ordering Provider: Misty Sánchez FINAL REPORT Dictated: 06/23/2024 1:39 pm Mike Garcia M.D. Signed (Electronic Signature): 06/23/2024 1:39 pm Signed by: Mike Garcia M.D. Transcribed by: MAGNO Technologist: JUSTIN Technical Comments Dose (mCi Tc99m Sulfur Colloid): 1 Dose Administered With: 4oz Egg Beaters and 120ml water Time Frame Required to Ingest the Meal (mins): 5 % Remainin.5 hr (Lower Limit 70%) 38 1.0 hr (Lower Limit 30%, Upper Limit 90%) 36 2.0 hr (Upper Limit 60%) 28 3.0 hr (Upper Limit 30%) 16 4.0 hr (Upper Limit 10%) 0NoMemorial Health Systemurgical Pathology Reporton [id number] Pathology Report[address] [address]- Surgical Pathology Report Collected Date/Time: 06/16/2024 09:50 EST Pathologist: Krishan BRANHAM PhD, Katherin Rider Received Date/Time: 06/16/2024 18:00 EST Princess BRANHAM, Misty Sánchez MD, Misty [place] Surgical Pathology Report - 06/22/2024 09:53 EST - Auth (Verified) Final Diagnosis A: DUODENUM, BIOPSIES: - DUODENAL MUCOSA WITHIN NORMAL LIMITS. B: STOMACH, BIOPSIES: - GASTRIC ANTRAL AND OXYNTIC MUCOSA WITH MINIMAL CHRONIC INFLAMMATION IN LAMINA PROPRIA. - NO H. PYLORI MICROORGANISMS IDENTIFIED WITH IMMUNOSTAIN. C: RIGHT COLON, RANDOM BIOPSIES: - COLONIC MUCOSA WITH LYMPHOID AGGREGATES, WITHIN NORMAL LIMITS. D: LEFT COLON, RANDOM BIOPSIES: - COLONIC MUCOSA WITH LYMPHOID AGGREGATES, WITHIN NORMAL LIMITS. (Electronic Signature) Katherin Nickerson MD PhD 06/22/2024 09:53 Clinical Information Abdominal pain, nausea, vomiting, diarrhea Pre-Op Diagnosis: Abdominal pain, nausea, vomiting, diarrhea Procedure: EGD, colonoscopy Post-Op Diagnosis: 1. Normal esophagus 2. Mild gastritis in the antrum of the stomach with a couple of small erosions, random gastric biopsies obtained for H. pylori 3. Moderate patchy erythema in the duodenal bulb, biopsies were taken to rule out celiac disease 4. Normal examined proximal jejunum 5. Normal rectal exam 6. Mild patchy erythema in the sigmoid colon, otherwise normal colonic mucosa, random biopsies were taken from right and left colon 7. Normal examined terminal ileum Specimen(s) Received A.Duodenum Biopsies B.Gastric Biopsies C.Right Colon Biopsies random D.Left Colon Biopsies random Gross Description A: Received in formalin labeled with patient name, number, and duodenum biopsies are four fragments of wood soft tissue measuring 0.2 cm in diameter each. Entire specimen submitted in one cassette. B: Received in formalin labeled with patient name, number, and gastric biopsies are two fragments of wood soft tissue measuring 0.2 cm in diameter each. Entire specimen submitted in one cassette. C: Received in formalin labeled with patient name, number, and random right colon biopsies are three fragments of wood soft tissue measuring 0.1 to 0.2 cm in diameter. Entire specimen submitted in one cassette. Surgical Pathology Report Collected Date/Time: 06/16/2024 09:50 EST Pathologist: Krishan BRANHAM PhD, Katherin Rider Received Date/Time: 06/16/2024 18:00 EST Princess BRANHAM, Misty Sánchez MD, Misty Tamayo Gross Description D: Received in formalin labeled with patient name, number, and random left colon biopsies are two fragments of wood soft tissue measuring 0.2 cm in diameter each. Entire specimen submitted in one cassette. (YC) YLC:[facility] Microscopic Description Microscopic examination performed unless gross only specified. The use of one or more reagents in the above tests is regulated as an analyte specific reagent (ASR). The test or tests are ordered following initial H&E microscopic examination. The performance characteristics were determined by the [facility] Surgical Pathology. They have not been cleared or approved by the US Food and Drug Administration. The FDA has determined that such clearance or approval is not necessary. These tests are used for clinical purposes. They should not be regarded as investigational or for research. Appropriate positive and negative controls are performed and are acceptable. NormalUniversity Hospitals Health SystemComment on above:Performed By: #### [id number] #### [facility] [address] [place] [id number] Disease Comprehensive [id number] IgA Ql (S) NegativeInvalid Interpretation CodeNegativeUniversity Hospitals Health SystemComment on above:Performed By: #### [id number] #### [facility] [address] [place] [address]Pmjoflk peptide IgA Qn (S)3 unit(s)Invalid Interpretation Code 0-19University Hospitals Health SystemComment on above:Result Comment: Negative 0 - 19 Weak Positive 20 - 30 Moderate to Strong Positive >30Performed By: #### [id number] #### [facility] [address] [place] [address]Lshpkof peptide IgG Qn (S)2 unit(s)Invalid Interpretation Code 0-19University Hospitals Health SystemComment on above:Result Comment: Negative 0 - 19 Weak Positive 20 - 30 Moderate to Strong Positive >30Performed By: #### [id number] #### [facility] [address] [place] [address]WxZ [Mass/Vol]262 mg/dLInvalid Interpretation Jdsv23-143XmfhydUniversity Hospitals Health SystemComment on above:Result Comment: Performed at: [address] [id number] PhD Aydin KirkpatrickPerformed By: #### [id number] #### [facility] [address] [place] [address] 95586cJQ IgA Qn (S)<2Invalid Interpretation Code0-3FParkview HealthComment on above:Result Comment: Negative 0 - 3 Weak Positive 4 - 10 Positive >10 Tissue Transglutaminase (tTG) has been identified as the endomysial antigen. Studies have demonstr- ated that endomysial IgA antibodies have over 99% specificity for gluten sensitive enteropathy.Performed By: #### [id number] #### [facility] [address] [place], [place] [address]vZP IgG Qn (S)<2Invalid Interpretation Code0-5Fgiovanny [facility] HospitalComment on above:Result Comment: Negative 0 - 5 Weak Positive 6 - 9 Positive >9Performed By: #### [id number] #### [facility] [address] [place], [place] [address]Vuqtapwcer Visit Summaryon [id number] Visit Summary Ambulatory Visit Summary SNEHAL LIZAMA :1995 Visit Date:06/10/2024 Ambulatory Visit Instructions Your Diagnosis RLQ abdominal pain Nausea and vomiting Diarrhea Your Care Team Attending Physician - Princess BRANHAM, Misty Tamayo Primary Care Physician - NONE, XXXX This Is Your Medications List omeprazole (omeprazole 40 mg Cap-DR) prochlorperazine (Compazine 10 mg oral tablet) Contact prescribing physician if questions or concerns epinephrine (EpiPen 2-Laci 0.3 mg injectable kit) levonorgestrel (Mirena 52 mg intrauteral device) rimegepant (Nurtec ODT 75 mg oral tablet, disintegrating) Procedures Performed tonsils and tubes in ears (2000). Discharge Vitals Heart Rate (Peripheral) 78 Respiratory Rate 18 Blood Pressure 130/70 Height 170 cm Height 67 in Weight 80 kg Weight 176.37 lb BMI 27.68 What to do next You Need to Complete the Following Celiac Disease Comprehensive, Blood, Routine collect, 06/10/24, Order for future visit, Lab Collect, RLQ abdominal pain Nausea and vomiting Diarrhea, Print Label By Order Location [place] Gastric Emptying Study, 06/10/24, Routine, Order for Future Visit, Transport Mode: Ambulatory, Reason: Nausea, RLQ abdominal pain, No, pp_set_radiology_subspecialty, Marcial [place] Someone Will Contact You Regarding These Appointments [facility] [place], Pain Management, 06/10/24 10:05:00 EST, RLQ abdominal pain Nausea and vomiting Diarrhea Medications What How Much When Why Instructions New omeprazole (omeprazole 40 mg Cap-DR) 1 Capsules By Mouth Every day Refills: 3 Pickup at [facility] New prochlorperazine (Compazine 10 mg oral tablet) 1 Tablets By Mouth 3 times a day Duration: 14 Days Refills: 3 Printed Prescription Unchanged epinephrine (EpiPen 2-Laci 0.3 mg injectable [...] Contact prescribing physician if questions or concerns Pharmacy Information [facility]: [address], [place] [id number] [phone] Allergies Bactrim Bee Stings (Swelling) Tape (Rash) Ultram (Bactrim) sulfa drugs (Hives) traMADol (unknown) Problems Ongoing - Any problem that you are currently receiving treatment for. Allergic rhinitis, seasonal Amenorrhea Bee sting allergy Bipolar disorder, mixed BMI 26.0-26.9,adult Generalized anxiety disorder Hypoglycemia Migraine headache Moderate persistent asthma Nausea Nausea vomiting and diarrhea Overweight Pre-employment examination RLQ abdominal pain RUQ pain Shakiness Sore throat Unresolved grief Viral URI Historical - Any problem that you are no longer receiving treatment for. Patient Survey You may receive a survey via text or e-mail asking about your office visit. Please share your experience with us by completing your survey. We appreciate your feedback and thank you for choosing us for your care. [facility] HospitalGastroenterology Office/Clinic Noteon [id number] Office/Clinic NoteGastroenterology Office/Clinic Note Chief Complaint RUQ pain and hyperemesis HPI Staff Patient is a 28 year old female who was referred by Dr Chavez for RUQ pain and hyperemesis. Abdominal pain: Prescribed RegYakelin cardona. Effective? no When did you first have this pain: Stuart Quality (sharp, dull): sharp Constant or comes or go: constant location and radiation: RUQ Relation to food: Symptoms are worse postprandial Nausea/ vomiting: Prescribed Zofran. Effective? has helped but still dry heaves Stools are back and forth. Some days constipation and some days liquid stools. Denies blood in stools but mucus in stools. Denies Fhx colon cancer. Denies previous EGD/Colonoscopy. Denies hx colon cancer/polyps. Denies blood thinners. Denies GLP-1 agonists. US RUQ 05/05/24 IMPRESSION: The liver, gallbladder, common duct and right kidney are unremarkable. There is a linear focus of hypoechogenicity through the pancreatic body which most likely is artifactual. The pancreas is otherwise unremarkable. CT abd/pel w/contrast 02/26/24 IMPRESSION: 1. Thick-walled 2.9 cm diameter cyst within right pelvis suspected to be an ovarian cyst. Consider follow-up ultrasound evaluation. 2. Mild wall thickening of mid and distal colon suspected be secondary to lack of distention. Colitis is felt less likely. CBC 06/03/24 WBC Count: 8.4 RBC Count: 4.49 Hemoglobin: 13.7 Hematocrit: 40.9 MCV: 91.1 MCH: 30.5 MCHC: 33.5 RDW: 11.4 Low Platelet Count: 262 MPV: 10.6 Neutrophil (Seg): 62 Lymphocyte: 30 Monocyte: 7 Eosinophil: 1 Basophil: 0 Immature Granulocyte: 0 Abs.Neutrophil (Seg): 5.27 Abs. Lymph: 2.51 Abs. Monocyte: 0.55 Abs. Eosinophil: 0.06 Abs. Basophil: 0.03 Abs.Imm.Granulocyte: 0.01 CMP 06/03/24 Sodium: 137 Potassium: 4.2 Chloride: 101 CO2: 28 Anion Gap: 8 Low Glucose: 92 BUN (Urea N): 13 Creatinine: 0.6 eGFR: >90 BUN/CRE Ratio: 22 High Calcium: 9.0 Protein, Total: 6.9 Albumin: 4.3 Bilirubin, Total: 0.7 Alkaline Phos: 66 ALT: 15 AST: 21 Review of Systems PHQ Score Initial Depression Screen Score: 0 SCORE Physical Exam Vitals & Measurements HR: 78(Peripheral) RR: 18 BP: 130/70 HT: 67 in HT: 170 cm WT: 80 kg WT: 176.37 lb BMI: 27.68 Exam was done in the presence of Bhargavi Chavez Significant tenderness around the lower edges of the rib cage and epigastric area, suggestive of costochondritis Assessment/Plan 1. RLQ abdominal pain (R10.31: Right lower quadrant pain) Started February, no specific changes, no trauma I suspect that her nausea and vomiting are contributing to the right upper quadrant pain, the abdominal pain on exam it seems more musculoskeletal, costochondritis? Suggested topical therapy also we have to investigate more the cause of nausea vomiting I think once we improve that she will feel better, she vomits daily sometimes more than once since February when the pain started Suggested topical therapy with lidocaine for now, will refer her also to pain management Proceed also with EGD with random gastric biopsies and random duodenal biopsies Start Compazine as well for nausea, reported Zofran is not helping Omeprazole also empirically Ordered: Celiac Disease Comprehensive Colonoscopy (Hospital Procedure) EGD Endoscopy (Hospital Procedure) [facility] [place] Gastric Emptying Study 2. Nausea and vomiting (R11.2: Nausea with vomiting, unspecified) Ordered: Celiac Disease Comprehensive Colonoscopy (Hospital Procedure) [facility] [place] 3. Diarrhea (R19.7: Diarrhea, unspecified) Reported having 5-10 loose bowel movements with mucus since February, EGD and colonoscopy with TI intubation Ordered: Celiac Disease Comprehensive Colonoscopy (Hospital Procedure) [facility] [place] Orders: omeprazole, 40 mg = 1 cap(s), Oral, Daily, # 90 cap(s), Refills(s) 3, Pharmacy: [facility], 170, cm, 06/10/24 9:30:00 EST, Height/Length Dosing, 80, kg, 06/10/24 9:30:00 EST, Weight Dosing prochlorperazine, = 1 tab(s), Oral, TID, X 14 day(s), # 42 tab(s), Refills(s) 3 Follow-up No qualifying data available Problem List/Past Medical History Ongoing Allergic rhinitis, seasonal Amenorrhea Bee sting allergy Bipolar disorder, mixed BMI 26.0-26.9,adult Generalized anxiety disorder Hypoglycemia Migraine headache Moderate persistent asthma Nausea Nausea vomiting and diarrhea Overweight Pre-employment examination RLQ abdominal pain RUQ pain Shakiness Sore throat Unresolved grief Viral URI Historical Procedure/Surgical History tonsils and tubes in ears (2000). Medications EpiPen 2-Laci 0.3 mg injectable kit, 0.3 mg= 1 EA, IntraMuscular, As Directed, PRN Mirena 52 mg intrauteral device, 52 mg= 1 EA, IntraUteral, Once Nurtec ODT 75 mg oral tablet, disintegrating, 75 mg= 1 tab(s), Oral, Once Allergies Bactrim Bee Sti (more content not included)...[facility] HospitalComment on above:Result Comment: Electronically Signed By: Princess BRANHAM, Misty Tamayo\.br\Date and Time Signed: 06/10/24 10:11 [facility] with Auto Differentialon [id number] (Bld) [#/Vol]0.03 10*3/uL[facility] Basophils/100 WBC (Bld)0 %0 - 2 %[facility] HealthEosinophils (Bld) [#/Vol]0.06 10*3/uLBon [facility] HealthEosinophils/100 WBC (Bld)1 %0 - 5 % [facility] WestErythrocyte distribution width (RBC) [Ratio]11.4 %Low 12.1 - 15.2 %[facility] Cent[facility] HealthHematocrit (Bld) [Volume fraction]40.9 % 36.0 - 46.0 %[facility] Cent[facility] HealthHemoglobin (Bld) [Mass/Vol]13.7 g/dL12.0 - 16.0 g/dLBon Secours [facility] Clinic Union HospitalImmature granulocytes (Bld) [#/Vol]0.01 10*3/uL [facility] WestImmature granulocytes/100 WBC (Bld)0 %0 - 5 %[facility] HealthInterpretation and review of laboratory resultsAbnormalBon Secours Mercy HealthLymphocytes/100 WBC (Bld)30 %15 - 40 %[facility] Lymphocytes/100 WBC (Bld)2.51 %[facility] Centery [facility] HospitalH (RBC) [Entitic mass] 30.5 pg26.0 - 34.0 pgBon Secours Glenbeigh HospitalHC (RBC) [Mass/Vol]33.5 g/dL31.0 - 37.0 g/dLBon Secours [facility] Centery HealthMCV (RBC) [Entitic vol]91.1 fL80.0 - 100.0 fL [facility] HospitalMonocytes/100 WBC (Bld)7 %4 - 8 %Bon [facility] HospitalMonocytes/100 WBC (Bld)0.55 %[facility] HospitalNeutrophils/100 WBC (Bld)62 %47 - 75 %[facility] HospitalPlatelet mean volume (Bld) [Entitic vol]10.6 fL6.0 - 12.0 fLInova Mount Vernon HospitalPlatelets (Bld) [#/Vol]262 10*3/uLBon [facility] HospitalRBC (Bld) [#/Vol]4.49 10*6/uL4.00 - 5.20 m/uLInova Mount Vernon HospitalSegmented neutrophils/100 WBC (Bld)5.27 %[facility] HospitalWBC other (Bld) [#/Vol]8.4Bon [facility] CBC with Diffon [id number]. Basophil0.03 k/uLNormal0.00-0.20[facility] HospitalComment on above:Performed By: #### AGUILAR, CDP #### [facility] [address] [place] [address] Feed Mill Operator: Lizandor Pulido.Imm.Granulocyte0.01 k/uLNormal0.00-0.30[facility] HospitalComment on above:Performed By: #### AGUILAR, CDP #### [facility] [address] [place] [id number] [employer] Mill Operator: Lizandro Pulido.Neutrophil (Seg)5.27 k/uLNormal2.5-7.0[facility] HospitalComment on above:Performed By: #### AGUILAR, CDP #### [facility] [address] [place] [address] [employer] Mill Operator: Landon Ruiz MDBasophils/100 WBC (Bld)0 %Normal0-2MercHayward HospitalComment on above:Performed By: #### CP, CDP #### [facility] [address] [place] [id number] [employer] Operator: YELITZA Pulidoosinophils (Bld) [#/Vol]0.06 10*3/uLNormal 0.00-0.40[facility] HospitalCommunson medical center on above:Performed By: #### CP, CDP #### [facility] [address] [place] [address] [employer] Mill Operator: YELITZA Pulidoosinophils/100 WBC (Bld)1 %Normal0-5[facility] HospitalCommunson medical center on above:Performed By: #### CP, CDP #### [facility] [address] [place] [address] [employer] Operator: Landon Ruiz MDErythrocyte distribution width (RBC) [Ratio]11.4 % Low12.1-15.2MHolzer Health SystemComment on above:Performed By: #### CP, CDP #### [facility] [address] [place] [address] [employer] Mill Operator: Landon Ruiz MDHematocrit (Bld) [Volume fraction]40.9 %Normal 36.0-46.0[facility] on above:Performed By: #### CP, CDP #### [facility] [address] [place] [id number] [employer] Operator: Landon Ruiz MDHemoglobin (Bld) [Mass/Vol]13.7 g/dLNormal 12.0-16.0[facility] on above:Performed By: #### CP, CDP #### [facility] [address] [place] [id number] [employer] Operator: Landon Ruiz MDImmature granulocytes/100 WBC (Bld)0 %Normal0-5 [facility] HospitalComment on above:Performed By: #### CP, CDP #### [facility] [address] [place] [address] [employer] Mill Operator: Julian Pulidomphocytes (Bld) [#/Vol]2.51 10*3/uLNormal 1.00-4.80[facility] HospitalCommunson medical center on above:Performed By: #### CP, CDP #### [facility] [address] [place] [id number] [employer] Operator: Julian Pulidomphocytes/100 WBC (Bld)30 %Lpbbdh94-90TaczmNorwalk Memorial HospitalCommunson medical center on above:Performed By: #### CP, CDP #### [facility] [address] [place] [id number] [employer] Operator: LAURENT PulidoCH (RBC) [Entitic mass]30.5 qjKdbnys98.0-34.0 [facility] HospitalComment on above:Performed By: #### CP, CDP #### [facility] [address] [place] [id number] Feed Mill Operator: LAURENT PulidoCHC (RBC) [Mass/Vol]33.5 g/gGSrjxdu75.0-37.0[facility] HospitalCommunson medical center on above:Performed By: #### CP, CDP #### [facility] [address] [place] [id number] [employer] Operator: LAURENT PulidoCV (RBC) [Entitic vol]91.1 iGQxnnbz96.0-100.0 [facility] on above:Performed By: #### CP, CDP #### [facility] [address] [place] [id number] [employer] Mill Operator: LAURENT Pulidoonocytes (Bld) [#/Vol]0.55 10*3/uLNormal0.00-1.00 [facility] HospitalComment on above:Performed By: #### CP, CDP #### [facility] [address] [place], [place] [id number] [employer] Mill Operator: LAURENT Pulidoonocytes/100 WBC (Bld)7 %Normal4-8[facility] on above:Performed By: #### CP, CDP #### [facility] [address] [place] [address] [employer] Mill Operator: Lalo Pulidoutrophil (Seg)62 %Bxamxo47-49BrlgrNorwalk Memorial HospitalComment on above:Performed By: #### CP, CDP #### [facility] [address] [place] [address] [employer] Mill Operator: Yanna Pulido mean volume (Bld) [Entitic vol]10.6 fL Normal6.0-12.0[facility] on above:Performed By: #### CP, CDP #### [facility] [address] [place] [address] [employer] Mill Operator: Ranjana Pulido (Bld) [#/Vol]262 10*3/iYMnheck023-396 [facility] on above:Performed By: #### CP, CDP #### [facility] [address] [place] [address] [employer] Mill Operator: MARC Pulido (Bld) [#/Vol]4.49 10*6/uLNormal4.00-5.20[facility] on above:Performed By: #### CP, CDP #### [facility] [address] [place] [address] Feed Mill Operator: LINCOLN Pulido (Bld) [#/Vol]8.4 10*3/uLNormal3.5-11.0[facility] on above:Performed By: #### CP, CDP #### [facility] [address] [place], [place] [id number] [employer] Mill Operator: Dorinda Pulido Metabolic Profon [id number] [Mass/Vol] 4.3 g/dLNormal3.5-5.2MHolzer Health SystemComment on above:Performed By: #### CP, CDP #### [facility] [address] [place], [place] [id number] [employer] Mill Operator: Senia Pulido Phos66 U/XWfiuak37-037DlewvNorwalk Memorial HospitalCommunson medical center on above:Performed By: #### CP, CDP #### [facility] [address] [place] [address] [employer] Mill Operator: Landon Ruiz MDALT [Catalytic activity/Vol]15 U/LNormal5-33[facility] HospitalComment on above:Performed By: #### CP, CDP #### [facility] [address] [place], [place] [id number] [employer] Mill Operator: Aury Pulido gap [Moles/Vol]8 mmol/LLow9-17[facility] HospitalCommunson medical center on above:Performed By: #### CP, CDP #### [facility] [address] [place], [place] [id number] [employer] Mill Operator: Landon Ruiz MDAST [Catalytic activity/Vol]21 U/LNormal<32[facility] HospitalCommunson medical center on above:Performed By: #### CP, CDP #### [facility] [address] [place], [place] [id number] [employer] Operator: Landon Ruiz MDBilirubin [Mass/Vol]0.7 mg/dLNormal0.3-1.2MHolzer Health SystemCommunson medical center on above:Performed By: #### CP, CDP #### [facility] [address] [place], [place] [id number] [employer] Operator: Landon Ruiz MDBUN/CRE Vflvv22Isuj6-71UjdmcNorwalk Memorial Hospital Comment on above:Performed By: #### CP, CDP #### [facility] [address] [place], [place] [id number] Feed Mill Operator: HITESH Pulidoalcium [Mass/Vol]9.0 mg/dLNormal8.6-10.4Norwalk Memorial HospitalComment on above:Performed By: #### CP, CDP #### [facility] [address] [place], [place] [id number] Feed Mill Operator: HITESH Pulidohloride [Moles/Vol]101 mmol/AFkcjlt96-049UxxtuNorwalk Memorial HospitalComment on above:Performed By: #### CP, CDP #### [facility] [address] [place] [id number] Feed Mill Operator: HITESH PulidoO2 [Moles/Vol]28 mmol/XTsygsq64-24DbghyNorwalk Memorial HospitalComment on above:Performed By: #### CP, CDP #### [facility] [address] [place], [place] [id number] Feed Mill Operator: HITESH Pulidoreatinine [Mass/Vol]0.6 mg/dLNormal0.5-0.9Norwalk Memorial HospitalComment on above:Performed By: #### CP, CDP #### [facility] [address] [place] [id number] Feed Mill Operator: Landon Ruiz MDGFR/1.73 sq M.predicted among non-blacks MDRD (S/P/Bld) [Vol rate/Area]mL/min/{1.73_m2}Normal>60Norwalk Memorial HospitalComment on above:Result Comment: These results are not intended for [...] or following therapy that affects renal tubular secretion.Performed By: #### CP, CDP #### [facility] [address] [place] [address] Feed Mill Operator: Landon Ruiz MDGlucose [Mass/Vol]92 mg/mPZimfyf84-86WhmbaHolzer Health SystemComment on above:Performed By: #### CP, CDP #### [facility] [address] [place] [address] Feed Mill Operator: NATALIE Pulidootassium [Moles/Vol]4.2 mmol/LNormal3.7-5.3MHolzer Health SystemComment on above:Performed By: #### CP, CDP #### [facility] [address] [place] [address] Feed Mill Operator: Landon Ruiz MDProtein [Mass/Vol]6.9 g/dLNormal6.4-8.3MHolzer Health SystemComment on above:Performed By: #### CP, CDP #### [facility] [address] [place], [place] [id number] Feed Mill Operator: CLOVIS Pulidoodium [Moles/Vol]137 mmol/AOmafos326-005PiyjpNorwalk Memorial HospitalComment on above:Performed By: #### CP, CDP #### [facility] [address] [place] [id number] Feed Mill Operator: Landon Ruiz MDUrea nitrogen [Mass/Vol]13 mg/dLNormal6-20Norwalk Memorial HospitalComment on above:Performed By: #### CP, CDP #### [facility] [address] [place] [id number] Feed Mill Operator: Landon Ruiz [facility]ORDomprehensive Metabolic Panelon [id number] [Mass/Vol]4.3 g/dL3.5 - 5.2 g/dLBon Secours Mercy HealthALP [Catalytic activity/Vol]66 U/L35 - 104 U/LBon Secours Mercy HealthALT [Catalytic activity/Vol]15 U/L5 - 33 U/LBon Secours Mercy HealthAnion gap [Moles/Vol]8 mmol/LLow9 - 17 mmol/LBon Secours Mercy HealthAST [Catalytic activity/Vol]21 U/L NINF - 32 U/LBon Secours Mercy HealthBilirubin [Mass/Vol]0.7 mg/dL0.3 - 1.2 mg/dLBon Secours Mercy HealthCalcium [Mass/Vol]9.0 mg/dL8.6 - 10.4 mg/dLBon Secours Mercy HealthChloride [Moles/Vol]101 mmol/L98 - 107 mmol/LBon Secours Mercy HealthCO2 [Moles/Vol]28 mmol/L20 - 31 mmol/LBon [facility]ours [facility] Creatinine [Mass/Vol]0.6 mg/dL0.5 - 0.9 mg/dLBon Secours [facility] Companyy HealthEst, Glom Filt Rate- PINFBon Secours [facility]tering [facility] – Soin Medical CenterCannMedica Pharma [facility] Cleveland WestComment on above: These results are not intended for use [...] following therapy that affects renal tubular secretion. Glucose [Mass/Vol]92 mg/dL70 - 99 mg/dLBon Secours [facility] Companyy HealthInterpretation and review of laboratory resultsAbnormalBon Secours Mercy HealthPotassium [Moles/Vol]4.2 mmol/L3.7 - 5.3 mmol/LBon Secours [facility] Companyy HealthProtein [Mass/Vol] 6.9 g/dL6.4 - 8.3 g/dLBon Secours Mercy HealthSodium [Moles/Vol]137 mmol/L135 - 144 mmol/LBon Secours [facility] Companyy HealthUrea nitrogen [Mass/Vol]13 mg/dL6 - 20 mg/dL [facility] Companyy HealthUrea nitrogen/Creatinine [Mass ratio]22 mg/mgHigh9 - 20 [facility] with Auto Differentialon [id number] (Bld) [#/Vol]0.05 10*3/uLBON CINCINNATI VA MEDICAL CENTERImmature granulocytes (Bld) [#/Vol]0.03 10*3/uLBON [facility] HEALTHInterpretation and review of laboratory resultsAbnormalBON CINCINNATI VA MEDICAL CENTERLymphocytes/100 WBC (Bld)3.17 %[facility] HOSPITALMonocytes/100 WBC (Bld)0.89 %[facility] HOSPITALNeutrophils/100 WBC (Bld)59 %47 - 75 %[facility] Segmented neutrophils/100 WBC (Bld)6.24 %[facility]AN[facility] COMMUNITY HOSPITALWBC other (Bld) [#/Vol]10.5[facility] with Diffon [id number]/100 WBC (Bld)1 %Normal0-2B[facility] MEDICAL CENTERCommunson medical center on above:Performed By: #### CP, CDP #### [facility] [address] [place] [address] Feed Mill Operator: Landon Ruiz MDEosinophils (Bld) [#/Vol]0.10 10*3/uLNormal 0.00-0.40[facility] on above:Performed By: #### CP, CDP #### [facility] [address] [place] [address] Feed Mill Operator: Landon Ruiz MDEosinophils/100 WBC (Bld)1 %Normal0-5[facility] on above:Performed By: #### CP, CDP #### [facility] [address] [place] [address] Feed Mill Operator: Landon Ruiz MDErythrocyte distribution width (RBC) [Ratio]11.8 % Low12.1-15.2[facility] MERCY HEALTHComment on above:Performed By: #### CP, CDP #### [facility] [address] [place], [place] [id number] Feed Mill Operator: Landon Ruiz MDHematocrit (Bld) [Volume fraction]42.1 %Normal 36.0-46.0[facility]TON HEALTHComment on above:Performed By: #### CP, CDP #### [facility] [address] [place] [id number] Feed Mill Operator: Landon Ruiz MDHemoglobin (Bld) [Mass/Vol]14.4 g/dLNormal 12.0-16.0[facility] GLENBEIGHComment on above:Performed By: #### CP, CDP #### [facility] [address] [place] [address] Feed Mill Operator: Landon Ruiz MDImmature granulocytes/100 WBC (Bld)0 %Normal0-5[facility] GLENBEIGHCommunson medical center on above:Performed By: #### CP, CDP #### [facility] [address] [place], [place] [id number] Feed Mill Operator: Landon Ruiz MDLymphocytes/100 WBC (Bld)30 %Oyllqd12-04KBE SECOURS [facility] GLENBEIGHCommunson medical center on above:Performed By: #### CP, CDP #### [facility] [address] [place] [address] Feed Mill Operator: LAURENT PulidoCH (RBC) [Entitic mass]30.8 qeRjzhxp97.0-34.0[facility] HEALTHCommunson medical center on above:Performed By: #### CP, CDP #### [facility] [address] [place], [place] [id number] Feed Mill Operator: PANDA PulidoC (RBC) [Mass/Vol]34.2 g/qVSxqeko55.0-37.0[facility] HEALTHComment on above:Performed By: #### CP, CDP #### [facility] [address] [place] [address] Feed Mill Operator: LAURENT PulidoCV (RBC) [Entitic vol]90.1 xHRnywsr32.0-100.0[facility] on above:Performed By: #### CP, CDP #### [facility] [address] [place] [phone] Feed Mill Operator: LAURENT Pulidoonocytes/100 WBC (Bld)9 %High4-8[facility] on above:Performed By: #### CP, CDP #### [facility] [address] [place] [phone] Feed Mill Operator: Yanna Pulido mean volume (Bld) [Entitic vol]10.9 fL Normal6.0-12.0[facility]CTr[facility] on above:Performed By: #### CP, CDP #### [facility] [address] [place], [place] [id number] Feed Mill Operator: Ranjana Pulido (Bld) [#/Vol]265 10*3/vVGnwbop344-762BHM SECTrinity [facility] Campus on above:Performed By: #### CP, CDP #### [facility] [address] [place] [id number] Feed Mill Operator: CHRISTIE PulidoBC (Bld) [#/Vol]4.67 10*6/uLNormal4.00-5.20[facility]CTr[facility] on above:Performed By: #### CP, CDP #### [facility] [address] [place], [place] [id number] Feed Mill Operator: Lizandro Pulido. Basophil0.05 k/uLNormal0.00-0.20[facility] on above:Performed By: #### CP, CDP #### [facility] [address] [place] [address] Feed Mill Operator: Lizandro Pulido.Imm.Granulocyte0.03 k/uLNormal0.00-0.30Norwalk Memorial HospitalComment on above:Performed By: #### CP, CDP #### [facility] [address] [place] [address] Feed Mill Operator: Lizandro Pulido.Neutrophil (Seg)6.24 k/uLNormal2.5-7.0[facility] HospitalComment on above:Performed By: #### CP, CDP #### [facility] [address] [place] [address] Feed Mill Operator: Landon Ruiz MDLymphocytes (Bld) [#/Vol]3.17 10*3/uLNormal 1.00-4.80Norwalk Memorial HospitalComment on above:Performed By: #### AGUILAR, CDP #### [facility] [address] [place] [id number] Feed Mill Operator: LAURENT Pulidoonocytes (Bld) [#/Vol]0.89 10*3/uLNormal0.00-1.00 Norwalk Memorial HospitalComment on above:Performed By: #### CP, CDP #### [facility] [address] [place] [address] Feed Mill Operator: Landon Ruiz MDNeutrophil (Seg)59 %Bzpvvy83-96RypcgNorwalk Memorial HospitalComment on above:Performed By: #### CP, CDP #### [facility] [address] [place] [address] Feed Mill Operator: RACHEL PulidoBC (Bld) [#/Vol]10.5 10*3/uLNormal3.5-11.0Norwalk Memorial HospitalComment on above:Performed By: #### CP, CDP #### [facility] [address] [place] [address] Feed Mill Operator: Dorinda Pulido Metabolic Profon [id number] [Mass/Vol] 4.6 g/dLNormal3.5-5.2MHolzer Health SystemComment on above:Performed By: #### CP, CDP #### [facility] [address] [place], [place] 21326[address] Feed Mill Operator: Ivan Pulidoline Phos70 U/KAqifvo92-468LkhnuNorwalk Memorial HospitalComment on above:Performed By: #### CP, CDP #### [facility] [address] [place] [address] Feed Mill Operator: Landon Ruiz MDALT [Catalytic activity/Vol]16 U/LNormal5-33Norwalk Memorial HospitalComment on above:Performed By: #### CP, CDP #### [facility] [address] [place], [place] 1879090 Feed Mill Operator: Aury Pulido gap [Moles/Vol]12 mmol/LNormal9-17Norwalk Memorial HospitalComment on above:Performed By: #### CP, CDP #### [facility] [address] [place] [address] Feed Mill Operator: Landon Ruiz MDAST [Catalytic activity/Vol]17 U/LNormal<32MerBronxCare Health SystemComment on above:Performed By: #### CP, CDP #### [facility] [address] [place], [place] [address] Feed Mill Operator: Landon Ruiz MDBilirubin [Mass/Vol]0.5 mg/dLNormal0.3-1.2MHolzer Health SystemComment on above:Performed By: #### CP, CDP #### [facility] [address] [place], [place] 2460490 Feed Mill Operator: Landon Ruiz MDBUN/CRE Krinw81Dypykb9-07[facility] Comment on above:Performed By: #### CP, CDP #### [facility] [address] [place], [place] 9[address]90 Feed Mill Operator: HITESH Pulidoalcium [Mass/Vol]9.1 mg/dLNormal8.6-10.4Norwalk Memorial HospitalComment on above:Performed By: #### CP, CDP #### [facility] [address] [place] [phone] Feed Mill Operator: HITESH Pulidohloride [Moles/Vol]105 mmol/RQvjvvs36-241UvcjfNorwalk Memorial HospitalComment on above:Performed By: #### CP, CDP #### [facility] [address] [place] [address] Feed Mill Operator: HITESH PulidoO2 [Moles/Vol]25 mmol/AYucwal24-19CusfwNorwalk Memorial HospitalComment on above:Performed By: #### CP, CDP #### [facility] [address] [place], [place] [address]90 Feed Mill Operator: HITESH Pulidoreatinine [Mass/Vol]1.1 mg/dLHigh0.5-0.9Norwalk Memorial HospitalComment on above:Performed By: #### CP, CDP #### [facility] [address] [place] [phone] Feed Mill Operator: Landon Ruiz MDGFR/1.73 sq M.predicted among non-blacks MDRD (S/P/Bld) [Vol rate/Area]70 mL/min/{1.73_m2}Normal>60[facility] Comment on above:Result Comment: These results are not intended for [...] or following therapy that affects renal tubular secretion.Performed By: #### CP, CDP #### [facility] [address] [place] [address] Feed Mill Operator: Landon Ruiz MDGlucose [Mass/Vol]99 mg/xQShykcz49-27GmlfoHolzer Health SystemComment on above:Performed By: #### CP, CDP #### [facility] [address] [place] [address] Feed Mill Operator: NATALIE Pulidootassium [Moles/Vol]3.9 mmol/LNormal3.7-5.3MHolzer Health SystemComment on above:Performed By: #### CP, CDP #### [facility] [address] [place] [address] Feed Mill Operator: Landon Ruiz MDProtein [Mass/Vol]7.7 g/dLNormal6.4-8.3MHolzer Health SystemComment on above:Performed By: #### CP, CDP #### [facility] [address] [place] [address] Feed Mill Operator: CLOVIS Pulidoodium [Moles/Vol]142 mmol/LJbbjeu590-862KbkuzNorwalk Memorial HospitalComment on above:Performed By: #### CP, CDP #### [facility] [address] [place] [id number] Feed Mill Operator: Landon Ruiz MDUrea nitrogen [Mass/Vol]14 mg/dLNormal6-20Norwalk Memorial HospitalComment on above:Performed By: #### CP, CDP #### [facility] [address] [place] [address] Feed Mill Operator: HITESH Pulidoomprehensive Metabolic Panelon [id number] [Mass/Vol]4.6 g/dL3.5 - 5.2 g/dLBON SECOURS MERCY HEALTHALP [Catalytic activity/Vol]70 U/L35 - 104 U/LBON [facility]OURS MERCY HEALTHALT [Catalytic activity/Vol]16 U/L5 - 33 U/LBON [facility]RS MERCY HEALTHAnion gap [Moles/Vol]12 mmol/L9 - 17 mmol/LBON SECOURS MERCY HEALTHAST [Catalytic activity/Vol]17 U/L NINF - 32 U/LBON [facility]RS MERCY HEALTHBilirubin [Mass/Vol]0.5 mg/dL0.3 - 1.2 mg/dLB[facility] MERCY HEALTHCalcium [Mass/Vol]9.1 mg/dL8.6 - 10.4 mg/dLB[facility]OURS MERCY HEALTHChloride [Moles/Vol]105 mmol/L98 - 107 mmol/LBON SECOURS MERCY HEALTHCO2 [Moles/Vol]25 mmol/L20 - 31 mmol/LBON [facility] Creatinine [Mass/Vol]1.1 mg/dLHigh0.5 - 0.9 mg/dLBON SECOURS [facility]UC[facility]US HOSPITALY HEALTHEst, Glom Filt Rate70- PINFBON SECUNIVERSITY HOSPITALS GENEVA MEDICAL CENTERComment on above: These results are not intended for use [...] following therapy that affects renal tubular secretion. Glucose [Mass/Vol]99 mg/dL70 - 99 mg/dLBON [facility] HEALTHInterpretation and review of laboratory resultsAbnormalB[facility] MERCY HEALTHPotassium [Moles/Vol]3.9 mmol/L3.7 - 5.3 mmol/LBON SECOURS [facility] HOSPITALY HEALTHProtein [Mass/Vol] 7.7 g/dL6.4 - 8.3 g/dLBON SECOURS MERCY HEALTHSodium [Moles/Vol]142 mmol/L135 - 144 mmol/LBON SECOURS [facility] HOSPITALY HEALTHUrea nitrogen [Mass/Vol]14 mg/dL6 - 20 mg/dL BON [facility]CCASC[facility] HOSPITALY HEALTHUrea nitrogen/Creatinine [Mass ratio]13 mg/mg9 - 20B[facility] MER[facility] HEALTHBON SECOU[facility] MERCY HEALTHHCG, ,Urineon 03-28-2024 Beta HCG ( test) Ql (U)NegativeNormalNEGNorwalk Memorial HospitalComment on above:Performed By: #### UHCG #### [facility] [address] [place], [place] 1147090 Feed Mill Operator: LAURENT Pulidoicroscopic Urinalysison 03-28-2024-B[facility] MEDICAL CENTEREpithelial cells LM.HPF (Urine sed) [#/Area]0 TO 2/HPFCARILION ROANOKE COMMUNITY HOSPITALRBC LM.HPF (Urine sed) [#/Area]2 TO 5BON [facility] MEDICAL CENTERWBC LM.HPF (Urine sed) [#/Area]None Seen0 /HPFCENTRA SOUTHSIDE COMMUNITY HOSPITALPregnancy, Urineon [id number] ( test) Ql (U)Negative NEGATIVECENTRA SOUTHSIDE COMMUNITY HOSPITALUA w/Reflex Cultureon [id number], SemiQt,UrNegativeNormalNEGNorwalk Memorial HospitalComment on above:Performed By: #### JESUSITA OKEEFEX #### [facility] [address] [place] [id number] Feed Mill Operator: Chel Pulido, UrineTRACEAbnormSelect Medical TriHealth Rehabilitation Hospital Comment on above:Performed By: #### SARY UAX #### [facility] [address] [place] [id number] Feed Mill Operator: HITESH Pulidolarity (U)ClearNormalCLEARNorwalk Memorial Hospital Comment on above:Performed By: #### SARY UAX #### [facility] [address] [place], [place] [address] Feed Mill Operator: HITESH Pulidoolor (U)YellowNoTogus VA Medical Center Comment on above:Performed By: #### SARY UAX #### [facility] [address] [place] [address] Feed Mill Operator: HITESH PulidoommentNormUniversity Hospitals Portage Medical CenterComment on above:Performed By: #### SARY UAX #### [facility] [address] [place] [address] Feed Mill Operator: Landon Ruiz MDGlucose Ql (U)NegativeNormalNEGNorwalk Memorial HospitalComment on above:Performed By: #### SARY UAX #### [facility] [address] [place], [place] 3[address] Feed Mill Operator: Landon Ruiz MDKetones Ql (U)NegativeNormalNEGNorwalk Memorial HospitalComment on above:Performed By: #### SARY UAX #### [facility] [address] [place] [address] Feed Mill Operator: Landon Ruiz MDLeukocyte esterase Test strip Ql (U)1+AbnormalNEG Norwalk Memorial HospitalComment on above:Performed By: #### SARY UAX #### [facility] [address] [place] [address] Feed Mill Operator: Landon Ruiz MDNitrite,UrNegativeNormUniversity Hospitals Sam[facility] on above:Performed By: #### SARY UAX #### [facility] [address] [place] [address] Feed Mill Operator: NATALIE Pulido,Ur6.5Jerrtl7.0-8.0[facility]walk Memorial HospitalComment on above:Performed By: #### SARY UAX #### [facility] [address] [place], [place] [address] Feed Mill Operator: NATALIE Pulidorotein Ql (U)1+ mg/dLAbnormalNEGNorwalk Memorial HospitalComment on above:Performed By: #### SARY, UAX #### [facility] [address] [place], [place] [address] Feed Mill Operator: CLOVIS Pulidopec. [place],Ur1.494Ksovjy9.005-1.030Norwalk Memorial HospitalComment on above:Performed By: #### SARY, UAX #### [facility] [address] [place] [address] Feed Mill Operator: Landon Ruiz MDUrobilinogen,UrNormalNormal0.0-1.0[facility]walk Memorial HospitalComment on above:Performed By: #### SARY UAX #### [facility] [address] [place] [id number] Feed Mill Operator: Landon Ruiz MDUrinalysis with Reflex to Cultureon 03-28-2024 Bilirubin Ql (U)NegativeNEGATIVEBON SECOURS [facility] BUC[facility] HOSPITALY HEALTHClarity (U)ClearClearBON [facility] HEALTHColor (U)YellowYellowBON [facility] HEALTHCommentBON [facility] HEALTHGlucose Test strip (U) [Mass/Vol]NegativeNEGATIVE mg/dLBON [facility]CAVOYELL[facility]OSPITAL HEALTHHemoglobin Auto test strip Ql (U)TRACEAbnormalNEGATIVEBON SECCASCADE VALLEY HOSPITALY HEALTHInterpretation and review of laboratory resultsAbnormalBON SEC[facility] HOSPITALY HEALTHKetones (U) [Mass/Vol]NegativeNEGATIVE mg/dLBON [facility]CAVO[facility]ITAL HEALTHLeukocyte esterase Test strip Ql (U)1+AbnormalNEGATIVEBON SEC[facility] HOSPITALY HEALTHNitrite Ql (U)NegativeNEGATIVEBON SECOURS [facility] HOSPITALY HEALTHpH (U)6.0 [pH] 5.0 - 8.0[facility]OS[facility]ITALY HEALTHProtein (U) [Mass/Vol]1+AbnormalNEGATIVE mg/dL B[facility]OS[facility]ITALY HEALTHSpecific gravity (U) [Rel density]1.0251.005 - 1.030B[facility]CCASC[facility] HOSPITALY HEALTHUrobilinogen Qn (U)Normal0.0 - 1.0 EU/dLBON SEC[facility] HOSPITALY HEALTHB[facility] HEALTHUrinalysis,Microon 03-28-2024-----NormalNorwalk Memorial HospitalComment on above:Performed By: #### SARY, UAX #### [facility] [address] [place] [address] Feed Mill Operator: Landon Ruiz MDEpithelial cells LM Ql (Urine sed)0 TO 2Normal [facility]walk Memorial HospitalComment on above:Performed By: #### SARY, UAX #### [facility] [address] [place] [address] Feed Mill Operator: Landon Ruiz MDUrine RBC's2 TO 4Kxsxfx0-4XaxgmHolzer Health System Comment on above:Performed By: #### SARY, UAX #### [facility] [address] [place] [address] Feed Mill Operator: Tatianna Pulido WBC'sNone EdyuBtxiad4J[address] Comment on above:Performed By: #### SARY, UAX #### [facility] [address] [place] [address] Feed Mill Operator: MEME Pulido CHEST PORTABLEon [id number] CHEST PORTABLE EXAM: XR CHEST PORTABLE HISTORY: [...] Signed by: Landon Townsend MD 03/28/24 Final resultNoMercy Health Lorain HospitalALL CBC WITH AUTO DIFFon 03-11-2024 BASOPHILS ABSOLUTE AUTO0.1NOMS HealthcareBasophils/100 WBC (Bld)0.8 %0.2 - 2.0 % [facility]OM[facility] HealthcareEosinophils/100 WBC (Bld)1.8 %0.9 - 7.0 %[facility] Erythrocyte distribution width (RBC) [Ratio]12.0 %11.0 - 15.0 %[facility] Hematocrit (Bld) [Volume fraction]41.7 %36.0 - 48.0 %[facility] KirkwoodHemoglobin (Bld) [Mass/Vol]13.8 g/dL12.0 - 16.0 g/dLHIGHLAND RIDGE HOSPITAL HealthcareIMMATURE GRANULOCYTES ABS AUTO0.03NOMS HealthcareImmature granulocytes/100 WBC (Bld)0.3 %0.0 - 0.5 % [facility] KirkwoodLYMPHOCYTES ABSOLUTE AUTO2.6NOKS HealthcareLymphocytes/100 WBC (Bld)29.1 %20.5 - 60.0 %[facility] KirkwoodMCH (RBC) [Entitic mass]30.7 pg26.7 - 34.0 pgKansas City VA Medical Center (RBC) [Mass/Vol]33.1 g/dL29.9 - 35.2 g/dLSaint Joseph Hospital of KirkwoodMCV (RBC) [Entitic vol]92.7 fL81.0 - 99.0 fLSaint Joseph Hospital of KirkwoodMONOCYTES ABSOLUTE AUTO0.6NOKS HealthcareMonocytes/100 WBC (Bld)7.0 %1.7 - 12.0 %[facility] KirkwoodNEUTROPHILS ABSOLUTE AUTO5.5NOMS HealthcareNeutrophils/100 WBC (Bld) 61.0 %43.0 - 75.0 %[facility] KirkwoodPlatelet mean volume (Bld) [Entitic vol]11.0 fL9.5 - 13.5 fLSaint Joseph Hospital of KirkwoodTBH EO #0.2NOMS HealthcareTBH [id number] Community Memorial HospitalTBH RBC4.50NOMS Community Memorial HospitalTB WBC9.0NOMS HealthcareCLINISYNCNOMS HealthcareURETHRITIS/DISCHARGE PLUS VAGINITIS (HTRX)on 47-01-0829GMJYKVYFX VAGINAE0.000NOMS HealthcareATOPOBIUM VAGINAENot detectedNOKS HealthcareBVAB 2,3 (BACTERIAL VAGINOSIS ASSOCIATED BACTERIA 2, 3); MOBILUNCUS SPP0.000NOMS HealthcareBVAB 2,3 (BACTERIAL VAGINOSIS ASSOCIATED BACTERIA 2, 3); MOBILUNCUS SPPNot detectedNOKS HealthcareCANDIDA ALBICANS, PARAPSILOSIS, TROPICALIS0.000 NOM HealthcareCANDIDA ALBICANS, PARAPSILOSIS, TROPICALISNot detectedNOMS HealthcareCANDIDA GLABRATA0.000NOMS HealthcareCANDIDA GLABRATANot detectedNOMS HealthcareCANDIDA KRUSEI0.000NOMS HealthcareCANDIDA KRUSEINot detectedNOMS HealthcareCHLAMYDIA TRACHOMATIS0.000NOMS HealthcareCHLAMYDIA TRACHOMATISNot detectedNOMS HealthcareGARDNERELLA VAGINALIS0.000NOMS HealthcareGARDNERELLA VAGINALISNot detectedNOMS HealthcareMEGASPHAERA (TYPES 1, 2)0.000[facility] MEGASPHAERA (TYPES 1, 2)Not detectedNOMS HealthcareMYCOPLASMA GENITALIUM0.000 NOMS HealthcareMYCOPLASMA GENITALIUMNot detectedNOMS HealthcareNEISSERIA GONORRHOEAE0.000NOMS HealthcareNEISSERIA GONORRHOEAENot detectedNOMS Healthcare TRICHOMONAS VAGINALIS0.000NOMS HealthcareTRICHOMONAS VAGINALISNot detectedNOMS HealthcareNOMS HealthcareHCG ( test) Ql (U)on 90-96-5184Hjhdltxdlaulwt and review of laboratory resultsNormalNOHeartland Behavioral Health ServicesPreg Test, UrNegativeNOHeartland Behavioral Health ServicesNOKS HealthcareUrinalysis macro (dipstick) panel (U)on 03-10-2024 Bilirubin, UANegativeNegative - 4(70) +++ mg/dLNOKS HealthcareBlood, UANegative Negative - 50 Fawad/mcLNOKS HealthcareClarity, UAClearNOKS HealthcareColor, UA YellowNOMS HealthcareGlucose, UANegativeNegative - 2000(110) ++++ mg/dLNOKS HealthcareInterpretation and review of laboratory resultsNormalHIGHLAND RIDGE HOSPITAL Healthcare Ketones, UANegativeNegative - 160(16) ++++ mg/dLNOKS HealthcareLeukocytes, UA NegativeNegative - 500+++ Zeynep/mcLNOKS HealthcareNitrite, UANegativeNegative - PositiveNOKS HealthcarepH, UA5.55 - 9NOMS HealthcareProtein, UANegativeNegative - 2000(20) ++++ mg/dLNOKS HealthcareSpec Grav, UA1.0301 - 1.03N[facility] Urobilinogen, UA0.20.2 - 12 mg/dLNOKS HealthcareNOKS HealthcareMICRO OTHER TESTS Ordered By: Dayna Mcconnell on 08-07-2022S. pyogenes Ag IA.rapid Ql (Throat) Negative (08/07/22 8:04 AM)NormalNegativeMER[facility] [place] SeroMICRO OTHER TESTSOrdered By: Christine Cleveland on 28-50-2870Rbkmz COV Int NEG CtlPass (02/28/22 8:57 AM)NormalMERCY [facility]OS[facility] [place] SeroRapid COV Int POS CtlPass (02/28/22 8:57 AM)NormalMERCY HOS[facility]ITAL [facility] [place] SeroSARS-CoV+SARS-CoV-2 (COVID-19) Ag IA.rapid Ql (Resp)Not Detected (02/28/22 8:57 AM)NormalNot DetectedMERCY HOS[facility] [place] SeroPAP ACOG PANEL 2: 21 to 29on 02-09-2022..NormalOhiohealth Riverside Methodist HospitalComment on above:Performed By: #### [id number] #### [facility] [address] [place] [address] Dr. Katherin Ann Gdln ACOG Aoilnwm51-64YbihtiTslMercy Health Tiffin HospitalComment on above:Performed By: #### [id number] #### [facility] Laboratory [address] [place] [address] Dr. Katherin NickersonDIAGNOSIS:CommentNoMercy Health Tiffin HospitalCommunson medical center on above: Result Comment: NEGATIVE FOR INTRAEPITHELIAL LESION OR MALIGNANCY.Performed By: #### [id number] #### [facility] Laboratory [address] [place] [address] Dr. Katherin NickersonMethodology:CommentNoMercy Health Tiffin HospitalCommunson medical center on above: Result Comment: This liquid based ThinPrep(R) pap test was screened with the use of an image guided system.Performed By: #### [id number] #### [facility] [address] [place] [address] Dr. Katherin NickersonNote:CommentNoCleveland Clinic on above:Result Comment: The Pap smear is a screening test designed to aid in the detection of premalignant and malignant conditions of the uterine cervix. It is not a diagnostic procedure and should not be used as the sole means of detecting cervical cancer. Both false-positive and false-negative reports do occur. .Performed By: #### [id number] #### [facility] [address] [place] [address] Dr. Katherin NickersonPerformed by:CommentHenry County Hospital on above: Result Comment: Andie Landaverde, Vessel Master (ASCP)Performed By: #### [id number] #### [facility] [address] [place] [address] Dr. Katherin NickersonReflex Criteria:[facility] on above:Result Comment: The HPV DNA reflex criteria were not met with this specimen result therefore, no HPV testing was performed. .Performed By: #### [id number] #### [facility] [address] [address] [address] Katherin NickersonSpecimen adequacy:[facility] on above:Result Comment: Satisfactory for evaluation. Endocervical and/or squamous metaplastic cells (endocervical component) are present.Performed By: #### [id number] #### [facility] [address] [place] [address] Dr. Katherni NickersonCBC With Auto Differentialon [id number] (Bld) [#/Vol] 0.00 10*3/uLSCCI Hospital [place], KYBasophils/100 WBC (Bld)1 %0 - 2 %[facility] [place], KYDifferential TypeYESMBarnesville Hospital, KYEosinophils (Bld) [#/Vol]0.50 10*3/uLElyria Memorial Hospital [place], KYEosinophils/100 WBC (Bld)7 %High0 - 5 %[facility] [place], KYErythrocyte distribution width (RBC) [Ratio]12.6 %12.1 - 15.2 % [facility] [place], KYHematocrit (Bld) [Volume fraction]39.3 %36 - 46 %[facility] [place], KYHemoglobin (Bld) [Mass/Vol]13.3 g/dL12 - 16 g/dLSCCI Hospital [place], KYInterpretation and review of laboratory resultsAbnormBlanchard Valley Health [facility], [place] Lymphocytes (Bld) [#/Vol]2.00 10*3/uLOhiohealth [facility] Methodist Hospital [place], KYLymphocytes/100 WBC (Bld)27 %15 - 40 %[facility]- [place], KYMCH (RBC) [Entitic mass]30.6 pg26 - 34 pg [facility]- [place], ROBINMCHC (RBC) [Mass/Vol]33.8 g/dL31 - 37 g/dLCleveland Clinic [facility]- [place], ROBINMCV (RBC) [Entitic vol]90.7 fL80 - 100 fLCleveland Clinic Union Hospital- [place], KYMonocytes (Bld) [#/Vol]0.60 10*3/uLCleveland Clinic [facility]- [place], KYMonocytes/100 WBC (Bld)8 %4 - 8 %[facility]- [place], ROBINPlatelet mean volume (Bld) [Entitic vol]NOT REPORTED6 - 12 fLCleveland Clinic Union Hospital- [place], KYPlatelets (Bld) [#/Vol]NOT REPORTEDC[facility] Clinic [facility]- [place], KYPlatelets (Bld) [#/Vol]221 10*3/[facility]- [place], KYRBC (Bld) [#/Vol]4.33 10*6/uL4 - 5.2 m/uLCleveland Clinic [facility]- [place], KYRBC morphology finding Nom (Bld)NOT REPORTEDC[facility]- [place], ROBINSegmented neutrophils/100 WBC (Bld)57 %47 - 75 %[facility]- [place], ROBINSegs Absolute4.40[facility]- [place], KYWBC (Bld) [#/Vol]7.6 10*3/[facility]- [place], KYWBC (Bld) [#/Vol]NOT REPORTEDper 100 WBCCleveland Clinic [facility]- [place], KYWBC MorphologyNOT REPORTEDC[facility] Clinic [facility]- [place], KYHepatic Function Panelon 06-11-2020 Albumin [Mass/Vol]4.6 g/dL3.5 - 5.2 g/dLOhiohealth [facility]ide [facility] Health- [place], KYAlbumin/Globulin [Mass ratio]NOT REPORTEDOhiohealth [facility] Health- [place], KYALP [Catalytic activity/Vol]63 U/L35 - 104 U/LMparkview health bryan hospital Health- [place], KYALT [Catalytic activity/Vol]10 U/L5 - 33 U/LMUniversity [facility]als Par[facility]- [place], KYAST [Catalytic activity/Vol]14 U/L<32MerDayton [facility] Hospital- [place], KYBilirubin Ql (U)0.49 mg/dL0.3 - 1.2 mg/dLMercy Health- [place], KYBilirubin, IndirectCANNOT BE CALCULATED0 - 1 mg/dLMercy Health- [place], KYBilirubin.direct [Mass/Vol]mg/dL<0.31 mg/dLMercy Health- [place], KYGlobulin (S) [Mass/Vol]NOT REPORTED1.5 - 3.8 g/dLMercy Health- [place], KYProtein [Mass/Vol]7.5 g/dL6.4 - 8.3 g/dLMercy Health- [place], KYOther on 29-73-4558Pyufjerb granulocytes (Bld) [#/Vol]NOT REPORTED0 %[facility]- [place], KYComprehensive Metabolic Panelon 35-14-1292Qiwfmry [Mass/Vol]4.6 g/dL3.5 - 5.2 g/dLMercy Health- [place], KYAlbumin/Globulin [Mass ratio]NOT REPORTEDMercy Health- [place], KYALP [Catalytic activity/Vol]55 U/L35 - 104 U/LMercy Health- [place], KYALT [Catalytic activity/Vol]11 U/L5 - 33 U/LMercy Health- [place], KYAnion gap [Moles/Vol]9 mmol/L9 - 17 mmol/LMercy Health- [place], KYAST [Catalytic activity/Vol] 17 U/L<32[facility]- [place], KYBilirubin Ql (U)0.63 mg/dL0.3 - 1.2 mg/dLMercy Health- [place], KYBun/Cre Vfjic79Qeikl Health- [place], KYCalcium [Mass/Vol]9.0 mg/dL8.6 - 10.4 mg/dLMercy Health- [place], KYChloride [Moles/Vol]104 mmol/L98 - 107 mmol/L [facility]- [place], KYCO2 [Moles/Vol]25 mmol/L20 - 31 mmol/LMercy Health- [place], [place] Creatinine [Mass/Vol]0.67 mg/dL0.5 - 0.9 mg/dLMercy Health- [place], KYGFR >60>60 mL/minMercy Health- [place], KYGFR Non->60>60 mL/min [facility]- [place], KYGFR/1.73 sq M predicted among non-blacks MDRD (S/P/Bld) [Vol rate/Area][place], KYComment on above:Average GFR for 20-29 years old: 116 mL/min/1.73sq m Chronic Kidney Disease: <60 mL/min/1.73sq m Kidney failure: <15 mL/min/1.73sq m eGFR calculated using average adult body mass. Additional eGFR calculator available at: http://www.Effektif/multiple_crcl_2012.htm GFR/1.73 sq M predicted among non-blacks MDRD (S/P/Bld) [Vol rate/Area]NOT REPORTEDAmag[place], KYGlucose [Mass/Vol]90 mg/dL70 - 99 mg/dLSCCI Hospital [place], OHInterpretation and review of laboratory resultsAbnormalSCCI Hospital [place], OHPotassium [Moles/Vol]4.6 mmol/L3.7 - 5.3 mmol/LMBarnesville Hospital, KYProtein [Mass/Vol]8.8 g/dLHigh6.4 - 8.3 g/dLSCCI Hospital [place], OHSodium [Moles/Vol]138 mmol/L135 - 144 mmol/[facility], OHUrea nitrogen [Mass/Vol]12 mg/dL6 - 20 mg/dLSCCI Hospital [place], OHPatient Fasting?on [id number] Fasting?YESAm[place], KYTSH with Reflexon [id number] Qn2.31 m[IU]/LMBarnesville Hospital, [place] BETA HCG, QUAL, BLOODon [id number] ( test) QlNeg[address] - BUCYRUSCBCon 08-01-2018 ABSOLUTE BAS0.0 P40YkenqfEtssyBarney Children's Medical CenterComment on above:Performed By: #### BERHANE LEYVA #### Testing performed at [address] [address]PUHSJOLM EOS0.00 M54OnmjclVnvjjGlendale Research Hospital HospitalComment on above:Performed By: #### BERHANE LEYVA #### Testing performed at [address] [address]KXKDVRWN NEUTROPHIL COUNT6.4 k52Vweyhp9.0-7.0[facility] HospitalComment on above:Performed By: #### ITROT, CMPF #### Testing performed at [address] [address]Wtgjdwtey/100 WBC (Bld)0.6 %Normal0.0-2.0[facility] Comment on above:Performed By: #### ITROT, CMPF #### Testing performed at [address] [address]SCOUKKFAO DIFFNormFairchild Medical Center HospitalComment on above: Performed By: #### ITROT, CMPF #### Testing performed at [address] [address]Ueeqxndftkn/100 WBC (Bld)0.6 %Normal0.0-11.0[facility] HospitalComment on above:Performed By: #### ITROT, CMPF #### Testing performed at [address] [address]Ehlpoafazvr #/vol (Bld)1.90 T94JkobrzCxcmnWilson County Hospital Comment on above:Performed By: #### ITROT, CMPF #### Testing performed at [address] [address]Jhlrjjrxcwo/100 WBC (Bld)21.6 %Qmgtfv47.0-55.0[facility] HospitalComment on above:Performed By: #### ITROT, CMPF #### Testing performed at [address] [address]Qkodrlbrd #/vol (Bld)0.5 J18MuszvgFsyxm Bucyrus HospitalComment on above:Performed By: #### ITROT, CMPF #### Testing performed at [facility] [address]Ebapzcepp/100 WBC (Bld)5.8 %Normal0.0-10.0[facility] HospitalComment on above:Performed By: #### ITROT CMPF #### Testing performed at [address] [address]Fqiprfkmxvl/100 WBC (Bld)71.4 %Sgsnyb37.0-75.0[facility] HospitalComment on above:Performed By: #### ITROT, CMPF #### Testing performed at [address] [address]Nfhcwehsqgf distribution width Ratio (RBC)13.3 %Ewkerk55.5-14.5 [facility] HospitalComment on above:Performed By: #### ITROT, CMPF #### Testing performed at [place] [id number] Volume Fraction (Bld)40.0 %Vpyelp67.0-48.0[facility] HospitalComment on above:Performed By: #### ITROT CMPF #### Testing performed at [address] [address]Vngvwlevuf mass conc (Bld)13.5 g/oUHvejof90.0-16.0[facility] HospitalComment on above:Performed By: #### ITROT, CMPF #### Testing performed at [address] [address]HGR Entitic mass (RBC)30.7 hgTutaot23.0-35.0[facility] HospitalComment on above:Performed By: #### ITROT, CMPF #### Testing performed at [address] [address]ETHV mass conc (RBC)33.6 g/oXZiqrbl11.0-37.0[facility] HospitalComment on above:Performed By: #### ITROT, CMPF #### Testing performed at [address] [address]JBW Entitic volume (RBC)91.3 gPHbanjf42.0-100.0[facility] HospitalComment on above:Performed By: #### AUTUMN CMPF #### Testing performed at [place] [id number] mean volume Entitic volume (Bld)9.0 fLNormal7.4-11.0 [facility] HospitalComment on above:Performed By: #### ITROT, CMPF #### Testing performed at [place] [id number] #/vol (Bld)258 /zaaGitlvb309.0-400.0[facility] HospitalComment on above:Performed By: #### ITROT, CMPF #### Testing performed at [address] [place] [id number] #/vol (Bld)4.38 /cmmNormal4.0-5.4AWilson County Hospital Comment on above:Performed By: #### ITROT CMPF #### Testing performed at [place] [id number] #/vol (Bld)8.9 /cmmNormal3.6-11.0[facility] Comment on above:Performed By: #### ITROT CMPF #### Testing performed at [place] [id number], EDIF, PLATELETon 51-62-4709LUUOLEKK BASOPHIL COUNT0.0X10 [facility] [address] - [facility] CENTERUS Basophils/100 WBC (Bld)0.6 %0 - 2 %[facility] [address]. [address] - CAREFREEDifferential cell count method Nom (Bld)AUTO DIFF% [facility] [address]. [address] - [place]UC[place] Eosinophils #/vol (Bld)0.00 10*3/kEM52WDRSOKTJACOB [address]IL[address] - BUCYRUSEosinophils/100 WBC (Bld)0.6 %0 - 11 %[address] [address] - BUCYRUSErythrocyte distribution width Ratio (RBC)13.3 %11.5 - 14.5 %[place] [address] - BUCYRUSHematocrit Volume Fraction (Bld)40.0 % 36 - 48 %[address] [address] - [place] Hemoglobin mass conc (Bld)13.5 g/[place] [address] - BUCYRUSLymphocytes #/vol (Bld)1.90 10*3/zTU01ESNGSTUJACOB VILLE [address] - BUCYRUSLymphocytes/100 WBC (Bld) 21.6 %20 - 55 %[address] [address] - BUCYRUSMCH Entitic mass (RBC)30.7 pg26 - 35 PGJACOB VILLE [address] - BUCYRUSMCHC mass conc (RBC)33.6 g/[address] [place] [address] - BUCYRUSMCV Entitic volume (RBC)91.3 fL[address]AC[address] - BUCYRUSMonocytes #/vol (Bld)0.5 10*3/uML10VFYZSDFJACOB VILLE [address] - BUCYRUSMonocytes/100 WBC (Bld)5.8 %0 - 10 %[address] [address] - BUCYRUSNeutrophils #/vol (Bld)6.4 10*3/[facility] [address] - BUCYRUSNeutrophils/100 WBC (Bld)71.4 %37 - 75 %[address] [address] - BUCYRUSPlatelet mean volume Entitic volume (Bld) 9.0 [place] [address] - [place] Platelets #/vol (Bld)258 10*3/[place] [address] - BUCYRUSRBC #/vol (Bld)4.38 10*6/[place] [address] - BUCYRUSWBC #/vol (Bld)8.9 10*3/[place] [address] - BUCYRUSCMP FASTINGon 84-76-0388IQD enzyme act/vol61 U/QFcyyda08-676ZjaqbKiowa County Memorial HospitalComment on above:Performed By: #### ITROT, CMPF #### Testing performed at [address] [address]IZE enzyme act/vol22 U/LNormal9-52[facility] HospitalComment on above:Performed By: #### ITROT, CMPF #### Testing performed at [address] [address]KEA enzyme act/vol24 U/GCpuqwx00-04QfcukKiowa County Memorial Hospital Comment on above:Performed By: #### ITROT, CMPF #### Testing performed at [address] [address]Xwldqmvof mass conc0.8 mg/dLNormal0.2-1.3AWilson [facility] Hospital Comment on above:Performed By: #### ITROT, CMPF #### Testing performed at [address] [address]W:G RATIO1.4 RATIONormal1.3-2.2AWilson County HospitalComment on above:Performed By: #### BERHANE LEYVA #### Testing performed at [address] [address]Jfwqkks mass conc4.6 G/dlNormal3.5-5.0[facility] Comment on above:Performed By: #### NICHOL LEYVAF #### Testing performed at [address] [address]Xigckrv mass conc9.3 mg/dLNormal8.4-10.2AWilson County Hospital Comment on above:Performed By: #### NICHOL LEYVAF #### Testing performed at [address] [address]Itawqwtf molar cvuk610 mmol/QJiuczg83-458WmhqnKiowa County Memorial Hospital Comment on above:Result Comment: Please note: Triglyceride levels of 600mg/dL or higher may positively bias chlorideresults by approximately 2.1 mmolPerformed By: #### NICHOL LEYVAF #### Testing performed at [address] [address]WT2 molar conc28 mmol/ENnbyrf37-78BkgtyKiowa County Memorial HospitalComment on above:Performed By: #### AUTUMN CMPF #### Testing performed at [address] [address]Knhnooiihg mass conc0.6 mg/dLLow0.7-1.2AWilson County Hospital Comment on above:Performed By: #### NICHOL LEYVAF #### Testing performed at [address] [address]KNJ. GFR,>60NormalAWilson County HospitalComment on above:Performed By: #### AUTUMN CMPF #### Testing performed at [address] [address]REB. GFR,Non >60NormalAWilson County Hospital Comment on above:Performed By: #### BERHANE LEYVA #### Testing performed at [address] [address]HAJ/1.73 sq M predicted among non-blacks MDRD vol rate/area (S/P/Bld)Average GFR for 20-29 years old = 116.[facility] Comment on above:Result Comment: Chronic Kidney disease, GFR = <60. Kidney failure, GFR = <15. The GFR estimate is not adjusted for extreme body surface area or acute process, nor has it been validated for women or ethnic groups other than and .Performed By: #### BERHANE LEYVA #### Testing performed at [address] [address]Kstddno mass conc89 mg/wEWdqydl25-395DmmenKiowa County Memorial Hospital Comment on above:Result Comment: NORMAL <100 mg/dL PREDIABETES 101-126 mg/dL DIABETES 126 mg/dL or higherPerformed By: #### NICHOL LEYVAF #### Testing performed at [address] [address]Auyjdbgyc molar conc4.4 mmol/LNormal3.5-5.1AWilson County HospitalComment on above:Performed By: #### NICHOL LEYVAF #### Testing performed at [address] [address]Scqbwrt mass conc8.0 g/dLNormal6.3-8.2AWilson [facility] Hospital Comment on above:Performed By: #### NICHOL LEYVAF #### Testing performed at [address] [address]Lxazaq molar eisk694 mmol/OKojijn745-535GwxciKiowa County Memorial Hospital Comment on above:Performed By: #### AUTUMN CMPF #### Testing performed at [address] [address]Aewl nitrogen mass conc12 mg/dLNormal7-20[facility] Comment on above:Performed By: #### ITROT, CMPF #### Testing performed at [address] [address]VKVZRNWDQCDBH METABOLIC PANELon 28-70-3157Jzytyqj mass conc4.6 G/dl3.5 - 5 G/dlLAB, OSUAlbumin/Globulin mass ratio1.4 {ratio}LAB, OSUALP enzyme act/vol61 U/LLAB, OSUALT enzyme act/vol22 U/LLAB, OSUAST enzyme act/vol24 U/L LAB, OSUBilirubin mass conc0.8 mg/dLLAB, OSUCalcium mass conc9.3 mg/dLLAB, OSU Chloride molar mbyi116 mmol/LLAB, OSUComment on above:Please note: Triglyceride levels of 600mg/dL or higher may positively bias chloride results by appro ximately 2.1 mmolCO2 molar conc28 mmol/LLAB, OSUCreatinine mass conc0.6 mg/dLLow LAB, OSUGFR/1.73 sq M predicted among blacks MDRD vol rate/area (S/P/Bld) mL/min/{1.73_m2}ml/min/1.73sq.mLAB, OSUGFR/1.73 sq M predicted among non-blacks MDRD vol rate/area (S/P/Bld)mL/min/{1.73_m2}ml/min/1.73sq.mLAB, OSUGFR/1.73 sq M predicted among non-blacks MDRD vol rate/area (S/P/Bld)Average GFR for 20-29 years old = 116.LAB, OSUComment on above:Chronic Kidney disease, GFR = <60. Kidney failure, GFR = <15. The GFR estimate is not adjusted for extreme body surface area or acute process, nor has it been validated for women or ethnic groups other than and . Glucose fasting mass conc89 mg/dLLAB, OSUComment on above: NORMAL <100 mg/dL PREDIABETES 101-126 mg/dL DIABETES 126 mg/dL or higher Interpretation and review of laboratory resultsAbnormalLAB, OSUPotassium molar conc4.4 mmol/LLAB, OSUProtein mass conc8.0 g/dLLAB, OSUSodium molar oyxd935 mmol/LLAB, OSUUrea nitrogen mass conc12 mg/dLLAB, OSUD DIMERon 08-01-2018D DIMER 0.19 mg/L FEUNormal0.19-0.50[facility] HospitalComment on above:Performed By: #### ITROT, CMPF #### Testing performed at [address] [address]S-GAAAX,QUANTITATIVEon 15-36-9578Rnvyyu D-dimer FEU mass conc (PPP)0.[address] [place] [address] IST TROPONIN Ion 22-34-0987Iszluapo I.cardiac mass concng/mLNormal0-0.08[facility] HospitalComment on above:Performed By: #### ITROT, CMPF #### Testing performed at [address] [place] [address]ESFNI TOX SCREEN,URINEon 21-65-8554LYBKKXRVSRMSdhbezdsNmvftm NEGATIVEPioneers Memorial Hospital HospitalComment on above:Result Comment: <500 ng/ml CUTOFF BARBITURATESNegativeNormalNEGATIVEAvita Summit Point HospitalComment on above:Result Comment: <200 ng/ml CUTOFFBenzodiazepines Ql (U)NegativeNormalNEGATIVEAvita Summit Point HospitalComment on above:Result Comment: <150 ng/ml CUTOFFBUPRENORPHINE NegativeNormalNEGATIVEAvita Summit Point HospitalComment on above:Result Comment: <10 ng/ml CUTOFFCannabinoids Screen Ql (U)NegativeNormalNEGATIVEAvita Summit Point HospitalComment on above:Result Comment: <50 ng/ml CUTOFFCocaine Ql (U)Negative NormalNEGATIVEAvita Summit Point HospitalComment on above:Result Comment: <150 ng/ml CUTOFFMethadone Ql (U)NegativeNormalNEGATIVEAvita Summit Point HospitalComment on above:Result Comment: <200 ng/ml CUTOFFMETHAMPHETAMINENegativeNormalNEGATIVE [facility] HospitalComment on above:Result Comment: <500 ng/ml CUTOFFOpiates Ql (U)NegativeNormalNEGATIVEPioneers Memorial Hospital HospitalComment on above:Result Comment: <100 ng/ml CUTOFFOXYCODONENegativeNormalNEGATIVEPioneers Memorial Hospital Hospital Comment on above:Result Comment: <100 ng/ml CUTOFFPhencyclidine Ql (U)Negative NormalNEGATIVEPioneers Memorial Hospital HospitalComment on above:Result Comment: <25 ng/ml CUTOFFProtein mass conc (U)NegativeNormalNEGATIVEPioneers Memorial Hospital HospitalComment on above:Result Comment: <300 ng/ml CUTOFFTricyclic antidepressants Screen Ql (U)NegativeNormalNEGATIVEPioneers Memorial Hospital HospitalComment on above:Result Comment: <300 ng/ml CUTOFFSERUM HCG QUALon 70-29-7345QUMMF BETA HCG,QUALNegativeNormal [facility] HospitalComment on above:Performed By: #### ITROT, CMPF #### Testing performed at [address] [address]LDHNJJINGR DRUG SCREEN, URINEon 12-56-1184Ycvbuywvqwo mass conc (U)NegativeNEGATIVE NG/ML[address]Juventino [place] [facility] NORMANYRUSComment on above:<500 ng/ml CUTOFFBarbiturates Screen Ql (U) NegativeNEGATIVE NG/ML[address]Juventino [place] - [facility] NORMANYRUSComment on above:<200 ng/ml CUTOFFBenzodiazepines Ql (U)Negative NEGATIVE NG/ML[address]Juventino [place] - [facility] NORMANYRUSComment on above:<150 ng/ml CUTOFFBenzoylecgonine Ql (U)NegativeNEGATIVE NG/ML[address]Juventino [place] [facility] - [facility] Comment on above:<150 ng/ml CUTOFFBuprenorphine Ql (U)NegativeNEGATIVE NG/ML [address] - [facility] NORMANYRUSComment on above:<10 ng/ml CUTOFFCannabinoids Screen Ql (U)NegativeNEGATIVE NG/MLJACOB VILLE [address] - BUCYRUSComment on above: <50 ng/ml CUTOFFMethadone Screen Ql (U)NegativeNEGATIVE NG/MLJACOB VILLE [address] - BUCYRUSComment on above:<200 ng/ml CUTOFFMethamphetamine mass conc (U)NegativeNEGATIVE NG/MLJACOB VILLE [address] - BUCYRUSComment on above:<500 ng/ml CUTOFFOpiates Screen Ql (U)NegativeNEGATIVE NG/MLJACOB VILLE [address] [address] - BUCYRUSComment on above:<100 ng/ml CUTOFF Oxycodone Ql (U)NegativeNEGATIVE NG/MLJACOB VILLE [address] - BUCYRUSComment on above:<100 ng/ml CUTOFF Phencyclidine Screen method >25 ng/mL Ql (U)NegativeNEGATIVE NG/MLJACOB VILLE [address] [address] - BUCYRUSComment on above: <25 ng/ml CUTOFFPropoxyphene + Norpropoxyphene Screen Ql (U)NegativeNEGATIVE NG/MLJACOB VILLE [address] [address] - [place] Comment on above:<300 ng/ml CUTOFFTricyclic antidepressants Screen Ql (U) NegativeNEGATIVE NG/MLJACOB VILLE [address] [address] - BUCYRUSComment on above:<300 ng/ml CUTOFFTROPONINon 72-72-3023Werrfqsm I.cardiac mass concng/mL0 - 0.08 ng/mLLAB, OSUXR CHEST PA AND LATERALon 51-79-1500Ophocnz mass concPROCEDURE: XR CHEST PA AND LATERAL 08/01/2018 11:47 AM EST CLINICAL HISTORY: Pleuritic chest pain COMPARISON: None. TECHNIQUE: PA and lateral views FINDINGS: Lungs are clear. The cardiomediastinal configuration is within normal limits. No acute bony abnormalities. IMPRESSION: No acute cardiopulmonary abnormalities.[facility] HospitalIMPRESSION: No acute cardiopulmonary abnormalities.RADIOLOGYUser, [facility] - 08/01/2018 12:19 PM EST PROCEDURE: XR CHEST PA AND LATERAL 08/01/2018 11:47 AM EST CLINICAL HISTORY: Pleuritic chest pain COMPARISON: None. TECHNIQUE: PA and lateral views FINDINGS: Lungs are clear. The cardiomediastinal configuration is within normal limits. No acute bony abnormalities. IMPRESSION IMPRESSION: No acute cardiopulmonary abnormalities. RADIOLOGYPROCEDURE: XR CHEST PA AND LATERAL 08/01/2018 11:47 AM EST CLINICAL HISTORY: Pleuritic chest pain COMPARISON: None. TECHNIQUE: PA and lateral views FINDINGS: Lungs are clear. The cardiomediastinal configuration is within normal limits. No acute bony abnormalities.RADIOLOGY Vital Signs Date TimeVital SignValuePerforming GkadazsthUuriqsxn47-54-5266 13:35-0400Body .64 kgCorey Scott DO Work Phone: [id number] 13:35-0400Diastolic blood zeioqqeu81 mm[Hg]Michael Scott DO Work Phone: [facility] [id number] 13:35-0400Systolic blood orgmthsf868 mm[Hg]Michael Scott DO Work Phone: [facility] [id number] 09:21-0500Blood Pressure LocationMuhammad Sarmini [phone]-JvlqkK[facility]12-04-2024 09:21-0500Diastolic blood sfkjeyrb06 mm[Hg]Jay Sarmini [phone]-NgzncKettering [facility]12-04-2024 09:21-0500Heart rate78 /minMuhammad Sarmini [phone]-ChiylKettering Health [facility]12-04-2024 09:21-0500Respiratory rate18 /minMuhammad Sarmini [phone]-WotclKettering Health Greene Memorial12-04-2024 09:21-0500Systolic blood wrcgaimk718 mm[Hg]Misty Sánchez [phone]-ZatqbKettering Health [facility]11-27-2024 10:41-0500Diastolic blood mm[Hg]Calos Saleem MD Work Phone: bon [facility]11-27-2024 10:41-1630WzZ7% (BldA) [Mass fraction]97 %Calos Saleem MD Work Phone: [facility]11-27-2024 10:41-0500Systolic blood jsebrzfj874 mm[Hg]Calos Saleem MD Work Phone: bon [facility]11-27-2024 09:02-0500Body izsius536.2 cmVvianey Saleem MD Work Phone: bon [facility]11-27-2024 09:02-0500Body mass index (BMI) [Ratio]26.85 kg/f9NvyjgknCalos Saleem MD Work Phone: [facility]11-27-2024 09:02-0500Body payokrqkulu72.71 [degF]Calos Saleem MD Work Phone: bon [facility]11-27-2024 09:02-0500Body .75 kgCalos Saleem MD Work Phone: [facility]11-27-2024 09:02-0500Heart rate82 /minCalos Saleem MD Work Phone: [place] [address]-27-2024 09:02-0500 Respiratory rate16 /minCalos Saleem MD Work Phone: bon [place] [address]-06-2024 09:17-0500Body gexdmq79.38 kgSuzanna JAIMES Work Phone: [facility]woodAsimywmwfh96-59-0468 09:17-0500Diastolic blood fbhbfagg49 mm[Hg]Suzanna JAIMES Work Phone: [facility] KirkwoodPcavevgsrv46-64-2651 09:17-0500Systolic blood biirjtqy538 mm[Hg]Suzanna JAIMES Work Phone: [facility] KirkwoodFdoqijeqsh85-21-5637 05:39-0400Body zxbiuz600.2 Annetta Estrella MD Work Phone: [facility]09-21-2024 05:39-0400Body mass index (BMI) [Ratio]28.04 kg/m2Ramin Estrella MD Work Phone: [facility]09-21-2024 05:39-0400Body sibmiw84.19 kgRamin Estrella MD Work Phone: [facility]09-21-2024 05:30-0400Body gicbxbejzpe34.59 [degF]Ramin Estrella MD Work Phone: [facility]09-21-2024 05:30-0400Diastolic blood mm[Hg]Ramin Estrella MD Work Phone: [facility]09-21-2024 05:30-0400Heart rate99 /minRamin Estrella MD Work Phone: [facility]09-21-2024 05:30-0400 Respiratory rate18 /minRamin Estrella MD Work Phone: [facility]09-21-2024 05:30-0172GcB0% (BldA) [Mass fraction]99 %Ramin Estrella MD Work Phone: [facility]09-21-2024 05:30-0400Systolic blood dplfzcge356 mm[Hg]Ramin Estrella MD Work Phone: [facility]09-03-2024 10:50-0400Body koiiwe92.92 kgSuzanna JAIMES Work Phone: [facility] KirkwoodUeheqnjeib39-10-9290 10:50-0400Diastolic blood ovghgpvr03 mm[Hg]Suzanna JAIMES Work Phone: [facility] KirkwoodEcumewxhat60-10-2373 10:50-0400Systolic blood juiakgdg190 mm[Hg]Suzanna JAIMES Work Phone: [facility] KirkwoodKxzyakeget87-05-0341 15:04-0400Body .37 kgSuzanna JAIMES Work Phone: [facility] KirkwoodUpagusunvi71-94-2483 15:04-0400Diastolic blood mm[Hg]Suzanna JAIMES Work Phone: [facility] KirkwoodQgqneiczyf82-18-3104 15:04-0400Systolic blood kkynsiam917 mm[Hg]Suzanna JAIMES Work Phone: [facility] KirkwoodExdtnfgbvf93-70-2135 14:29-0400Body jrzutp85.78 kgMichael Chavez DO Work Phone: [facility] KirkwoodQranwgssef19-22-8302 14:29-0400Diastolic blood metmosmd51 mm[Hg]Michael Zhouo DO Work Phone: [facility] KirkwoodYlsaybuegv35-85-5252 14:29-0400Systolic blood orquhvrj270 mm[Hg]Michael Chavez DO Work Phone: [facility] KirkwoodCwzldommlw56-21-3144 12:14-0400Blood Pressure LocationPro[facility] Cffv69-93-4341 12:14-0400Body vlviynpfgkv65.52 [degF][facility] Rymp99-82-8210 12:14-0400Diastolic blood mm[Hg] [facility] Vesk22-87-5770 12:14-0400 Heart rate88 /minProMedica Fost[facility] Care 09-17-2023 12:14-0346CiL2% (BldA) [Mass fraction]98 %[facility] Rkyp86-23-3523 12:14-0400Systolic blood pressure 116 mm[Hg][facility] Lpkr55-72-8424 15:30-0400Blood Pressure LocationDERIK SIDELL [phone]-IuiulKettering [facility] 01-01-2023 15:30-0400Body rkktesyczik76.24 [degF]SHERRIE SIDELL 456-0802Vhobjc-EaiqtKettering Health [facility] 01-01-2023 15:30-0400Diastolic blood wsyxhfuh32 mm[Hg]SHERRIE SIDELL 576-3688Zxhwnm-EpzqaK[facility]tering Health [facility] 01-01-2023 15:30-0400Heart rate82 /minDERIK SIDELL 575-2026Fveyvq-RgkcgK[facility]tering Health [facility] 01-01-2023 15:30-3891JzY2% (BldA) [Mass fraction]99 %SHERRIE SIDELL 242-6303Spyody-WeqdnKettering Health [facility] 01-01-2023 15:30-0400Systolic blood zogkcgol366 mm[Hg]SHERRIE SIDELL 610-5043Qjwiex-HfpgjKettering Health [facility] 11-15-2022 14:54-0400Blood Pressure LocationAshley Klonk 004-9871Eywzpf-KpnwbK[facility]tering Health [facility] 11-15-2022 14:54-0400Body bcilgfyoqzx03.88 [degF]Kristyn Klonk [phone]-LsahwKettering Health [facility] 11-15-2022 14:54-0400Diastolic blood iqpcqflq30 mm[Hg]Kristyn Klonk 370-8355Dqsxnn-EddoqKettering Health [facility] 11-15-2022 14:54-0400Heart rate86 /minAshley Klonk 953-1077Mqlgwu-BgzshKettering Health [facility] 11-15-2022 14:54-4926HyB9% (BldA) [Mass fraction]98 %Kristyn Klonk 456-1033Tjsimz-PrpgfKettering Health [facility] 11-15-2022 14:54-0400Systolic blood yfhzfybg526 mm[Hg]Kristyn Kowalski 826-6247Ldxyha-YdfsbKettering Health [facility] 08-22-2022 11:31-0500Blood Pressure LocationAurora Orzech 747-9087Sxcfgl-FxufkAshtabula [facility] Jwxl64-87-5164 11:31-0500Body uilwyhhlmsy78.06 [degF]Trista Orzech 488-9762Mqsief-CiovhAshtabula County Medical Center [facility] Cepf58-68-7832 11:31-0500Diastolic blood tvmdrchu13 mm[Hg]Trista Orzech 757-1839Zaapoq-WdybpMetrohealth [facility]02-15-2023 11:31-0500Heart rate79 /minAurora Orzech 440-6488Dydqkj-UgldjMetrohealth [facility]02-15-2023 11:31-8474JvT9% (BldA) [Mass fraction]98 %Trista Orzech 418-0474Xoxpag-YzhgjMetrohealth [facility]02-15-2023 11:31-0500Systolic blood itsyqdtb868 mm[Hg]Trista Orzech 338-7611Slqinj-IeadsMetrohealth [facility]01-31-2023 07:50-0500Body iwlkhgdnyyp65.24 [degF][facility]01-31-2023 07:50-0500 Diastolic blood ipkuvqmq56 mm[Hg][facility]01-31-2023 07:50-0500Heart rate77 /minJames Nam [facility]01-31-2023 07:50-0500 Respiratory rate18 /minJames [facility]01-31-2023 07:50-3056CnE2% (BldA) [Mass fraction]99 %[facility]01-31-2023 07:50-0500 Systolic blood aclaswpq104 mm[Hg][facility]08-23-2022 14:43-0400Blood Pressure LocationInspira Medical [facility] Vinelandjennyfer [facility] [place] 08-23-2022 14:43-0400Diastolic blood nynlrzpj25 mm[Hg] Apoorva [facility] [place] 08-23-2022 14:43-0400Heart rate96 /[facility] [place] 08-23-2022 14:43-0400Respiratory rate20 /[facility] [place] 08-23-2022 14:43-5480MlY2% (BldA) [Mass fraction]98 % [facility] [place] 08-23-2022 14:43-0400Systolic blood ztqulihq691 mm[Hg] Apoorva [facility] Nitin 04-06-2022 10:41-0400Blood Pressure LocationSeth HOROWITZ 884-8450Leqlvp-CjareMer[facility] [place] 04-06-2022 10:41-0400Body khhjcxlavjo64.06 [degF]Seth HOROWITZ 507-5327Akluel-EouduMercy Health [facility] [place] 04-06-2022 10:41-0400Diastolic blood spcuzmpk60 mm[Hg] Seth HOROWITZ 384-4557Inffhm-Bjnvj[address] [place] [address] Nitin 04-06-2022 10:41-0400Heart rate95 /Galina HOROWITZ 701-8245Gayrfz-SkvukMercy Health [facility] [place] 04-06-2022 10:41-5342CxU1% (BldA) [Mass fraction]99 % Seth HOROWITZ 683-7821Quivlr-VfhfrMercy Health [facility] [place] 04-06-2022 10:41-0400Systolic blood aeauhodh009 mm[Hg] Seth HOROWITZ 876-5969Wjofxf-HjnplMercy Health [facility] [place] 01-25-2019 12:51-0500BP Xmufaxumw66 mm[Hg][facility] Work Phone: 1(615) 825-103801-25-2019 12:51-0500BP Qisdmwzt097 mm[Hg][facility] Work Phone: 1(112) 562-846301-25-2019 12:51-0500Pulse (Heart Rate)76 /[facility] Work Phone: 1(518) 559-437201-25-2019 12:51-0500Pulse Veocpozo56 %[facility] Work Phone: 1(741) 687-790401-25-2019 12:51-0500Respiratory Rate16 /minMem[facility] Work Phone: 1(979) 465-422801-25-2019 10:20-0500Body Napccgbczoh67.1 [degF][facility] Work Phone: 1(817) 310-543504-20-2018 09:40-0400BMI (Body Mass Index)22.6 kg/m2 David HurtQgnhjgGumgBxpzcp88-86-3042 09:40-6180Dxrtri087.6 cmMark [facility] 10-25-2017 09:40-2939Ryxluf64.5 kgMark [facility] Encounters Encounter DateEncounter TypeCare ProviderFacilityStart: 11-06-5139vcdmhwnqqaaramis SierraFacility:[facility] Hospitaltart: 12-08-2024 End: 74-70-3882Xleuvxs encounter procedureCorey Scott DO Work Phone: noms [facility] OBComment on above:Encounter for IUD removal; Encounter for IUD insertionStart: 12-08-2024 End: 38-62-0929caeovftqszMEZXV FAZIONot AvailableStart: 12-02-2024 End: 02-55-7905Cvvgqqerg Result EncounterSuzanna JAIMES Work Phone: noms External Department UnsolicitedStart: 12-02-2024 End: 55-48-8846Otjzvyuyv Result EncounterAmy Itz JAIMES Work Phone: noms External Department UnsolicitedStart: 11-25-2024 End: 77-23-7848ztryppitgpYGZ RAMEYNot AvailableStart: 11-25-2024 End: 29-31-3113Mnuybz flowsheetSuzanna JAIMES Work Phone: noMS [facility] OBStart: 11-25-2024 End: 08-12-5415Xftwwv Talha JAIMES Work Phone: noms [facility] OBStart: 10-12-2024 End: 97-23-0441vxdoipwvwoFqcwq Jennyfer TowardFacility: WillardStart: 09-10-2024 End: 43-89-3968vidkrlsatjYrscwtfx Talal SarminiFacility:Peoples HospitalIshan DHStart: 06-23-2024 End: 72-95-2771bjiyetjgdeMtzedhhm Talal SarminiFacility:FTMCStart: 06-23-2024 End: 89-08-5197Pzasime encounter procedureMuhammad Talal Sarmini [facility] Start: 06-16-2024 End: 61-90-3872Cjp Drop offMuhammad Talal Sarmini [facility] Start: 06-16-2024 End: 53-21-4779stzdzrxxmoVbkkoldp Talal SarminiFacility:FTMCStart: 06-16-2024 End: 85-99-1560kxdvmwusxlRyupowgm Talal SarminiFacility:CD:[id number]: 06-10-2024 End: 85-52-7452rftdrybutcRwirgmim Talal SarminiFacility:FTMCStart: 06-10-2024 End: 35-81-7240Yuqkktj encounter procedureMujagdishmad Talal Sarmini [phone]-LamqnAshtabula [facility] Start: 06-03-2024 End: 36-05-6978yeisbqezgiMDI RAMEYNot AvailableStart: 06-03-2024 End: 17-22-6223Orqmbw flowsheetSuzanna JAIMES Work Phone: noMS BCP OBStart: 06-03-2024 End: 50-97-3809Aupksy flowsheetSuzanna JAIMES Work Phone: noms BCP OBStart: 06-03-2024 End: 13-79-7691Faenii digital e/m svc est pt <7 d 5-10 minutesSuzanna JAIMES Work Phone: NOMS BCP OBComment on above:Right sided abdominal pain (Primary Dx)Start: 06-03-2024 End: 54-05-4455Gibbdizjw department patient visitCalos Saleem MD Work Phone: [facility] EDComment on above:Abdominal pain, right upper quadrant (Primary Dx); Biliary colicStart: 83-31-1118rvntjpmlqqYagukxvc SarminiFacility:Daysi Start: 05-13-2024 End: 22-11-9956Tkomzz flowsMariluz JAIMES Work Phone: noms BCP OBStart: 05-13-2024 End: 35-23-1295Ggekit flowsheetSuzanna JAIMES Work Phone: NODX BCP OBStart: 05-13-2024 End: 84-16-0880svnzppvzdvMSG RAMEYNot AvailableStart: 05-13-2024 End: 10-55-6093Hxadti outpatient visit 15 minutesAmy Itz JAIMES Work Phone: noms BCP OBComment on above:Nausea; Right sided abdominal painStart: 03-28-2024 End: 67-27-7113Ujkomkonn department patient visitCARILION TAZEWELL COMMUNITY HOSPITALComment on above:Acute gastritis without hemorrhage, unspecified gastritis type (Primary Dx)Start: 94-59-0012pggdgdtbmtOogeeaps SarminiFacility:MILAGROS Baxley Start: 03-11-2024 End: 22-47-5704Tcwiszjku Result EncounterCorey Scott DO Work Phone: noms External Department UnsolicitedStart: 03-11-2024 End: 44-49-9017Gbuijkfyf Result EncounterCorey Scott DO Work Phone: noms External Department UnsolicitedStart: 03-10-2024 End: 50-23-1852Ibrhffcm Result EncounterSuzanna JAIMES Work Phone: noms External Department UnsolicitedStart: 03-10-2024 End: 62-65-3783Kryqaymh Result EncounterSuzanna JAIMES Work Phone: noms External Department UnsolicitedStart: 03-10-2024 End: 75-18-0221eostjskdumRVO RAMDIVINANot AvailableStart: 03-10-2024 End: 59-51-6940Mkmdpy outpatient visit 15 minutesSuzanna JAIMES Work Phone: noms BCP OBComment on above:Exposure to STD; Urinary tract infection without hematuria, site unspecified; Nausea; RUQ painStart: 03-02-2024 End: 90-49-0290Calnit outpatient visit 15 minutesAmy Itz PA Work Phone: NOMS BCP OBComment on above:Pelvic pain; Complex ovarian cystStart: 03-02-2024 End: 67-63-4619sryxxttgzpWWD RAMEYNot AvailableStart: 03-02-2024 End: 83-16-8937Wjpnlm flowsheetAmy Progreso PA Work Phone: NOMS BCP OBStart: 03-02-2024 End: 72-53-1746Zfysek flowsheetAmy Itz PA Work Phone: NOMS BCP OBStart: 02-25-2024 End: 04-78-1126Vkjweq outpatient visit 15 minutesCorey Scott DO Work Phone: NOMS BCP OBComment on above:Pelvic pain in female; Right sided abdominal painStart: 02-25-2024 End: 76-28-9239ikslhbrqqbQPOIO FAZIONot AvailableStart: 02-25-2024 End: 13-27-2371Fiiapf flowsheetCorey Scott DO Work Phone: NOMS BCP OBStart: 02-25-2024 End: 74-95-1065Apawsf flowsheetCorey Scott DO Work Phone: NOMS BCP OBStart: 10-11-2023 End: 77-95-1355Hegtgic encounter procedureSherin Cheatham [phone]-OgwvuMercy Health [facility] Nitin Start: 09-17-2023 End: 46-87-5171Lfeolmf encounter procedureHay BecerraSt. [facility]'S [facility] Start: 01-01-2023 End: 88-89-6348Mtwazvr encounter procedureSHERRIE BUNN 063-5685Vavkgx-XtbajMer[facility] Health [facility] Gabriel Start: 11-15-2022 End: 80-75-5627Qfxohdt encounter procedureKristyn Kowalski [phone]-CjxbjAshtabula [facility] [place] Start: 08-22-2022 End: 38-42-4273Gvtahga encounter procedureAujosue Tonio Oliva [phone]-YmidcAshtabula County [facility] Start: 08-07-2022 End: 62-52-0071Quzfexcpi department patient visitJames Nam [facility] Start: 02-27-2022 End: 78-26-1003Jzd-admission assessmentApoorva Diallo [facility] Start: 02-27-2022 End: 50-54-5003Ftmqmqr encounter procedureApoorva Diallo [facility] [place] Start: 02-06-2022 End: 42-85-1720pkzfjtbfaxFG MICHAEL FAZIOFacility:E8Gwlon: 11-30-2021 End: 00-46-3799Lzrnknz encounter procedureChalcon ZHENG 778-2543Pcsojs-GlytsMercy Health [facility] Nitin Start: 62-68-8016ntfemqrqavZI MICHAEL FAZIOFacility:H1 Start: 10-11-2021 End: 64-05-8626Bhkyftq encounter procedureSeth HOROWITZ 345-8715Osmmzo-AgxmeMercy Health [facility] [place] Start: 06-11-2020 End: 18-16-8912Xhizfqxbdj hospital [facility] by physicianIn[facility] Comment on above:History of mononucleosisStart: 06-07-2020 End: 57-00-6924Zzgnwirqgn hospital visit by physicianIn[facility] HospitalE[facility] Comment on above:Viral URI with coughStart: 05-18-2020 End: 39-14-8174Fhpgsoqwdu hospital visit by physicianBilly BackLEWIS COUNTY GENER[facility] Comment on above:Suspected COVID-19 virus infectionStart: 03-21-2020 End: 51-34-7902Vlbaernuir hospital visit by physicianBilly BackMOUNT SINAI [facility] SYSTEMEstr[facility] Comment on above:Fatigue, unspecified type; Screening cholesterol levelStart: 08-01-2018 End: 76-41-3047Fbkvjo encounterProvider OsumRegency Hospital Companytart: 08-01-2018 End: 14-46-6781Mrsstpxeo department patient visitLEADRIAN BowenSutter [facility]ano Medical Center HospitalStart: 08-01-2018 End: 92-28-6201Pzdczhgny department patient visitLeadrian Birmingham Work Phone: [facility] MedicineStart: 12-05-2017 AmbulatoryDoctors' Hospital AmbulatoryStart: 11-27-2017 End: 18-93-9276Yhjdklr encounter procedureDavid HurtFacility:CloptonStart: 11-15-2017 End: 43-72-4875GbzsyzdnqvPODBDoctors' Hospital AmbulatoryStart: 11-15-2017 End: 89-46-0082Bvjdob/outpatient visit, est, level 2Mark Dino Hurt Work Phone: [facility] Hospitaltart: 11-04-2017 End: 76-66-1713ZjtlknyxjfMhhs Dino Hurt Work Phone: [facility]art: 46-00-1355TeqdduftvlTHSADoctors' Hospital AmbulatoryStart: 10-25-2017 End: 29-38-8767YudfzqqfvuEOJOH BACKOhio Health AmbulatoryStart: 10-25-2017 End: 93-42-2957Wjsggn/outpatient visit, new, level 2Billy Back Work Phone: [facility] [place] Procedures DateProcedureProcedure DetailPerforming ClinicianStart: 29-11-4765EAZ REMOVAL Michael Chavez DO Work Phone: Start: 94-52-1311YF PELVIS W/ TRANSVAGINMavis JAIMES Work Phone: Start: 20-46-6768GSM CBC WITH AUTO DIFFAmy Itz JAIMES Work Phone: Start: 59-96-5187Uxpwonmobhsjt metabolic panelVesian Saleem MD Work Phone: start: 03-28-2024 End: 09-48-5463Urhgs test visual color cmprsn methTim Estrella MD Work Phone: Start: 75-91-9900Hlzmsmtmbz microscopic onlyRamin Estrella MD Work Phone: Start: 34-46-3270Cpfetbdfhvtfi metabolic panelRamin Estrella MD Work Phone: Start: 24-14-1049OJS CBC WITH AUTO DIFFCorey Scottfederica FERREIRA Work Phone: Start: 03-10-2024 End: 92-67-8308Yqnga dip stick/tablet rgnt non-auto w/o micrscpAmy Itz JAIMES Work Phone: Start: 45-08-0966YRCWTCKHTB/DISCHARGE PLUS VAGINITIS (HTRX)Suzanna JAIMES Work Phone: Start: 45-59-2957Mxmyr count complete auto&auto difrntl wbcWefrank Brar Work Phone: Start: 92-47-5623Tsedxld function panelSailaja Brar Work Phone: Start: 43-96-0181Wembi of thyroid stimulating hormone tshBilly Back Work Phone: start: 71-22-9155Bilugceenuvgk metabolic panelBilly Back Work Phone: start: 76-79-9045BXTCSBC FASTING?Adi Back Work Phone: start: 08-01-2018 End: 36-83-3318Zlrqzxvazk radiography of chest, combined PA and lateralMitchel Birmingham Work Phone: Start: 08-01-2018 End: 60-30-4602YZCPVOEAOT DRUG SCREEN, URINELeadrian Birmingham Work Phone: Start: 08-01-2018 End: 49-32-6262Ezblm of troponin quantitativeMitchel Birmingham Work Phone: Start: 08-01-2018 End: 93-91-8755DDI, EDIF, PLATELETLeadrian Mendoza [place] Work Phone: Start: 08-01-2018 End: 83-78-8281Fxanfgnpwzkwponrkm ( test) [Presence] in Serum or Plasma Mitchel Birmingham Work Phone: Start: 08-01-2018 End: 54-73-0571Rxlaltllenbet metabolic panelMitchel Birmingham Work Phone: Start: 08-01-2018 End: 33-19-4337Idlfak dgradj products d-dimer quantitativeMitchel Mendoza [place] Work Phone: Start: 08-01-2018 End: 26-76-6805Sjkcdjql ECGMitchel Birmingham Work Phone: Start: 23-20-0436Aenrokjciou observation [Identifier] in Cervix by Cyto Abdoul Estrella MD Work Phone: Start: 01-80-5110ipltqre and tubes in earsBrian LOR Plan of Treatment DateCare ActivityDetailAuthorStart: 70-09-5396FBfT/Tdap/Td vaccine (2 - Td or Tdap)DTaP/Tdap/Td vaccine (2 - Td or Tdap)[facility]hsan [facility] HospitalStart: 14-96-0189SBrU/Tdap/Td vaccine (2 - Td)DTaP/Tdap/Td vaccine (2 - Td)[facility] [place], [place]Start: 41-50-5915Buzntks vaccinationTETANUS EVERY 10 YROhioHealth Start: 12-08-2024 End: 68-36-8396Yidnwcr encounter zkbtuhdyb63/03/2025 1:30 PM EDT Procedure Visit [facility] [address] [place] [address] [place] [address] Michael Chavez DO [address] [place] [address] NOMS BCP OBStart: 11-25-2024 End: 37-67-9011Lbaomta encounter zpafqnmsd15/21/2025 2:20 PM EDT Office Visit [facility] [address] [address] Suzanna Mobley PA [address] [place] [address] ArrivedNOMS BCP OBComment on above:ArrivedStart: 08-10-2024 End: 11-41-7730Mnxlior encounter wtwcdiusn32/03/2025 2:00 PM EST Office Visit [facility] [address] [place] [address] Suzanna Mobley, PA [address] [place] [address] NOMS BCP OBStart: 06-03-2024 End: 50-40-5428Uszdfee encounter rvkeyvovt41/27/2024 10:00 AM EST Office Visit [facility] [address] [place] [phone] Suzanna Mobley, PA [address] [place] [address] [place] [address] NOMS BCP OBStart: 04-13-2024 End: 72-84-5556Gbmyswjhapof / ancillary services /07/2024 9:00 AM EDT Ancillary Procedure [facility] [address] [place] [id number] NOMS BCP OBStart: 03-10-2024 End: 84-56-4517Nqoxgf [Enzymatic activity/volume] in Serum or PlasmaLipase Lab Routine RUQ pain Expected: 03/10/2024 (Approximate), Expires: 03/10/2025NOMS HealthcareComment on above:Expected: 03/10/2024 (Approximate), Expires: 03/10/2025Start: 03-10-2024 End: 99-85-0530RM GallbladderUS gallbladder Imaging Routine RUQ pain Expected: 03/10/2024 (Approximate), Expires: 03/10/2025NOKS HealthcareComment on above: Expected: 03/10/2024 (Approximate), Expires: 03/10/2025Start: 81-16-9363ZAFWE-19 Vaccine ()COVID-19 Vaccine ()[facility]hsan [facility]ulp [facility]Start: 03-02-2024 End: 94-78-7625Agcfsyq encounter nagcngiac91/26/2024 2:40 PM EDT Office Visit [facility] OB [address] [address] Suzanna Mobley PA [address] [place] [address] ArrivedUC [facility] OBComment on above:ArrivedStart: 03-02-2024 End: 71-28-3531QXV tumor markerAFP tumor marker Lab Routine Complex ovarian cyst Expected: 03/02/2024 (Approximate), Expires: 03/02/2025NOKS HealthcareComment on above:Expected: 03/02/2024 (Approximate), Expires: 03/02/2025Start: 03-02-2024 End: 42-40-6497AO 125CA 125 Lab Routine Complex ovarian cyst Expected: 03/02/2024 (Approximate), Expires: 03/02/2025NOKS HealthcareComment on above: Expected: 03/02/2024 (Approximate), Expires: 03/02/2025Start: 03-02-2024 End: 86-72-6826Jmgcnazzrehvizph Ag [Mass/volume] in Serum or PlasmaCEA Lab Routine Complex ovarian cyst Expected: 03/02/2024 (Approximate), Expires: 03/02/2025NOKS HealthcareComment on above:Expected: 03/02/2024 (Approximate), Expires: 03/02/2025Start: 03-02-2024 End: 49-14-3581WQK, tumor markerHCG, tumor marker Lab Routine Complex ovarian cyst Expected: 03/02/2024 (Approximate), Expires: 03/02/2025[facility] Comment on above:Expected: 03/02/2024 (Approximate), Expires: 03/02/2025Start: 03-02-2024 End: 97-09-1665Hnwyedd dehydrogenase, isoenzymesLactate dehydrogenase, isoenzymes Lab Routine Complex ovarian cyst Expected: 03/02/2024 (Approximate), Expires: 03/02/2025[facility] Work Phone: comment on above:Expected: 03/02/2024 (Approximate), Expires: 03/02/2025Start: 03-02-2024 End: 19-43-4657RK for pregnancyUS PELVIS-TRANSVAG IF INDICATED Imaging Routine Pelvic pain Complex ovarian cyst Expected: 03/02/2024 (Approximate), Expires: 03/02/2025[facility] HealthcareComment on above:Expected: 03/02/2024 (Approximate), Expires: 03/02/2025Start: 02-25-2024 End: 89-08-2303Ncdpxft encounter edoscljeo61/20/2024 2:30 PM EDT Office Visit [facility] [address] [id number] Michael Chavez, DO [address] [place] [address] [facility] OBComment on above:ArrivedStart: 02-25-2024 End: 63-13-2061RE Abdomen and Pelvis WO and W contrast IVCT abdomen pelvis w and wo IV contrast Imaging Routine Pelvic pain in female Right sided abdominal pain Expected: 02/25/2024, Expires: 02/24/2025[facility] HealthcareComment on above: Expected: 02/25/2024, Expires: 02/24/2025Start: 02-25-2024 End: 98-00-9533RN for pregnancyUS PELVIS-TRANSVAG IF INDICATED Imaging Routine Pelvic pain in female Right sided abdominal pain Expected: 02/25/2024 (Approximate), Expires: 02/24/2025[facility] Work Phone: comment on above:Expected: 02/25/2024 (Approximate), Expires: 02/24/2025Start: 08-70-4294Psjvyvkqq vaccinationFlu vaccine (#1)[facility]: 09-19-2020 End: 90-19-8327Rpkcug Visit09/19/2020 Office Visit Family Medicine Adi Hdez MD [address] [place] [address] [phone] [facility] Primary [facility]: 54-02-3369Avwiqvlep for malignant neoplasm of cervixBon [facility]: 06-16-2020 End: 45-06-1342Kxjzgq Visit06/16/2020 Office Visit Family Adi Ansari MD [address] [place] [address] [phone] [facility]: 22-76-3804Wvtybzzkh vaccinationFlu vaccine (#1) [facility]: 70-61-7578Puslcgbyo vaccinationWadsworth-Rittman HospitalStart: 11-15-2017 End: 08-73-8007Entivigzmj03/11/2018 Office Visit Sports Medicine David Hurt MD [address] [facility] [address] [place] [address] [facility]: 25-80-3477Kmwhezrnrp 10/31/2017 Hospital Encounter David Hurt MD [address] [facility] [address] [place] [address] [facility]: [facility]2017 Influenza vaccinationSEQUENTIAL INFLUENZA VACCINE (#1)[facility]Start: 26-77-8407Vwskxtcxy for malignant neoplasm of cervixPAP SMEAR [facility] Work Phone: Start: 22-60-5308Knkhktaie B vaccine (1 of 3 - 19+ 3- dose series)Hepatitis B vaccine (1 of 3 - 19+ 3-dose series)[facility]: 36-61-6584Qikqx diphtheria, tetanus and acellular pertussis (DTaP) vaccinationTDAP (ADULT)[facility] Work Phone: Start: 23-80-1798SMZWXIFOV SCREENGONORRHEA [facility] Work Phone: Start: 22-69-1438Frucebwzq C screeningHepatitis C screenBon [facility]: 63-04-8238Tjdntmy vaccinationTETANUSHolzer Hospital Work Phone: Start: 94-61-6600Acgfpruzm for Chlamydia trachomatis CHLAMYDIA SCREENHolzer Hospital Work Phone: Start: 46-45-3627YGP screeningHIV SCREENING DISCUSSION [facility] Work Phone: Start: 12-54-8958Vpyhwemxg vaccine (1 of 2 - 13+ 2- dose series)Varicella vaccine (1 of 2 - 13+ 2-dose series)[facility]: 17-68-5526Qmvzimrmnn MonitoringDepression MonitoringWythe County Community Hospital: 72-99-4415EHT vaccine (1 - 2-dose series)HPV vaccine (1 - 2- dose series)[facility]: 96-64-7984Oocuqufkjet for human papillomavirusOhioRegency Hospital Cleveland WestStart: 88-00-2421Iuwhnfoalprg 0-64 years Vaccine (1 of 1 - PPSV23)Pneumococcal 0-64 years Vaccine (1 of 1 - PPSV23)[facility]: 91-13-7291Tbznjkxiirhy 0-64 years Vaccine (1 of 2 - PCV)Pneumococcal 0-64 years Vaccine (1 of 2 - PCV)[facility]: 77-29-8487Hebdzvjlm vaccine (1 of 2 - 2-dose childhood series)Varicella vaccine (1 of 2 - 2-dose childhood series)[facility], [facility]: 24-50-1105Owerrcqhm for malignant neoplasm of cervixPAP SMEAROhioHealthCBC W Auto Differential panel - BloodCBC and differential Lab Routine RUQ pain Ordered: 03/10/2024[facility] HealthcareComment on above:Ordered: 03/10/2024HLAMYDIA TRACHOMATIS (GENITO/STI)CHLAMYDIA TRACHOMATIS (GENITO/STI) Lab Routine Exposure to STD Ordered: 03/10/2024[facility] HealthcareComment on above:Ordered: 03/10/2024omprehensive metabolic 2000 panel - Serum or PlasmaComprehensive metabolic panel Lab Routine RUQ pain Ordered: 03/10/2024[facility] HealthcareComment on above:Ordered: 03/10/2024 End: 77-08-4751ABUIR- AmbulatoryCOVID-19 Ambulatory Lab Routine Suspected COVID-19 virus infection 1 Occurrences starting 05/18/2020 until 05/18/2020[facility] [place]:1 Occurrences starting 05/18/2020 until 05/18/2020[place] End: 81-38-4870UCPSH- AmbulatoryCOVID-19 Ambulatory Lab Routine Viral URI with cough 1 Occurrences starting 06/07/2020 until 06/07/2020[place] Comment on above:1 Occurrences starting 06/07/2020 until 06/07/2020 End: 88-02-5205Ejdcn panelLipid Panel Lab Routine Screening cholesterol level 1 Occurrences starting 03/21/2020 until 03/21/2020[place], [place]:1 Occurrences starting 03/21/2020 until 03/21/2020Lipid panelLipid Panel Lab Routine Screening cholesterol level 03/21/2020 9:07 AM [facility]WVUMed[facility], Rosa Mariasseria gonorrhoeae DNA [Presence] in Unspecified specimen by JACOB with probe detectionNeisseria gonorrhea DNA probe, direct Lab Routine Exposure to STD Ordered: 03/10/2024[facility] HealthcareComment on above:Ordered: 03/10/2024 End: 48-44-1105Yvogqyeg XR Chest AP single viewBON SECOURS ACMC HEALTHCARE SYSTEM GLENBEIGHComment on above:Once for 1 Occurrences starting 03/28/2024 until 03/28/2024Standard ECG ECG STAT 08/01/2018 10:49 AM [facility] [place] Work Phone: SURESWAB(R) ADVANCED VAGINITIS PLUS, TMASURESWAB(R) ADVANCED VAGINITIS PLUS, TMA Pathology and Cytology Routine Exposure to STD Ordered: 03/10/2024[facility] Work Phone: comment on above:Ordered: 03/10/2024 End: 92-77-3446XisrxqanvcTdvqjcugil Lab Routine One Time for 1 Occurrences starting 06/03/2024 until 06/03/2024on [facility] HospitalComment on above:One Time for 1 Occurrences starting 06/03/2024 until 06/03/2024 Immunizations Immunization DateImmunizationNotesCare YzoblwnwNhnwnlio23-63-5260bqgoxfgvg virus vaccine, unspecified formulationBilly [facility], CC31-03-1229xvvlkee toxoid, reduced diphtheria toxoid, and acellular pertussis vaccine, adsorbed Adi [facility], KYComment on above:Reason for Medication: Other (see comment)NEGATED: Highlighted row has not occurred!47-09-6593nflguasri virus vaccine, unspecified formulationJames Nam [phone]-YaurnUniversity Hospitals Conneaut [facility] NEGATED: Highlighted row has not occurred!13-45-7779TJGV-CoV-2 mRNA (tozinameran 5y-11y) vaccineJames [facility] [phone]-KcqnhUniversity Hospitals Conneaut [facility] NEGATED: Highlighted row has not occurred!44-34-7598iopypbwto virus vaccine, unspecified formulationSeth HOROWITZ 006-7899Zxfuwh-GcicqMercy Health [facility] Nitin Payers DatePayer CategoryPayerPolicy [id number]-pay2021MedicaidMOLINA MEDICAID [facility] [place] [id number] 2020-Present [address] [address] [place] [id number] 2021Medicaid (Managed Care)[id number] [id number] 2.840.1.355511.3.57[id number] 2.840.1.529001.3.57[id number] 2.0.1.027032.3.57[id number] 2.840.1.883899.3.57[id number] 2.0.1.651108.3.57[id number] 2.0.1.558138.3.57[id number] 2.0.1.404474.3.57[id number] 2.0.1.377605.3.57[id number] 2.840.1.641062.3.57[id number] 2.840.1.532668.3.57[id number] 2.840.1.394143.3.57[id number] 2.840.1.245775.3.57[id number] 2..0.1.304779.3.57[id number] 2..840.1.035397.3.57[id number] 2..840.1.264084.3.57[id number] 2.0.1.000233.3.57[id number] 2..0.1.697881.3.57[id number] 2.0.1.212603.3.57[id number] Social History DateTypeDetailFacilityStart: 10-25-2017 End: 86-86-6367Onlgadb smoking status NHISFormer smokerOhioHealthStart: 03-07-5195Qqj Assigned At BirthNot on fileOhioHealthStart: 08-01-2018 End: 30-46-7402Wkagbak smoking status NHISNever [facility] Work Phone: Start: 03-21-2020 End: 41-51-1556Filseut use and exposureNever [facility], [place]Start: 03-21-2020 End: 36-29-7377Vwpbvft intakeCurrent non-drinker of alcohol (finding)[facility] smoking statusNeverMart[facility]erry [facility] Start: 05-16-2020 End: 92-12-3203Dqz Assigned At BirthFemalMarietta [facility]opathic Clinic Start: 03-10-2024 End: 58-17-2112Gauqisiza beverage intakeLifetime non-drinker (finding)[facility] HealthcareStart: 05-16-2020 End: 32-59-7660Jwaejyg of Social functionNOMS HealthcareHow often to you have a drink containing alcohol?Lobo Baker [facility] Functional Status QrpfWyfletusvmWsetqhHdgtgzgg83-76-7778Pghsnvjcmp StatusN/[facility] Digestive Qknpsl26-42-7166Eqbkhqbvuk StatusN/[facility] Convenient Bwmk86-46-4666Eihyzkdmja StatusN/[facility] Family [facility] ErQsutt42-13-2330Wkfeloxyop StatusN/[facility]02-15-2023Functional StatusN/[facility] Convenient Ilgz76-24-4931Prewvokgpt StatusN/[facility] 61-53-3351Chijbtkcmw StatusN/[facility] Nitin Clinical Notes 02-14-2021 to 12-08-2024 Note Date & XmlgOnxrBtdgnhrg81-67-2496 History of Present illness Narrative* Shanique Solano LPN - 12/08/2024 1:30 PM EDTAssociated Order(s): IUD Removal Post-Procedure Diagnose(s): Encounter for IUD removal Reason for Appointment: Patient ID: Snehal Lizama is a 29 y.o. female who presents for IUD removal and insertion Patient presents today for a IUD Removal appointment. MEDICATIONS Current Outpatient Medications Medication Instructions acetaminophen (TYLENOL) 1,000 mg, Every 4 hours PRN cetirizine (ZYRTEC) 10 mg, Daily dicyclomine (BENTYL) 20 mg famotidine (PEPCID) 20 mg fluticasone (Flonase) 50 MCG/ACT nasal spray use 2 (TWO) sprays in each nsotril DAILY ibuprofen 200 mg, Every 6 hours PRN ketorolac (TORADOL) 10 mg, Oral, 3 times daily PRN Levonorgestrel (Mirena, 52 MG,) 20 MCG/DAY intrauterine device as directed Intrauterine metoclopramide (REGLAN) 10 mg, Oral, 3 times daily before meals, Take 1 tablet by mouth 30 minutes prior to meals 3 times daily as needed for nausea. omeprazole (PRILOSEC) 40 mg, Daily ondansetron ODT (ZOFRAN-ODT) 4 mg, Oral, Every 8 hours PRN pantoprazole (PROTONIX) 40 mg, Daily before breakfast predniSONE (Deltasone) 20 MG tablet TAKE 3 TABLETS BY MOUTH EVERY DAY FOR 2 DAYS, TAKE 2 TABLETS EVERY DAY FOR 2 DAYS, TAKE 1 TABLET EVERY DAY FOR 4 DAYS, then t1/2 TABLET EVERY DAY FOR 4 DAYS ALLERGIES Allergies Allergen Reactions Bee Venom Swelling Cocamide Unknown Coconut Flavoring Agent (Non-Screening) Hives Gramineae Pollens Hives Sulfamethoxazole-Trimethoprim Unknown Tramadol Unknown Fluticasone Unknown Pt can't tolerate the flonase she states it makes her symptoms worse. Other Reaction(s): Other (See Comments) Pt can't tolerate the flonase she states it makes her symptoms worse. Sulfa Antibiotics Unknown and Rash Sulfasalazine Rash Wound Dressing Adhesive Rash PROBLEMS Active Ambulatory Problems Diagnosis Date Noted No Active Ambulatory Problems Resolved Ambulatory Problems Diagnosis Date Noted No Resolved Ambulatory Problems Past Medical History: Diagnosis Date Abnormal uterine bleeding (AUB) Bloody vaginal discharge BMI 28.0-28.9,adult Breast pain in female Family history of breast cancer in first degree relative Left breast lump Pelvic pain in female Rupture of ovarian cyst Seasonal allergies Well woman exam HISTORY PAST MEDICAL HISTORY SOCIAL HISTORY Past Medical History: Diagnosis Date Abnormal uterine bleeding (AUB) Bloody vaginal discharge BMI 28.0-28.9,adult Breast pain in female Family history of breast cancer in first degree relative Left breast lump Pelvic pain in female Rupture of ovarian cyst Seasonal allergies Well woman exam Social History Tobacco Use Smoking status: Never Smokeless tobacco: Never Substance Use Topics Alcohol use: Never Drug use: Never FAMILY HISTORY Family History Problem Relation Name Age of Onset Endometriosis Mother SURGICAL HISTORY History reviewed. No pertinent surgical history. REVIEW OF SYSTEMS Review of Systems: Review of Systems Constitutional: Negative. HENT: Negative. Eyes: Negative. Respiratory: Negative. Cardiovascular: Negative. Gastrointestinal: Negative. Genitourinary: Negative. Musculoskeletal: Negative. Skin: Negative. Neurological: Negative. All other systems reviewed and are negative. Hematological: Negative. Endocrine: Negative. Allergic/Immunologic: Negative. OBJECTIVE Objective: Physical Exam Constitutional: Appearance: Normal appearance. She is well-developed. Genitourinary: Vulva normal. Cardiovascular: Rate and Rhythm: Normal rate and regular rhythm. Pulmonary: Effort: Pulmonary effort is normal. Breath sounds: Normal breath sounds. Abdominal: General: Bowel sounds are normal. There is no distension. Palpations: Abdomen is soft. Tenderness: There is no abdominal tenderness. There is no guarding or rebound. Musculoskeletal: General: No swelling. Normal range of motion. Right lower leg: No edema. Left lower leg: No edema. Neurological: Mental Status: She is alert and oriented to person, place, and time. Skin: General: Skin is warm and dry. Psychiatric: Mood and Affect: Mood normal. Behavior: Behavior normal. Vitals and nursing note reviewed. Exam conducted with a news commentator present. Vitals: There is no height or weight on file to calculate BMI. BP: 118/74 No LMP recorded. Patient has had an implant. ASSESSMENT & PLAN Assessment/Plan Encounter Diagnosis: ICD-10-CM 1. Encounter for IUD removal Z30.432 2. Encounter for IUD insertion Z30.430 Levonorgestrel intrauterine device 52 mg POCT , urine manually resulted IUD Removal Date/Time: 12/08/2024 1:55 PM Performed by: Michael Chavez DO Authorized by: Michael Chavez DO Consent: Consent obtained: Written Consent given by: Patient Procedure risks and benefits discussed: yes Patient questions answered: yes Patient agrees, verbalizes understanding, and wants to proceed: yes Educational handouts given: yes Instructions and paperwork completed: yes [place] protocol: Patient states understanding of procedure being performed: yes Relevant documents present and verified: yes Test results available and properly labeled: yes Imaging studies available: yes Required blood products, implants, devices, and special equipment available: yes Site marked: yes Procedure: Removed with no complications: yes Removal due to mechanical complications of IUD: no Removal due to infection and inflammatory reaction: no Comments: IUD Removal: Patient presents today for removal of IUD. Written consent was obtained and patient was placed in dorsal lithotomy position with feet in stirrups. A sterile speculum was inserted into the vagina and the cervix was visualized. The IUD strings were grasped gently with forceps and the IUD was removed in its entirety without difficulty. The IUD was shown to the patient then properly discarded. Pt desires a hormone holiday for 3 months- discussed all options with pt- considering a bilateral salpingectomy and endometrial abaltion. Pt had a very traumatic eight years ago. Follow Up: Patient is to return to the office for annual exam unless needed otherwise Documented by Shnaique Solano LPN on behalf of: Michael Chavez DO documented in this encounterSaint Joseph Hospital of [id number] History of Present illness Narrative* THEODORE Oconnor - 06/03/2024 10:00 AM EST Reason for Appointment: Patient ID: Snehal Lizama is a 28 y.o. female who presents for No chief complaint on file. Patient presents today via telephone call for a telehealth appointment. Patients Phone #: [phone] (mobile) Current Medications: has a current medication list which includes the following prescription(s): acetaminophen, ibuprofen, levonorgestrel, metoclopramide, and ondansetron odt, and the following Facility-Administered Medications: levonorgestrel. Medical History: Active Ambulatory Problems Diagnosis Date Noted No Active Ambulatory Problems Resolved Ambulatory Problems Diagnosis Date Noted No Resolved Ambulatory Problems Past Medical History: Diagnosis Date Abnormal uterine bleeding (AUB) Bloody vaginal discharge BMI 28.0-28.9,adult Breast pain in female Family history of breast cancer in first degree relative Left breast lump Pelvic pain in female Rupture of ovarian cyst Seasonal allergies Well woman exam Family History Problem Relation Name Age of Onset Endometriosis Mother Social History Tobacco Use Smoking status: Never Smokeless tobacco: Never Substance Use Topics Alcohol use: Never Drug use: Never No past surgical history on file. Allergies Allergen Reactions Cocamide Unknown Sulfa Antibiotics Unknown Sulfamethoxazole-Trimethoprim Unknown Tramadol Unknown Fluticasone Unknown Pt can't tolerate the flonase she states it makes her symptoms worse. Sulfasalazine Rash Vitals: There is no height or weight on file to calculate BMI. BP: No LMP recorded. Patient has had an implant. Assessment/Plan No diagnosis found. Today's telehealth visit consisted of spending 5 minutes talking to patient on the phone. Patient has follow up appt next week with general surgery for gallbladder. Pt seen in er today for biliary colic. We will send in toradol to help with her pain Documented by THEODORE Oconnor on behalf of: THEODORE Oconnor documented in this encounterSaint Joseph Hospital of [id number] History of Present illness Narrative* THEODORE Oconnor - 05/13/2024 8:50 AM EST Reason for Appointment: Patient ID: Snehal Lizama is a 28 y.o. female who presents for follow up abdominal pain Patient presents today for Abdominal pain and nausea. MEDICATIONS Current Outpatient Medications Medication Instructions acetaminophen (TYLENOL) 1,000 mg, Every 4 hours PRN ibuprofen 200 mg, Every 6 hours PRN Levonorgestrel (Mirena, 52 MG,) 20 MCG/DAY intrauterine device as directed Intrauterine ondansetron ODT (ZOFRAN-ODT) 4 mg, Oral, Every 8 hours PRN ALLERGIES Allergies Allergen Reactions Cocamide Unknown Sulfa Antibiotics Unknown Sulfamethoxazole-Trimethoprim Unknown Tramadol Unknown Fluticasone Unknown Pt can't tolerate the flonase she states it makes her symptoms worse. Sulfasalazine Rash PROBLEMS Active Ambulatory Problems Diagnosis Date Noted No Active Ambulatory Problems Resolved Ambulatory Problems Diagnosis Date Noted No Resolved Ambulatory Problems Past Medical History: Diagnosis Date Abnormal uterine bleeding (AUB) Bloody vaginal discharge BMI 28.0-28.9,adult Breast pain in female Family history of breast cancer in first degree relative Left breast lump Pelvic pain in female Rupture of ovarian cyst Seasonal allergies Well woman exam HISTORY PAST MEDICAL HISTORY SOCIAL HISTORY Past Medical History: Diagnosis Date Abnormal uterine bleeding (AUB) Bloody vaginal discharge BMI 28.0-28.9,adult Breast pain in female Family history of breast cancer in first degree relative Left breast lump Pelvic pain in female Rupture of ovarian cyst Seasonal allergies Well woman exam Social History Tobacco Use Smoking status: Never Smokeless tobacco: Never Substance Use Topics Alcohol use: Never Drug use: Never FAMILY HISTORY Family History Problem Relation Name Age of Onset Endometriosis Mother SURGICAL HISTORY History reviewed. No pertinent surgical history. REVIEW OF SYSTEMS Review of Systems: Review of Systems Constitutional: Negative. HENT: Negative. Eyes: Negative. Respiratory: Negative. Cardiovascular: Negative. Gastrointestinal: Positive for abdominal pain. Genitourinary: Negative. Musculoskeletal: Negative. Skin: Negative. Neurological: Negative. All other systems reviewed and are negative. Hematological: Negative. Endocrine: Negative. Allergic/Immunologic: Negative. OBJECTIVE Objective: Physical Exam Constitutional: Appearance: Normal appearance. She is well-developed. Cardiovascular: Rate and Rhythm: Normal rate and regular rhythm. Pulmonary: Effort: Pulmonary effort is normal. Breath sounds: Normal breath sounds. Abdominal: General: Bowel sounds are normal. There is no distension. Palpations: Abdomen is soft. Tenderness: There is abdominal tenderness. There is no guarding or rebound. Comments: Ruq tenderness Musculoskeletal: General: No swelling. Normal range of motion. Right lower leg: No edema. Left lower leg: No edema. Neurological: Mental Status: She is alert and oriented to person, place, and time. Skin: General: Skin is warm and dry. Psychiatric: Mood and Affect: Mood normal. Behavior: Behavior normal. Vitals and nursing note reviewed. Exam conducted with a news commentator present. Vitals: There is no height or weight on file to calculate BMI. BP: 120/60 No LMP recorded. Patient has had an implant. ASSESSMENT & PLAN ICD-10-CM 1. Nausea R11.0 ondansetron ODT (Zofran-ODT) 4 MG disintegrating tablet Patient follow up from er visit due to continued ruq pain. US, Ct results and labs reviewed with patient. I do not believe her pain is OB related. We discussed referrals for GI and general surgery. Patient wishes to have referrals. She states she did have some pain relief from a GI cocktail but state still unable to keep foods down and has continued weight loss. Ruq tenderness continues today. We will order zofran refill and also reglan. Pt will follow up with GI and general surgery. Pt agrees with plan of care Documented by Cynthia Murphy LPN on behalf of: THEODORE Oconnor documented in this encounterSaint Joseph Hospital of [id number] History of Present illness Narrative* THEODORE Oconnor - 03/10/2024 10:30 AM EDT Reason for Appointment: Patient ID: Snehal Lizama is a 28 y.o. female who presents for STI Screening (Pt to be seen for cx's not feeling well. ) Patient presents today for Acute Visit. MEDICATIONS Current Outpatient Medications Medication Instructions Levonorgestrel (Mirena, 52 MG,) 20 MCG/DAY intrauterine device as directed Intrauterine ondansetron ODT (ZOFRAN-ODT) 4 mg, Oral, Every 6 hours PRN ondansetron ODT (ZOFRAN-ODT) 4 mg, Oral, Every 6 hours PRN ALLERGIES Allergies Allergen Reactions Cocamide Unknown Sulfa Antibiotics Unknown Sulfamethoxazole-Trimethoprim Unknown Tramadol Unknown Fluticasone Unknown Pt can't tolerate the flonase she states it makes her symptoms worse. Sulfasalazine Rash PROBLEMS Active Ambulatory Problems Diagnosis Date Noted No Active Ambulatory Problems Resolved Ambulatory Problems Diagnosis Date Noted No Resolved Ambulatory Problems Past Medical History: Diagnosis Date Abnormal uterine bleeding (AUB) Bloody vaginal discharge BMI 28.0-28.9,adult Breast pain in female Family history of breast cancer in first degree relative Left breast lump Pelvic pain in female Rupture of ovarian cyst Seasonal allergies Well woman exam HISTORY PAST MEDICAL HISTORY SOCIAL HISTORY Past Medical History: Diagnosis Date Abnormal uterine bleeding (AUB) Bloody vaginal discharge BMI 28.0-28.9,adult Breast pain in female Family history of breast cancer in first degree relative Left breast lump Pelvic pain in female Rupture of ovarian cyst Seasonal allergies Well woman exam Social History Tobacco Use Smoking status: Never Smokeless tobacco: Never Substance Use Topics Alcohol use: Never Drug use: Never FAMILY HISTORY Family History Problem Relation Name Age of Onset Endometriosis Mother SURGICAL HISTORY History reviewed. No pertinent surgical history. REVIEW OF SYSTEMS Review of Systems: Review of Systems Constitutional: Negative. HENT: Negative. Eyes: Negative. Respiratory: Negative. Cardiovascular: Negative. Gastrointestinal: Negative. Genitourinary: Negative. Musculoskeletal: Negative. Skin: Negative. Neurological: Negative. All other systems reviewed and are negative. Hematological: Negative. Endocrine: Negative. Allergic/Immunologic: Negative. OBJECTIVE Objective: Physical Exam Constitutional: Appearance: She is normal weight. She is ill-appearing. HENT: Head: Normocephalic. Cardiovascular: Rate and Rhythm: Normal rate. Pulses: Normal pulses. Pulmonary: Effort: Pulmonary effort is normal. Breath sounds: Normal breath sounds. Abdominal: Palpations: Abdomen is soft. Tenderness: There is abdominal tenderness. Comments: Diffuse right upper quadrant tenderness to palpation Musculoskeletal: General: Normal range of motion. Neurological: General: No focal deficit present. Mental Status: She is alert and oriented to person, place, and time. Psychiatric: Mood and Affect: Mood normal. Behavior: Behavior normal. Thought Content: Thought content normal. Judgment: Judgment normal. Vitals and nursing note reviewed. Vitals: There is no height or weight on file to calculate BMI. BP: 118/72 No LMP recorded. Patient has had an implant. ASSESSMENT & PLAN ICD-10-CM 1. Exposure to STD Z20.2 SURESWAB(R) ADVANCED VAGINITIS PLUS, TMA CHLAMYDIA TRACHOMATIS (GENITO/STI) Neisseria gonorrhea DNA probe, direct POCT , urine manually resulted 2. Urinary tract infection without hematuria, site unspecified N39.0 POCT urinalysis dipstick manually resulted 3. Nausea R11.0 ondansetron ODT (Zofran-ODT) 4 MG disintegrating tablet 4. RUQ pain R10.11 US gallbladder Comprehensive metabolic panel CBC and differential Lipase Lipase Pt returned today stating she is not feeling any better than previous appointment and states has had increased nausea. Pt was seen in the er on 02/25/23. At that time she has CT and US of abdomen for lower pelvic/ abdominal pain. US and CT revealed 2.9 cm righr ovarioan cyst and mild wall thickeningof colon with possible colitis but less likely. When seen in office on 03/02/24 lower abdominal painhad continued with diarrhea. She was started on cipro/ flagyl to help with possible colitis. Upon presentation today she has more right upper quadrant pain with increased nausea and vomiting. Lob work ordered and us of gallbladder ordered today. Pt will be referred to DR Holman general surgery. Pain does not seem to correlated with ovarian cyst or PID. Vaginal cultures and urine obtained today. Ua in office is clear. I instructed pt to go to hospital for labs and schedule US. Also explained to patient to return to er if symptoms worsen or she develops fever. Pt verbalized understanding and states she did not want to miss any more work if not necessary. Documented by THEODORE Oconnor on behalf of: THEODORE Oconnor documented in this encounterSaint [facility] Hospital of [id number] History of Present illness Narrative* THEODORE Oconnor - 03/02/2024 2:40 PM EDT Reason for Appointment: Patient ID: Snehal Lizama is a 28 y.o. female who presents for ER Follow-up (Right sided pelvic pain-Possible cyst) Patient presents today for Acute Visit. MEDICATIONS Current Outpatient Medications Medication Instructions ciprofloxacin (CIPRO) 500 mg, Oral, 2 times daily Levonorgestrel (Mirena, 52 MG,) 20 MCG/DAY intrauterine device as directed Intrauterine metroNIDAZOLE (FLAGYL) 500 mg, Oral, 2 times daily, Do not drink alcohol while taking this medication ondansetron ODT (ZOFRAN-ODT) 4 mg, Oral, Every 6 hours PRN ALLERGIES Allergies Allergen Reactions Cocamide Unknown Sulfa Antibiotics Unknown Sulfamethoxazole-Trimethoprim Unknown Tramadol Unknown Fluticasone Unknown Pt can't tolerate the flonase she states it makes her symptoms worse. Sulfasalazine Rash PROBLEMS Active Ambulatory Problems Diagnosis Date Noted No Active Ambulatory Problems Resolved Ambulatory Problems Diagnosis Date Noted No Resolved Ambulatory Problems Past Medical History: Diagnosis Date Abnormal uterine bleeding (AUB) Bloody vaginal discharge BMI 28.0-28.9,adult Breast pain in female Family history of breast cancer in first degree relative Left breast lump Pelvic pain in female Rupture of ovarian cyst Seasonal allergies Well woman exam HISTORY PAST MEDICAL HISTORY SOCIAL HISTORY Past Medical History: Diagnosis Date Abnormal uterine bleeding (AUB) Bloody vaginal discharge BMI 28.0-28.9,adult Breast pain in female Family history of breast cancer in first degree relative Left breast lump Pelvic pain in female Rupture of ovarian cyst Seasonal allergies Well woman exam Social History Tobacco Use Smoking status: Never Smokeless tobacco: Never Substance Use Topics Alcohol use: Never Drug use: Never FAMILY HISTORY Family History Problem Relation Name Age of Onset Endometriosis Mother SURGICAL HISTORY History reviewed. No pertinent surgical history. REVIEW OF SYSTEMS Review of Systems: Review of Systems All other systems reviewed and are negative. OBJECTIVE Objective: Physical Exam Constitutional: Appearance: Normal appearance. She is well-developed. Cardiovascular: Rate and Rhythm: Normal rate and regular rhythm. Pulmonary: Effort: Pulmonary effort is normal. Breath sounds: Normal breath sounds. Abdominal: General: Bowel sounds are normal. There is no distension. Palpations: Abdomen is soft. Tenderness: There is abdominal tenderness. There is no guarding or rebound. Comments: Diffuse right lower abdominal tenderness Musculoskeletal: General: No swelling. Normal range of motion. Right lower leg: No edema. Left lower leg: No edema. Neurological: Mental Status: She is alert and oriented to person, place, and time. Skin: General: Skin is warm and dry. Psychiatric: Mood and Affect: Mood normal. Behavior: Behavior normal. Vitals and nursing note reviewed. Exam conducted with a news commentator present. Vitals: There is no height or weight on file to calculate BMI. BP: 100/50 No LMP recorded. (Menstrual status: No Periods). ASSESSMENT & PLAN ICD-10-CM 1. Pelvic pain R10.2 US PELVIS-TRANSVAG IF INDICATED metroNIDAZOLE (Flagyl) 500 MG tablet ciprofloxacin (Cipro) 500 MG tablet ondansetron ODT (Zofran-ODT) 4 MG disintegrating tablet 2. Complex ovarian cyst N83.299 Lactate dehydrogenase, isoenzymes CEA HCG, tumor marker CA 125 AFP tumor marker US PELVIS-TRANSVAG IF INDICATED Lactate dehydrogenase, isoenzymes CEA HCG, tumor marker CA 125 AFP tumor marker Pt was seen in er on 02/26/24. Pt had been in office just prior to ER visit of right lower quadrant pain. While in ER, Pt had blood work, US and CT scan. CT scan resulted in 2.9 right ovarian cyst andmild wall thickening mid and distal to colon suspected to be secondary to lack of distention but possible colitis.Pt was medicated with toradol, morphine and zofran and continued to experience pain and was then taken to US. US results consistent with 2.4 cm benign cyst. In office today, pt continues to have discomfort and states loose stools with normal gas. She states she does have some tenderness with bowel movements but pain improves for a short time following. Pt also states continued nausea and chills. Pt does not have acute abdomin on exam today but is tender. We will send in cipro and flagyl. Pt given work note for days missed. Pt is to follow up via telehealth if symptoms do not improve or return to er if worsen or high fever. Pt verbalized understanding and agrees with plan of care. We will also give order for repeat US in 6 weeks and blood work . Documented by Cynthia Murphy LPN on behalf of: THEODORE Oconnor documented in this encounterSaint Joseph Hospital of [id number] History of Present illness Narrative* Shanique Solano LPN - 02/25/2024 2:30 PM EDT Reason for Appointment: Patient ID: Snehal Lizama is a 28 y.o. female who presents for Pelvic Pain Patient presents today for Acute Visit. MEDICATIONS Current Outpatient Medications Medication Instructions buPROPion HBr ER (Aplenzin) 174 MG tablet sustained-release 24 hour Aplenzin Levonorgestrel (Mirena, 52 MG,) 20 MCG/DAY intrauterine device as directed Intrauterine ALLERGIES Allergies Allergen Reactions Cocamide Unknown Sulfa Antibiotics Unknown Sulfamethoxazole-Trimethoprim Unknown Tramadol Unknown Fluticasone Unknown Pt can't tolerate the flonase she states it makes her symptoms worse. Sulfasalazine Rash PROBLEMS Active Ambulatory Problems Diagnosis Date Noted No Active Ambulatory Problems Resolved Ambulatory Problems Diagnosis Date Noted No Resolved Ambulatory Problems Past Medical History: Diagnosis Date Abnormal uterine bleeding (AUB) Bloody vaginal discharge BMI 28.0-28.9,adult Breast pain in female Family history of breast cancer in first degree relative Left breast lump Pelvic pain in female Rupture of ovarian cyst Seasonal allergies Well woman exam HISTORY PAST MEDICAL HISTORY SOCIAL HISTORY Past Medical History: Diagnosis Date Abnormal uterine bleeding (AUB) Bloody vaginal discharge BMI 28.0-28.9,adult Breast pain in female Family history of breast cancer in first degree relative Left breast lump Pelvic pain in female Rupture of ovarian cyst Seasonal allergies Well woman exam Social History Tobacco Use Smoking status: Never Smokeless tobacco: Never Substance Use Topics Alcohol use: Never Drug use: Never FAMILY HISTORY No family history on file. SURGICAL HISTORY History reviewed. No pertinent surgical history. REVIEW OF SYSTEMS Review of Systems: Review of Systems Constitutional: Negative. HENT: Negative. Eyes: Negative. Respiratory: Negative. Cardiovascular: Negative. Gastrointestinal: Negative. Genitourinary: Positive for pelvic pain. Musculoskeletal: Negative. Skin: Negative. Neurological: Negative. All other systems reviewed and are negative. Hematological: Negative. Endocrine: Negative. Allergic/Immunologic: Negative. OBJECTIVE Objective: Physical Exam Constitutional: Appearance: Normal appearance. She is well-developed. Cardiovascular: Rate and Rhythm: Normal rate and regular rhythm. Pulmonary: Effort: Pulmonary effort is normal. Breath sounds: Normal breath sounds. Abdominal: General: Bowel sounds are normal. There is no distension. Palpations: Abdomen is soft. Tenderness: There is no abdominal tenderness. There is no guarding or rebound. Musculoskeletal: General: No swelling. Normal range of motion. Right lower leg: No edema. Left lower leg: No edema. Neurological: Mental Status: She is alert and oriented to person, place, and time. Skin: General: Skin is warm and dry. Psychiatric: Mood and Affect: Mood normal. Behavior: Behavior normal. Vitals and nursing note reviewed. Exam conducted with a news commentator present. Vitals: There is no height or weight on file to calculate BMI. BP: 116/74 No LMP recorded. (Menstrual status: No Periods). ASSESSMENT & PLAN ICD-10-CM 1. Pelvic pain in female R10.2 US PELVIS-TRANSVAG IF INDICATED CT abdomen pelvis w and wo IV contrast 2. Right sided abdominal pain R10.9 US PELVIS-TRANSVAG IF INDICATED CT abdomen pelvis w and wo IV contrast Pt presents with right sided pelvic pain and abdominal pain- pain is worse while driving over tracks and bumps. Pt given pelvic ultrasound to have obtained. Ordered ctscan to r/o appendicitis. Pt advised if pain worsens or fevers start to go to ER pt voiced understanding. Documented by Shanique Solano LPN on behalf of: Michael Chavez DO documented in this encounterSaint Joseph Hospital of [id number] Hospital Discharge instructions Patient Education 10/11/2023 07:15:11 [...] Follow these instructions at home: Medicines Take flzy-yun-anuoxyn and prescription medicines only as told by [...] you need help quitting, ask your health careprovider. Rest as needed. Drink enough fluid to keep your urine pale yellow. Wash your hands often with soap and water for at least 20 seconds. If soap and water are not available, use hand passport support manager. Contact a health care provider if: You [...] things can cause a sore throat. Take jwts-jli-oazwizm medicines only as told by your health [...] provider. Document Revised: 09/20/2021 Document Reviewed: 09/20/2021 [employer] Patient Education 2022 [employer]. Follow Up Care 10/11/2023 06:27:52 With:Linden MSN, SUPERVIS[employer], Sherin Tillman Address: [address] [place] [phone] When: only if needed [facility] 03-12-2024 Hospital Discharge instructions Patient Education 09/17/2023 12:50:56 BMI for Adults BMI for Adults What is BMI? Body mass index (BMI) is a number that is calculated from a person's weight and height. BMI can help estimate how much of a person's weight is composed of fat. BMI does not measure body fat directly.Rather, it is an alternative to procedures that [...] your height. Both height and weight are measured,and the BMI is calculated from those numbers. This can be done either in [place] (U[place] or metric measurements. Note that charts and online BMI calculators are available to help you find your BMI quickly and easily without having to do these calculations yourself. To calculate your BMI in British (U.S[place] measurements: 1.Measure your weight in pounds [...] inches squared measurement is 70 inches x 70inches, which equals 4,900 inches squared. 4.Divide the [...] muscular build, such as an athlete, may havea BMI that is higher than 24.9. In cases like these, BMI is not an accurate measure of body fat. To determine if excess body fat is the cause of a BMI of 25 or higher, further assessments may needto be done by a health care provider. BMI is usually interpreted in the same way for men and women. Where to find more information For more information about BMI, including tools to quickly calculate your BMI, go to these websites: Centers for Disease Control and Prevention: www.cdc.gov [place] Heart [employer]: www.heart.org National Heart, Lung, and Blood [place]: www.nhlbi.nih.gov Summary Body mass index (BMI) is a number that is calculated from a person's weight and height. BMI may help estimate how much of a person's weight is composed of fat. BMI can help identify thosewho may be at higher risk for certain medical problems. BMI can be measured using British measurements or metric measurements. BMI charts are used to identify whether you are underweight, normal weight, overweight, or obese. This information is not intended to replace advice given to you by your health care provider. Make sure you discuss any questions you have with your health care provider. Document Revised: 03/16/2020 Document Reviewed: 01/22/2020 [employer] Patient Education 2022 [employer]. 09/17/2023 12:50:54 Viral Illness, Adult Viral Illness, [...] cells in your body, multiply, and cause theinfected cells to work abnormally or . When these cells , they release more of the virus. When this happens, you develop symptoms of the illness, and the virus continues to spread to other cells. If the virus takes over the function of the cell, it can cause the cell to divide and grow out ofcontrol. This happens when a virus causes cancer. [...] stool sample, or a swab of body fluidsor a skin sore (lesion). How is this treated? Viruses can be hard to treat because they live within cells. Antibiotic medicines do not treat viruses because these medicines do not get inside cells. Treatment for a viral illness may include: Resting and drinking plenty of fluids. Medicines to relieve symptoms. These can include qrbv-gnp-wtghzhi medicine for pain and fever, medicines for cough or congestion, and medicines to relieve diarrhea. Antiviral medicines. These medicines are available only for certain types of viruses. Some viral illnesses can be prevented with vaccinations. A common example is the flu shot. Follow these instructions at home: Medicines Take uqqo-mtp-josctjk and prescription medicines only as told by [...] that you may have, or are at riskfor, a bacterial infection and you have a [...] and water are not available, use hand passport support manager. Avoid touching your nose, eyes, and mouth, especially if you have not washed your hands recently. If anyone in your household has a viral infection, clean all household surfaces that may have been in contact with the virus. Use soap and hot water. You may also use bleach that you have added waterto (diluted). Stay away from people who are [...] person's body and cause illness. Viral illnesses canrange from mild to severe. They can affect various parts of the body. Viruses can be hard to treat. There are medicines to relieve symptoms, and there are some antiviralmedicines. If you were prescribed an antiviral medicine, [...] provider. Document Revised: 11/07/2020 Document Reviewed: 05/03/2020 [employer] Patient Education 2022 [employer]. [facility] 05-11-2023 Evaluation + Plan note Future Scheduled Tests Laboratory* HgbA1c 11/15/22 * TSH With T4fr Reflex 11/15/22 * SARS-CoV-2, JACOB 02/27/22 [facility] 02-15-2023 Hospital Discharge instructions Patient Education 08/22/2022 12:10:37 [...] water added (diluted fruit juice). Eat bland, pdah-qz-amjamj foods in small amounts as you are able. These foods include bananas, applesauce, rice, lean meats, toast, and crackers. Avoid fluids that contain a lot of sugar or caffeine, such as energy drinks, sports drinks, and soda. Avoid alcohol. Avoid spicy or fatty foods. General instructions Take wtoj-lmj-rqxyrcw and prescription medicines only as told by your health care provider. Drink enough fluid to keep your urine pale yellow. Wash your hands often using soap and water. If soap and water are not available, use hand passport support manager. Make sure that all people in your [...] you are about to vomit. As nausea getsworse, it can lead to vomiting. Vomiting can make you feel weak and cause you to become dehydrated. Follow instructions from your health care provider about eating and drinking to prevent dehydration. Take zyxe-xzq-secqgro and prescription medicines only as told by [...] 06/24/2006 Document Revised: 10/16/2019 Document Reviewed: 12/02/2018 [employer] Patient Education 2020 [employer] 08/22/2022 12:10:36 Vomiting, Adult Vomiting, Adult Vomiting occurs when stomach contents are thrown up and out of the mouth. Many people notice nauseabefore vomiting. Vomiting can make you feel weak [...] at pharmacies and retail stores. Eat bland, cksy-yu-gbwyon foods in small amounts as you are [...] and water are not available, use hand passport support manager. Make sure that everyone in your household washes their hands frequently. Take kzwh-rml-dbcakwb and prescription medicines only as told by [...] of the mouth. Vomiting can cause you tobecome dehydrated. Older adults and people who have other diseases or a weak immune system are at higher risk for dehydration. It is important to treat vomiting as told by your health care provider. Follow your health care provider's instructions about eating and drinking. Wash your hands often using soap and water. If soap and water are not available, use hand passport support manager. Make sure that everyone in your household [...] 07/20/2016 Document Revised: 12/11/2019 Document Reviewed: 12/02/2018 [employer] Patient Education 2020 [employer]. 08/22/2022 12:10:19 Sinusitis, Adult Sinusitis, Adult Sinusitis is inflammation of your sinuses. Sinuses are hollow spaces in the bones around your face.Your sinuses are located: Around your eyes. In [...] a feeling of pressure around the affected sinuses.Other symptoms include: Stuffy nose or congestion. Thick [...] at home: Medicines Take, use, or apply kmnd-rqk-agtmbeh and prescription medicines only as told by your health care provider. These may include nasal sprays. If you were prescribed an antibiotic medicine, take it as told by your health care provider. Do notstop taking the antibiotic even if you start [...] or as told by your health care provider.This will help with discomfort. Wash your hands often with soap and water to reduce your exposure to germs. If soap and water are not available, use hand passport support manager. Do not smoke. Avoid being around people [...] told by your health care provider. Do notstop taking the antibiotic even if you start to feel better. Keep all follow-up visits as told by your health care provider. This is important. This information is not intended to replace advice given to you by your health care provider. Make sure you discuss any questions you have with your health care provider. Document Released: 06/24/2006 Document Revised: 11/24/2018 Document Reviewed: 11/24/2018 [employer] Patient Education 2020 [employer]. 08/22/2022 12:10:18 BMI for Adults BMI for [...] problems. It is used to check whether aperson is obese, overweight, healthy weight, or underweight. How is BMI calculated? BMI measures your weight and compares it to your height. This can be done either in [place] (U.S[place] or metric measurements. Note that charts are available to help you find your BMI quickly and easily without having to do these calculations yourself. To calculate your BMI in British ([place] measurements, your health care provider will: [...] muscular build, such as an athlete, may havea BMI that is higher than 24.9. In cases like these, BMI is not an accurate measure of body fat. To determine if excess body fat is the cause of a BMI of 25 or higher, further assessments may needto be done by a health care provider. [...] medical problems. BMI can be measured using British measurements or metric measurements. To interpret your [...] 03/05/2005 Document Revised: 06/06/2018 Document Reviewed: 05/07/2018 [employer] Patient Education 2020 [employer]. Follow Up Care 08/22/2022 11:04:46 With:Dex JUSTICE, LOUIE Daigle Address: [facility] [address] [place] [phone] When: Unknown [facility] 01-31-2023 Evaluation + Plan noteExtracted from:Title: ED NoteAuthor:Rivka NIXON, LilianaenDate:08/07/22 Pharyngitis (J02.9: Acute ph aryngitis, unspecified) Orders: dexamethasone, 10 mg = 2.5 mL, Injection, Oral, Once, Stop date 08/07/22 7:54:00 EST, STAT, Start date 08/07/22 7:54:00 EST, 08/07/22 7:54:00 EST Group A Strep by PCR Rapid Strep w/rfx Future Scheduled Tests Laboratory* SARS-CoV-2, JACOB 02/27/22 [facility]01-[facility]2023 Hospital Discharge instructions Patient Education 08/07/2022 [...] medicines. Follow these instructions at home: Take ffdi-eyb-ylcjvny and prescription medicines only as told by [...] 06/24/2006 Document Revised: 06/06/2018 Document Reviewed: 07/30/2017 [employer] Patient Education 2020 [employer]. Follow Up Care 08/07/2022 07:49:47 With:Kristyn Dex Address: [address] [place] [address] [phone] Business (1) When:08/10/2022 08:37:22 [facility]08-23-2022 Evaluation + Plan note Future Scheduled Tests Laboratory* SARS-CoV-2, JACOB 02/27/22 [facility]05-25-2022 Hospital Discharge instructions Patient Education 11/29/2021 [...] Follow these instructions at home: Medicines Take wrue-tac-kvipubk and prescription medicines only as told by your health care provider. Ask your health care provider if the medicine prescribed to you: ?Requires you to avoid driving or using heavy machinery. ?Can cause constipation. You may need to take these actions to prevent or treat constipation: ?Drink enough fluid to keep your urine pale yellow. ?Take oeue-qqy-xsjgjin or prescription medicines. ?Eat foods that are [...] 06/24/2006 Document Revised: 10/16/2019 Document Reviewed: 08/06/2019 [employer] Patient Education 2019 [employer]. [facility] [place] 04-06-2022 Hospital Discharge instructions Patient Education 10/11/2021 [...] Follow these instructions at home: Medicines Take eibc-hnn-faaprff and prescription medicines only as told by your health care provider or pharmacist. Ask your pharmacist what rixy-pwq-rqxqhjg cold medicines you should avoid. Some medicines [...] a problem, search for a local or our community hospital mental health care center. Public mental [...] 10/24/2017 Document Revised: 10/16/2019 Document Reviewed: 10/24/2017 [employer] Patient Education 2019 [employer] 10/11/2021 11:12:08 Bipolar 1 Disorder Bipolar [...] hard liquor (44 mL). General instructions Take yzlz-vbb-azjdzlw and prescription medicines only as told by [...] important. Where to find more information National [place] on Mental Illness: www.homer.org National [place] of Mental Health: www.nimh.nih.gov Contact a health [...] 09/30/2001 Document Revised: 12/08/2019 Document Reviewed: 12/08/2019 [employer] Patient Education 2020 [employer]. Follow Up Care 10/06/2021 16:00:44 With:Seth ANTONIO Address: [address] [place] [phone] When:Within 4 Week(s) [facility] + Plan note Future Scheduled Tests Laboratory* SARS-CoV-2, JACOB [facility] Future Appointments Appointment Date:11/15/2021 11:00:00 AM Scheduled Provider:Seth ANTONIO [facility] Type: Open Future Scheduled Tests Laboratory* SARS-CoV-2, JACOB [facility] Future Appointments Appointment Date:02/28/2022 09:00:00 AM Scheduled [facility]: [facility] App[facility] Type:Outpatient COVID Testing Appointment Date:02/28/2022 09:00:00 AM Scheduled Provider: [facility] Appointment Type:Outpatient Antigen Testing Future Scheduled Tests Laboratory* SARS-CoV-2, JACOB 02/27/22 [facility] Nitin Evaluation + Plan note Future Appointments Appointment Date:06/23/2024 09:00:00 AM Scheduled Provider: [facility] Appoint[facility] Type:NM Gastric Emptying Study (FT) Future Scheduled Tests Radiology* NM Gastric Emptying Study 06/23/24 [facility] Evaluation + Plan note Future Appointments Appointment Date:06/23/2024 09:00:00 AM Scheduled Provider: [facility] Appoint[facility] Type:NM Gastric Emptying Study (FT) Diagnostic Tests Pending * Celiac Disease Comprehensive 06/10/24 Future Scheduled Tests Radiology* NM Gastric Emptying Study 06/23/24 [facility] Evaluation + Plan note Future Appointments Appointment Date:08/13/2024 01:15:00 PM Scheduled Provider:Misty Sánchez MD [place] [place] Type:BADH [facility] note* Diagnosis Nausea Nausea alone Right sided abdominal pain Abdominal pain, unspecified site documented in this encounter [facility]* Diagnosis Abdominal pain, right upper quadrant- Primary Biliary colic Calculus of gallbladder without mention of cholecystitis or obstruction [facility] Diagnosis Right sided abdominal pain- Primary Abdominal pain, unspecified site documented in this encounter [facility]* Diagnosis Pelvic pain in female Unspecified symptom associated with female genital organs Right sided abdominal pain Abdominal pain, unspecified site documented in this encounter [facility] note* Diagnosis Pelvic pain Complex ovarian cyst documented in this encounter [facility] note* Diagnosis Exposure to STD Urinary tract infection without hematuria, site unspecified Nausea Nausea alone RUQ pain Abdominal pain, right upper quadrant documented in this encounter [facility] note* Diagnosis Acute gastritis without hemorrhage, unspecified gastritis type- Primary documented [facility] this [facility] Diagnosis Encounter for IUD removal Encounter for IUD insertion Insertion of intrauterine contraceptive device [facility] Narrative No data available for this section [facility] Discharge instructions No data available for this section [facility]* Attachments The following attachments cannot be sent through Care Everywhere. * Gallbladder Disease: Low-Fat Diet (British) [facility] Attachments The following attachments cannot be sent through Care Everywhere. * Gastritis (British) [facility] No data available for this section [facility] Nitin Reason for referral (narrative) Referred by: Misty Sánchez MD [facility] Assessments DiagnosisBursitis/tendonitis, shoulder - Primary Unspecified disorders of bursae and tendons in shoulder region DiagnosisBursitis/tendonitis, shoulder - Primary Unspecified disorders of bursae and tendons in shoulder region Strain of right shoulder, initial encounterDiagnosis Chest pain, unspecified type- Primary Diagnosis Fatigue, [...] No Advanced Directives Records FoundDocuments on File TypeDate RecordedPatient RepresentativeExplanationACP-Advance DirectiveACP-Power of [employer] Mender Reason for Referral StatusReasonSpecialtyDiagnoses / ProceduresReferred By ContactReferred To ContactClosed Procedures ECG Mitchel Birmingham MD [address] [place] [address] SpecialtyDiagnoses / ProceduresReferred By ContactReferred To ContactRadiology Diagnoses Pelvic pain in female Right sided abdominal pain Procedures CT abdomen pelvis w and wo IV contrast Michael Chavez, DO [address] [place] [address] Referral IDStatusReasonStart DateExpiration DateVisits RequestedVisits [id number] Review/ Discharge Instructions * Mitchel Birmingham MD - 08/01/2018 Return for any worsening symptoms, follow-up her primary care physician early next week The following attachments cannot be sent through Care Everywhere. * Chest Pain, Uncertain Cause (British) in this encounter Additional Source Comments INFORMATION SOURCE (unrecogn ized section and content) DATE CREATED AUTHOR 12/25/2017 [facility] DATE CREATED AUTHOR AUTHOR'S ORGANIZ ATION 06/16/[address] [facility] DATE CREATED AUTHOR AUTHOR'S ORGANIZ ATION 08/21/2018 [facility] DATE CREATED AUTHOR AUTHOR'S ORGANIZ ATION 02/10/2022 [facility] DATE CREATED AUTHOR AUTHOR'S ORGANIZ ATION 06/05/2024 [facility] DATE CREATED AUTHOR AUTHOR'S ORGANIZ ATION 06/28/2024 [facility] DATE CREATED AUTHOR AUTHOR'S ORGANIZ ATION 09/11/2024 [facility] DATE CREATED AUTHOR AUTHOR'S ORGANIZ ATION 10/13/2024 [facility] DATE CREATED AUTHOR AUTHOR'S ORGANIZ ATION 10/14/2024 [facility] DATE CREATED AUTHOR AUTHOR'S ORGANIZ ATION 12/09/2024 [facility] DATE CREATED AUTHOR AUTHOR'S ORGANIZ ATION 03/04/2025 [facility] Reason for Visit (unrecogniz ed section and content) ReasonCommentsChest Painpatient c/o midsternal chest pain that started at 8:30, worse with a deep breath, denies cough, denies treatmentReasonCommentsfollow up abdominal painReasonCommentsAbdominal PainAbdominal pain RUQ since February. Due to have her GB consult on June 10 but came to ER for worsening pain since 429ReasonCommentsPelvic PainReasonCommentsER Follow-upRight sided pelvic pain- Possible cystReasonCommentsSTI ScreeningPt to be seen for cx's not feeling well. ReasonCommentsAbdominal PainMid/upper abd pain that has been going on approximately 3 weeks. States she came to be seen becauseshe had bloody emesis this AM.ReasonCommentsIUD removal and insertion Care Team (unrecognized sect ion and content) Team MemberRelationshipSpecialtyStart DateEnd Date Dino Zheng MD [address] [place] [address] [place] [address] PCP - GeneralFamily Ljbgosvi74/27/24 Ordered Prescriptions (unrec ognized section and content) PrescriptionSigDispensedRefillsStart DateEnd Date dicyclomine (BENTYL) 20 MG tablet Take 1 tablet by mouth 3 times daily as needed (Abdominal pain/cramps) 30 tablet 06/03/2024rescriptionSigDispensedRefillsStart DateEnd Date pantoprazole (PROTONIX) 40 MG tablet Take 1 tablet by mouth every morning (before breakfast) 30 tablet / famotidine (PEPCID) 20 MG tablet Take 1 tablet by mouth 2 times daily for 7 days 14 tablet / Scheduled Active and Recently Administ ered Medications (unrecognized section and content) Medication Order// ketorolac (TORADOL) injection 30 mg (COMPLETED) 30 mg, IntraVENous, ONCE, 1 dose, On Sat06/03/24 at 1015, Do not administer for more than 5 days. * 1013 (Given - Provider: Liza Clifton RN) ondansetron (ZOFRAN) injection 4 mg (COMPLETED) 4 mg, IntraVENous, ONCE, 1 dose, On Sat06/03/24 at 1015 * 1013 (Given - Provider: Liza Clifton RN) sodium chloride 0.9 % bolus 1,000 mL (COMPLETED) 1,000 mL (12.9 mL/kg), IntraVENous, at 1,000 mL/hr, Administer over 1 Hours, ONCE, On Sat06/03/24 at 1015, For 1 dose, For IV Hydration * 1013 (New Bag - Provider: Liza Clifton RN) * 1108 (Stopped - Provider: Liza Clifton RN) Medication Order03/26//// aluminum & magnesium hydroxide-simethicone (MAALOX) 30 mL, lidocaine viscous hcl (XYLOCAINE) 5 mL (GI COCKTAIL) (COMPLETED) Oral, ONCE, On 03/28/24 at 0645, For 1 dose, Take 5 mL from lidocaine viscous 2% cup and mix with 30 mL of maalox and then administer. * 0657 (Given - Provider: Sigrid Tarango RN) famotidine (PEPCID) 20 mg in sodium chloride (PF) 0.9 % 10 mL injection (COMPLETED) 20 mg, IntraVENous, ONCE, 1 dose, On 03/28/24 at 0645, IV Push over minimum of 2 minutes - Dilute with 10 mL NS * 0657 (Given - Provider: Sigrid Tarango RN) FOR RECORDS PERTAINING TO PATIENTS WHO ARE [...] BE BASED ON THE PRIMARY CLINICAL RECORDS. [employer] provides no warranty or guarantee of the accuracy or completeness of information in this document.
[2025-04-27 16:15] LABS: Hematocrit 39.6 % (36.0-48.0); Hemoglobin 13.1 g/dL (12.0-16.0); Immature Granulocytes Abs Auto 0.03 10^3/uL (0.00-0.03); Immature Granulocytes Pct Auto 0.4 % (0.0-0.5); Lymphocytes Absolute Auto 2.6 10^3/uL (1.2-3.8); Mean Corpuscular HGB Conc 33.1 g/dL (29.9-35.2); Mean Corpuscular Hemoglobin 31.0 pg (26.7-34.0); Mean Corpuscular Volume 93.6 fL (81.0-99.0); Platelet Count 273 10^3/uL (150-450); Red Blood Count 4.23 10^6/uL (4.20-5.40); White Blood Count 8.5 10^3/uL (4.0-11.0)
[2025-04-27 17:09] LABS: Thyroid Stimulating Hormone 1.667 uIU/mL (0.358-3.740)
[2025-04-29 13:08] LABS: FSH 6.7 mIU/mL (.)
== END 2025-04-27 15:41 | disposition home or self-care (01) ==
PROVIDERS: Visit Provider Obstetrics & Gynecology
DX: E28.2 Polycystic ovarian syndrome (principal); N93.9 Abnormal uterine and vaginal bleeding, unspecified
CPT/HCPCS: 36415; 82626; 82627; 82670; 83001; 83002; 83036; 84144; 84439; 84443; 84702; 85025